=== PATIENT | female | born 1940 | race Caucasian/White ===

== ENCOUNTER 2022-05-20 16:25 | Emergency (ER) | payer MEDICARE, BC, SELFPAY ==
[2022-05-20] VITALS (12 sets, daily range): BP systolic 134–165; BP diastolic 60–86; PULSE 59–85; RESP 18; TEMP 36.6; O2SAT 95–98; BMI 24.0
--- NOTE | 2022-05-20 17:28 | CRLHL7_ITS ---
For Patients: As a result of the Century Cures Act, medical imaging exams and procedure reports are released immediately into your electronic medical record. You may view this report before your referring provider. If you have questions, please contact your health care provider. HISTORY: Chest pain. COMPARISON: None available FINDINGS: A portable erect AP view of the chest was obtained at 1752 hours. The lungs are clear. No focal or diffuse infiltrates are present. There is no sign of pneumothorax or abnormality of the ribs to correlate with the history of chest pain. The heart is normal in size. The mediastinum is normal in appearance. The visualized portions of the components of a reverse right total shoulder prosthesis are in anatomic alignment with no sign of fracture, loosening, or dislocation. There is no sign of fracture of the [place] osseous structures. IMPRESSION: No active disease seen in the chest. Dictated by Jagdeep Smith MD @ 05/20/2022 6:13:31 PM (Electronically Signed)
--- NOTE | 2022-05-20 17:33 | ED.GENADULT ---
HPI - General Adult General Time Seen by Provider: 17:33 Date Seen: 05/20/22 Chief complaint: Chest Pain Stated complaint: Chest pain Time Seen by Provider: 05/20/22 17:13 Source: patient Mode of arrival: ambulatory Limitations: no limitations History of Present Illness HPI narrative: Patient is an 81 year white female who went to the clinic was told to come to the ER for squeezing upper abdominal lower chest pain that lasted for 15 minutes. She has not had any history of heart disease, has had no history of fever, chills, diaphoresis, she felt ?hot? when this was occurring, but then it went away and she has felt back fairly back to normal. She has had no icterus, no change in bowel or bladder color, no gallbladder symptoms. No leg swelling or edema. No of prior chest pain or other true chest pain today, she describes it is in her epigastrium. She saw nurse at the clinic and the clinic was busy so they asked her to come to the ER. Related Data Home Medications Medication Instructions Recorded Confirmed metoprolol succinate 25 mg 25 mg PO DAILY 05/20/22 05/21/22 tablet,extended release 24 hr rosuvastatin 5 mg tablet 5 mg PO HS 05/20/22 05/21/22 aspirin 81 mg capsule 81 mg PO DAILY 05/21/22 05/21/22 Previous Rx's Medication Instructions Recorded meclizine 25 mg tablet 25 mg PO Q6H PRN #10 tabs 05/24/22 Allergies Allergy/AdvReac Type Severity Reaction Status Date / Time No Known Drug Allergies Allergy Verified 05/20/22 16:38 Review of Systems Status of ROS: Reports: 10 or more systems reviewed and unremarkable except as noted in History and below PFSH PFSH Medical History (Updated 05/24/22 @ 08:34 by Rico Yoon MD) Benign paroxysmal positional vertigo Hyperlipidemia Hypertension Myopathy Osteoporosis Surgical History (Updated 05/21/22 @ 19:12 by Aaln Aguilar MD) History of partial hysterectomy Family History (Updated 05/21/22 @ 19:14 by Alan Aguilar MD) Brother Metastatic cancer Mother Heart disease Sister Heart disease Father Alzheimers disease Social History (Updated 05/21/22 @ 19:15 by Alan Aguilar MD) Narrative: She lived in [place] and [facility] Her sister is healthcare power of corporate attorney. Her code status is full. She is a former smoker. She rarely drinks alcohol. No recreational drug use. Highest level of school completed/degree received: high school graduate Smoking Status: Former smoker How often do you have a drink containing alcohol: monthly or less Alcohol type: beer AUDIT-C Alcohol total score: 1 Non-prescribed substance use: denies use Caffeine: Yes service: No Exam Narrative: Exam Narrative: Objective: Patient's vital signs unremarkable, she is alert or x3, no distress, no complaint of chest pain or breathing problem. No abdominal pain Vital signs are unremarkable other than slightly elevated blood pressure, afebrile HEENT is unremarkable Neck is supple Chest is clear Heart rhythm regular without murmur Abdomen benign soft nontender no masses Extremities are no edema neurologic nonfocal grossly Skin warm and dry Const: Vital Signs, click to edit/add: Vital Signs - 24 hr 05/20/22 16:48 05/20/22 18:38 Temperature 97.8 F Pulse Rate [Pulse Oximeter] 85 Respiratory Rate 18 Blood Pressure [Le ft Upper Arm] 165/60 H Pulse Oximetry 98 97 Oxygen Delivery Me thod Room Air Course Vital Signs Vital signs: Initial Vital Signs Temperature 97.8 F 05/20/22 16:48 Temperature Source Temporal Artery Scan 05/20/22 16:48 Pulse Rate 85 05/20/22 16:48 Respiratory Rate 18 05/20/22 16:48 Blood Pressure 165/60 H 05/20/22 16:48 Blood Pressure Mean 95 05/20/22 16:48 Pulse Oximetry 98 05/20/22 16:48 Oxygen Delivery Method 05/20/22 16:48 Vital Signs Temperature 97.8 F 05/20/22 16:48 Pulse Rate 85 05/20/22 16:48 Respiratory Rate 18 05/20/22 16:48 Blood Pressure 165/60 H 05/20/22 16:48 Pulse Oximetry 98 05/20/22 16:48 Oxygen Delivery Method 05/20/22 16:48 Temperature 97.8 F 05/20/22 16:48 Pulse Rate 64 05/20/22 20:35 Respiratory Rate 18 05/20/22 16:48 Blood Pressure 134/86 05/20/22 19:32 Pulse Oximetry 97 05/20/22 20:35 Oxygen Delivery Method 05/20/22 16:48 Medical Decision Making MDM Narrative Medical decision making narrative: Patient had a 15 minutes spell of epigastric tightness lower ribcage tightness, now has improved in is back to baseline. Unclear etiology, I think at this point be blanca to get rule out acute coronary syndrome will get 90 minute troponins, EKGs x2, and will also do electrolytes and LFTs. Certainly also gallbladder disease could be a possibility or GI cause, but I do not see any evidence of that now and it does not continue with her symptoms. Will review her lab studies as they return, IV fluid, aspirin given. Disposition pending findings above. Addendum: Patient's chest x-ray by my read looks unremarkable, her initial troponin other labs look reassuring. She has remained asymptomatic, will repeat an EKG and troponin at 8:00 p.m. if these are negative then I think she can go home rest light activity follow up the regular doctor in the next few days and reassess. Return to ED if there is problems or concerns in the interim. Given this was such a short-lived episode it is hard to determine if this is all negative what was actually occurring. She may have had some intestinal type colic, and will need observation time and light activity and follow-up as mention. Lab Data Labs: Lab Results 05/20/22 05/20/22 05/20/22 Range/Units 18:20 18:20 18:20 WBC 5.63 (4.50-11.00) K/uL RBC 3.80 L (4.00-5.20) m/uL Hgb 11.9 L (12.0-16.0) gm/dL Hct 35.1 (33.0-51.0) % MCV 92 (80-100) fL MCH 31 (26-34) pg MCHC 34 (32-36) gm/dL RDW Coeff of Ojs 13.4 (11.5-15.5) % Plt Count 266 (140-440) K/uL Neut % (Auto) 76.5 H (42.0-72.0) % Lymph % (Auto) 12.3 L (20-44) % [place] % (Auto) 6.9 (0.0-11.0) % Eos % (Auto) 3.7 (0.0-7.0) % Baso % (Auto) 0.4 (0.0-3.0) % Neut # (Auto) 4.30 (1.7-7.0) K/uL Lymph # (Auto) 0.70 L (0.90-2.90) K/uL [place] # (Auto) 0.40 (0.00-0.90) K/UL Eos # (Auto) 0.21 (0.00-0.50) K/uL Baso # (Auto) 0.02 (0.00-0.30) K/uL Abs Immat Gran (auto) 0.01 (0.00-0.30) K/uL Imm/Tot Granulo (auto) 0.2 % Sodium 130 L (135-149) mmol/L Potassium 4.5 (3.6-5.1) mmol/L Chloride 99 (96-114) mmol/L Carbon Dioxide 25 (20-32) mmol/L BUN 22 (7-30) mg/dL Creatinine 0.5 (0.5-1.5) mg/dL Estimated Creat Clear 35.66 Estimated GFR 95 ml/min Glucose 118 H (60-115) mg/dL Calcium 8.8 (8.4-10.6) mg/dL Total Bilirubin 0.5 (0.1-1.5) mg/dL Direct Bilirubin 0.1 (0.0-0.5) mg/dL AST 45 H (12-35) U/L ALT 49 H (4-35) U/L Alkaline Phosphatase 57 (40-150) U/L Troponin I (0.01-0.04) ng/mL C-Reactive Protein < 0.5 L (0.5-1.0) mg/dL Total Protein 6.9 (6.0-8.3) g/dL Albumin 4.1 (3.3-5.0) g/dL Amylase 112 H (18-89) U/L 05/20/22 05/20/22 Range/Units 18:20 20:03 WBC (4.50-11.00) K/uL RBC (4.00-5.20) m/uL Hgb (12.0-16.0) gm/dL Hct (33.0-51.0) % MCV (80-100) fL MCH (26-34) pg MCHC (32-36) gm/dL RDW Coeff of Jos (11.5-15.5) % Plt Count (140-440) K/uL Neut % (Auto) (42.0-72.0) % Lymph % (Auto) (20-44) % [place] % (Auto) (0.0-11.0) % Eos % (Auto) (0.0-7.0) % Baso % (Auto) (0.0-3.0) % Neut # (Auto) (1.7-7.0) K/uL Lymph # (Auto) (0.90-2.90) K/uL [place] # (Auto) (0.00-0.90) K/UL Eos # (Auto) (0.00-0.50) K/uL Baso # (Auto) (0.00-0.30) K/uL Abs Immat Gran (auto) (0.00-0.30) K/uL Imm/Tot Granulo (auto) % Sodium (135-149) mmol/L Potassium (3.6-5.1) mmol/L Chloride (96-114) mmol/L Carbon Dioxide (20-32) mmol/L BUN (7-30) mg/dL Creatinine (0.5-1.5) mg/dL Estimated Creat Clear Estimated GFR ml/min Glucose (60-115) mg/dL Calcium (8.4-10.6) mg/dL Total Bilirubin (0.1-1.5) mg/dL Direct Bilirubin (0.0-0.5) mg/dL AST (12-35) U/L ALT (4-35) U/L Alkaline Phosphatase (40-150) U/L Troponin I 0.01 0.01 (0.01-0.04) ng/mL C-Reactive Protein (0.5-1.0) mg/dL Total Protein (6.0-8.3) g/dL Albumin (3.3-5.0) g/dL Amylase (18-89) U/L Discharge Plan Discharge Clinical Impression: Acute upper abdominal pain Patient Disposition: Home, Self-Care Instructions: Noncardiac Chest Pain (ED) Additional Instructions: Light activity, fluids, continue home medications, follow up with regular doctor in the next 4-7 days. Return to ED sooner problems concerns worsening. Activity Level: Light activity Discharge Diet: Regular Prescriptions: No Action metoprolol succinate 25 mg tablet extended release 24 hr 25 mg PO DAILY Label Comments: TAKE 1 TABLET BY MOUTH EVERY DAY rosuvastatin 5 mg tablet 5 mg PO HS Label Comments: TAKE 1 TABLET (5 MG) BY MOUTH ONCE DAILY WITH EVENING MEAL. aspirin 81 mg capsule 81 mg PO DAILY meclizine 25 mg Tablet 25 mg PO Q6H PRNQty: 10 0RF Rx Instructions: As needed for acute vertigo Follow Up/Referrals: Provider,Not a Local [Referring] - Stand Alone [facility]: [facility] Instructions
--- OUTSIDE RECORDS SUMMARY | 2022-05-20 17:53 | XMS_ITS | Clinical Summary ---
:1940 Author Organization [facility] [place] [address] Care Team Providers Name Role Phone Shayna Flores DO Primary Care Provider Allergies No known active allergies Medications Medication Sig Dispensed Refills Start End Date Status Date multivitamin (MVI) tablet Take 1 tablet by 0 06/09/ 01 Active mouth once daily. 3 calcium citrate-vitamin Mix 1 Tablet in 0 Active D3 500 mg-12.5 mcg /5 liquid then take gram powd by mouth. fluorometholone (FML) 0.1 INSTILL 1 DROP IN 0 Active % ophthalmic suspension BOTH EYES EVERY 1 DAY NEEDED loteprednol (LOTEMAX) 0.5 INSTILL 1 DROP IN 0 Active % ophthalmic suspension BOTH EYES DAILY 1 triamcinolone Apply topically to 80 g 0 Active (ARISTOCORT; KENALOG) 0.1 affected area(s) 3 1 % cream times daily. acetaminophen (TYLENOL Take 1 Tablet (500 0 12/31/19 2 Active EXTRA STRGTH) 500 mg mg) by mouth every 1 tablet 6 hours if needed. Max acetaminophen dose: 4000mg in 24 hrs. diphenhydrAMINE-acetamino Take 1 Tablet by 0 02 Active phen 25-500 mg (Tylenol mouth at bedtime 1 PM Extra Strength) 25-500 if needed. Max mg tablet acetaminophen dose: 4000mg in 24 hrs. vitamin B complex Take 1 Tablet by 0 Active (Vitamins B Complex) mouth once daily. 1 tablet 3x weekly vitamin e 400 unit Take 1 Capsule 0 Active capsule (400 units) by 1 mouth once daily. denosumab (PROLIA) 60 Inject 60 mg 0 05/24 Active mg/mL injection subcutaneous. 1 22 rosuvastatin (CRESTOR) 5 Take 1 Tablet (5 90 Tablet 2 04/20/20 2 Active mg tabletIndications: mg) by mouth once 2 Familial daily with evening hypercholesterolemia meal. metoprolol succinate Take 1 Tablet (25 90 Tablet 3 Active (Toprol XL) 25 mg mg) by mouth once 2 Sustained-Release daily. tabletIndications: Irregular heart beat Hospital, Clinic, or Ordered Dose Route Frequency Start Date End D ate Status Other Facility Administered Medication denosumab (PROLIA) 60 mg SubQ Q 6 MONTHS (01/06/202105/24 Active injection 60 WEEKS) mgIndications: Osteoporosis, unspecified osteoporosis type, unspecified pathological fracture presence denosumab (PROLIA) 60 mg SubQ Q 6 MONTHS (01/14/202206/01 Active injection 60 WEEKS) mgIndications: Osteoporosis, unspecified osteoporosis type, unspecified pathological fracture presence Active Problems Problem Noted Date Closed fracture of right lower extremity with routine healing 12/24/2020 Irregular heart beat 06/09/2012 Other and unspecified hyperlipidemia 06/09/2012 Encounters Date Type Specialty Care Team Description 05/20/2022 Nurse Triage Shayna Flores Chest Pain DO Kristine 05/20/2022 Telephone Samir Andujar Follow Up MD Andre 05/19/2022 Office Visit Samir Andujar Follow Up (Di scuss muscle MD Andre biopsy.) 05/19/2022 Travel 05/08/2022 Telephone Samir Andujar Results (resu lt questions) MD Andre 05/06/2022 Ancillary Procedure 05/06/2022 Orders Only Lab, [facility] 05/06/2022 Ancillary Procedure 05/06/2022 Travel 04/29/2022 Office Visit Samir Andujar Follow Up (Fo llow up EMG ) MD Andre 04/29/2022 Travel 04/20/2022 Refill Shayna Flores Refill Reques t DO Kristine (rosuvastatin a nd metoprolol ) 03/25/2022 Office Visit Samir Andujar Consult (Cons ult-Right leg MD Andre weakness/Proxim al muscle weakness ) 03/25/2022 Telephone Samir Andujar Questions (NE DAISY Powell MD APPOINTMENT [facility]) 03/25/2022 Travel 03/16/2022 Office Visit Pavel Hampton Musculoskelet traci Wagoner MD (Consult back a nd right leg, review MRI ) 03/16/2022 Travel from Last 3 Months Immunizations Name Administration Dates Next Due Pneumococcal Poly,23-Valent (Pneumovax) 08/22/2008 Pneumococcal conj 13-Valent (Prevnar 13) 04/17/2015 Tdap 06/09/2012, 04/20/2011 Zoster (Shingrix-RZV, recombinant) 10/28/2017 Zoster (Zostavax-ZVL, live) 08/30/2008 Family History Medical History Relation Name Comments Cancer Brother metastatic CA Other Father d at 72 yo - dem entia Heart Disease Mother had pacemaker Other Mother d at 81 - lung d z Heart Disease Sister 2 sisters had ab lations Relation Name Status Comments Brother Father Mother Sister Social History Tobacco Use Types Packs/Day Years Used Date Smoking Tobacco: Former Cigarettes 0.3 15 Quit : 06/07/1971 Smokeless Tobacco: Never Tobacco Cessation: Counseling Given: Yes Alcohol Use Standard Drinks/Week Comments Yes 0 (1 standard drink = 0.6 oz pure alcoho l) 1 beer per month Sex Assigned at Date Recorded Not on file COVID-19 Exposure Response Date Recorded In the last 10 days, have you been in contact with No / Unsu re 05/19/2022 3:12 PM ERP ENGINEER someone who was confirmed or suspected to have Coronavirus/COVID-19? Obstetrics History Para Term AB IAB SAB Ectopic Multiple Living Live Births 6 4 2 2 3 Date Outcome GA Total Labor/2nd/3rd Weight Sex Delivery Anes PTL Sherice A 1 A5 Name Clin Labor Para Para Para Para SAB SAB Comments Son killed in MVA Last Filed Vital Signs Vital Sign Reading Time Taken Comments Blood Pressure 122/72 05/19/2022 3:19 PM ERP ENGINEER Pulse 89 05/19/2022 3:19 PM ERP ENGINEER Temperature 36.7 ??C (98 ??F) 03/16/2022 8:07 AM CDT Respiratory Rate 15 02/02/2022 11:09 AM CDT Oxygen Saturation 96% 05/19/2022 3:19 PM ERP ENGINEER Inhaled Oxygen Concentration - - Weight 52.6 kg (116 lb) 05/19/2022 3:19 PM ERP ENGINEER Height 149.9 cm (4' 11) 05/19/2022 3:19 PM ERP ENGINEER Body Mass Index 23.43 05/19/2022 3:19 PM ERP ENGINEER Plan of Treatment Health Maintenance Due Date Last Done Comments DEXA/DXA scan for age 65+ 2006 Medicare Wellness for age 65+ 2006 Zoster (shingles) series for age 50+ (3 of 12/23/201710/28, 08/30/2008 3) Influenza for age 65+ 02/05/2022 COVID-19 vaccine series (#1) 03/14/2022 03/14/2022 Tetanus booster 06/09/2022 06/09/2012, 04/20/2011 Depression screening for age 12+ 01/13/2023 01/13/2022, 01/2022 BMI (ht and wt on same day) for age 18+ 05/19/2023 05/19/20 22 Tdap Completed 06/09/2012, 04/20/2011 Pneumococcal series for age 65+ Completed 04/17/2015, 08/05 Procedures Procedure Name Priority Date/Time Associated Comments Diagnosis CT CHEST ABDOMEN Routine 05/06/2022 11:12 Myositis, Results for this PELVIS W AM ERP ENGINEER unspecified procedure are i n myositis type, the results unspecified site section. CREATININE,ISTAT Routine 05/06/2022 10:07 Observation or Resul ts for this AM ERP ENGINEER evaluation for procedure are in suspected condition the resu lts section. XR MAMMO YENIFER BILAT Routine 05/06/2022 9:27 AM Myositis, Re sults for this SCREEN ERP ENGINEER unspecified procedure are i n myositis type, the results unspecified site section. Visit for screening mammogram SCAN 04/22/2022 12:00 Results for this CORRESP-DIAGNOSTICS AM ERP ENGINEER procedur e are in the results section. SCAN 04/22/2022 12:00 Results for this CORRESP-DIAGNOSTICS AM ERP ENGINEER procedur e are in the results section. TSH WITH REFLEX Routine 03/16/2022 9:25 AM Proximal muscle Res ults for this CDT weakness procedure are i n the results section. HEPATIC FUNCTION PANEL Routine 03/16/2022 9:25 AM Proximal mus matias Results for this CDT weakness procedure are i n the results section. LD,TOTAL Routine 03/16/2022 9:25 AM Proximal muscle Result s for this CDT weakness procedure are i n the results section. CK TOTAL Routine 03/16/2022 9:25 AM Proximal muscle Result s for this CDT weakness procedure are i n the results section. VITAMIN B12 Routine 03/16/2022 9:25 AM Proximal muscle Result s for this CDT weakness procedure are i n the results section. LYME SCREEN W/REFLEX Routine 03/16/2022 9:25 AM Proximal muscl e Results for this CDT weakness procedure are i n the results section. SEDIMENTATION RATE Routine 03/16/2022 9:25 AM Proximal muscle Results for this CDT weakness procedure are i n the results section. C-REACTIVE PROTEIN Routine 03/16/2022 9:25 AM Proximal muscle Results for this CDT weakness procedure are i n the results section. from Last [address] CHEST ABDOMEN PELVIS W (05/06/2022 11:12 AM ERP ENGINEER) Anatomical Region Laterality Modality Abdomen, Pelvis, AORTA, LIVER, SPLEEN, CHEST Computed Tomography Specimen (Source) Anatomical Collection Method Collection Time Re ceived Time Location / / Volume Laterality 05/06/2022 1:55 PM ERP ENGINEER Impressions 05/06/2022 1:55 PM ERP ENGINEER 1. No evidence for occult malignancy or metastatic disease. 2. Two tiny benign calcified granulomas within the right upper lobe and the other in the right lower lobe. 3. Right total shoulder arthroplasty. Ol d compression fracture of T12. Tiny left renal cyst. Please note that all CT scans at this [facility] use dose modulation, iterative reconstruction, and/or weight-based dosing when appropriate to reduce radiation dose to as low as reasonably achievable. Dictated by Samir Flor MD @ May 06 ??1:55PM (Electronically Signed) ?? Narrative 05/06/2022 1:55 PM ERP ENGINEER For Patients: ??As a result of the Century Cures Act, medical imaging exams and procedure report s are released immediately into your [facility] medical record. ??You may view this report before your referring provider. ??If you have questions, please contact your health care provider. INDICATION: 81 year-old female. Possible inflammator y myositis. Evaluate for occult malignancy. Remote history of a T12 compression fracture 6-7 years ago. Partial hysterectomy. 15-20 pack-year smoking history. The patient quit smoking in 1971. TECHNIQUE: CT of the chest abdomen and pelvis. 75 cc nonionic Omnipaque 350 administere d. COMPARISON: Correlation is made with an MRI lumbar s erwin January 19, 2022. FINDINGS: CT chest: Tiny calcified granuloma right upper lobe of the lung, image 40 series 2. Tiny calcified granuloma right lower lobe of the lung image 143 series 2. Two or 3 very tiny intrapulmonary cysts on t he right. Clear left lung. No evidence f or occult malignancy or metastatic lung disease. There are no pleural or pericardial effusions. The trachea and mainstem bronchi are patent and clear. The thoraci c aorta is of normal caliber. The includ ed breast tissue is within normal limits. The included thyroid gland is normal. Right shoulder arthroplasty. CT of the abdomen and pelvis: Normal-josee earing liver, spleen, pancreas, gallbladder, and both adrenal glands. 8 mm left renal cyst. No hydronephrosis, stone, or solid renal mass. Vascular calcification within a normal caliber abdominal aorta and iliac arteries. Normal inferior vena cava. The urinary bladder is unremarkable. Pre sumed supracervical hysterectomy. No adnexal mass. No evidence for abdominal pelvic ascites or lymphadenopathy. No bowel obstruction or ileus. No evidence for josee endicitis or diverticulitis. The stomach and duodenum are within normal limits. Both inguinal regions are normal. The included skeleton demonstrates an ol d compression fracture of T12. Procedure Note Samir Flor MD - 05/06/2022Formatti ng of this note might be different from the original. For Patients: As a result of the ntury Cures Act, medical imaging exams and procedure reports are released immediately into your electronic medical record. You may view this report before your referring provider. If you have questions, please contact [facility] health care provider. INDICATION: 81 year-old female. Possible inflammator y myositis. Evaluate for occult malignancy. Remote history of a T12 compression fracture 6-7 years ago. Partial hysterectomy. 15-20 pack-year smoking history. The patient quit smoking in 1971. TECHNIQUE: CT of the chest abdomen and pelvis. 75 cc nonionic Omnipaque 350 administere d. COMPARISON: Correlation is made with an MRI lumbar s erwin January 19, 2022. FINDINGS: CT chest: Tiny calcified granuloma right upper lobe of the lung, image 40 series 2. Tiny calcified granuloma right lower lobe of the lung image 143 series 2. Two or 3 very tiny intrapulmonary cysts on the right. Clear left lung. No evidence for occult malignancy or metastatic lung disease. There are no pleural or pericardial effusions. The trachea and mainstem bronchi are patent and clear. The thoracic aorta is of normal caliber. The included breast tissue is within normal limits. The included thyroid gland is normal. Right shoulder arthroplasty. CT of the abdomen and pelvis: Normal-josee earing liver, spleen, pancreas, gallbladder, and both adrenal glands. 8 mm left renal cyst. No hydronephrosis, stone, or solid renal mass. Vascular calcification within a normal caliber abdominal aorta and rosie ac arteries. Normal inferior vena cava. The urinary bladder is unremarkable. Pre sumed supracervical hysterectomy. No adnexal mass. No evidence for abdominal pelvic ascites or lymphadenopathy. No bowel obstruction or ileus. No evidence for appendicitis or diverticulitis. The stom ach and duodenum are within normal limits. Both inguinal regions are normal. The included skeleton demonstrates an ol d compression fracture of T12. IMPRESSION: 1. No evidence for occult malignancy or metastatic disease. 2. Two tiny benign calcified granulomas within the right upper lobe and the other in the right lower lobe. 3. Right total shoulder arthroplasty. Ol d compression fracture of T12. Tiny left renal cyst. Please note that all CT scans at this [facility] use dose modulation, iterative reconstruction, and/or weight-based dosing when appropriate to reduce radiation dose to as low as reasonably achievable. Dictated by Samir Flor MD @ May 06 1:55PM (Electronically Signed) Samir Andujar MD CT (ABNORMAL) CREATININE,ISTAT (05/06/2022 10:07 AM ERP ENGINEER) Analysis Performed At [facility] Time Signature CREATININE, 0.30 (L) 0.57 - 05/06/2022 Personally POCT 1.11 mg/dL 10:13 AM ERP ENGINEER [facility] Comment: Caution: Patients taking Hydrox yurea have falsely increased iStat Creatinine results. Verify creatinine results order ing a Creatinine (53481.2) eGFR >90 >90 mL/min/1.73m2 05/06/2022 10:13 AM CS T [facility] Comment: As of 2021, eGFR is calcu lated by the CKD-EPI creatinine equation without race adjustment. eGFR can be inf luenced by muscle mass, exercise, and diet. The reported eGFR is an estimation only and is only applicable if the renal function is stable. Specimen Anatomical Collection Method Collection Time Receive d Time (Source) Location / / Volume Laterality Blood BLOOD SPECIMEN / 05/06/2022 10:07 022 Unknown AM ERP ENGINEER 10:13 AM ERP ENGINEER Samir Andujar MD CHEMISTRY Performing Organization Address City/State/ZIP Code Phon e Number [facility] [address] [place] [address] XR MAMMO YENIFER BILAT SCREEN (05/06/2022 9:27 AM ERP ENGINEER) Anatomical Region Laterality Modality BREASTS, Breast Left, Breast Right Bilateral Mammo graphy Specimen (Source) Anatomical Location Collection Method / Collectio n Time Received Time / Laterality Volume Impressions 05/13/2022 3:56 PM ERP ENGINEER ??There is no radiographic evidence for malignancy. ??Recommend annual mammograms. MAMMOGRAM ASSESSMENT: ??ACR 1 Negative PATIENTS: You will also receive a letter with your examination results in an easy to read format. ??If you have qu estions about your results, please contact your referring provider. Narrative 05/13/2022 3:56 PM ERP ENGINEER For Patients: As a result of the Century Cures Act, medical imaging exams and procedure reports are released immediately into your electronic medical record. You may view this report before your referring provider. If you have questions, please contact [facility] care provider. XR MAMMO YENIFER BILAT SCREEN [[id number]] CLINICAL HISTORY: ??This is an asymptoma tic 81 y.o. patient. INDICATION FOR EXAM: Mammogram Screening . TECHNIQUE: CC & MLO views were obtained. ??This study was evaluated with the assistance of Computer-Aided Detecti on. Breast Tomosynthesis was used in interpretation. COMPARISON FILM: Yes 02/20/21 Outside Facility 11/17/19 Outside Facility FINDINGS: ??The breasts have scattered a reas of fibroglandular density. There are no dominant masses, suspicious micro calcifications or areas of architectural distortion. Shayna Flores DO MAMMO SCAN CORRESP-DIAGNOSTICS (04/22/2022 12:00 AM ERP ENGINEER) Narrative 04/22/2022 12:00 AM ERP ENGINEER This result has an attachment that is no t available. Ordered by an unspecified provider. Other Clinical Staff OTHER SCAN CORRESP-DIAGNOSTICS (04/22/2022 12:00 AM ERP ENGINEER) Narrative 04/22/2022 12:00 AM ERP ENGINEER This result has an attachment that is no t available. Ordered by an unspecified provider. Other Clinical Staff OTHER SEDIMENTATION RATE (03/16/2022 9:25 AM CDT) Patholo gist Method Time Signature SEDIMENTATION RATE 15 <30 mm/hr 03/16/2022 DEVON BELLA LT 4:02 PM CDT [facility] Specimen Anatomical Collection Method Collection Time Receive d Time (Source) Location / / Volume Laterality Blood BLOOD SPECIMEN / [facility] / 03/16/2022 9:25 AM 03/16 9:26 Unknown Unknown CDT AM CDT Pavel Hampton MD HEMATOLOGY Performing Organization Address City/State/ZIP Code Phon e Number [facility] [address] [place] [address] LABORATORY-[facility] 2000 LABORATORY TSH WITH REFLEX (03/16/2022 9:25 AM CDT) athologist Signature TSH 1.40 0.35 - 4.94 03/16/2022 [facility] uIU/mL 5:30 PM CDT LABORATORY-CENTR AL LABORATORY Specimen Anatomical Collection Method Collection Time Receive d Time (Source) Location / / Volume Laterality Blood BLOOD SPECIMEN / [facility]fly / 03/16/2022 9:25 AM 03/16 9:26 Unknown Unknown CDT AM CDT Narrative [facility] LABORATORY-CENTRAL LABORAT ORY - 03/16/2022 5:30 PM CDT In Adults, TSH values between 5.00 and 10.00 uIU/ml do not necessarily indicate the presence of Hyp othyroidism. Correlation with clinical findings such as presence of goiter and/or Thyroperoxidase (TPO) Antibody ma y be helpful. For more information please refer to FAITH 20 ; 291: 228-238. Pavel Hampton MD CHEMISTRY Performing Organization Address [facility] Phon e Number [facility] [address] [facility] [place] [address] LABORATORY-CENTRAL 2000 LABORATORY LYME SCREEN W/REFLEX (03/16/2022 9:25 AM CDT) Analysis Performed At Patho logist Time Signature LYME SCREEN Negative Negative 03/17/2022 [facility] W/REFLEX 9:22 AM CDT [facility] Comment: No laboratory evidence of infection with B. burgdorferi (Lyme disease). Negative results may occur in patients r ecently infected (less than or equal to 14 days) with B. burgdorferi. If recent infection is suspected, repeat testing on a new sample collected in 7-14 days is recommended. Specimen Anatomical Collection Method Collection Time Receive d Time (Source) Location / / Volume Laterality Blood BLOOD SPECIMEN / Butterfly / 03/16/2022 9:25 AM 03/16 9:26 Unknown Unknown CDT AM CDT Pavel Hampton MD SEND OUTS Performing Organization Address [facility] Phon e Number [facility] [address] [place] [address] LABORATORY-CENTRAL 2000 LABORATORY (ABNORMAL) LD,TOTAL (03/16/2022 9:25 AM CDT) P athologist Signature LD,TOTAL 346 (H) 125 - 220 03/16/2022 [facility] IU/L 5:18 PM CDT LABORATORY[facility] Specimen Anatomical Collection Method Collection Time Receive d Time (Source) Location / / Volume Laterality Blood BLOOD SPECIMEN / Butterfly / 03/16/2022 9:25 AM 03/16 9:26 Unknown Unknown CDT AM CDT Pavel Hampton MD CHEMISTRY Performing Organization Address City/[facility]/ZIP Code Phon e Number [facility] [address] [place] [address] [place] [address] LABORATORY-[facility] 2000 LABORATORY (ABNORMAL) C-REACTIVE PROTEIN (03/16/2022 9:25 AM CDT) Analysis Performed At Patho logist Time [facility] C-REACTIVE 1.11 (H) <0.50 03/16/2022 [facility] PROTEIN mg/dL 5:16 PM CDT [facility] Specimen Anatomical Collection Method Collection Time Receive d Time (Source) Location / / Volume Laterality Blood BLOOD SPECIMEN / Butterfly / 03/16/2022 9:25 AM 03/16 9:26 Unknown Unknown CDT AM CDT Pavel Hampton MD CHEMISTRY Performing Organization Address City/State/ZIP Code Phon e Number [facility] [address] [place] [address] LABORATORY-C[facility]TR[facility] 2000 LABORATORY (ABNORMAL) VITAMIN B12 (03/16/2022 9:25 AM CDT) athologist Signature VITAMIN B12 1,353 (H) 180 - 914 03/17/2022 [facility] pg/mL 1:25 PM CDT [facility] Specimen Anatomical Collection Method Collection Time Receive d Time (Source) Location / / Volume Laterality Blood BLOOD SPECIMEN / Butterfly / 03/16/2022 9:25 AM 03/16 9:26 Unknown Unknown CDT AM CDT Pavel Hampton MD CHEMISTRY Performing Organization Address City/[facility]/ZIP Code Phon e Number [facility] [address] [facility] [place] [address] LABORATORY-C[facility] 2000 LABORATORY (ABNORMAL) CK TOTAL (03/16/2022 9:25 AM CDT) athologist Signature CK,TOTAL 382 (H) 29 - 168 03/16/2022 [facility] IU/L 5:20 PM CDT LAB[facility]ATORY[facility] Specimen Anatomical Collection Method Collection Time Receive d Time (Source) Location / / Volume Laterality Blood BLOOD SPECIMEN / Butterfly / 03/16/2022 9:25 AM 03/16 9:26 Unknown Unknown CDT AM CDT Pavel Hampton MD CHEMISTRY Performing Organization Address City/State/ZIP Code Phon e Number [facility] [address] [place] [address] LABORATORY-C[facility]TRAL 2000 LABORATORY (ABNORMAL) HEPATIC FUNCTION PANEL (03/16/2022 9:25 AM CDT) Analysis Performed At Patho logist Time Signature ALBUMIN 4.1 3.2 - 4.6 03/16/2022 [facility] g/dL 5:19 PM CDT [facility] PROTEIN,TOTAL 7.2 6.0 - 8.0 03/16/2022 [facility] g/dL 5:19 PM CDT [facility] GLOBULIN 3.1 2.0 - 3.7 03/16/2022 [facility] g/dL 5:19 PM CDT [facility] A/G RATIO 1.3 1.0 - 2.0 03/16/2022 [facility] 5:19 PM CDT [facility] BILIRUBIN,TOTAL 0.6 0.2 - 1.2 03/16/2022 [facility] mg/dL 5:19 PM CDT [facility] BILIRUBIN,DIRECT 0.3 0.1 - 0.5 03/16/2022 [facility] mg/dL 5:19 PM CDT [facility] BILIRUBIN,INDIRE 0.3 0.2 - 0.8 03/16/[address] [facility] [address] mg/dL 5:19 PM CDT [facility] ALK PHOSPHATASE 63 50 - 136 03/16/2022 [facility] IU/L 5:19 PM CDT [facility] ALT (SGPT) 49 (H) 8 - 45 03/16/2022 [facility] IU/L 5:19 PM CDT [facility] AST (SGOT) 38 2 - 40 03/16/2022 [facility] IU/L 5:19 PM CDT [facility] Specimen Anatomical Collection Method Collection Time Receive d Time (Source) Location / / Volume Laterality Blood BLOOD SPECIMEN / Butterfly / 03/16/2022 9:25 AM 03/16 9:26 Unknown Unknown CDT AM CDT Pavel Hampton MD CHEMISTRY Performing Organization Address City/State/ZIP Code Phon e Number [facility] [address] [place] [address] LABORATORY-[facility] 2000 LABORATORY from Last 3 Months Insurance Payer Benefit Plan / Subscriber ID Effective Dates Phone Addre ss Type Group MEDICARE - PB MEDICARE PB [id number] 2006-Presen ATTN : CLAIMS USE ONLY ONLY t [address] [place] [address] BLUE [employer]OSS BL[employer] OF [id number] 2018-Presen [address] [address] [place] [address] [address] (Home) [place] [address] Care Teams Compliance Monitor Relationship Specialty Start Date End Date Shayna Flores DO PCP - General Family Practice 01/12/22 [address] [place], [place] [id number]
[2022-05-20 18:34] LABS: Basophils Absolute Auto 0.02 K/uL (0.00-0.30); Basophils Percent Auto 0.4 % (0.0-3.0); Eosinophils Absolute Auto 0.21 K/uL (0.00-0.50); Eosinophils Percent Auto 3.7 % (0.0-7.0); Hematocrit 35.1 % (33.0-51.0); Hemoglobin* 11.9 gm/dL (12.0-16.0); Immature Granulocytes Abs Auto 0.01 K/uL (0.00-0.30); Immature Granulocytes Pct Auto 0.2 %; Lymphocytes Percent Auto 12.3 % (20-44); Mean Corpuscular HGB Conc 34 gm/dL (32-36); Mean Corpuscular Hemoglobin 31 pg (26-34); Mean Corpuscular Volume 92 fL (80-100); Monocytes Percent Auto 6.9 % (0.0-11.0); Neutrophils Percent Auto 76.5 % (42.0-72.0); Platelet Count* 266 K/uL (140-440); RDW Coefficient of Variation % 13.4 % (11.5-15.5); Slide Review Reflex No; White Blood Count* 5.63 K/uL (4.50-11.00)
[2022-05-20] MEDS: ASPIRIN 81 MG TAB.CHEW 324 MG PO (18:35)
[2022-05-20 18:49] LABS: Chloride* 99 mmol/L (96-114); Potassium* 4.5 mmol/L (3.6-5.1); Sodium* 130 mmol/L (135-149)
[2022-05-20 18:50] LABS: Albumin* 4.1 g/dL (3.3-5.0)
[2022-05-20 18:52] LABS: Amylase* 112 U/L (18-89); Blood Urea Nitrogen* 22 mg/dL (7-30); Carbon Dioxide* 25 mmol/L (20-32); Creatinine* 0.5 mg/dL (0.5-1.5); Est. Creatinine Clearance* 35.66; Estimated Glomerular Filt Rate 95 ml/min; Glucose* 118 mg/dL (60-115)
[2022-05-20 18:53] LABS: Alanine Aminotransferase* 49 U/L (4-35); Alkaline Phosphatase* 57 U/L (40-150); Aspartate Amino Transferase* 45 U/L (12-35); Bilirubin Direct* 0.1 mg/dL (0.0-0.5); Bilirubin Total* 0.5 mg/dL (0.1-1.5); Calcium* 8.8 mg/dL (8.4-10.6); Total Protein* 6.9 g/dL (6.0-8.3)
[2022-05-20 18:57] LABS: C Reactive Protein* < 0.5 mg/dL (0.5-1.0)
[2022-05-20 19:04] LABS: Troponin I* 0.01 ng/mL (0.01-0.04)
[2022-05-20 20:40] LABS: Troponin I* 0.01 ng/mL (0.01-0.04)
== END 2022-05-20 21:01 | disposition home or self-care (01) ==
PROVIDERS: Emergency Provider Family Medicine; PCP Family Medicine
DX: R10.10 Upper abdominal pain, unspecified (principal)
CPT/HCPCS: 36415; 71045; 80048; 80076; 82150; 84484; 85025; 86140; 93005; 94761; 99285; A9270

== ENCOUNTER 2022-05-21 14:03 | Outpatient (CLI) | payer MEDICARE, BC, SELFPAY | END 2022-05-21 14:04 | disposition home or self-care (01) | LOC: AMB 05-28 11:40 | PROVIDERS: PCP Family Medicine; Visit Provider Internal Medicine | DX: R42 Dizziness and giddiness (principal) | CPT/HCPCS: A0425; A0427 ==

== ENCOUNTER 2022-05-21 14:38 | Observation (INO) | payer MEDICARE, BC, SELFPAY ==
[2022-05-21] VITALS (11 sets, daily range): BP systolic 153–202; BP diastolic 68–94; PULSE 65–99; RESP 14–16; TEMP 36.5–36.6; O2SAT 94–100; BMI 23.8
--- NOTE | 2022-05-21 15:03 | ED_ITS ---
HPI - General Adult General Time Seen by Provider: 15:03 Date Seen: 05/21/22 Chief complaint: Dizziness/Vertigo Stated complaint: Dizzy Time Seen by Provider: 05/21/22 15:03 Source: patient and RN notes reviewed Mode of arrival: ambulatory Limitations: no limitations History of Present Illness HPI narrative: This 81-year-old female was out brushing snow off her front steps with a broom when she became suddenly very dizzy. It sounds as if it was spinning or imbalance type stitch situation for her. She had to hang onto the suresh to get back into the house and hang onto the wall until she got which air. She was in yesterday with an episode of pressure along her rib cage lower abdomen. Had evaluation that was negative. She does admit that she had episode of dizziness prior to coming in with that. She is feeling better lying still but still feels a sense of dizziness. She states prior to me coming in, she did try to sit up in made her feel little bit nauseated. She is having no pain. Denies any trauma, no head trauma. No fevers or chills. No tinnitus, baseline is a bit hard of hearing but no noted hearing changes. She recollects that she has had an episode of vertigo before. She remembers when she had a neighbor come and sit with her and help her get into a bed as she could not even walk on her own because she was so imbalanced. She denies any double vision, blurry vision, speech is normal. She has had no problems moving her arms or legs, has not noticed any incoordination. Does feel imbalanced with this sensation, sounds as as if it is consistent with a spinning or vertiginous type feeling. She has not had any chest pain no palpitations. None of the squeezing sensation that she was feeling yesterday. Related Data Home Medications Medication Instructions Recorded Confirmed metoprolol succinate 25 mg mg PO 05/20/22 tablet,extended release 24 hr rosuvastatin 5 mg tablet mg 05/20/22 triamcinolone acetonide 0.1 % applic topical 05/20/22 topical cream aspirin 81 mg capsule 81 mg PO DAILY 05/21/22 05/21/22 Allergies Allergy/AdvReac Type Severity Reaction Status Date / Time No Known Drug Allergies Allergy Verified 05/20/22 16:38 Review of Systems Status of ROS: Reports: 10 or more systems reviewed and unremarkable except as noted in History and below FORMERLY [facility], [facility] PFS Medical History Hypertension Social History Smoking Status: Former smoker How often do you have a drink containing alcohol: monthly or less AUDIT-C Alcohol total score: 1 Non-prescribed substance use: denies use Exam Const: Vital Signs, click to edit/add: Vital Signs - 24 hr 05/21/22 14:42 Temperature 97.9 F Pulse Rate [Pulse Oximeter] 66 Respiratory Rate 14 Blood Pressure [Ri ght Upper Arm] 154/94 H Pulse Oximetry 98 Documenting provider has reviewed patient's vital signs: yes Common normals: no apparent distress, average body habitus, oriented x3, no limitations, healthy appearing and alert General appearance: cooperative, comfortable, well kempt and well developed HENMT: Common normals: normocephalic, head/scalp atraumatic, hearing grossly normal bilaterally, external ears normal, external nose normal, nasal mucous me mbranes and turbinates normal, moist oral mucous membranes, oropharynx normal, dentition normal and gingiva normal Head and scalp: normocephalic and atraumatic Nose: external nose normal and nasal mucous membranes and turbinates normal External ear: external ears normal Eye: Common normals: PERRL, EOMs intact bilaterally, conjunctivae normal and no scleral icterus Conjunctiva: conjunctiva(e) normal Pupil: PERRL Neck & C-Spine: Common normals: full ROM, no lymphadenopathy, supple, no meningeal signs, no JVD and thyroid normal Thyroid: thyroid normal Resp: Common normals: normal respiratory effort, no retractions, no use of accessory muscles and clear to auscultation bilaterally Auscultation: clear to auscultation bilaterally Cardio: Common normals: no JVD, regular rate, regular rhythm, S1 normal heart sound, S2 normal heart sound, no gallops, no clicks and no murmurs Rate: regular rate Rhythm: regular rhythm Heart sounds: S1 normal and S2 normal GI: Common normals: Normal to inspection, nondistended, normoactive bowel sounds present Extremity: Common normals: no calf tenderness and no pedal edema Neuro: Common normals: oriented x3, CN's II-XII intact bilaterally (Does have left beating horizontal nystagmus), moves all extremities, no focal motor deficits and no sensory deficits noted Sensorium/orientation: alert Meningeal signs: no meningeal signs Coordination/balance: [id number] test normal Motor exam: strength 5/5 throughout, no pronator drift, no tremor noted, no asterixis, no fasciculations and muscle tone normal throughout Coordination: [id number]-[id number] test normal Other: HINTS is normal on my examination. NIH is 0 at this time. Psych: Appearance: well kempt Course Course Hospital Course: This certainly seems as if it is peripheral vertigo but reviewed with patient and her relative that is is extremely difficult to diagnosis based on clinical exam alone. Given her age, do feel we should proceed with neuro imaging. They are in agreement. I see her sodium was mildly low yesterday, could contribute to vertigo will recheck some labs today including thyroid and magnesium. We will give her some meclizine 250 mL of normal saline at this time. Reevaluation(s) Reevaluation #1: Reviewed no acute changes on head CT CT at this time. Her sodium is improved from yesterday. She is feeling a little nauseated at this time, had recently got up to the bathroom and required 2 nurses to get her up. They felt that she was a little ?wobbly?. She does reside with her sister, patient does not feel that she can safely manage at home at this time. Did review that at this time this would likely be an observation stay. Have subsequently spoken with Dr. Aguilar. He agrees to accept the patient. Time: 17:24 Vital Signs Vital signs: Initial Vital Signs Temperature 97.9 F 05/21/22 14:42 Temperature Source Temporal Artery Scan 05/21/22 14:42 Pulse Rate 66 05/21/22 14:42 Pulse Rhythm 05/21/22 14:42 Respiratory Rate 14 05/21/22 14:42 Blood Pressure 154/94 H 05/21/22 14:42 Blood Pressure Mean 114 05/21/22 14:42 Blood Pressure Position Supine 05/21/22 14:42 Pulse Oximetry 98 05/21/22 14:42 Vital Signs Temperature 97.9 F 05/21/22 14:42 Pulse Rate 66 05/21/22 14:42 Respiratory Rate 14 05/21/22 14:42 Blood Pressure 154/94 H 05/21/22 14:42 Pulse Oximetry 98 05/21/22 14:42 Temperature 97.9 F 05/21/22 14:42 Pulse Rate 66 05/21/22 14:42 Respiratory Rate 14 05/21/22 14:42 Blood Pressure 154/94 H 05/21/22 14:42 Pulse Oximetry 98 05/21/22 14:42 Medical Decision Making Lab Data Lab results reviewed: Yes I reviewed the patient's lab results Labs: Lab Results 05/21/22 05/21/22 05/21/22 Range/Units 15:34 16:20 16:20 WBC 4.63 (4.50-11.00) K/uL RBC 4.25 (4.00-5.20) m/uL Hgb 13.2 (12.0-16.0) gm/dL Hct 39.1 (33.0-51.0) % MCV 92 (80-100) fL MCH 31 (26-34) pg MCHC 34 (32-36) gm/dL RDW Coeff of Jos 13.5 (11.5-15.5) % Plt Count 259 (140-440) K/uL Neut % (Auto) 78.9 H (42.0-72.0) % Lymph % (Auto) 11.7 L (20-44) % [place] % (Auto) 7.1 (0.0-11.0) % Eos % (Auto) 1.7 (0.0-7.0) % Baso % (Auto) 0.6 (0.0-3.0) % Neut # (Auto) 3.70 (1.7-7.0) K/uL Lymph # (Auto) 0.50 L (0.90-2.90) K/uL [place] # (Auto) 0.30 (0.00-0.90) K/UL Eos # (Auto) 0.08 (0.00-0.50) K/uL Baso # (Auto) 0.03 (0.00-0.30) K/uL Sodium 132 L (135-149) mmol/L Potassium 3.5 L (3.6-5.1) mmol/L Chloride 97 (96-114) mmol/L Carbon Dioxide 27 (20-32) mmol/L BUN 15 (7-30) mg/dL Creatinine 0.4 L (0.5-1.5) mg/dL Estimated Creat Clear 35.34 Estimated GFR 100 ml/min Glucose 119 H (60-115) mg/dL Calcium 9.1 (8.4-10.6) mg/dL Magnesium (1.5-2.6) mg/dL Total Bilirubin 0.6 (0.1-1.5) mg/dL AST 41 H (12-35) U/L ALT 48 H (4-35) U/L Alkaline Phosphatase 75 (40-150) U/L Total Protein 7.8 (6.0-8.3) g/dL Albumin 4.6 (3.3-5.0) g/dL TSH (0.270-4.200) uIU/mL SARS-CoV-2 (PCR) Negative SARS-CoV-2 (Negative) 05/21/22 05/21/22 Range/Units 16:20 16:20 WBC (4.50-11.00) K/uL RBC (4.00-5.20) m/uL Hgb (12.0-16.0) gm/dL Hct (33.0-51.0) % MCV (80-100) fL MCH (26-34) pg MCHC (32-36) gm/dL RDW Coeff of Jos (11.5-15.5) % Plt Count (140-440) K/uL Neut % (Auto) (42.0-72.0) % Lymph % (Auto) (20-44) % [place] % (Auto) (0.0-11.0) % Eos % (Auto) (0.0-7.0) % Baso % (Auto) (0.0-3.0) % Neut # (Auto) (1.7-7.0) K/uL Lymph # (Auto) (0.90-2.90) K/uL [place] # (Auto) (0.00-0.90) K/UL Eos # (Auto) (0.00-0.50) K/uL Baso # (Auto) (0.00-0.30) K/uL Sodium (135-149) mmol/L Potassium (3.6-5.1) mmol/L Chloride (96-114) mmol/L Carbon Dioxide (20-32) mmol/L BUN (7-30) mg/dL Creatinine (0.5-1.5) mg/dL Estimated Creat Clear Estimated GFR ml/min Glucose (60-115) mg/dL Calcium (8.4-10.6) mg/dL Magnesium 1.8 (1.5-2.6) mg/dL Total Bilirubin (0.1-1.5) mg/dL AST (12-35) U/L ALT (4-35) U/L Alkaline Phosphatase (40-150) U/L Total Protein (6.0-8.3) g/dL Albumin (3.3-5.0) g/dL TSH 1.100 (0.270-4.200) uIU/mL SARS-CoV-2 (PCR) (Negative) Imaging Data CT scan - head: Attestation: I have reviewed the pertinent imaging results. Radiologist's impression: Patient: FARIDA FRASER Facility:?[facility] Patient ID:?[id number] Site Patient ID:?[id number]. Site :?1940 Study:?CT Head W/O STROKE/NON ACUTE-05/21/2022 4:03:59 PM Ordering Physician:Nasir Veras Final Report: INDICATION: Vertigo. TECHNIQUE: Noncontrast CT images acquired through the brain. COMPARISON: None. FINDINGS: Prominence of the ventricles and sulci compatible with mild diffuse cerebral volume loss. No mass effect or midline shift. The garcia white differentiation is maintained. No acute intracranial hemorrhage or pathologic extra-axial fluid collection. Scattered hypoattenuation in the supratentorial white matter, suggestive of mild chronic microvascular ischemic changes. Intracranial atherosclerotic calcifications. Thinning of the ocular lenses. The calvarium is intact. Small 2 moderate air- fluid level and mucosal thickening in the left maxillary sinus. Minimal mucosal thickening in the right maxillary sinus. Trace left mastoid fluid. Moderate left temporomandibular joint degenerative changes. IMPRESSION: 1. No acute intracranial hemorrhage or mass effect. 2. Air-fluid level in the left maxillary sinus raises the possibility of acute sinusitis. Please note that all CT scans at this facility use dose modulation, iterative reconstruction, and/or weight-based dosing when appropriate to reduce radiation dose to as low as reasonably achievable. Dictated by Martín Pennington MD @ 05/21/2022 4:35:31 PM (Electronic Signature) CT head angio: Attestation: I have reviewed the pertinent imaging results. Radiologist's impression: Patient: FARIDA FRASER Facility:?[facility] Patient ID:?[id number] Site Patient ID:?[id number]. Site :?1940 Study:?CT Head Angio W/95CC ISOVUE 370 VERTIGO/STROKE/NON A-05/21/2022 4:05:21 PM Ordering Physician:?Teodoro Veras Preliminary Report: No proximal large vessel occlusion or cervical arterial stenosis. Atherosclerotic plaque mildly narrows the proximal left subclavian artery. Read by:?Martín Pennington MD @ 05/21/2022 17:04:05 CT neck angio: Attestation: I have reviewed the pertinent imaging results. Radiologist's impression: Patient: FARIDA FRASER Facility:?[facility] Patient ID:?[id number] Site Patient ID:?[id number]. Site :?1940 Study:?CT Head Angio W/95CC ISOVUE 370 VERTIGO/STROKE/NON A-05/21/2022 4:05:21 PM Ordering Physician:?Teodoro Veras Preliminary Report: No proximal large vessel occlusion or cervical arterial stenosis. Atherosclerotic plaque mildly narrows the proximal left subclavian artery. Read by:?Martín Pennington MD @ 05/21/2022 17:04:05 Critical Care Time Critical Care Time Critical Care Time: No Discharge Plan Discharge Clinical Impression: Vertigo Patient Disposition: Admitted As Inpatient Condition: Stable Prescriptions: No Action triamcinolone acetonide 0.1 % cream TOPICAL Label Comments: APPLY TO AFFECTED AREAS ON LEG 1-2X DAILY FOR 2 WEEKS, THEN NEEDED FOR FLARES. metoprolol succinate 25 mg tablet extended release 24 hr PO Label Comments: TAKE 1 TABLET BY MOUTH EVERY DAY rosuvastatin 5 mg tablet Label Comments: TAKE 1 TABLET (5 MG) BY MOUTH ONCE DAILY WITH EVENING MEAL. aspirin 81 mg capsule 81 mg PO DAILY Follow Up/Referrals: Shayna Flores DO [Primary Care Provider] -
--- NOTE | 2022-05-21 15:18 | CRLHL7_ITS ---
For Patients: As a result of the Century Cures Act, medical imaging exams and procedure reports are released immediately into your electronic medical record. You may view this report before your referring provider. If you have questions, please contact your health care provider. INDICATION: Vertigo. TECHNIQUE: Noncontrast CT images acquired through the brain. COMPARISON: None. FINDINGS: Prominence of the ventricles and sulci compatible with mild diffuse cerebral volume loss. No mass effect or midline shift. The garcia white differentiation is maintained. No acute intracranial hemorrhage or pathologic extra-axial fluid collection. Scattered hypoattenuation in the supratentorial white matter, suggestive of mild chronic microvascular ischemic changes. Intracranial atherosclerotic calcifications. Thinning of the ocular lenses. The calvarium is intact. Small 2 moderate air-fluid level and mucosal thickening in the left maxillary sinus. Minimal mucosal thickening in the right maxillary sinus. Trace left mastoid fluid. Moderate left temporomandibular joint degenerative changes. IMPRESSION: 1. No acute intracranial hemorrhage or mass effect. 2. Air-fluid level in the left maxillary sinus raises the possibility of acute sinusitis. Please note that all CT scans at this facility use dose modulation, iterative reconstruction, and/or weight-based dosing when appropriate to reduce radiation dose to as low as reasonably achievable. Dictated by Martín Pennington MD @ 05/21/2022 4:35:31 PM (Electronically Signed)
--- NOTE | 2022-05-21 15:19 | CRLHL7_ITS ---
For Patients: As a result of the Century Cures Act, medical imaging exams and procedure reports are released immediately into your electronic medical record. You may view this report before your referring provider. If you have questions, please contact your health care provider. DATE: 05/21/2022. CLINICAL HISTORY: Vertigo. TECHNIQUE: Standard helical CT image acquisition through the head and neck was performed after intravenous contrast bolus enhancement. Multiplanar reconstructed images were performed and interpreted. COMPARISON: None available. FINDINGS: The origins of the great vessels from the aortic arch are patent. 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 The origins of the right and left vertebral arteries are patent. The common carotid arteries are patent. No significant luminal stenoses of the proximal internal carotid arteries by NASCET criteria. The more distal cervical segments of the internal carotid arteries are patent. The cervical segments of the vertebral arteries are patent. No intracranial proximal large vessel occlusion or flow-limiting luminal stenosis. No evidence of cerebral aneurysm or findings to suggest an arteriovenous shunting lesion. IMPRESSION: 1. No intracranial proximal large vessel occlusion or flow-limiting luminal stenosis. 2. Patent cervical arterial vasculature without hemodynamically significant luminal stenosis. 3. 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 Please note that all CT scans at this facility use dose modulation, iterative reconstruction, and/or weight-based dosing when appropriate to reduce radiation dose to as low as reasonably achievable. Dictated by Tian Cuellar MD @ 05/21/2022 9:45:20 PM (Electronically Signed)
--- NOTE | 2022-05-21 15:49 | CT_ITS ---
Final Report Patient: FARIDA FRASER Facility:?[facility] Patient ID:?[id number] Site Patient ID:?[id number]. Site :?1940 Study:?CT Neck Angio Angio W/95CC [id number] STROKE/NON ACUT-05/21/2022 4:06:21 PM Ordering Physician:Nasir Veras Final Report: DATE: 05/21/2022. CLINICAL HISTORY: Vertigo. TECHNIQUE: Standard helical CT image acquisition through the head and neck was performed after intravenous contrast bolus enhancement. Multiplanar reconstructed images were performed and interpreted. COMPARISON: None available. FINDINGS: The origins of the great vessels from the aortic arch are patent. 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 The origins of the right and left vertebral arteries are patent. The common carotid arteries are patent. No significant luminal stenoses of the proximal internal carotid arteries by NASCET criteria. The more distal cervical segments of the internal carotid arteries are patent. The cervical segments of the vertebral arteries are patent. No intracranial proximal large vessel occlusion or flow-limiting luminal stenosis. No evidence of cerebral aneurysm or findings to suggest an arteriovenous shunting lesion. IMPRESSION: 1. No intracranial proximal large vessel occlusion or flow-limiting luminal stenosis. 2. Patent cervical arterial vasculature without hemodynamically significant luminal stenosis. 3. 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 Please note that all CT scans at this facility use dose modulation, iterative reconstruction, and/or weight-based dosing when appropriate to reduce radiation dose to as low as reasonably achievable. Dictated by Tian Cuellar MD @ 05/21/2022 9:45:20 PM (Electronic Signature)
[2022-05-21] MEDS: MECLIZINE HCL 25 MG TABLET PO ×2 (15:52→20:25)
[2022-05-21] MEDS: 0.9 % SODIUM CHLORIDE 250 ml 250 ML IV (15:53)
[2022-05-21 16:28] LABS: SARS PCR* Negative SARS-CoV-2 (Negative)
[2022-05-21 16:28] LABS: Basophils Absolute Auto 0.03 K/uL (0.00-0.30); Basophils Percent Auto 0.6 % (0.0-3.0); Eosinophils Absolute Auto 0.08 K/uL (0.00-0.50); Eosinophils Percent Auto 1.7 % (0.0-7.0); Hematocrit 39.1 % (33.0-51.0); Hemoglobin* 13.2 gm/dL (12.0-16.0); Lymphocytes Percent Auto 11.7 % (20-44); Mean Corpuscular HGB Conc 34 gm/dL (32-36); Mean Corpuscular Hemoglobin 31 pg (26-34); Mean Corpuscular Volume 92 fL (80-100); Monocytes Percent Auto 7.1 % (0.0-11.0); Neutrophils Percent Auto 78.9 % (42.0-72.0); Platelet Count* 259 K/uL (140-440); RDW Coefficient of Variation % 13.5 % (11.5-15.5); Red Blood Count 4.25 m/uL (4.00-5.20); White Blood Count* 4.63 K/uL (4.50-11.00)
[2022-05-21 16:44] LABS: Albumin* 4.6 g/dL (3.3-5.0); Chloride* 97 mmol/L (96-114); Sodium* 132 mmol/L (135-149)
[2022-05-21 16:45] LABS: Potassium* 3.5 mmol/L (3.6-5.1)
[2022-05-21 16:46] LABS: Slide Review Reflex No
[2022-05-21 16:47] LABS: Alkaline Phosphatase* 75 U/L (40-150); Aspartate Amino Transferase* 41 U/L (12-35); Bilirubin Total* 0.6 mg/dL (0.1-1.5); Blood Urea Nitrogen* 15 mg/dL (7-30); Carbon Dioxide* 27 mmol/L (20-32); Creatinine* 0.4 mg/dL (0.5-1.5); Est. Creatinine Clearance* 35.34; Estimated Glomerular Filt Rate 100 ml/min; Total Protein* 7.8 g/dL (6.0-8.3)
[2022-05-21 16:48] LABS: Alanine Aminotransferase* 48 U/L (4-35); Calcium* 9.1 mg/dL (8.4-10.6); Glucose* 119 mg/dL (60-115); Magnesium* 1.8 mg/dL (1.5-2.6)
--- NOTE | 2022-05-21 17:02 | ED.NURSE ---
Pt up to bedside commode x2. After meds, up to commode now more steady, but still endorses dizziness with movement.
--- NOTE | 2022-05-21 18:55 | ED.NURSE ---
Pt to Rm 255 via cart by EDT, tolerates well.
--- NOTE | 2022-05-21 19:05 | PM.IMHP1 ---
Hospitalist- H&P: HPI History of Present Illness Date Seen: 05/21/22 Chief complaint: Dizzy Narrative: Leandra Davis is a 81 year old female presents with severe dizziness that started this afternoon. Patient was out brushing snow off of her deck when she had onset of severe dizziness. She describes this as a sense of abnormal movement and a feeling that if she did not hold on that she would fall over. She was nauseated but not vomiting. She was not presyncopal or lightheaded. This seemed to be better if she was very still and not moving but when she turns her head or sits up or lays down it gets worse. She has not had any head injury. She did not have a fall. She has not have any ringing or buzzing in her ears. She has chronic hearing loss and normally wears hearing aids. No change in her hearing recently. She has not had a cold or a cough or a fever. She does have a history of an episode of vertigo similar to this a year ago. She did not go to the emergency room in it got better overnight without specific therapy In the emergency department she was evaluated with a head CT and CT angiogram. CT scan was unremarkable except for air-fluid level in the left maxillary sinus. Angiogram showed mild narrowing of the proximal left subclavian. No proximal large vessel occlusion or cervical artery stenosis. She reports being a little bit better in the emergency department but still quite severely symptomatic. She received meclizine which did not help very much. She was seen in the emergency room yesterday for lower chest and upper abdominal pain. This is better now. At that time she also noted feeling hot. She has had ongoing feelings of feeling hot again today. She does not have a fever Review of Systems Narrative: He reports he was feeling well prior to the onset of this. She has been seeing a neurologist recently to evaluate some right hip weakness. Currently this is thought to be a minor proximal myopathy or myositis. On 05/06/[address] chest abdomen pelvis which was unremarkable. She has had no evidence of a neoplastic process. [facility] Medical History (Updated 05/21/22 @ 19:21 by Alan Aguilar MD) Hyperlipidemia Hypertension Myopathy Osteoporosis Surgical History (Updated 05/21/22 @ 19:12 by Alan Aguilar MD) History of partial hysterectomy Family History (Updated 05/21/22 @ 19:14 by Alan Aguilar MD) Brother Metastatic cancer Mother Heart disease Sister Heart disease Father Alzheimers disease Social History (Updated 05/21/22 @ 19:15 by Alan Aguilar MD) Narrative: She lived in [place] and moved to live with her sister, Zuly Farah, [facility] at the beginning of January. Her sister is healthcare power of patent attorney. Her code status is full. She is a former smoker. She rarely drinks alcohol. No recreational drug use. Highest level of school completed/degree received: high school graduate Smoking Status: Former smoker How often do you have a drink containing alcohol: monthly or less Alcohol type: beer AUDIT-C Alcohol total score: 1 Non-prescribed substance use: denies use Caffeine: Yes service: No Meds Home Medications and Allergies Home Medications Medication Instructions Recorded Confirmed Type metoprolol succinate 25 mg 25 mg PO DAILY 05/20/22 05/21/22 History tablet,extended release 24 hr rosuvastatin 5 mg tablet 5 mg PO HS 05/20/22 05/21/22 History triamcinolone acetonide 0.1 % applic topical 05/20/22 History topical cream aspirin 81 mg capsule 81 mg PO DAILY 05/21/22 05/21/22 History Allergies Allergy/AdvReac Type Severity Reaction Status Date / Time No Known Drug Allergies Allergy Verified 05/20/22 16:38 Exam Narrative: Exam Narrative: She is alert and in no distress. She gives her own history. She is oriented to her circumstances. Her speech is fluent. Head is without trauma. Eyes normal. Oropharynx normal. She has no facial asymmetry. Tongue is midline. Extraocular movements are full. At rest I do not visualize any nystagmus. She has visual leavitt that are intact. Neck is supple without mass or adenopathy. No tenderness. Respirations are clear to auscultation. No wheezing rales or rhonchi. Cardiovascular: S1, S2, regular rate and rhythm. No murmur gallop or rub. Abdomen: Bowel sounds active. Abdomen is soft without tenderness or mass. Upper extremities are normal. [id number] is normal. No pronator drift. Equal strength in both upper extremities. Lower extremities with mild weakness in the right hip compared to the left hip and mild weakness proximally compared to distally in both lower extremities. No edema. Diminished but intact peripheral pulses. No rash. Heel-chris is normal. Otolith repositioning maneuvers are attempted. She has fair to poor tolerance of this. She does not produce any nystagmus but does have a feeling dizziness with these maneuvers. Dizziness does extinguish when she holds a position for about 10 seconds. Const: Vital Signs, click to edit/add: Vital Signs - 24 hr 05/21/22 14:42 05/21/22 18:30 05/21/22 18:00 Temperature 97.9 F Pulse Rate [Pulse Oximeter] 66 69 68 Respiratory Rate 14 14 14 Blood Pressure [Ri ght Upper Arm] 154/94 H 177/88 H 168/88 H Pulse Oximetry 98 100 97 Oxygen Delivery Me thod Room Air 05/21/22 17:00 05/21/22 17:30 05/21/22 16:30 Temperature Pulse Rate [Pulse Oximeter] 99 75 Respiratory Rate 14 14 Blood Pressure [Ri ght Upper Arm] 202/88 H 159/84 H 197/82 H Pulse Oximetry 99 99 98 Oxygen Delivery Me thod 05/21/22 15:30 05/21/22 15:00 Temperature Pulse Rate [Pulse Oximeter] 65 Respiratory Rate Blood Pressure [Ri ght Upper Arm] 182/78 H 168/69 H Pulse Oximetry 94 100 Oxygen Delivery Me thod Room Air Documenting provider has reviewed patient's vital signs: yes Hospitalist - H&P: Result Labs Labs: Short CBC 05/21/22 Range/Units 16:20 WBC 4.63 (4.50-11.00) K/uL Hgb 13.2 (12.0-16.0) gm/dL Hct 39.1 (33.0-51.0) % Plt Count 259 (140-440) K/uL BMP 05/21/22 16:20 Sodium 132 L Potassium 3.5 L Chloride 97 Carbon Dioxide 27 BUN 15 Creatinine 0.4 L Glucose 119 H Calcium 9.1 Liver Function 05/21/22 Range/Units 16:20 Total Bilirubin 0.6 (0.1-1.5) mg/dL AST 41 H (12-35) U/L ALT 48 H (4-35) U/L Alkaline Phosphatase 75 (40-150) U/L Albumin 4.6 (3.3-5.0) g/dL Assessment and Plan Assessment and plan (1) Vertigo: Status: Acute (2) Subjective fever: Problem comment: Patient reports flushing or feeling hot episodically without a fever Status: Acute Plan She be admitted to the hospital to monitor and manage her vertigo. At this point there is not any evidence of focal neurologic deficit. If she develops focal neurologic deficit or her vertigo is intractable would recommend MRI of the brain. She is also having reports of feeling hot of uncertain significance. It is also unclear if this is related to her vertigo or yesterday symptoms of epigastric pain. Monitor those as well. PT and OT to evaluate. Total time spent today 75 minutes, 50 minutes in coordination of care and discussing with patient and other providers management of vertigo.
[2022-05-22 03:00] VITALS: RESP 16
--- NOTE | 2022-05-22 06:20 | PC.NURSE ---
: pleasant and cooperative. Antivert given, offered relief. Pt was able to get up to the BSC with A x 1, pt was steady on her feet and stated she is feeling better.
[2022-05-22 07:00] VITALS: BP 136/69; PULSE 85; RESP 16; TEMP 36.4; O2SAT 97
[2022-05-22] MEDS: MECLIZINE HCL 25 MG TABLET PO ×2 (08:16→14:35)
[2022-05-22 11:00] VITALS: BP 125/69; PULSE 79; RESP 18; TEMP 36.6; O2SAT 96
--- NOTE | 2022-05-22 11:06 | P.IMPN_ITS ---
Progress Note: A&P Assessment and plan (1) Vertigo: Status: Acute Plan Plan for 05/23 1) Dizziness; ? Vertigo; obtain MRI Brain to r/o stroke; did not respond to eppley maneuver 2) Mild Hyponatremia; repeat BMP today sodium 132 3) Mild Hypokalemia; repeat BMP today potassium previously 3.5 Dispo-spoke with Sister Zuly updated on MRI for today; possible discharge likely tomorrow Time Spent With Patient Total time spent: 30 Subjective Date Seen: 05/22/22 Interval history: patient still endorses dizziness with ambulation and unsteady gait did not respond to Eppley maneuver Updated Sister Zuly Exam Narrative: Exam Narrative: Gen; NAD HEENT: NCAT EOMI MMM CV: RRR s1 s2 LCTAB Abd: soft, nt, nd Neuro: AOX3, CN intact Const: Vital Signs, click to edit/add: Vital Signs - 24 hr 05/21/22 14:42 05/21/22 18:30 05/21/22 18:00 Temperature 97.9 F Pulse Rate [Pulse Oximeter] 66 69 68 Respiratory Rate 14 14 14 Blood Pressure [Ri ght Arm] Blood Pressure [Ri ght Upper Arm] 154/94 H 177/88 H 168/88 H Pulse Oximetry 98 100 97 Oxygen Delivery Me thod Room Air 05/21/22 17:00 05/21/22 17:30 05/21/22 16:30 Temperature Pulse Rate [Pulse Oximeter] 99 75 Respiratory Rate 14 14 Blood Pressure [Ri ght Arm] Blood Pressure [Ri ght Upper Arm] 202/88 H 159/84 H 197/82 H Pulse Oximetry 99 99 98 Oxygen Delivery Me thod 05/21/22 15:30 05/21/22 15:00 05/21/22 19:02 Temperature 97.7 F Pulse Rate [Pulse Oximeter] 65 66 Respiratory Rate 16 Blood Pressure [Ri ght Arm] 161/68 H Blood Pressure [Ri ght Upper Arm] 182/78 H 168/69 H Pulse Oximetry 94 100 98 Oxygen Delivery Me thod Room Air Room Air 05/21/22 19:02 05/21/22 19:00 05/21/22 22:52 Temperature 97.7 F Pulse Rate [Pulse Oximeter] 84 90 Respiratory Rate 16 16 16 Blood Pressure [Ri ght Arm] 168/74 H Blood Pressure [Ri ght Upper Arm] Pulse Oximetry 98 98 Oxygen Delivery Me thod Room Air Room Air 05/21/22 22:52 05/22/22 03:00 05/22/22 07:00 Temperature 97.8 F Pulse Rate [Pulse Oximeter] 90 85 Respiratory Rate 16 16 16 Blood Pressure [Ri ght Arm] 153/88 H Blood Pressure [Ri ght Upper Arm] Pulse Oximetry 96 Oxygen Delivery Me thod Room Air 05/22/22 07:00 Temperature 97.6 F Pulse Rate [Pulse Oximeter] 85 Respiratory Rate 16 Blood Pressure [Ri ght Arm] 136/69 Blood Pressure [Ri ght Upper Arm] Pulse Oximetry 97 Oxygen Delivery Me thod Room Air Labs Labs: Laboratory Results - last 24 hr 05/21/22 05/21/22 05/21/22 15:34 16:20 16:20 WBC 4.63 RBC 4.25 Hgb 13.2 Hct 39.1 MCV 92 MCH 31 MCHC 34 RDW Coeff of Jos 13.5 Plt Count 259 Neut % (Auto) 78.9 H Lymph % (Auto) 11.7 L [place] % (Auto) 7.1 Eos % (Auto) 1.7 Baso % (Auto) 0.6 Neut # (Auto) 3.70 Lymph # (Auto) 0.50 L [place] # (Auto) 0.30 Eos # (Auto) 0.08 Baso # (Auto) 0.03 Sodium 132 L Potassium 3.5 L Chloride 97 Carbon Dioxide 27 BUN 15 Creatinine 0.4 L Estimated Creat Clear 35.34 Estimated GFR 100 Glucose 119 H Calcium 9.1 Magnesium Total Bilirubin 0.6 AST 41 H ALT 48 H Alkaline Phosphatase 75 Total Protein 7.8 Albumin 4.6 TSH SARS-CoV-2 (PCR) Negative SARS-CoV-2 05/21/22 05/21/22 16:20 16:20 WBC RBC Hgb Hct MCV MCH MCHC RDW Coeff of Jos Plt Count Neut % (Auto) Lymph % (Auto) [place] % (Auto) Eos % (Auto) Baso % (Auto) Neut # (Auto) Lymph # (Auto) [place] # (Auto) Eos # (Auto) Baso # (Auto) Sodium Potassium Chloride Carbon Dioxide BUN Creatinine Estimated Creat Clear Estimated GFR Glucose Calcium Magnesium 1.8 Total Bilirubin AST ALT Alkaline Phosphatase Total Protein Albumin TSH 1.100 SARS-CoV-2 (PCR)
--- NOTE | 2022-05-22 11:12 | CRLHL7_ITS ---
For Patients: As a result of the Cures Act, medical imaging exams and procedure reports are released immediately into your electronic medical record. You may view this report before your referring provider. If you have questions, please contact your health care provider. INDICATION: Dizziness TECHNIQUE: Noncontrast Sagittal T1,Axial FSE T2, Flair, DWI images submitted. Compared to prior CT of the head from May 21, 2022 FINDINGS: Stable mild cerebral atrophy. The ventricles, sulci and gyri are of normal size, shape and contour for age and degree of atrophy. Midline structures are centrally located. No convincing evidence of suspicious intra- or extra-axial fluid collections. Stable mild patchy regions of increased T2 signal within the periventricular and subcortical white matter of both cerebral hemispheres. No regions of restricted diffusion. Likely benign inflammatory fluid within the left mastoid air cells. IMPRESSION: 1. Stable no radiographic evidence of acute intracranial abnormalities. 2. Stable mild cerebral atrophy. 3. Stable mild supratentorial white matter changes that are non-specific, but statistically most likely related to chronic small vessel ischemic disease. 4. Preliminary results were called to ordering physician at 1537 hours. Dictated by Jaime Nogueira MD @ 05/22/2022 3:38:42 PM (Electronically Signed)
[2022-05-22 15:00] VITALS: BP 144/64; PULSE 79; RESP 18; O2SAT 97
[2022-05-22] MEDS: ASPIRIN 81 MG TABLET EC PO (18:31)
[2022-05-22] MEDS: METOPROLOL SUCCINATE (XL) 25 MG TAB PO (18:31)
[2022-05-22 19:00] VITALS: BP 131/55; PULSE 77; RESP 18; TEMP 36.5; O2SAT 98
--- NOTE | 2022-05-22 19:19 | PC.NURSE ---
Nurse Care Hours: [id number] Pt this shift calm, cooperative, and pleasant. Eating 50%+ of all meals. Encouraged to drink more fluids, pt hesitant because it will make me have to pee, and ill get dizzy. Vitals stable this shift, alert and oriented. C/o feeling dizzy or light headed when standing and walking but it is not noticeable while sitting in bed. Had BM today.
[2022-05-22] MEDS: ROSUVASTATIN CALCIUM 10 MG TABLET 5 MG PO (20:38)
[2022-05-22 23:00] VITALS: BP 153/83; PULSE 63; RESP 18; TEMP 36.9; O2SAT 98
[2022-05-22] MEDS: MELATONIN 3 MG TABLET PO (23:51)
[2022-05-23] VITALS (7 sets, daily range): BP systolic 104–124; BP diastolic 58–74; PULSE 69–88; RESP 16–18; TEMP 36.4–36.6; O2SAT 95–97
[2022-05-23] LABS: Albumin* 3.7 g/dL (3.3-5.0); Chloride* 100 mmol/L (96-114); Sodium* 129 mmol/L (135-149)
[2022-05-23 00:01] LABS: Potassium* 4.3 mmol/L (3.6-5.1)
[2022-05-23 00:03] LABS: Alanine Aminotransferase* 37 U/L (4-35); Alkaline Phosphatase* 52 U/L (40-150); Aspartate Amino Transferase* 31 U/L (12-35); Bilirubin Total* 0.4 mg/dL (0.1-1.5); Blood Urea Nitrogen* 14 mg/dL (7-30); Carbon Dioxide* 27 mmol/L (20-32); Creatinine* 0.4 mg/dL (0.5-1.5); Est. Creatinine Clearance* 37.01; Estimated Glomerular Filt Rate 100 ml/min; Glucose* 94 mg/dL (60-115); Total Protein* 6.6 g/dL (6.0-8.3)
[2022-05-23 00:04] LABS: Calcium* 8.2 mg/dL (8.4-10.6)
--- NOTE | 2022-05-23 07:19 | PC.NURSE ---
[id number]: Patient cooperative with cares. A&O x3. C/o dizziness. Denies N/V. A1 to the BSC. Patient not comfortable walking to the BR. Denies pain. Melatonin administered for sleep aid with results. Afebrile.
[2022-05-23] MEDS: SODIUM CHLORIDE 1 GM TABLET PO ×2 (13:39→18:51)
--- NOTE | 2022-05-23 16:03 | P.IMPN_ITS ---
Progress Note: A&P Assessment and plan (1) Vertigo: Problem details: Acute recurring problem. Seemingly has benign paroxysmal positional vertigo. Status: Acute Assessment and Plan: Continue with p.r.n. meclizine (2) Hyponatremia: Status: Acute Assessment and Plan: 1. Reviewed with patient. 2. 2 L fluid restriction per day. 3. 1 g sodium chloride tab 3 times daily 4. Continue to monitor labs. Plan 1. Anticipate patient may be ready for discharge home as early as tomorrow. 2. Continue with PT and OT for now. 3. Would benefit from outpatient physical therapy in relation to her right-sided lower extremity weakness, decreased balance, eye tracking abilities, dizziness, and history of falls. 4. Spoke with patient and her sister Zuly. Spoke with Zuly via telephone in the presence of the patient. Answered their questions. They are agreeable. Time Spent With Patient Total time spent: 40 minutes Subjective Time Seen by Provider: 10:00 Date Seen: 05/23/22 Interval history: Hospital day 3. Patient had recurrence of about of acute vertigo at time of presentation. This has since resolved. Patient still complains of a sense of lightheadedness if she gets up and moves too quickly today. Denies any additional vertigo sympt oms. She tells she ordinarily tries to drink 6 glasses of water a day at home. Has been drinking less than that here. Tolerating oral diet. No other concerns at this time. Exam Narrative: Exam Narrative: Appears comfortable, no acute distress. Alert, oriented to person, place, time, situation. Hard of hearing but articulate and talkative and cooperative. Vision is grossly normal. Able to ambulate with use of walker. Able to transfer independently with use of walker. Lungs are clear to auscultation. Heart tones with regular rhythm. Abdomen with active bowel sounds, soft, nontender. Skin is warm, dry, intact. No focal motor neurologic deficits. Const: Vital Signs, click to edit/add: Vital Signs - 24 hr 05/22/22 19:00 05/22/22 23:00 05/23/22 03:00 Temperature 97.7 F 98.5 F Pulse Rate [Pulse Oximeter] 77 63 Pulse Rate [orthos tatic lying Right Pulse Oximeter] Pulse Rate [orthos tatic sitting Righ t Pulse Oximeter] Pulse Rate [orthos tatic standing Rig ht Pulse Oximeter] Respiratory Rate 18 18 18 Blood Pressure [Ri ght Arm] 131/55 L 153/83 H Blood Pressure [or thostatic lying Ri ght Arm] Blood Pressure [or thostatic sitting Right Arm] Blood Pressure [or thostatic standing Right Arm] Pulse Oximetry 98 98 Oxygen Delivery Me thod Room Air Room Air 05/23/22 07:00 05/23/22 07:00 05/23/22 08:58 Temperature 97.8 F Pulse Rate [Pulse Oximeter] 75 75 Pulse Rate [orthos tatic lying Right Pulse Oximeter] 69 Pulse Rate [orthos tatic sitting Righ t Pulse Oximeter] 75 Pulse Rate [orthos tatic standing Rig ht Pulse Oximeter] 83 Respiratory Rate 18 18 Blood Pressure [Ri ght Arm] 124/70 Blood Pressure [or thostatic lying Ri ght Arm] 104/58 L Blood Pressure [or thostatic sitting Right Arm] 118/69 Blood Pressure [or thostatic standing Right Arm] 124/68 Pulse Oximetry 97 Oxygen Delivery Me thod Room Air 05/23/22 11:00 Temperature 97.6 F Pulse Rate [Pulse Oximeter] 75 Pulse Rate [orthos tatic lying Right Pulse Oximeter] Pulse Rate [orthos tatic sitting Righ t Pulse Oximeter] Pulse Rate [orthos tatic standing Rig ht Pulse Oximeter] Respiratory Rate 18 Blood Pressure [Ri ght Arm] 118/69 Blood Pressure [or thostatic lying Ri ght Arm] Blood Pressure [or thostatic sitting Right Arm] Blood Pressure [or thostatic standing Right Arm] Pulse Oximetry 97 Oxygen Delivery Me thod Room Air Documenting provider has reviewed patient's vital signs: yes Labs Labs: Laboratory Results - last 24 hr 05/22/22 23:43 Sodium 129 L Potassium 4.3 Chloride 100 Carbon Dioxide 27 BUN 14 Creatinine 0.4 L Estimated Creat Clear 37.01 Estimated GFR 100 Glucose 94 Calcium 8.2 L Total Bilirubin 0.4 AST 31 ALT 37 H Alkaline Phosphatase 52 Total Protein 6.6 Albumin 3.7
[2022-05-23] MEDS: ROSUVASTATIN CALCIUM 10 MG TABLET 5 MG PO (18:50)
[2022-05-23] MEDS: METOPROLOL SUCCINATE (XL) 25 MG TAB PO (18:50)
[2022-05-23] MEDS: ASPIRIN 81 MG TABLET EC PO (18:51)
[2022-05-24] MEDS: MELATONIN 3 MG TABLET PO (02:13)
[2022-05-24 02:58] VITALS: BP 157/62; PULSE 71; RESP 18; TEMP 36.7; O2SAT 95
--- NOTE | 2022-05-24 05:27 | PC.NURSE ---
[id number] Pt requested to not be woken during night. Up to br approx 0215, ambulated with walker, GB, SBA, tolerated well. Slightly dizzy upon return but states it wasn't as bad as before. denies pain, chest pain, N/V or headache.
[2022-05-24 07:00] VITALS: BP 122/65; PULSE 73; RESP 18; TEMP 36.5; O2SAT 96
[2022-05-24 07:33] LABS: Potassium* 4.3 mmol/L (3.6-5.1); Sodium* 133 mmol/L (135-149)
[2022-05-24] MEDS: SODIUM CHLORIDE 1 GM TABLET PO (08:28)
--- NOTE | 2022-05-24 14:48 | PC.NURSE ---
Nursing Care Hours: [id number] Pt this shift calm and cooperative. C/o dizzy or light headed feeling during early ambulation. The more pt worked on walking and getting up more frequently, less c/o symptoms. Steady gait observed with walker and gait belt. Discharge orders and instructions reviewed with pt. Went over SS, f/u, new medication appropriate uses, and also home safety to prevent falls. IV dc'd and intact. All questions and concerns addressed.
--- NOTE | 2022-05-25 15:10 | PM.DS1 ---
DS: Providers Provider Time Seen by Provider: 11:00 Date Seen: 05/24/22 Date of admission: 05/21/22 18:26 Primary care physician: Shayna Flores DO Admitting Clinician: Alan Aguilar MD Consults: 05/21/22 18:53 Consult to Physical Therapy [CONS] Routine Comment: Reason(s) for PT Consult:: Evaluate and Treat Any Restrictions?:: No Restrictions 05/21/22 18:55 Consult to Occupational Therapy [CONS] Routine Comment: Reason(s) for OT Consult:: Evaluate and Treat Any Restrictions?:: No Restrictions Attending Physician on discharge: Rico Yoon MD Date of Discharge: 05/24/22 DS: Diagnosis Discharge Diagnosis (1) Vertigo: Status: Acute Problem details: Acute recurring problem. Seemingly has benign paroxysmal positional vertigo. (2) Benign paroxysmal positional vertigo: Status: Acute (3) Subjective fever: Status: Acute Problem details: Patient reports flushing or feeling hot episodically without a fever (4) Acute upper abdominal pain: Status: Acute (5) Hyponatremia: Status: Acute (6) Balance disorder: Status: Acute (7) Gait instability: Status: Acute DS: Summary Hospital Course Hospital Course: Leandra Davis is a 81 year old female presents with severe dizziness that started this afternoon.? Patient was out brushing snow off of her deck when she had onset of severe dizziness.? She describes this as a sense of abnormal movement and a feeling that if she did not hold on that she would fall over.? She was nauseated but not vomiting.? She was not presyncopal or lightheaded.? This seemed to be better if she was very still and not moving but when she turns her head or sits up or lays down it gets worse.? She has not had any head injury.? She did not have a fall.? She has not have any ringing or buzzing in her ears.? She has chronic hearing loss and normally wears hearing aids.? No change in her hearing recently.? She has not had a cold or a cough or a fever.? She does have a history of an episode of vertigo similar to this a year ago.? She did not go to the emergency room in it got better overnight without specific therapy In the emergency department she was evaluated with a head CT and CT angiogram.? CT scan was unremarkable except for air-fluid level in the left maxillary sinus.? Angiogram showed mild narrowing of the proximal left subclavian.? No proximal large vessel occlusion or cervical artery stenosis.? She reports being a little bit better in the emergency department but still quite severely symptomatic.? She received meclizine which did not help very much. She was seen in the emergency room yesterday for lower chest and upper abdominal pain.? This is better now.? At that time she also noted feeling hot.? She has had ongoing feelings of feeling hot again today.? She does not have a fever. MRI scan of brain obtained in the hospital demonstrated the followin. Stable no radiographic evidence of acute intracranial abnormalities. 2. Stable mild cerebral atrophy. 3. Stable mild supratentorial white matter changes that are non-specific, but statistically most likely related to chronic small vessel ischemic disease. Patient use meclizine in hospital for her vertigo symptoms. Within a relatively short period of times these vertigo symptoms resolved. Also interestingly she developed a hyponatremia while in the hospital was sodium dropping down to 129. She acknowledges drinking up to 6 glasses of water per day ordinarily because she thinks she needs to maintain her hydration. With the low sodium we fluid restricted her to 2 L per day and gave her 1 g of sodium chloride 3 times daily for 1 day and then stopped. Sodium normalized at time of discharge. We did have Physical therapy and Occupational therapy evaluate her. With her poor balance, poor ability to utilize her vision to help her achieve stability including how when she walks she looks at the ground immediately in front of her only, and her evolving weakness, we did recommend that she have outpatient physical therapy to assist with her balance and gait. Patient did have orthostasis on day to our hospital. We did administer normal saline IV. Orthostasis normalized thereafter. Status at Discharge Functional status at discharge: uses cane/walker Overall status at discharge: patient is progressing back to baseline Time Spent with Patient Time attestation: Total time spent providing and/or coordinating discharge services: Time spent: Greater than 30 minutes Exam Narrative: Exam Narrative: Appears comfortable, no acute distress.? Alert, oriented to person, place, time, situation. Hard of hearing but articulate and talkative and cooperative. Vision is grossly normal. Able to ambulate with use of walker.? Able to transfer independently with use of walker. Lungs are clear to auscultation.? Heart tones with regular rhythm.? Abdomen with active bowel sounds, soft, nontender. ? Skin is warm, dry, intact. No focal motor neurologic deficits. Const: Documenting provider has reviewed patient's vital signs: yes DS: Data Imaging CT scan - head: Attestation: I have reviewed the pertinent imaging results. Radiologist's impression: 1. No acute intracranial hemorrhage or mass effect. 2. Air-fluid level in the left maxillary sinus raises the possibility of acute sinusitis. CT angiogram of head and neck: Radiologist's impression: 1. No intracranial proximal large vessel occlusion or flow-limiting luminal stenosis. 2. Patent cervical arterial vasculature without hemodynamically significant luminal stenosis. 3. 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 MRI - head: Radiologist's impression: 1. Stable no radiographic evidence of acute intracranial abnormalities. 2. Stable mild cerebral atrophy. 3. Stable mild supratentorial white matter changes that are non-specific, but statistically most likely related to chronic small vessel ischemic disease. Discharge Plan Discharge Disposition: Home, Self-Care Date of Admission: 05/21/22 18:26 Attending Provider on Discharge: Rico Yoon Primary Care Provider: Shayna Flores Condition: Stable Anticipated Discharge Date/Time: 05/24/22 11:00 Discharge Medications: New meclizine 25 mg Tablet 25 mg PO Q6H PRNQty: 10 0RF Rx Instructions: As needed for acute vertigo Continued metoprolol succinate 25 mg tablet extended release 24 hr 25 mg PO DAILY Label Comments: TAKE 1 TABLET BY MOUTH EVERY DAY rosuvastatin 5 mg tablet 5 mg PO HS Label Comments: TAKE 1 TABLET (5 MG) BY MOUTH ONCE DAILY WITH EVENING MEAL. aspirin 81 mg capsule 81 mg PO DAILY Discharge Orders: Discharge Order (Routine); Ordered 05/24/22 Ordered By: Rico Yoon Patient Education: Meclizine (By mouth), Hyponatremia (GEN), Fall Prevention for Older Adults (GEN), Benign Paroxysmal Positional Vertigo (GEN) Additional Instructions: 1. Outpatient physical therapy referral, assess and treat R LE weakness, poor balance, BPPV Activity Level: Activity as Tolerated and Use Walker Discharge Diet: Regular Follow Up Appointments: Shayna Flores DO [Primary Care Provider] - 05/29/22 1:50 pm ([facility] Forms: [employer] Info Instructions
== END 2022-05-24 10:37 | disposition home or self-care (01) ==
LOC: ED 17:27 → MEDSURG 18:26
PROVIDERS: Hospitalist; Internal Medicine; Admitting Provider Family Medicine; Emergency Provider Family Medicine; PCP Family Medicine; Visit Provider Family Medicine
DX: H81.10 Benign paroxysmal vertigo, unspecified ear (principal); E87.1 Hypo-osmolality and hyponatremia; R26.89 Other abnormalities of gait and mobility; R26.81 Unsteadiness on feet; R11.0 Nausea; E87.6 Hypokalemia; R10.10 Upper abdominal pain, unspecified; Z87.891 Personal history of nicotine dependence; Z97.4 Presence of external hearing-aid; Z86.69 Personal history of other diseases of the nervous system and sense organs; Z90.711 Acquired absence of uterus with remaining cervical stump
CPT/HCPCS: 36415; 70450; 70496; 70498; 70551; 80053; 83735; 84132; 84295; 84443; 85025; 87635; 96360; 97112; 97116; 97162; 97165; 97530; 97535; 99284; 99285; A9270; G0378; G0379; J7050; Q9967

== ENCOUNTER 2022-12-14 10:45 | Outpatient (RCR) | payer MEDICARE, BC, SELFPAY | END 2023-04-13 23:59 | disposition home or self-care (01) | PROVIDERS: PCP Family Medicine; Visit Provider Psychiatry & Neurology Neurology | DX: G72.41 Inclusion body myositis [IBM] (principal); Z51.89 Encounter for other specified aftercare | CPT/HCPCS: 97110; 97162 ==

== ENCOUNTER 2023-12-01 17:36 | Observation (INO) | payer MEDICARE, BC, SELFPAY ==
--- NOTE | 2023-12-01 17:39 | ED_ITS ---
HPI - General Adult General Chief complaint: Fall/Minor Trauma Stated complaint: Fall Time Seen by Provider: 12/01/23 17:38 History of Present Illness HPI narrative: Patient was walking out her door at home and fell. History of osteoporosis and muscular disease. usually uses a walker at home. has left wrist pain and left ankle pain 83-year-old woman presenting to the emergency department with complaint of left wrist and left foot/ankle area pain. Underlying history of inclusion body myositis and unpredictable weakness. It sounds like a trip and fall event of some sort out of the door at her home. Does have a history of hyponatremia. Does not sound like she was otherwise unusually weak. She normally uses a walker. Due to her wrist pain she cannot manage that at this time. Nor can she get up on her own given the left foot area pain. Did take 400 mg of ibuprofen. Lives in the same ?building? as her sister I believe who accompanies her here later today. Sister notes that she cannot manage Leandra in this condition. Related Data Home Medications ?Medication ?Instructions ?Recorded ?Confirmed metoprolol succinate 25 mg 25 mg PO DAILY 05/20/22 12/01/23 tablet,extended release 24 hr rosuvastatin 5 mg tablet 5 mg PO HS 05/20/22 12/01/23 aspirin 81 mg capsule 81 mg PO DAILY 05/21/22 12/01/23 sertraline 50 mg tablet 50 mg PO DAILY 12/01/23 12/01/23 Previous Rx's ?Medication ?Instructions ?Recorded meclizine 25 mg tablet 25 mg PO Q6H PRN #10 tabs 05/24/22 Allergies Allergy/AdvReac Type Severity Reaction Status Date / Time No Known Drug Allergies Allergy Verified 05/20/22 16:38 Review of Systems Status of ROS: Reports: 6 or more systems reviewed and unremarkable except as noted in History and below [facility] Medical History (Updated 12/01/23 @ 19:55 by Juancarlos Long MD) Elevated LFTs ?R79.89 - Other specified abnormal findings of blood chemistry (ICD-10) 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] (ICD-10) Left shoulder pain ?M25.512 - Pain in left shoulder (ICD-10) Greater trochanteric bursitis of right hip ?M70.61 - Trochanteric bursitis, right hip (ICD-10) Maisonneuve fracture of right lower extremity ?S82.861A - Displaced Maisonneuve's fracture of right leg, initial encounter for closed fracture (ICD-10) Osteoporosis ?M81.0 - Age-related osteoporosis without current pathological fracture (ICD- 10) Hyperlipidemia ?E78.5 - Hyperlipidemia, unspecified (ICD-10) Myopathy ?G72.9 - Myopathy, unspecified (ICD-10) Hypertension ?I10 - Essential (primary) hypertension (ICD-10) Surgical History 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 Her sister is healthcare power of defense attorney. Her code status is full. She is a former smoker. She rarely drinks alcohol. No recreational drug use. Highest level of school completed/degree received: high school graduate Smoking Status: Former smoker How often do you have a drink containing alcohol: never AUDIT-C Alcohol total score: 0 Non-prescribed substance use: denies use Caffeine: Yes service: No Exam Narrative: Exam Narrative: Pleasant. Very clear mentation and attention to this interview. Head is atraumatic. Thinning of hair. Neck is supple nontender. Upper back mild kyphosis is nontender without indication of injury. Breathing easily. Heart in regular rate and rhythm. Abdomen is soft nontender. Extremities are remarkable for some intradermal bruising. She has mild swelling at the distal left radius and tenderness generally to palpation here. No notable deformity otherwise. The left leg has a Band-Aid on the lateral mid aspect under which under which is most sore she just scratched open. There is mild surrounding redness which seems more inflammatory than infectious/cellulitis. The left ankle is with some mild swelling about the lateral malleolus and mild bruising here but no tenderness. Clear tenderness is elicited to palpation of the base of the 5th metatarsal on the left foot. Later a spot of bruising setting up near the base of the 5th metatarsal as well. Const: Vital Signs, click to edit/add: Vital Signs - 24 hr 12/01/23 17:47 Temperature 98.3 F Pulse Rate [Pulse Oximeter] 76 Respiratory Rate 18 Blood Pressure [Ri ght Upper Arm] 178/101 H Pulse Oximetry 98 Oxygen Delivery Me thod Room Air Documenting provider has reviewed patient's vital signs: yes Course Vital Signs Vital signs: Initial Vital Signs Temperature 98.3 F 12/01/23 17:47 Temperature Source Temporal Artery Scan 12/01/23 17:47 Pulse Rate 76 12/01/23 17:47 Pulse Rhythm Regular 12/01/23 17:47 Respiratory Rate 18 12/01/23 17:47 Blood Pressure 178/101 H 12/01/23 17:47 Blood Pressure Mean 126 H 12/01/23 17:47 Blood Pressure Position Sitting 12/01/23 17:47 Pulse Oximetry 98 12/01/23 17:47 Oxygen Delivery Method Room Air 12/01/23 17:47 Vital Signs Temperature 98.3 F 12/01/23 17:47 Pulse Rate 76 12/01/23 17:47 Respiratory Rate 18 12/01/23 17:47 Blood Pressure 178/101 H 12/01/23 17:47 Pulse Oximetry 98 12/01/23 17:47 Oxygen Delivery Method Room Air 12/01/23 17:47 Temperature 98.3 F 12/01/23 17:47 Pulse Rate 76 12/01/23 17:47 Respiratory Rate 18 12/01/23 17:47 Blood Pressure 178/101 H 12/01/23 17:47 Pulse Oximetry 98 12/01/23 17:47 Oxygen Delivery Method Room Air 12/01/23 17:47 Medical Decision Making MDM Narrative Medical decision making narrative: Does not feel she needs anything for pain at this time. Will x-ray the left wrist and left foot looking for fracture. Given degree of tenderness I would suspect this. Reviewed by me I do not appreciate any acute abnormality in the left foot; osteoporotic change here and also in the left wrist. By my read there is a nondisplaced transverse fracture of the distal radius. Return to discuss care. Due to concerns of management at home at this time will likely need to be admitted for assistance. Ordered postop shoe for the left foot and a splint for the left wrist. May yet need casting. Discussed with hospitalist who is thankfully excepting for admission. Medical Records Medical records reviewed: Yes I reviewed the patient's medical records Discharge Plan Discharge Clinical Impression: Distal radius fracture, left, Foot sprain Patient Disposition: Admitted As Observation Condition: Stable
[2023-12-01 17:47] VITALS: BP 178/101; PULSE 76; RESP 18; TEMP 36.8; O2SAT 98
--- NOTE | 2023-12-01 17:55 | CRLHL7_ITS ---
For Patients: As a result of the Cures Act, medical imaging exams and procedure reports are released immediately into your electronic medical record. You may view this report before your referring provider. If you have questions, please contact your health care provider. INDICATION: Fall and left base of 5th pain. TECHNIQUE: Left foot 3 view. COMPARISON: None. FINDINGS: No acute fracture or dislocation. Mild degenerative changes of the 1st MTP joint and interphalangeal joints. Plantar and Achilles calcaneal spurs. Osteopenia. Soft tissues are unremarkable. IMPRESSION: No acute findings. Dictated by Audrey Fernandes MD @ 12/01/2023 6:28:33 PM (Electronically Signed)
--- NOTE | 2023-12-01 17:55 | CRLHL7_ITS ---
For Patients: As a result of the Century Cures Act, medical imaging exams and procedure reports are released immediately into your electronic medical record. You may view this report before your referring provider. If you have questions, please contact your health care provider. INDICATION: Fall and distal radius pain. TECHNIQUE: Left wrist 3 view. COMPARISON: None. FINDINGS: There is an acute nondisplaced transverse fracture of the distal radial metaphysis. No definite intra-articular extension. A small fracture fragment is seen dorsally on lateral view. Radiocarpal alignment is maintained. Degenerative changes of the 1st CMC joint and 1st MCP joint. Soft tissue swelling about the wrist. IMPRESSION: Acute nondisplaced fracture of the distal radius. Dictated by Audrey Fernandes MD @ 12/01/2023 6:31:35 PM (Electronically Signed)
--- OUTSIDE RECORDS SUMMARY | 2023-12-01 18:23 | XMS_ITS | Clinical Summary ---
Author Organization [facility] Address [place], [place] [address] Care Team Providers Care Auditor Name Role Phone Shayna Flores DO Primary Care Provider [phone] Allergies No known active allergies Medications Medication Sig Dispensed Refills Start Date End Date Status multivitamin (MVI) tablet Take 1 tablet by mouth once daily. 0 3 Active calcium citrate-vitamin D3 500 mg-12.5 mcg /5 gram powd Mix 1 Tablet in liquid then take by mouth. Active fluorometholone (FML) 0.1 % ophthalmic suspension INSTILL 1 DROP IN BOTH EYES EVERY DAY NEEDED 1 Active loteprednol (LOTEMAX) 0.5 % ophthalmic suspension INSTILL 1 DROP IN BOTH EYES DAILY 1 Active triamcinolone (ARISTOCORT; KENALOG) 0.1 % cream Apply topically to affected area(s) 3 times daily. 80 g 1 Active acetaminophen (TYLENOL EXTRA STRGTH) 500 mg tablet Take 1 Tablet by mouth every 6 hours if needed for Pain. Max acetaminophen dose: 4000mg in 24 hrs. 0 1 Active diphenhydrAMINE-acetamin ophen 25-500 mg (Tylenol PM Extra Strength) 25-500 mg tablet Take 1 Tablet by mouth at bedtime if needed (sleep). Max acetaminophen dose: 4000mg in 24 hrs. 0 1 Active metoprolol succinate (TOPROL XL) 25 mg Sustained-Release tabletIndications:Irregu lar heart beat TAKE 1 TABLET BY MOUTH EVERY DAY 90 Tablet 3 3 Active rosuvastatin (CRESTOR) 5 mg tabletIndications:Famili al hypercholesterolemia TAKE 1 TABLET (5 MG) BY MOUTH ONCE DAILY WITH EVENING MEAL. 90 Tablet 2 3 Active aspirin (ECOTRIN) 81 mg enteric coated tablet Take 1 Tablet (81 mg) by mouth once daily with a meal. 4 Active ey-luy-HI-vit Y-bsfapt-ifhwsji (PreserVision AREDS 2 Plus MV) 200 mcg-15 mcg- 5 mg-1 mg cap Take by mouth two times daily. 4 Active ketoconazole 2% shampoo (NIZORAL) 2 % shampooIndications:Tinea Place on affected areas once daily for 1 week. dampen skin prior to use and leave on for 5 minutes the rinse off. 120 mL 1 4 Active sertraline (ZOLOFT) 50 mg tabletIndications:Anxiet y,Situational depression Take 1 Tablet (50 mg) by mouth every morning. 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 Closed fracture of right low er extremity with routine healing 12/24/2020 Irregular heart beat 06/09/2012 Other and unspecified hyperlipidemia 06/09/2012 Encounters Date Type Department Care Team Description 11/08/2023 11:00 AM CDT Ancillary Procedure [facility] [address] [place] [address] 11/08/2023 10:45 AM CDT Ancillary Procedure [facility] [address] [place] [address] 11/08/2023 10:20 AM CDT Office Visit [facility] [address] [place] [address] Catherine Flores PA Fall (5-6 weeks ago, has fallen since then. Left knee, right foot injured. ) 11/08/2023 Telephone [facility] [address] [place] [address] Catherine Flores PA Follow Up (Sleeves for knee and summary ) 11/08/2023 Travel 10/27/2023 Telephone [facility] [address] [facility] [place] [address] Shayna Flores, Questions (Fell today) 10/05/2023 Home [facility] Visit [facility] [address] [place] [address] JairTorri CARE COORDINATION 09/16/2023 2:30 PM CDT Office Visit [facility] [address] [place] [address] Hunter Montgomery, Luis Hearing Problem 09/16/2023 Travel 09/06/2023 9:00 AM CDT Phone Office Visit [facility] [address] [place] [address] Shayna Flores, Follow Up (sertraline, doing better ) 09/06/2023 Travel from Last 3 Months Immunizations Name Administration Dates Next Due COVID-19 Vaccine Spikevax (M oderna 50mcg/0.5mL) 12YO+ 9950-6413 Formula PF 03/26/2023 COVID-19 vaccine (Moderna 100mcg/0.5mL) PF, MDV 10/02/2021,04/25/2021,08/15/2020,2020 Influenza, High-dose Quadriv alent Inactivated 03/14/2022 Influenza, Inactivated AIIV4 (Age 65+ Years) Preserv Free 03/26/2023,03/26/2021,03/27/2020 Pneumococcal Poly,23-Valent (Pneumovax) 08/22/2008 Pneumococcal conj 13-Valent (Prevnar 13) 04/17/2015 Td, Preservative Free (age > = 7 Years) 03/26/1997 Tdap 06/09/2012,04/20/2011 Zoster (Shingrix-RZV, recombinant) 01/18/2018, Zoster (Zostavax-ZVL, live) 08/30/2008 Family History Medical History Relation Name Comments Cancer Brother metastatic CA Other Father d at 72 yo - de mentia Heart Disease Mother had pacemaker Other Mother d at 81 - lung dz Heart Disease Sister 2 sisters had ablations Relation Name Status Comments Brother Father Mother Sister Social History Tobacco Use Types Packs/Day Years Used Date Smoking Tobacco: Former Cigarettes 0.3 15 0 06/07/1956 - 06/07/1971 Smokeless Tobacco: Never Tobacco Cessation:Counseling Given: Yes Alcohol Use Standard Drinks/Week Comments Yes 0 (1 standard drink = 0.6 oz pur e alcohol) 1 beer per month PHQ-2 Answer Date Recorded PHQ-2 TOTAL SCORE 3 09/06/2023 Social Connections Answer Date Recorded Frequency of Communication with Friends and Fami ly Not on file 01/14/2023 Financial Resource Strain Answer Date R ecorded Difficulty of Paying Living Expenses 3 01/12/2022 Difficulty of Paying Living Expenses Not on file 01/12/2022 Food Insecurity Answer Date Recorded Worried About Running Out of Food in the Last Ye ar 1 01/12/2022 Transportation Needs Answer Date Record ed Lack of Transportation (Medical) 1 01/12/2022 Housing Stability Answer Date Recorded Unable to Pay for Housing in the Last Year 1 01/12/2022 Sex and Gender Information Value Date Recorded Sex Assigned at Not on file Gender Identity Not on file Sexual Orientation Not on file Obstetrics History Para Term AB IAB SAB Ectopic Multiple Livin g Live Births 6 4 2 2 3 Date Outcome GA Total Labor Labor/2nd/3rd Weight Sex Type Anes PTL Sherice A1 A5 Name Clin Para Para Para Para SAB SAB Comments Son killed in MVA Last Filed Vital Signs Vital Sign Reading Time Taken Comments Blood Pressure 120/73 11/08/2023 10:15 AM CDT Pulse 72 11/08/2023 10:15 AM CDT Temperature 36.6 ??C (97.8 ??F) 08/10/2023 1:20 PM CS T Respiratory Rate 18 08/10/2023 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 Oxygen Saturation 97% 11/08/2023 10:15 AM CDT Inhaled Oxygen Concentration - - Weight 53.1 kg (117 lb) 03/26/2023 10:45 AM CDT Height 149.9 cm (4' 11) 05/19/2022 3: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 Body Mass Index 23.63 05/19/2022 3: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 Plan of Treatment Health Maintenance Due Date Last Done Comments DEXA/DXA scan for age 65+ 2006 Medicare Wellness for age 65+ 2006 Tetanus booster 06/09/2022 06/09/2012, 04/07, 03/26/1997 BMI (ht and wt on same day) for age 18+ 05/19/2023 05/19/2022 COVID-19 vaccine series ( season) 2023 03/26/2023, 03/14/2022, 10/02/2021, Additional history exists Influenza for age 65+ 02/06/2024 03/26/2023 , 03/14/2022, 03/26/2021, Additional history exists Depression screening for age 12+ 09/05/2024 09/06/2023, 08/09/2023, 01/13/2022, Additional history exists Tdap Completed 06/09/2012, 04/20/2011 Pneumococcal series for age 65+ Completed 5, 08/22/2008 Zoster (shingles) series for age 50+ Completed 01/18/2018, 10/28/2017, 08/30/2008 Procedures Procedure Name Priority Date/Time Associated Diagnosis Comments XR FOOT 3 VIEWS RIGHT STAT 11/08/2023 10:59 AM CDT Foot pain, right XR KNEE 3 VIEWS LEFT STAT 11/08/2023 10:58 AM CDT Acute pain of left knee from Last 3 Months Results * XR FOOT 3 VIEWS RIGHT (11/08/2023 10:59 AM CDT) Anatomical Region Laterality Modality FEET, FOOT R Computed Radiogr aphy 11/08/2023 11:1 2 AM CDT Narrative 11/08/2023 11:12 AM CDT For Patients: ??As a result of the Century Cures Act, medical imaging exams and procedure reports are released immediately into your electronic medical record. ??You may view this report before your referring provider. ??If you have questions, please contact your health care provider. Indication: Right foot pain Technique: Three views of the right knee. Comparison: None. Findings: Osteopenia. Moderate degenerative changes of the 1st metatarsophalangeal joint. No acute displaced fracture or malalignment. Impression: No acute displaced fracture or malalignment. Dictated by Solomon Vasquez MD @ 11/08/2023 11:12:36 AM (Electronically Signed) Procedure Note Tian Vasquez MD - 11/08/2023 For Patients: As a result of the s Act, medical imagingexams and procedure reports are released immediately into your electronicmedical record. You may view this report before your referring provider.If you have questions, please contact your health care provider. Indication: Right foot pain Technique: Three views of the right knee. Comparison: None. Findings: Osteopenia. Moderate degenerative changes of the 1st metatarsophalangeal joint. No acute displaced fracture or malalignment. Impression: No acute displaced fracture or malalignment. Dictated by Solomon Vasquez MD @ 11/08/2023 11:12:36 AM (Electronically Signed) [facility] * XR KNEE 3 VIEWS LEFT (11/08/2023 10:58 AM CDT) Anatomical Region Laterality Modality KNEES, KNEE L Computed Radiogr aphy 11/08/2023 11:1 0 AM CDT Narrative 11/08/2023 11:10 AM CDT For Patients: ??As a result of the s , medical imaging exams and procedure reports are released immediately into your electronic medical record. ??You may view this report before your referring provider. ??If you have questions, please contact your health care provider. Indication: Acute left knee pain Technique: Three views of the left knee. Comparison: None. Findings: Osteopenia. No acute displaced fracture or malalignment. Small knee joint effusion. Mild degenerative changes of the medial and patellofemoral compartments. Impression: No acute displaced fracture or malalignment. Mild degenerative changes. Small knee joint effusion. Dictated by Solomon Vasquez MD @ 11/08/2023 11:10:53 AM (Electronically Signed) Procedure Note Tian Vasquez MD - 11/08/2023 For Patients: As a result of the 21st Century Cures Act, medical imagingexams and procedure reports are released immediately into your electronicmedical record. You may view this report before your referring provider.If you have questions, please contact your health care provider. Indication: Acute left knee pain Technique: Three views of the left knee. Comparison: None. Findings: Osteopenia. No acute displaced fracture or malalignment. Small knee joint effusion. Mild degenerative changes of the medial and patellofemoral compartments. Impression: No acute displaced fracture or malalignment. Mild degenerative changes. Small knee joint effusion. Dictated by Solomon Vasquez MD @ 11/08/2023 11:10:53 AM (Electronically Signed) [facility] from Last 3 Months Care Teams Auditor Relationship Specialty Start Date End Date Shayna Flores DO [address] [place] [address] PCP - General Family Practice 01/12/22
--- OUTSIDE RECORDS SUMMARY | 2023-12-01 18:23 | XMS_ITS | Continuity of Care Document ---
Author Organization [facility] Address [address] [place] [address] Phone Care Team Providers Care Animal Care Supervisor Name Role Phone Perry Berry MD Unavailable Unavailable Allergies, Adverse Reactions, Alerts Substance Reaction Status Criticality No Known Allergies Active No Inform ation Medications Medication Instructions Dosage Effective Dates (start - stop) Status Comments LOVASTATIN (unknown strength) Not Available - Active METOPROLOL SUCCINATE (unknown strength) Not Available - Active MIACALCIN (unknown strength) Not Available - Active NON-ASPIRIN EXTRA STRENGTH (unknown strength) Not Available - Active Procedures Procedure Date Office/Outpatient Visit,Est, Mod 2015 X Ray Exam Entire Spine / 16 Office/Outpatient Visit,New, Mod 2014 X-Ray Exam Of Total Spine Advance Directives Directive Yes / No Effective Date File Name No Information Encounters Encounter Description Practice Location Reason(s) For Visit Diagnoses Date Provider Providers Copied on Encounter Office/Outpa tient Visit,Est, Mod [facility], [address], [place], [place], [id number] , [place] tel:[phone] [facility] Dorsalgia, unspecifiedOther fracture of unspecified thoracic vertebra, sequela 6 Jamal Amador. [facility], [address], [address], [place], [place], [id number] , [place]. tel:[phone] Referring Provider: Amy Iglesias, [facility] [address] , [place], [address]. tel:[phone] [facility], [address], [place], [place], [id number] , tel: [phone] [facility] Dorsalgia, unspecifiedOther fracture of unspecified thoracic vertebra, sequela 6 Jamal Amador. [facility], [address], [address], [place], [place], [id number] , . tel: [phone] Office/Outpa tient Visit,[facility], [address], [place], [place], [id number] , [place] tel: [phone] [facility] Backache, unspecifiedOVERWEIGHT Fracture of T spine Jamal Amador. [facility], [address], [address], [place], [place], [id number] , [place]. tel: [phone] Referring Provider: Amy Iglesias, [facility] Hidalgo [address] , [place], [address]. tel:[phone] Family History Family Member Type Diagnosis Age At Onset No Information Payers Payer name Insurance type Covered libertarian ID Authoriza tion(s) [employer] Chad VELEZ [id number] Social History Type Description Quantity Date Captured Comments Alcohol Use Details Unknown Caffeine Use Details Unknown Tobacco Use Status No Information Smoking Status No Information Sex Female Vital Signs Date / Time: Height Weight BMI Pulse Rate Blood Pressure Temperature Respiratory Rate Body Surface Area Head Circumference Head Circ. Percentile Wt./Tariq. Percentile BMI percentile Pulse Ox Inhaled Ox 2:22 PM 57.50 in 59.421 kg (131.00 lbs) 27.8 6 kg/m eter (2) 68 /min 153/70 mm[Hg] Chief Complaint And Reason For Visit No Information Reason For Referral Reason For Referral No Information Plan Of Treatment Date Type Action Status Future Order: Radiology Order PA /Lateral Full Spine (PALatFS), Ordered on: Ordered Future Order: Radiology Order PA /Lateral Full Spine (PALatFS), Ordered on: Ordered History Of Present Illness Encounter Date Complaint History Of Prese nt Illness No Information Functional Status Date Functional Assessmen t No Information Instructions Date Instruction Additional Infor mation Weight Management Education Rela clayton to Overweight Weight management: I nstructed to return to General Practitioner timeframe: 1 Month. Related to Overweight Weight Management Related to Ove rweight Assessments Type Assessment Date assessment Dorsalgia, unspecified 16 assessment Other fracture of unspecified th oracic vertebra, sequela Patient Care Teams Name Effective Dates (start - stop) Status Members No Information
--- NOTE | 2023-12-01 19:43 | PM.IMHP1 ---
Hospitalist- H&P: HPI History of Present Illness Date Seen: 12/01/23 Chief complaint: Fall Narrative: Leandra Davis is a 83 year old female who presented to the ER after a mechanical fall at home. She was walking and her right leg gave out. She had no preceding chest pain, dizziness, or lightheadedness, did not hit her head. She is on a daily ASA. Fell onto her L foot and L hand. ER Course and Findings: - no acute findings on L foot Xray, + osteopenia - acute nondisplaced fracture of L distal radius - placed into a postop shoe and L wrist splint She was unable to ambulate on L foot 2/2 pain, and unable to use her walker (ambulates with this at home), so admitted to the hospital for pain management, therapies, ambulation assistance. Histories updated below, PCP is Dr. Sandra alanis. Review of Systems Narrative: - no dizziness or lightheadedness, rarely will note vertigo if she turns her head too quickly - has a small area of skin opening on LLE, notes this happened recently after itching the area. 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] (ICD-10) Left shoulder pain ?M25.512 - Pain in left shoulder (ICD-10) Greater trochanteric bursitis of right hip ?M70.61 - Trochanteric bursitis, right hip (ICD-10) Maisonneuve fracture of right lower extremity ?S82.861A - Displaced Maisonneuve's fracture of right leg, initial encounter for closed fracture (ICD-10) Osteoporosis ?M81.0 - Age-related osteoporosis without current pathological fracture (ICD-10) Hyperlipidemia ?E78.5 - Hyperlipidemia, unspecified (ICD-10) Myopathy ?G72.9 - Myopathy, unspecified (ICD-10) Hypertension ?I10 - Essential (primary) hypertension (ICD-10) Surgical History 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 Her sister is healthcare power of civil litigation attorney. Her code status is full. She is a former smoker. She rarely drinks alcohol. No recreational drug use. Two living adult children (one in [place], one in [place]). Highest level of school completed/degree received: high school graduate Smoking Status: Former smoker How often do you have a drink containing alcohol: never AUDIT-C Alcohol total score: 0 Non-prescribed substance use: denies use Caffeine: Yes service: No Meds Home Medications and Allergies Home Medications ?Medication ?Instructions ?Recorded ?Confirmed ?Type metoprolol succinate 25 mg 25 mg PO DAILY 05/20/22 12/01/23 History tablet,extended release 24 hr rosuvastatin 5 mg tablet 5 mg PO HS 05/20/22 12/01/23 History aspirin 81 mg capsule 81 mg PO DAILY 05/21/22 12/01/23 History sertraline 50 mg tablet 50 mg PO DAILY 12/01/23 12/01/23 History Home Medication Comments: - calcium supplementation - preservation - Lotemax eyedrops Allergies Allergy/AdvReac Type Severity Reaction Status Date / Time No Known Drug Allergies Allergy Verified 05/20/22 16:38 Exam Narrative: Exam Narrative: GEN: Alert and answering questions appropriately HEENT: EOMIs bilaterally, no scleral icterus CV: Irregular, no concerning murmurs R: LCTA bilaterally without concerning wheezing, rales, air movement adequate Back: Normal contours, no stepoffs or ttp over spinous processes Ext: Normal capillary refill, bruising over base of L 5th metatarsal and L lateral malleolus. L wrist in splint with normal ROM and capillary refill of fingers Skin: No other concerning skin lesions or rashes on exposed skin Neuro: No focal deficits on limited exam Psych: Appropriate Const: Vital Signs, click to edit/add: Vital Signs - 24 hr 12/01/23 17:47 Temperature 98.3 F Pulse Rate [Pulse Oximeter] 76 Respiratory Rate 18 Blood Pressure [Ri ght Upper Arm] 178/101 H Pulse Oximetry 98 Oxygen Delivery Me thod Room Air Assessment and Plan Assessment and plan (1) Distal radius fracture, left: Problem comment: - Ortho consult placed, mildly displaced Status: Acute (2) Foot sprain: Problem comment: - L, consider CT in the morning if still unable to bear weight 2/2 pain Status: Acute (3) Gait instability: Problem comment: - with recurrent falls - therapies ordered, may need SNF placement Status: Acute (4) 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
[2023-12-01 20:25] VITALS: BP 162/105; PULSE 62; RESP 20; TEMP 37; O2SAT 97
[2023-12-01] MEDS: OXYCODONE 5 MG TABLET PO (21:51)
[2023-12-01] MEDS: ACETAMINOPHEN 325 MG TABLET 975 MG PO (21:51)
--- NOTE | 2023-12-01 22:44 | PC.NURSE ---
Admission: Patient admitted and arrived on unit at 2030. Alert and oriented. Patient had a fall at home and broke left wrist and injured left foot. Patient is non-weight bearing on left foot. Assist of 2 with gait belt and pivot to bedside commode. Regular diet. On tele.
[2023-12-02] VITALS (9 sets, daily range): BP systolic 130–160; BP diastolic 66–82; PULSE 62–76; RESP 16–20; TEMP 36.6–37.1; O2SAT 95–98
[2023-12-02 06:39] LABS: Eosinophils Percent Auto 5.9 % (0.0-7.0); Hematocrit 37.6 % (33.0-51.0); Hemoglobin* 12.8 gm/dL (12.0-16.0); Immature Granulocytes Pct Auto 0.8 %; Mean Corpuscular HGB Conc 34 gm/dL (32-36); Mean Corpuscular Hemoglobin 32 pg (26-34); Mean Corpuscular Volume 94 fL (80-100); Monocytes Percent Auto 10.1 % (0.0-11.0); Neutrophils Percent Auto 59.2 % (42.0-72.0); Platelet Count* 265 K/uL (140-440); RDW Coefficient of Variation % 13.5 % (11.5-15.5); White Blood Count* 3.58 K/uL (4.50-11.00)
[2023-12-02 06:46] LABS: Slide Review Reflex No
[2023-12-02 07:01] LABS: Chloride* 100 mmol/L (96-114); Sodium* 132 mmol/L (135-149)
[2023-12-02 07:02] LABS: Potassium* 4.1 mmol/L (3.6-5.1)
[2023-12-02 07:04] LABS: Creatinine* 0.3 mg/dL (0.5-1.5); Estimated Glomerular Filt Rate 106 ml/min
[2023-12-02 07:05] LABS: Anion Gap 7 mEq/L (7-15); Blood Urea Nitrogen* 8 mg/dL (7-30); Calcium* 9.1 mg/dL (8.4-10.6); Carbon Dioxide* 25 mmol/L (20-32); Glucose* 90 mg/dL (60-115)
--- NOTE | 2023-12-02 07:37 | PC.NURSE ---
END OF SHIFT NOTE: PT PLEASANT AND COOPERATIVE. A&Ox3. DENIES CP, SOB, N/V. PT IS NON WEIGHT BEARING TO LEFT LEG. MOVES WITH A2, GB, PIVOT TRANSFER TO CHAIR AND BSC. CONTINENT OF BLADDER. VSS ON RA; AFEBRILE. SPLINT TO LEFT WRIST. BED ALARM ON AND CALL LIGHT WITHIN PT?S REACH.?
--- NOTE | 2023-12-02 08:24 | CRLHL7_ITS ---
For Patients: As a result of the Century Cures Act, medical imaging exams and procedure reports are released immediately into your electronic medical record. You may view this report before your referring provider. If you have questions, please contact your health care provider. INDICATION: Bruising over the 5th metatarsal within normal x-ray COMPARISON: Radiographs 12/01/2023 TECHNIQUE: CT of the left foot without IV contrast. Multiplanar reformats are included. FINDINGS: There is a very subtle nondisplaced avulsion fracture at the base of the 5th metatarsal. No other fracture. No destructive bone lesion. Multifocal osteoarthritis. No ankle joint effusion. IMPRESSION: Nondisplaced avulsion fracture at the base of the left 5th metatarsal. Please note that all CT scans at this facility use dose modulation, iterative reconstruction, and/or weight-based dosing when appropriate to reduce radiation dose to as low as reasonably achievable. Dictated by Yvrose Berg MD @ 12/02/2023 9:54:29 AM (Electronically Signed)
[2023-12-02] MEDS: METOPROLOL SUCCINATE (XL) 25 MG TAB PO (08:34)
[2023-12-02] MEDS: ASPIRIN 81 MG TABLET EC PO (08:34)
[2023-12-02] MEDS: SODIUM CHLORIDE 0.9 % (FLUSH) 10 ML SYRINGE 5 ML IVF ×2 (08:34→21:08)
[2023-12-02] MEDS: SERTRALINE 50 MG TABLET PO (08:34)
--- NOTE | 2023-12-02 08:44 | PM.ORCN ---
History of Present Illness HPI Time Seen by Provider: 08:46 Date Seen: 12/02/23 Consult date: 12/02/23 Requesting physician: Carley Fish Chief complaint: Fall Narrative: Leandra is a very pleasant 83-year-old young lady was admitted to [facility] yesterday after a fall at home. She was walking and her right leg gave out she states. She has been unable to bear weight on her left foot. Left wrist is in a Velcro brace. 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 She normally ambulates with a walker. Review of Systems Narrative: Patient denies nausea, vomiting, fever, chills, chest pain, shortness of breath. While I was in the room she stood up to use the bedside commode and felt a little dizzy. This resolved upon sitting down again. 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) Left shoulder pain ?M25.512 - Pain in left shoulder (ICD-10) Greater trochanteric bursitis of right hip ?M70.61 - Trochanteric bursitis, right hip (ICD-10) Maisonneuve fracture of right lower extremity ?S82.861A - Displaced Maisonneuve's fracture of right leg, initial encounter for closed fracture (ICD-10) Osteoporosis ?M81.0 - Age-related osteoporosis without current pathological fracture (ICD-10) Hyperlipidemia ?E78.5 - Hyperlipidemia, unspecified (ICD-10) Myopathy ?G72.9 - Myopathy, unspecified (ICD-10) Hypertension ?I10 - Essential (primary) hypertension (ICD-10) Surgical History 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 Her sister is healthcare power of contract attorney. Her code status is full. She is a former smoker. She rarely drinks alcohol. No recreational drug use. Two living adult children (one in [place], one in [place]). What is your current living situation?: I presently have a place to live Problems where you live: no known problems Problems where you live details: none In the past 12 months, utilities in danger of being shut off: no In past 12 months, lack of transportation kept you from medical appts, meetings, work, or getting things needed for daily living: no In the past 12 mos, have been you worried that your food would run out before you had money to buy more?: never true In the past 12 mos, the food you bought just didn't last and you didn't have money to buy more?: never true Highest level of school completed/degree received: high school graduate Smoking Status: Former smoker Second hand tobacco smoke exposure: No How often do you have a drink containing alcohol: never How often do you have six or more drinks on one occasion: Never AUDIT-C Alcohol total score: 0 Non-prescribed substance use: denies use Caffeine: Yes How often does anyone, including family, friends and others, physically hurt you: never How often does anyone, including family, friends and others, insult or talk down to you: never How often does anyone, including family, friends and others, threaten you with harm: never How often does anyone, including family, friends and others, scream or curse at you: never service: No Meds Home Medications and Allergies Home Medications ?Medication ?Instructions ?Recorded ?Confirmed ?Type metoprolol succinate 25 mg 25 mg PO DAILY 05/20/22 12/02/23 History tablet,extended release 24 hr rosuvastatin 5 mg tablet 5 mg PO HS 05/20/22 12/02/23 History aspirin 81 mg capsule 81 mg PO DAILY 05/21/22 12/02/23 History sertraline 50 mg tablet 50 mg PO DAILY 12/01/23 12/02/23 History Allergies Allergy/AdvReac Type Severity Reaction Status Date / Time No Known Drug Allergies Allergy Verified 05/20/22 16:38 Ortho Exam Narrative Exam Narrative: Alert and conversive. Patient is in no acute distress. Converses without labored breathing. Hearing is grossly intact. Examined in hospital bed this morning. Examination of the left hand and wrist shows ecchymosis. Contour is normal. CMS intact left upper extremity. No edema about the fingers currently. Mild edema about the wrist. Finger range of motion is normal, however she states with flexion she has some discomfort at the wrist. Elbow range of motion is normal on the left. Examination of the left foot shows ecchymosis over the lateral proximal 5th metatarsal. Exquisitely tender to the touch of the 5th metatarsal, also tender to palpation about the 2nd metatarsal. No tenderness about the 1st 3rd and 4th metatarsals. CMS intact left lower extremity. Mild edema over the lateral aspect of the left foot. Const Vital Signs, click to edit/add: Vital Signs - 24 hr 12/01/23 17:47 12/01/23 20:25 12/01/23 20:25 Temperature 98.3 F 98.6 F Pulse Rate Pulse Rate [Pulse Oximeter] 76 62 Respiratory Rate 18 20 20 Blood Pressure [Right Arm] 162/105 H Blood Pressure [Right Upper Arm] 178/101 H Pulse Oximetry 98 97 97 Oxygen Delivery Method Room Air Room Air Room Air 12/02/23 01:00 12/02/23 01:00 12/02/23 01:10 Temperature 97.9 F Pulse Rate 68 Pulse Rate [Pulse Oximeter] 62 76 Respiratory Rate 18 18 Blood Pressure [Right Arm] 147/68 H Blood Pressure [Right Upper Arm] Pulse Oximetry 97 Oxygen Delivery Method Room Air 12/02/23 03:00 12/02/23 07:31 Temperature Pulse Rate 65 Pulse Rate [Pulse Oximeter] 74 Respiratory Rate 20 Blood Pressure [Right Arm] 160/66 H Blood Pressure [Right Upper Arm] Pulse Oximetry 98 Oxygen Delivery Method Room Air Results Labs Labs: Laboratory Results - last 48 hr 12/02/23 05:48 WBC 3.58 L RBC 4.00 Hgb 12.8 Hct 37.6 MCV 94 MCH 32 MCHC 34 RDW Coeff of Jos 13.5 Plt Count 265 Neut % (Auto) 59.2 Lymph % (Auto) 24.0 Sully % (Auto) 10.1 Eos % (Auto) 5.9 Baso % (Auto) 0.0 Neut # (Auto) 2.10 Lymph # (Auto) 0.90 Sully # (Auto) 0.40 Eos # (Auto) 0.20 Baso # (Auto) 0.00 Abs Immat Gran (auto) 0.00 Imm/Tot Granulo (auto) 0.8 Sodium 132 L Potassium 4.1 Chloride 100 Carbon Dioxide 25 Anion Gap 7 BUN 8 Creatinine 0.3 L Estimated GFR 106 Glucose 90 Calcium 9.1 Diagnostic results Additional Comments: CT of left foot dated 12/02/2023 CT of the left foot without IV contrast. Multiplanar reformats are included. FINDINGS: There is a very subtle nondisplaced avulsion fracture at the base of the 5th metatarsal. No other fracture. No destructive bone lesion. Multifocal osteoarthritis. No ankle joint effusion. X-rays left foot, three views, dated 12/01/2023 No acute fracture or dislocation. Mild degenerative changes of the 1st MTP joint and interphalangeal joints. Plantar and Achilles calcaneal spurs. Osteopenia. Soft tissues are unremarkable. IMPRESSION: Left wrist, three views taken at [facility] dated 12/01/2023 Nondisplaced avulsion fracture at the base of the left 5th metatarsal. There is an acute nondisplaced transverse fracture of the distal radial metaphysis. No definite intra-articular extension. A small fracture fragment is seen dorsally on lateral view. Radiocarpal alignment is maintained. Degenerative changes of the 1st CMC joint and 1st MCP joint. Soft tissue swelling about the wrist. IMPRESSION: Acute nondisplaced fracture of the distal radius. Assessment and Plan Assessment and plan (1) Distal radius fracture, left: Problem comment: Date of injury 12/01/2023 Status: Acute Assessment and Plan: No surgery is needed for the left wrist distal radius fracture. Leandra is comfortable in the Velcro brace. It fits her well. Will continue this for another week and then plan on a short-arm cast if swelling is appropriate. She will continue to work on range of motion of her fingers making a full fist and full extension. We discussed that swelling will worsen over time. Elevating and icing the wrist as needed. She can range the elbow unrestricted on the left as well. She will keep the brace on at all times unless it needs to be loosened or emergently removed for any reason. She will return to Orthopedics in 1 week for x-rays out of the brace in preparation for a non waterproof short-arm cast. 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 This may take months to heal, however she can weightbear on the left foot as tolerated. Leandra is placed into a hard soled Velcro postop type shoe on [employer]. She tolerates this well. She will wear this when ambulating. She will continue using her walker. She has a platform on her walker due to having left wrist fracture. Program Trainer will be consulting and discussing discharge plans, possibly assisted living. She is a significant fall risk. She falls frequently and family members have difficulty getting her up. With her two current injuries, she will require more care. I will see her in 1 week at the clinic. They are in agreement the plan. All questions were answered. Note, dictation performed with voice recognition, and as a result, wrong word or sound like substitutions may have occurred. There may be areas in the script that have gone on detected. Please consider this when interpreting information found in the chart. Plan CT scan left foot order has been placed.
[2023-12-02] MEDS: ACETAMINOPHEN 325 MG TABLET 975 MG PO ×2 (11:28→21:09)
--- NOTE | 2023-12-02 14:50 | PM.IMPN1 ---
Progress Note: A&P Assessment and plan (1) Fracture of fifth metatarsal bone of left foot: Problem details: Date of injury 12/01/2023. Avulsion fracture with minimal displacement. Weight-bearing as tolerated. Postop shoe for comfort Status: Acute (2) Distal radius fracture, left: Problem details: Date of injury 12/01/2023. Pain adequately controlled. Using platform walker to ambulate. Outpatient follow-up in ortho clinic next week. 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 Sister is concerned that she is too unsteady. Sister also reports she is unable to help her up when she falls. Status: Acute Plan Continue in hospital for therapy pending safe discharge plan. Time Spent With Patient Total time spent: Total time spent today is 50 minutes, 40 minutes in coordination of care discussing with patient, sister, other providers ongoing evaluation management of unstable gait and injuries. 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 She was walking at home and her right leg gave out and she fell to the floor. She did not lose consciousness. She reports pain in her left foot and her left wrist as a result of the fall. There is no head injury. She has a history of problems with falling. She lives with her sister and both her and her sister are concerned that she is not safe to be up walking on her own. She was seen in clinic on November 07 for injury to her right foot and her left knee after a fall. Her right foot is better and her left knee he is chronically painful. In the emergency department she was identified as having a nondisplaced distal radius fracture on the left and placed in a splint. Radiographs of her left foot were normal but she continues to have pain and swelling over the proximal 5th metatarsal so CT scan was obtained showing an avulsion fracture of the proximal 5th metatarsal. She is not having significant pain today. She was able to ambulate with mild pain in her left foot. Therapy noted that she was able to walk with a platform walker and a postop shoe on her left foot. She felt unsteady but did fairly well with ambulation. Exam Narrative: Exam Narrative: She is alert and appears in no distress. She is oriented to her circumstances. Head is without trauma. Breathing is unlabored. Left upper extremity has a splint over her wrist and forearm. Intact pulses and sensation distally. Lower extremity examination shows no significant edema. She does have some focal swelling and bruising lateral to her 5th metatarsal head/proximally. No other significant tenderness. She has fairly normal motion in her ankles without significant pain no tenderness with palpation around the ankles, medial and lateral malleoli. Const: Vital Signs, click to edit/add: Vital Signs - 24 hr 12/01/23 17:47 12/01/23 20:25 12/01/23 20:25 Temperature 98.3 F 98.6 F Pulse Rate Pulse Rate [Pulse Oximeter] 76 62 Respiratory Rate 18 20 20 Blood Pressure [Ri ght Arm] 162/105 H Blood Pressure [Ri ght Upper Arm] 178/101 H Pulse Oximetry 98 97 97 Oxygen Delivery Me thod Room Air Room Air Room Air 12/02/23 01:00 12/02/23 01:00 12/02/23 01:10 Temperature 97.9 F Pulse Rate 68 Pulse Rate [Pulse Oximeter] 62 76 Respiratory Rate 18 18 Blood Pressure [Ri ght Arm] 147/68 H Blood Pressure [Ri ght Upper Arm] Pulse Oximetry 97 Oxygen Delivery Id thod Room Air 12/02/23 03:00 12/02/23 07:31 12/02/23 08:33 Temperature 98.8 F Pulse Rate 65 Pulse Rate [Pulse Oximeter] 74 68 Respiratory Rate 20 18 Blood Pressure [Ri ght Arm] 160/66 H 159/75 H Blood Pressure [Ri ght Upper Arm] Pulse Oximetry 98 95 Oxygen Delivery Id thod Room Air Room Air 12/02/23 11:33 Temperature 98.2 F Pulse Rate Pulse Rate [Pulse Oximeter] 73 Respiratory Rate 16 Blood Pressure [Ri ght Arm] 154/81 H Blood Pressure [Ri ght Upper Arm] Pulse Oximetry 97 Oxygen Delivery Me thod Room Air Documenting provider has reviewed patient's vital signs: yes Labs Labs: Laboratory Results - last 24 hr 12/02/23 05:48 WBC 3.58 L RBC 4.00 Hgb 12.8 Hct 37.6 MCV 94 MCH 32 MCHC 34 RDW Coeff of Jos 13.5 Plt Count 265 Neut % (Auto) 59.2 Lymph % (Auto) 24.0 Andrews % (Auto) 10.1 Eos % (Auto) 5.9 Baso % (Auto) 0.0 Neut # (Auto) 2.10 Lymph # (Auto) 0.90 Andrews # (Auto) 0.40 Eos # (Auto) 0.20 Baso # (Auto) 0.00 Abs Immat Gran (auto) 0.00 Imm/Tot Granulo (auto) 0.8 Sodium 132 L Potassium 4.1 Chloride 100 Carbon Dioxide 25 Anion Gap 7 BUN 8 Creatinine 0.3 L Estimated GFR 106 Glucose 90 Calcium 9.1
--- NOTE | 2023-12-02 16:34 | PC.SOCIAL ---
Discharge planning- Met with patient and patient's family (Patient's sister, patient's daughter, and patient's grandson) to discuss discharge plans. Patient does not have assistance at home full-time. Discuss options for placement including SNF and [facility]. Provided information on Enhanced Assisted Living and day care home provider care. Provided information on LTC medical assistance and elderly waiver information. Patient and family would like to pursue [facility]isted [facility]. E-mail to Liliya Villarreal and Martha Carranza at [facility]. They have one opening and will assess. Secure e-mailed referral to Liliya Villarreal for review. Social work will continue to follow up as needed.
[2023-12-02] MEDS: ENOXAPARIN 40 MG/0.4 ML INJ SUBCUT (21:07)
[2023-12-02] MEDS: ROSUVASTATIN CALCIUM 10 MG TABLET 5 MG PO (21:08)
[2023-12-03] VITALS: BP 133/58; PULSE 74; PULSE 75; RESP 18; TEMP 36.5; O2SAT 97
[2023-12-03 03:45] VITALS: BP 158/91; PULSE 80; RESP 18; TEMP 36.5; O2SAT 95
--- NOTE | 2023-12-03 07:26 | PC.NURSE ---
END OF SHIFT NOTE: PT PLEASANT AND COOPERATIVE WITH CARES. COEUR D'ALENE WEARS BILATERAL ORTEZ. A&Ox3. DENIES CP, SOB, N/V. AMBULATES WITH PLATFORM WALKER, GB, A1. VSS ON RA; AFEBRILE. LBM 11/30. TELE READS NSR. CALL LIGHT WITHIN PT?S REACH.?
[2023-12-03 08:01] VITALS: BP 151/85; PULSE 84; RESP 12; TEMP 36.6; O2SAT 97
[2023-12-03] MEDS: METOPROLOL SUCCINATE (XL) 25 MG TAB PO (09:43)
[2023-12-03] MEDS: SERTRALINE 50 MG TABLET PO (09:44)
[2023-12-03] MEDS: ASPIRIN 81 MG TABLET EC PO (09:44)
--- NOTE | 2023-12-03 10:23 | P.DS_ITS ---
DS: Providers Provider Date Seen: 12/03/23 Date of admission: 12/01/23 20:24 Primary care physician: Shayna Flores DO Admitting Clinician: Carley Fish MD Attending Physician on discharge: Ludin Aguilar MD Date of Discharge: 12/03/23 DS: Diagnosis Discharge Diagnosis (1) Gait instability: Status: Acute Problem details: - with recurrent falls - therapies ordered, may need SNF placement. Sister is concerned that she is too unsteady. Sister also reports she is unable to help her up when she falls. (2) Distal radius fracture, left: Status: Acute Problem details: Date of injury 12/01/2023. Pain adequately controlled. Using platform walker to ambulate. Outpatient follow-up in ortho clinic next week. (3) Fracture of fifth metatarsal bone of left foot: Status: Acute Problem details: Date of injury 12/01/2023. Avulsion fracture with minimal displacement. Weight- bearing as tolerated. Postop shoe for comfort (4) Inclusion body myositis: Status: Acute Problem details: - diagnosed 2022 with muscle biopsy (5) Hyponatremia: Status: Acute Problem details: Na 132 on admission. 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 She was walking at home and her right leg gave out and she fell to the floor. She did not lose consciousness. She reports pain in her left foot and her left wrist as a result of the fall. There is no head injury. She has a history of problems with falling. She lives with her sister and both her and her sister are concerned that she is not safe to be up walking on her own. She was seen in clinic on November 07 for injury to her right foot and her left knee after a fall. Her right foot is better and her left knee he is chronically painful. In the emergency department she was identified as having a nondisplaced distal radius fracture on the left and placed in a splint. Radiographs of her left foot were normal but she continues to have pain and swelling over the proximal 5th metat[address] so CT scan was obtained showing an avulsion fracture of the proximal 5th metatarsal. She is not having significant pain today. She was able to ambulate with minimal pain in her left foot. Therapy noted that she was able to walk with a platform walker and a postop shoe on her left foot. She felt unsteady but did fairly well with ambulation. The patient her sister are quite concerned about her safety with ambulation. After discussion they have requested additional rehab through enhanced assisted living at [facility]. Status at Discharge Functional status at discharge: uses cane/walker Overall status at discharge: patient is progressing back to baseline Time Spent with Patient Time attestation: Total time spent providing and/or coordinating discharge services: 35 mins. Exam Narrative: Exam Narrative: She is alert and in no distress. Oriented to her circumstances. Speech is normal. Respirations unlabored. Left arm in a splint. Ambulates without s ignificant pain with platform walker. Const: Vital Signs, click to edit/add: Vital Signs - 24 hr 12/02/23 11:33 12/02/23 15:00 12/02/23 15:00 Temperature 98.2 F 98.1 F Pulse Rate 71 Pulse Rate [Pulse Oximeter] 73 72 Respiratory Rate 16 18 Blood Pressure [Le ft Arm] Blood Pressure [Ri ght Arm] 154/81 H 154/82 H Pulse Oximetry 97 98 Oxygen Delivery Me thod Room Air Room Air 12/02/23 19:20 12/02/23 20:20 12/03/23 00:00 Temperature 98 F Pulse Rate 74 75 Pulse Rate [Pulse Oximeter] 64 Respiratory Rate 18 Blood Pressure [Le ft Arm] Blood Pressure [Ri ght Arm] 130/71 Pulse Oximetry 96 Oxygen Delivery Me thod Room Air 12/03/23 00:00 12/03/23 00:00 12/03/23 03:45 Temperature 97.7 F 97.7 F Pulse Rate Pulse Rate [Pulse Oximeter] 74 74 80 Respiratory Rate 18 18 18 Blood Pressure [Le ft Arm] Blood Pressure [Ri ght Arm] 133/58 L 158/91 H Pulse Oximetry 97 95 Oxygen Delivery Me thod Room Air Room Air 12/03/23 08:01 12/03/23 08:01 Temperature 98 F Pulse Rate Pulse Rate [Pulse Oximeter] 84 84 Respiratory Rate 12 12 Blood Pressure [Le ft Arm] 151/85 H Blood Pressure [Ri ght Arm] Pulse Oximetry 97 Oxygen Delivery Me thod Room Air Documenting provider has reviewed patient's vital signs: yes DS: Data Imaging CT foot: Radiologist's impression: INDICATION: Bruising over the 5th metatarsal within normal x-ray COMPARISON: Radiographs 12/01/2023 TECHNIQUE: CT of the left foot without IV contrast. Multiplanar reformats are included. FINDINGS: There is a very subtle nondisplaced avulsion fracture at the base of the 5th metatarsal. No other fracture. No destructive bone lesion. Multifocal osteoarthritis. No ankle joint effusion. IMPRESSION: Nondisplaced avulsion fracture at the base of the left 5th metatarsal. X-ray wrist: Radiologist's impression: INDICATION: Fall and distal radius pain. TECHNIQUE: Left wrist 3 view. COMPARISON: None. FINDINGS: There is an acute nondisplaced transverse fracture of the distal radial metaphysis. No definite intra-articular extension. A small fracture fragment is seen dorsally on lateral view. Radiocarpal alignment is maintained. Degenerative changes of the 1st CMC joint and 1st MCP joint. Soft tissue swelling about the wrist. IMPRESSION: Acute nondisplaced fracture of the distal radius. Discharge Plan Discharge Disposition: [facility] Date of Admission: 12/01/23 20:24 Attending Provider on Discharge: Alan Aguilar Consulting Providers: Maxim Ng; Marie Hurst; Nico Grant; Chante Milton; Zeus Almaguer; Monster Lund; Ramírez Covarrubias Primary Care Provider: Shayna Flores Condition: Stable Discharge Medications: Continued metoprolol succinate 25 mg tablet extended release 24 hr 25 mg PO DAILY Patient Comments: TAKE 1 TABLET BY MOUTH EVERY DAY rosuvastatin 5 mg tablet 5 mg PO HS Patient Comments: TAKE 1 TABLET (5 MG) BY MOUTH ONCE DAILY WITH EVENING MEAL. aspirin 81 mg capsule 81 mg PO DAILY meclizine 25 mg Tablet 25 mg PO Q6H PRNQty: 10 0RF Rx Instructions: As needed for acute vertigo sertraline 50 mg tablet 50 mg PO DAILY Discharge Orders: Discharge Order (Routine); Ordered 12/03/23 Ordered By: Alan Aguilar Activity Level: Up with assist and Use Walker Discharge Diet: Regular Follow Up Appointments: Shayna Flores DO [Primary Care Provider] - Forms: [facility] Info Instructions Discharge Comments: Please make appointment for Leandra to see Chante López, or Ramírez Salazar (if Chante's schedule is full) in [place] office, 7-10 days for recheck of left wrist and left foot. Admit to: Assisted Living Discharge Potential: Good Length of Stay: <30 days Can use facility standing orders?: Yes Code Status: Full Code Rehab Potential: Fair Therapy: Physical Therapy and Occupational Therapy Therapy Orders: Evaluate and Treat Oxygen: No Urinary Catheter: No
[2023-12-03 11:09] VITALS: BP 158/79; PULSE 97; RESP 14; TEMP 36.8; O2SAT 96
--- NOTE | 2023-12-03 11:58 | PC.NURSE ---
Discharge: Patient pleasant and cooperative, alert and oriented. Patient vitally stable, lungs clear, BS WNL, NO IV. Patient rates wrist pain 1-2/10, no pain meds given. Patient SBA/walker. Patient urinating well and had 1 BM. Patient tolerating regular diet. Patient signed discharge form and belongings sheet, with no further questions. Patient left the floor to [facility] living by wheelchair at 1156. [facility] staff was here today assessing patient, no report given.
== END 2023-12-03 11:56 ==
LOC: ED 19:26 → MEDSURG 20:25
PROVIDERS: Admitting Provider Family Medicine; Emergency Provider Family Medicine; PCP Family Medicine; Visit Provider Family Medicine
DX: S92.352A Displaced fracture of fifth metatarsal bone, left foot, initial encounter for closed fracture (principal); S52.502A Unspecified fracture of the lower end of left radius, initial encounter for closed fracture; S93.602A Unspecified sprain of left foot, initial encounter; M25.572 Pain in left ankle and joints of left foot; R53.1 Weakness; E87.1 Hypo-osmolality and hyponatremia; W19.XXXA Unspecified fall, initial encounter; Y93.01 Activity, walking, marching and hiking; R26.89 Other abnormalities of gait and mobility; R26.81 Unsteadiness on feet; M25.532 Pain in left wrist; R29.6 Repeated falls; G72.41 Inclusion body myositis [IBM]; E78.5 Hyperlipidemia, unspecified; I10 Essential (primary) hypertension; G89.29 Other chronic pain; H81.10 Benign paroxysmal vertigo, unspecified ear; M81.0 Age-related osteoporosis without current pathological fracture; M85.872 Other specified disorders of bone density and structure, left ankle and foot; M40.299 Other kyphosis, site unspecified; Z90.711 Acquired absence of uterus with remaining cervical stump; Z96.611 Presence of right artificial shoulder joint; Z87.891 Personal history of nicotine dependence
CPT/HCPCS: 36415; 73110; 73630; 73700; 80048; 85025; 96372; 97110; 97116; 97162; 97165; 97530; 97535; 99284; 99285; G0378; A9270; J1650

== ENCOUNTER 2024-09-21 06:38 | Outpatient (CLI) | payer MEDICARE, BC, SELFPAY | END 2024-09-21 06:39 | disposition home or self-care (01) | LOC: AMB 09-22 08:32 | PROVIDERS: PCP Family Medicine; Visit Provider Family Medicine | DX: S89.91XA Unspecified injury of right lower leg, initial encounter (principal); W18.30XA Fall on same level, unspecified, initial encounter; Y92.039 Unspecified place in apartment as the place of occurrence of the external cause | CPT/HCPCS: A0425; A0433 ==

== ENCOUNTER 2024-09-21 07:12 | Observation (INO) | payer MEDICARE, BC, SELFPAY ==
[2024-09-21] VITALS (12 sets, daily range): BP systolic 111–156; BP diastolic 58–129; PULSE 78–93; RESP 16–18; TEMP 36.5–36.9; O2SAT 92–100; BMI 23.6; BMI 27.4
--- NOTE | 2024-09-21 07:24 | CRLHL7_ITS ---
For Patients: As a result of the Century Cures Act, medical imaging exams and procedure reports are released immediately into your electronic medical record. You may view this report before your referring provider. If you have questions, please contact your health care provider. Indication: Fall, bilateral ankle pain Technique: Right ankle 2 views. Comparison: None. Findings/ Impression: Diffuse osteopenia. No acute fracture or dislocation. Mild degenerative arthrosis of the ankle. No localized soft tissue swelling. Dictated by Elsa Segal MD @ 09/21/2024 8:25:58 AM (Electronically Signed)
--- NOTE | 2024-09-21 07:24 | CRLHL7_ITS ---
For Patients: As a result of the Century Cures Act, medical imaging exams and procedure reports are released immediately into your electronic medical record. You may view this report before your referring provider. If you have questions, please contact your health care provider. Indication: Knee pain. Fall Technique: Left knee 2 views. Comparison: None. Findings/ Impression: Diffuse osteopenia. Nondisplaced fracture of the medial tibial metadiaphysis with mild adjacent soft tissue swelling. Minimal degenerative changes of the knee joint. No significant joint effusion. Dictated by Elsa Segal MD @ 09/21/2024 8:27:56 AM (Electronically Signed)
--- NOTE | 2024-09-21 07:24 | CRLHL7_ITS ---
For Patients: As a result of the Century Cures Act, medical imaging exams and procedure reports are released immediately into your electronic medical record. You may view this report before your referring provider. If you have questions, please contact your health care provider. Indication: Fall. Technique: Left ankle 3 views. Comparison: None. Findings/ Impression: No acute fracture or dislocation. Ankle mortise is congruent. Mild degenerative arthrosis of the ankle. No localized soft tissue swelling. Dictated by Elsa Segal MD @ 09/21/2024 8:16:56 AM (Electronically Signed)
--- NOTE | 2024-09-21 07:24 | CRLHL7_ITS ---
For Patients: As a result of the Century Cures Act, medical imaging exams and procedure reports are released immediately into your electronic medical record. You may view this report before your referring provider. If you have questions, please contact your health care provider. Indication: Fall Technique: Right knee 3 views. Comparison: None. Findings/ Impression: Diffuse osteopenia. No acute fracture or dislocation. 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 Chondrocalcinosis. No significant joint effusion or localized soft tissue swelling. Dictated by Elsa Segal MD @ 09/21/2024 8:24:02 AM (Electronically Signed)
--- NOTE | 2024-09-21 07:27 | ED.GENADULT ---
HPI - General Adult General Chief complaint: Extremity Pain/Injury, Lower <Suri Lay MD - Last Filed: 09/26/24 00:01> Stated complaint: Fall, knee injury <Suri Lay MD - Last Filed: 09/26/24 00:01> Time Seen by Provider: 09/21/24 07:17 <Suri Lay MD - Last Filed: 09/26/24 00:01> History of Present Illness HPI narrative: 84-year-old female presents by EMS with what they reported was ?bilateral knee dislocation?. Patient states that she fell going to the window after awakening this morning. She denies any dizziness, neuro changes, chest pain, shortness of breath. She reports that it was still dark when she was walking to the window and her legs seemed to buckle under her which is unfortunately not an uncommon occurrence. She reports that she fell onto her bent knees and now has bilateral pain in both knees and both ankles. EMS reported deformity. Suspects that her knees are dislocated which on my very fast initial assessment is thankfully not the case. She reports no rib pain, no chest pain, no headache, no vision changes, no back or abdominal pain, no hip pain. She does admit to pain in both of these joint areas at times but no specific long-term problems or recent surgeries. She did not try any interventions. She was able to alert help who called 911 and they assisted her up and onto the gurney. Did not administer any medications on route. She denies any fever or recent illness. No pertinent travel. No changes in medications. Prior ED notes reviewed notable for frailty related complaints as well. She denies anticoagulant use, history of coronary artery disease or arrhythmias or immunocompromise status. Past medical history notable for anxiety, hyperlipidemia. 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 Home meds are sertraline rosuvastatin metoprolol and aspirin. Nonsmoker, does live independently. ROS is notable for the bilateral knee and bilateral ankle pain which she is very vague about and cannot localize for me. Otherwise denies complaints times 12 systems. <Suri Lay MD - Last Filed: 09/26/24 00:01> Related Data Home medications: Home Medications ?Medication ?Instructions ?Recorded ?Confirmed metoprolol succinate 25 mg 25 mg PO DAILY 05/20/22 09/21/24 tablet,extended release 24 hr rosuvastatin 5 mg tablet 5 mg PO HS 05/20/22 09/21/24 sertraline 50 mg tablet 50 mg PO DAILY 12/01/23 09/21/24 aspirin 81 mg tablet,delayed 81 mg PO DAILY 09/21/24 09/21/24 release (Enteric Coated Aspirin) fluorometholone 0.1 % eye 1 drp ophthalmic (eye) DAILY PRN 09/21/24 09/21/24 drops,suspension loteprednol etabonate 0.5 % eye 1 drp ophthalmic (eye) DAILY 09/21/24 09/21/24 drops,suspension Previous Rx's ?Medication ?Instructions ?Recorded meclizine 25 mg tablet 25 mg PO Q6H PRN #10 tabs 05/24/22 acetaminophen 500 mg tablet 1,000 mg (2 x 500 mg) PO Q8H #30 09/22/24 (Acetaminophen Extra Strength) tabs oxycodone 5 mg tablet 5 mg PO Q6H PRN Pain #20 tabs 09/22/24 <Suri Lay MD - Last Filed: 09/26/24 00:01> Allergies/adverse reactions: Allergies Allergy/AdvReac Type Severity Reaction Status Date / Time No Known Drug Allergies Allergy Verified 09/21/24 07:21 <Suri Lay MD - Last Filed: 09/26/24 00:01> [facility] Medical History: Medical History (Updated 09/25/24 @ 13:10 by Lisa Soliman ~ BOBCAT OPERATOR, BOBCAT OPERATOR) 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) ?M33.20 - Polymyositis, organ involvement unspecified (ICD-10) Other and unspecified hyperlipidemia (06/09/12) ?E78.5 - Hyperlipidemia, unspecified (ICD-10) Myopathy (06/17/22) ?G72.9 - Myopathy, unspecified (ICD-10) Irregular heart beat (06/09/12) ?I49.9 - Cardiac arrhythmia, unspecified (ICD-10) 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 - Inclusion body myositis [IBM] (ICD-10) Muscle weakness (04/21/22) ?M62.81 - Muscle weakness (generalized) (ICD-10) Gait difficulty (09/10/22) ?R26.9 - Unspecified abnormalities of gait and mobility (ICD-10) Closed fracture of right lower extremity with routine healing (12/24/20) ?S82.91XD - Unspecified fracture of right lower leg, subsequent encounter for closed fracture with routine healing (ICD-10) Other and unspecified hyperlipidemia (06/09/12) ?E78.5 - Hyperlipidemia, unspecified (ICD-10) 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 - Inclusion body myositis [IBM] (ICD-10) 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) ?M33.20 - Polymyositis, organ involvement unspecified (ICD-10) Irregular heart beat (06/09/12) ?I49.9 - Cardiac arrhythmia, unspecified (ICD-10) Elevated LFTs ?R79.89 - Other specified abnormal findings of blood chemistry (ICD-10) 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] (ICD-10) Left shoulder pain ?M25.512 - Pain in left shoulder (ICD-10) Greater trochanteric bursitis of right hip ?M70.61 - Trochanteric bursitis, right hip (ICD-10) Maisonneuve fracture of right lower extremity ?S82.861A - Displaced Maisonneuve's fracture of right leg, initial encounter for closed fracture (ICD-10) Osteoporosis ?M81.0 - Age-related osteoporosis without current pathological fracture (ICD-10) Hyperlipidemia ?E78.5 - Hyperlipidemia, unspecified (ICD-10) Myopathy ?G72.9 - Myopathy, unspecified (ICD-10) Hypertension ?I10 - Essential (primary) hypertension (ICD-10) <Suri Lay MD - Last Filed: 09/26/24 00:01> Surgical History: Surgical History 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) ?Z96.611 - Presence of right artificial shoulder joint (ICD-10) History of partial hysterectomy ?Z90.711 - Acquired absence of uterus with remaining cervical stump (ICD-10) <Suri Lay MD - Last Filed: 09/26/24 00:01> Family History: Family History Brother Metastatic cancer Mother Heart disease Sister Heart disease Father Alzheimers disease <Suri Lay MD - Last Filed: 09/26/24 00:01> Social History: Social History (Updated 09/21/24 @ 17:38 by Carley Fish MD) Narrative: Previously lived in [place] and moved to live with her sister, Zuly Farah, near [place] (they lived together in a house) summer 2021. Currently at [facility] at [facility]. 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 Her sister is healthcare power of deputy prosecuting attorney. Her code status is full. She is a former smoker. She rarely drinks alcohol. No recreational drug use. Two living adult children (one in [place], one in [place]). What is your current living situation?: I presently have a place to live Problems where you live: no known problems Problems where you live details: na In the past 12 months, utilities in danger of being shut off: no In past 12 months, lack of transportation kept you from medical appts, meetings, work, or getting things needed for daily living: no In the past 12 mos, have been you worried that your food would run out before you had money to buy more?: never true In the past 12 mos, the food you bought just didn't last and you didn't have money to buy more?: never true Highest level of school completed/degree received: high school graduate Smoking Status: Former smoker Second hand tobacco smoke exposure: No How often do you have a drink containing alcohol: never How often do you have six or more drinks on one occasion: Never AUDIT-C Alcohol total score: 0 Non-prescribed substance use: denies use How often does anyone, including family, friends and others, physically hurt you: never How often does anyone, including family, friends and others, insult or talk down to you: never How often does anyone, including family, friends and others, threaten you with harm: never How often does anyone, including family, friends and others, scream or curse at you: never service: No <Suri Lay MD - Last Filed: 09/26/24 00:01> Exam Const: Vital Signs, click to edit/add: Vital Signs - 24 hr 09/21/24 07:17 09/21/24 11:50 09/21/24 12:59 Temperature 98.1 F 97.9 F 97.7 F Pulse Rate [Right Pulse Oximeter] 82 89 84 Respiratory Rate 18 18 18 Blood Pressure [Le ft Upper Arm] 156/129 H 147/67 H 137/70 Pulse Oximetry 95 93 97 Oxygen Delivery Me thod Room Air Room Air Nasal Cannula Oxygen Flow Rate 3 <Suri Lay MD - Last Filed: 09/26/24 00:01> Vital Signs, click to edit/add: Vital Signs - 24 hr 09/21/24 07:17 09/21/24 11:50 09/21/24 12:59 Temperature 98.1 F 97.9 F 97.7 F Pulse Rate [Right Pulse Oximeter] 82 89 84 Respiratory Rate 18 18 18 Blood Pressure [Le ft Upper Arm] 156/129 H 147/67 H 137/70 Pulse Oximetry 95 93 97 Oxygen Delivery Me thod Room Air Room Air Nasal Cannula Oxygen Flow Rate 3 <Rin Godfrey MD - Last Filed: 09/21/24 15:12> Documenting provider has reviewed patient's vital signs: yes <Suri Lay MD - Last Filed: 09/26/24 00:01> Common normals: oriented x3 <Suri Lay MD - Last Filed: 09/26/24 00:01> Other: Cooperative, moderate historian. Appears well nourished and well hydrated. No visible signs of injury. Guards the knees and ankles. <Suri Lay MD - Last Filed: 09/26/24 00:01> HENMT: Common normals: normocephalic, nasal mucous membranes and turbinates normal, moist oral mucous membranes, oropharynx normal and dentition normal <Suri Lay MD - Last Filed: 09/26/24 00:01> Head and scalp: normocephalic <MD Ani Fernandez Last Filed: 09/26/24 00:01> Nose: nasal mucous membranes and turbinates normal <MD Ani Fernandez Last Filed: 09/26/24 00:01> Mouth: oral and palatal mucosa normal <MD Ani Fernandez Last Filed: 09/26/24 00:01> Eye: Common normals: PERRL, EOMs intact bilaterally and conjunctivae normal <MD Ani Fernandez Last Filed: 09/26/24 00:01> General eye: normal appearance of both eyes <MD Ani Fernandez Last Filed: 09/26/24 00:01> Conjunctiva: conjunctiva(e) normal <MD Ani Fernandez Last Filed: 09/26/24 00:01> Pupil: PERRL <MD Ani Fernandez Last Filed: 09/26/24 00:01> Neck & C-Spine: Common normals: full ROM and no lymphadenopathy <MD Ani Fernandez Last Filed: 09/26/24 00:01> General: normal visual inspection <MD Ani Fernandez Last Filed: 09/26/24 00:01> Cervical spine: no cervical spine tenderness <MD Ani Fernandez Last Filed: 09/26/24 00:01> Chest: Common normals: inspection of chest normal and palpation of chest normal <MD Ani Fernandez Last Filed: 09/26/24 00:01> Resp: Common normals: normal respiratory effort, no use of accessory muscles and clear to auscultation bilaterally <MD Ani Fernandez Last Filed: 09/26/24 00:01> Effort & inspection: able to speak in complete sentences <MD Ani Fernandez Last Filed: 09/26/24 00:01> Auscultation: clear to auscultation bilaterally <MD Ani Fernandez Last Filed: 09/26/24 00:01> Cardio: Common normals: regular rate, regular rhythm, S1 normal heart sound, S2 normal heart sound and no murmurs <MD Ani Fernandez Last Filed: 09/26/24 00:01> Rate: regular rate <MD Ani Fernandez Last Filed: 09/26/24 00:01> Rhythm: regular rhythm <MD Ani Fernandez Last Filed: 09/26/24 00:01> Heart sounds: S1 normal and S2 normal <MD Ani Fernandez Last Filed: 09/26/24 00:01> GI: Common normals: Normal to inspection, nondistended, normoactive bowel sounds present, soft to palpation, non-tender, no hepatosplenomegaly and no masses <MD Ani Fernandez Last Filed: 09/26/24 00:01> Palpation: soft and no hepatosplenomegaly <MD Ani Fernandez Last Filed: 09/26/24 00:01> Extremity: Other: 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 She has no swelling or effusion. She is refusing to bend but will allow the some passive range of motion but states that it is painful but when I ask her to show me where, she does not localize. There is a less than 1 cm superficial abrasion on the right ankle, anteriorly. No swelling, redness or deformity to either ankle. No point bony tenderness but reports vague tenderness when I attempt to move the ankle in any direction, equal and symmetric bilaterally. Excellent dorsalis pedis pulses bilaterally with good capillary refill in all toes, no deformities to those. No tenderness to palpation of the inner or outer hips, pelvis or suprapubic area. <Suri Lay MD - Last Filed: 09/26/24 00:01> Neuro: Temi Coma Scale: document GCS findings (GCS 15) <MD Ani Fernandez Last Filed: 09/26/24 00:01> Common normals: oriented x3 and no focal motor deficits <MD Ani Fernandez Last Filed: 09/26/24 00:01> Speech: speech normal <MD Ani Fernandez Last Filed: 09/26/24 00:01> Psych: Common normals: thought process normal <Suri Lay MD - Last Filed: 09/26/24 00:01> Attitude: engaged <Suri Lay MD - Last Filed: 09/26/24 00:01> Activity/motor behavior: appropriate eye contact <MD Ani Fernandez Last Filed: 09/26/24 00:01> Thought process: normal thought process <Suri Lay MD - Last Filed: 09/26/24 00:01> Attention/concentration: attention grossly intact <MD Ani Fernandez Last Filed: 09/26/24 00:01> Insight: fair <MD Ani Fernandez Last Filed: 09/26/24 00:01> Judgement: fair <MD Ani Fernandez Last Filed: 09/26/24 00:01> Skin: Narrative: Other than the tiny abrasion on the top of the right foot, no other areas of injury appreciated. <Suri Lay MD - Last Filed: 09/26/24 00:01> Course Course ED Course: 84-year-old female with what sounds like a mechanical fall or that her legs buckled under her which is not uncommon occurrence unfortunately. Due to her age and frailty, I would like to exclude a medical etiology and will obtain a chest x-ray, basic labs, urinalysis. X-rays of both knees and ankles though I do not suspect serious pathology. Will administer hydrocodone and Tylenol while we await findings. Influenza/COVID swab. May require hospital admission for rehab placement verses home with family if her symptoms can be appropriately managed once dangerous pathology is ruled out. Will hand over care to incoming day shift partner. <Suri Lay MD - Last Filed: 09/26/24 00:01> Reevaluation(s) Reevaluation #1: Spoke to patient regarding with the fractures of the left tibia and right fibula. patient notes ongoing pain. Will try morphine 2 mg and Zofran 4 mg for pain control as we await orthopedic consult. Leandra requested that I speak to her sister that had stepped out. I did relate to her that I would like to speak to Orthopedics and director social welfare 1st and then I will [place] back so that I have a plan for them. I do note that I have not yet heard from Orthopedics but have spoken to director social welfare. I do think that Leandra will require a higher level of care than her current assisted living situation. However, we will need to wait for orthopedics consult as bilateral fractures will certainly impact ongoing care. I was able to discuss this with Leandra and her sister. patient's pain seems to be improved. It further examination shows no pain with palpation on the right foot or ankle. Patient has noted 2 point tenderness over the lateral ligaments but no tenderness over the a lateral or medial malleolus, navicular, 5th metatarsal. Passive range of motion causes discomfort at the knee But not at the ankle. <Rin Godfrey MD - Last Filed: 09/21/24 15:12> Consultations Consultation #1: I was able to speak to SHAMAR Elmore of Orthopedics and he does suggest CT of the left knee given the injury. Discussed this with patient and her sister. Have also had them order lunch. <Rin Godfrey MD - Last Filed: 09/21/24 15:12> Vital Signs Vital signs: Initial Vital Signs Temperature 98.1 F 09/21/24 07:17 Temperature Source Temporal Artery Scan 09/21/24 07:17 Pulse Rate 82 09/21/24 07:17 Pulse Rhythm Regular 09/21/24 07:17 Pulse Strength 3+ Normal 09/21/24 07:17 Respiratory Rate 18 09/21/24 07:17 Blood Pressure 156/129 H 09/21/24 07:17 Blood Pressure Mean 138 H 09/21/24 07:17 Blood Pressure Position Semi-Fowlers 09/21/24 07:17 Pulse Oximetry 95 09/21/24 07:17 Oxygen Delivery Method Room Air 09/21/24 07:17 Vital Signs Temperature 98.1 F 09/21/24 07:17 Pulse Rate 82 09/21/24 07:17 Respiratory Rate 18 09/21/24 07:17 Blood Pressure 156/129 H 09/21/24 07:17 Pulse Oximetry 95 09/21/24 07:17 Oxygen Delivery Method Room Air 09/21/24 07:17 Temperature 98 F 09/22/24 08:03 Pulse Rate 94 09/22/24 11:00 Respiratory Rate 18 09/22/24 11:00 Blood Pressure 114/80 09/22/24 11:00 Pulse Oximetry 93 09/22/24 11:00 Oxygen Delivery Method Room Air 09/22/24 11:00 Oxygen Flow Rate 0.5 09/22/24 02:46 <Suri Lay MD - Last Filed: 09/26/24 00:01> Initial Vital Signs Temperature 98.1 F 09/21/24 07:17 Temperature Source Temporal Artery Scan 09/21/24 07:17 Pulse Rate 82 09/21/24 07:17 Pulse Rhythm Regular 09/21/24 07:17 Pulse Strength 3+ Normal 09/21/24 07:17 Respiratory Rate 18 09/21/24 07:17 Blood Pressure 156/129 H 09/21/24 07:17 Blood Pressure Mean 138 H 09/21/24 07:17 Blood Pressure Position Semi-Fowlers 09/21/24 07:17 Pulse Oximetry 95 09/21/24 07:17 Oxygen Delivery Method Room Air 09/21/24 07:17 Vital Signs Temperature 98.1 F 09/21/24 07:17 Pulse Rate 82 09/21/24 07:17 Respiratory Rate 18 09/21/24 07:17 Blood Pressure 156/129 H 09/21/24 07:17 Pulse Oximetry 95 09/21/24 07:17 Oxygen Delivery Method Room Air 09/21/24 07:17 Temperature 98 F 09/22/24 08:03 Pulse Rate 94 09/22/24 11:00 Respiratory Rate 18 09/22/24 11:00 Blood Pressure 114/80 09/22/24 11:00 Pulse Oximetry 93 09/22/24 11:00 Oxygen Delivery Method Room Air 09/22/24 11:00 Oxygen Flow Rate 0.5 09/22/24 02:46 <Rin Godfrey MD - Last Filed: 09/21/24 15:12> Medications Administered Medications: Discontinued Medications Generic Name Dose Route Start Last Admin Trade Name Freq PRN Reason Stop Dose Admin Acetaminophen 975 mg 09/21/24 17:45 09/22/24 10:33 Acetaminophen 325 Mg Tablet PO 975 mg Q8H MATEO Administration Hydrocodone Bitart/Acetaminophen 1 tab 09/21/24 07:24 09/21/24 07:36 Hydrocodone-Acetamin 5-325 Mg 1 Tab PO 09/21/24 07:25 1 tab ONCE ONE Administration Aspirin 81 mg 09/22/24 09:00 09/22/24 08:59 Aspirin 81 Mg Tablet Ec PO 81 mg DAILY MATEO Administration Enoxaparin Sodium 40 mg 09/21/24 21:00 09/21/24 20:57 Enoxaparin 40 Mg/0.4 Ml Inj SUBCUT 40 mg HS MATEO Administration Metoprolol Succinate 25 mg 09/22/24 09:00 09/22/24 08:59 Metoprolol Succinate (Xl) 25 Mg Tab PO 25 mg DAILY MATEO Administration Morphine Sulfate 2 mg 09/21/24 09:25 09/21/24 10:29 Morphine 2 Mg/Ml Inj IVP 09/21/24 09:26 2 mg ONCE ONE Administration Morphine Sulfate 4 mg 09/21/24 12:24 09/21/24 12:48 Morphine 4 Mg/Ml Inj IVP 09/21/24 12:25 4 mg ONCE ONE Administration Morphine Sulfate 2 mg 09/21/24 14:24 09/21/24 14:28 Morphine 2 Mg/Ml Inj IVP 09/21/24 14:25 2 mg ONCE ONE Administration Ondansetron HCl 4 mg 09/21/24 09:25 09/21/24 10:26 Ondansetron 2 Mg/Ml Inj IVP 09/21/24 09:26 4 mg ONCE ONE Administration Oxycodone HCl 2.5 mg 09/21/24 17:32 09/22/24 01:48 Oxycodone 5 Mg Tablet PO 2.5 mg Q4H PRN Administration Pain Oxycodone HCl 5 mg 09/22/24 08:09 09/22/24 09:05 Oxycodone 5 Mg Tablet PO 5 mg Q4H PRN Administration Pain Rosuvastatin Calcium 5 mg 09/21/24 21:00 09/21/24 20:58 Rosuvastatin Calcium 10 Mg Tablet PO 5 mg HS MATEO Administration Sertraline HCl 50 mg 09/22/24 09:00 09/22/24 08:59 Sertraline 50 Mg Tablet PO 50 mg DAILY MATEO Administration Sodium Chloride 5 ml 09/21/24 21:00 09/21/24 20:56 Sodium Chloride 0.9 % (Flush) 10 Ml Syringe IVF 5 ml BID MATEO Administration <Suri Lay MD - Last Filed: 09/26/24 00:01> Discontinued Medications Generic Name Dose Route Start Last Admin Trade Name Navarroq PRN Reason Stop Dose Admin Acetaminophen 975 mg 09/21/24 17:45 09/22/24 10:33 Acetaminophen 325 Mg Tablet PO 975 mg Q8H MATEO Administration Hydrocodone Bitart/Acetaminophen 1 tab 09/21/24 07:24 09/21/24 07:36 Hydrocodone-Acetamin 5-325 Mg 1 Tab PO 09/21/24 07:25 1 tab ONCE ONE Administration Aspirin 81 mg 09/22/24 09:00 09/22/24 08:59 Aspirin 81 Mg Tablet Ec PO 81 mg DAILY MATEO Administration Enoxaparin Sodium 40 mg 09/21/24 21:00 09/21/24 20:57 Enoxaparin 40 Mg/0.4 Ml Inj SUBCUT 40 mg HS MATEO Administration Metoprolol Succinate 25 mg 09/22/24 09:00 09/22/24 08:59 Metoprolol Succinate (Xl) 25 Mg Tab PO 25 mg DAILY MATEO Administration Morphine Sulfate 2 mg 09/21/24 09:25 09/21/24 10:29 Morphine 2 Mg/Ml Inj IVP 09/21/24 09:26 2 mg ONCE ONE Administration Morphine Sulfate 4 mg 09/21/24 12:24 09/21/24 12:48 Morphine 4 Mg/Ml Inj IVP 09/21/24 12:25 4 mg ONCE ONE Administration Morphine Sulfate 2 mg 09/21/24 14:24 09/21/24 14:28 Morphine 2 Mg/Ml Inj IVP 09/21/24 14:25 2 mg ONCE ONE Administration Ondansetron HCl 4 mg 09/21/24 09:25 09/21/24 10:26 Ondansetron 2 Mg/Ml Inj IVP 09/21/24 09:26 4 mg ONCE ONE Administration Oxycodone HCl 2.5 mg 09/21/24 17:32 09/22/24 01:48 Oxycodone 5 Mg Tablet PO 2.5 mg Q4H PRN Administration Pain Oxycodone HCl 5 mg 09/22/24 08:09 09/22/24 09:05 Oxycodone 5 Mg Tablet PO 5 mg Q4H PRN Administration Pain Rosuvastatin Calcium 5 mg 09/21/24 21:00 09/21/24 20:58 Rosuvastatin Calcium 10 Mg Tablet PO 5 mg HS MATEO Administration Sertraline HCl 50 mg 09/22/24 09:00 09/22/24 08:59 Sertraline 50 Mg Tablet PO 50 mg DAILY MATEO Administration Sodium Chloride 5 ml 09/21/24 21:00 09/21/24 20:56 Sodium Chloride 0.9 % (Flush) 10 Ml Syringe IVF 5 ml BID MATEO Administration <Rin Godfrey MD - Last Filed: 09/21/24 15:12> Medical Decision Making [facility] Narrative Medical decision making narrative: 1. Left tibial fracture- initially noted on plain films and confirmed by CT. Discussed this fracture with ortho and ultimate decision based on orthopedic consultation with the patient was to splint at this time. Patient will need weekly checks and Orthopedics is going to put a note in the chart. While splinted this will be nonweightbearing. 2.Right tibial tubercle fracture- not noted on plain films. In fact plain films showed a suspected fibular fracture. Orthopedics had ordered CT and fracture is noted of the tibial tubercle. Clarified that the fibular fracture appears to be chronic. May bear weight. 3. Foot pain - ankle x-rays negative for fracture. Foot x-ray is read as negative by radiology but there was a concern regarding navicular of the right foot. CT did not show acute injury. 4.Hyponatremia-mild At 129 5. Frequent falls- History of inclusion body myositis. No prodromal symptoms. Troponin negative. 5. Leukopenia - 3.21 appears to be chronic with similar value in November of 2023. Negative for COVID influenza and RSV today. 6. Disposition-Orthopedic discussion regarding surgical repair versus casting / splinting. Patient had left leg placed in a splint by Orthopedics. With right foot CT being negative may bear weight on the right but no weight-bearing for the left leg. Troponin negative. Hemoglobin normal, negative for COVID influenza and RSV. Patient excepted by hospitalist sales floor team leader Dr. Dianne Grant. <Rin Godfrey MD - Last Filed: 09/21/24 15:12> Medical Records Medical records reviewed: Yes I reviewed the patient's medical records <Rin Godfrey MD - Last Filed: 09/21/24 15:12> Lab Data Lab results reviewed: Yes I reviewed the patient's lab results <Rin Godfrey MD - Last Filed: 09/21/24 15:12> Labs: Lab Results 09/21/24 09/21/24 09/21/24 Range/Units 07:24 07:31 07:40 WBC 3.21 L (4.50-11.00) K/uL RBC 3.93 L (4.00-5.20) m/uL Hgb 12.6 (12.0-16.0) gm/dL Hct 37.4 (33.0-51.0) % MCV 95 (80-100) fL MCH 32 (26-34) pg MCHC 34 (32-36) gm/dL RDW Coeff of Jos 13.3 (11.5-15.5) % Plt Count 235 (140-440) K/uL Neut % (Auto) 74.2 H (42.0-72.0) % Lymph % (Auto) 16.5 L (20-44) % [place] % (Auto) 6.5 (0.0-11.0) % Eos % (Auto) 2.2 (0.0-7.0) % Baso % (Auto) 0.3 (0.0-3.0) % Neut # (Auto) 2.40 (1.7-7.0) K/uL Lymph # (Auto) 0.50 L (0.90-2.90) K/uL [place] # (Auto) 0.20 (0.00-0.90) K/UL Eos # (Auto) 0.10 (0.00-0.50) K/uL Baso # (Auto) 0.00 (0.00-0.30) K/uL Abs Immat Gran (auto) 0.00 (0.00-0.30) K/uL Imm/Tot Granulo (auto) 0.3 % Sodium Cancelled Potassium Cancelled Chloride Cancelled Carbon Dioxide Cancelled Anion Gap Cancelled BUN Cancelled Creatinine Cancelled Estimated Creat Clear Cancelled Estimated GFR Cancelled Glucose Cancelled Lactate 1.4 (0.5-1.9) mmol/L Calcium Cancelled C-Reactive Protein Cancelled SARS-CoV-2 (PCR) Negative SARS-CoV-2 (Negative) Influenza Type A (PCR) Negative PCR FLU A (Negative) Influenza Type B (PCR) Negative PCR FLU B (Negative) RSV (PCR) Negative PCR RSV (Negative) POC Troponin I 0.01 (0.01-0.04) ng/ml <Suri Lay MD - Last Filed: 09/26/24 00:01> Lab Results 09/21/24 09/21/24 09/21/24 Range/Units 07:24 07:31 07:40 WBC 3.21 L (4.50-11.00) K/uL RBC 3.93 L (4.00-5.20) m/uL Hgb 12.6 (12.0-16.0) gm/dL Hct 37.4 (33.0-51.0) % MCV 95 (80-100) fL MCH 32 (26-34) pg MCHC 34 (32-36) gm/dL RDW Coeff of Jos 13.3 (11.5-15.5) % Plt Count 235 (140-440) K/uL Neut % (Auto) 74.2 H (42.0-72.0) % Lymph % (Auto) 16.5 L (20-44) % [place] % (Auto) 6.5 (0.0-11.0) % Eos % (Auto) 2.2 (0.0-7.0) % Baso % (Auto) 0.3 (0.0-3.0) % Neut # (Auto) 2.40 (1.7-7.0) K/uL Lymph # (Auto) 0.50 L (0.90-2.90) K/uL [place] # (Auto) 0.20 (0.00-0.90) K/UL Eos # (Auto) 0.10 (0.00-0.50) K/uL Baso # (Auto) 0.00 (0.00-0.30) K/uL Abs Immat Gran (auto) 0.00 (0.00-0.30) K/uL Imm/Tot Granulo (auto) 0.3 % Sodium Cancelled Potassium Cancelled Chloride Cancelled Carbon Dioxide Cancelled Anion Gap Cancelled BUN Cancelled Creatinine Cancelled Estimated Creat Clear Cancelled Estimated GFR Cancelled Glucose Cancelled Lactate 1.4 (0.5-1.9) mmol/L Calcium Cancelled C-Reactive Protein Cancelled SARS-CoV-2 (PCR) Negative SARS-CoV-2 (Negative) Influenza Type A (PCR) Negative PCR FLU A (Negative) Influenza Type B (PCR) Negative PCR FLU B (Negative) RSV (PCR) Negative PCR RSV (Negative) POC Troponin I 0.01 (0.01-0.04) ng/ml <Rin Godfrey MD - Last Filed: 09/21/24 15:12> Imaging Data Chest x-ray: Attestation: I have reviewed the pertinent imaging results. <Rin Godfrey MD - Last Filed: 09/21/24 15:12> Radiologist's impression: Devices: Right shoulder arthroplasty. Lung volumes are good. No focal or diffuse opacities. No pulmonary edema. No pleural effusion. No pneumothorax. No pneumomediastinum. Heart size is normal. Atherosclerosis. Bones: No acute findings. IMPRESSION: Lungs clear. No acute findings. <Rin Godfrey MD - Last Filed: 09/21/24 15:12> Right ankle x-ray: Attestation: I have reviewed the pertinent imaging results. <Rin Godfrey MD - Last Filed: 09/21/24 15:12> My impression: By my read no fractures <Rin Godfrey MD - Last Filed: 09/21/24 15:12> Radiologist's impression: Diffuse osteopenia. No acute fracture or dislocation. Mild degenerative arthrosis of the ankle. No localized soft tissue swelling. <Rin Godfrey MD - Last Filed: 09/21/24 15:12> Left ankle x-ray: Attestation: I have reviewed the pertinent imaging results. <Rin Godfrey MD - Last Filed: 09/21/24 15:12> Radiologist's impression: No acute fracture or dislocation. Ankle mortise is congruent. Mild degenerative arthrosis of the ankle. No localized soft tissue swelling. <Rin Godfrey MD - Last Filed: 09/21/24 15:12> Left knee x-ray: Attestation: I have reviewed the pertinent imaging results. <Rin Godfrey MD - Last Filed: 09/21/24 15:12> My impression: Fracture noted proximal tibia <Rin Godfrey MD - Last Filed: 09/21/24 15:12> Radiologist's impression: Diffuse osteopenia. Nondisplaced fracture of the medial tibial metadiaphysis with mild adjacent soft tissue swelling. Minimal degenerative changes of the knee joint. No significant joint effusion. <Rin Godfrey MD - Last Filed: 09/21/24 15:12> Right knee x-ray: Attestation: I have reviewed the pertinent imaging results. <Rin Godfrey MD - Last Filed: 09/21/24 15:12> My impression: on the lateral view questionable fibular fracture. Will speak with Radiology. <Rin Godfrey MD - Last Filed: 09/21/24 15:12> Radiologist's impression: Updated with addendum: --- ADDENDUM ----- Upon further review, there is acute minimally displaced fracture of proximal right fibula with adjacent soft tissue swelling. Diffuse osteopenia. No acute fracture or dislocation. 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 Chondrocalcinosis. No significant joint effusion or localized soft tissue swelling. <Rin Godfrey MD - Last Filed: 09/21/24 15:12> Left knee CT: Attestation: I have reviewed the pertinent imaging results. <Rin Godfrey MD - Last Filed: 09/21/24 15:12> Radiologist's impression: Left tibia fracture Technique: Left knee CT without contrast Comparison: Same day knee radiographs Findings: Bones: Diffuse osseous demineralization. Mildly comminuted nondisplaced fracture of the proximal tibial metadiaphysis with extension into tibial tubercle. The fracture plane appears to extend to the medial tibial plateau articular surface (3/191, 5/21, 6/35), though this is difficult to visualize. Joint spaces: Mild tricompartmental osteoarthritis of the knee, most severe in the medial compartment. Trace knee joint effusion. Soft tissues: Vascular calcifications. Moderate atrophy of the visualized musculature. Moderate subcutaneous soft tissue swelling throughout the anterior lower extremity. Mild thickening of the patellar tendon in the region of the insertion at the tibial tubercle. ACL and PCL appear grossly intact. Impression: Mildly comminuted nondisplaced fracture of the proximal tibial metadiaphysis with extension of a fracture line to the medial tibial plateau. The fracture plane also extends to the tibial tubercle with mild thickening of the patellar tendon at the insertion, concerning patellar tendon injury. No evidence of patella brian to suggest complete disruption. <Rin Godfrey MD - Last Filed: 09/21/24 15:12> bilateral foot x-ray: Attestation: I have reviewed the pertinent imaging results. <Rin Godfrey MD - Last Filed: 09/21/24 15:12> Radiologist's impression: negative per radiologist report <Rin Godfrey MD - Last Filed: 09/21/24 15:12> right foot CT: Attestation: I have reviewed the pertinent imaging results. <Rin Godfrey MD - Last Filed: 09/21/24 15:12> Radiologist's impression: Bones: Diffuse osseous demineralization. Ossific fragment at the base of the 2nd digit middle phalanx (01/26), along the plantar surface. Hammertoe deformities of the 2nd through 5th digits on this nonweightbearing CT. Achilles insertional and plantar calcaneal enthesophytes. Joint spaces: Mild to moderate osteoarthritis of the IP joints. Mild osteoarthritis of the 1st MTP joint. Mild tibiotalar, subtalar and midfoot joint osteoarthritis. Soft tissues: Mild edema throughout the foot. Vascular calcifications. Flexor and extensor tendons of the foot are grossly intact. Impression: No definite acute fracture, though evaluation is limited by diffuse osseous demineralization. There is a small ossific fragment at the base of the 2nd digit middle phalanx, along the plantar aspect, which is concerning for an age-indeterminate fracture or represent a small accessory ossicle. Correlate with pain on physical exam of the 2nd digit. <Rin Godfrey MD - Last Filed: 09/21/24 15:12> Discharge Plan Discharge Clinical Impression: Closed left tibial fracture, Closed right tibial fracture, Acute foot pain <Suri Lay MD - Last Filed: 09/26/24 00:01> Patient Disposition: Admitted As Observation <Suri Lay MD - Last Filed: 09/26/24 00:01> Condition: Improved <Suri Lay MD - Last Filed: 09/26/24 00:01> Activity Detail: No weightbearing left lower extremity. Weightbear when tolerated R lower extremity. keep splint clean and dry on left lower extremity. Watch for skin breakdown/rubbing at ends of splint at thigh and foot. <Suri Lay MD - Last Filed: 09/26/24 00:01> No weightbearing left lower extremity. Weightbear when tolerated R lower extremity. keep splint clean and dry on left lower extremity. Watch for skin breakdown/rubbing at ends of splint at thigh and foot. <Rin Godfrey MD - Last Filed: 09/21/24 15:12>
--- NOTE | 2024-09-21 07:33 | CRLHL7_ITS ---
For Patients: As a result of the Century Cures Act, medical imaging exams and procedure reports are released immediately into your electronic medical record. You may view this report before your referring provider. If you have questions, please contact your health care provider. INDICATION: Fall COMPARISON: 05/20/2022 TECHNIQUE: 1 view chest radiograph. FINDINGS: Devices: Right shoulder arthroplasty. Lung volumes are good. No focal or diffuse opacities. No pulmonary edema. No pleural effusion. No pneumothorax. No pneumomediastinum. Heart size is normal. Atherosclerosis. Bones: No acute findings. IMPRESSION: Lungs clear. No acute findings. Dictated by Yvrose Berg MD @ 09/21/2024 8:14:18 AM (Electronically Signed)
[2024-09-21] MEDS: HYDROCODONE-ACETAMIN 5-325 MG 1 TAB PO (07:36)
[2024-09-21 07:45] LABS: Lactate* 1.4 mmol/L (0.5-1.9)
[2024-09-21 07:53] LABS: Basophils Percent Auto 0.3 % (0.0-3.0); Eosinophils Percent Auto 2.2 % (0.0-7.0); Hematocrit 37.4 % (33.0-51.0); Hemoglobin* 12.6 gm/dL (12.0-16.0); Immature Granulocytes Pct Auto 0.3 %; Lymphocytes Percent Auto 16.5 % (20-44); Mean Corpuscular HGB Conc 34 gm/dL (32-36); Mean Corpuscular Hemoglobin 32 pg (26-34); Mean Corpuscular Volume 95 fL (80-100); Monocytes Percent Auto 6.5 % (0.0-11.0); Neutrophils Percent Auto 74.2 % (42.0-72.0); Platelet Count* 235 K/uL (140-440); RDW Coefficient of Variation % 13.3 % (11.5-15.5); Red Blood Count 3.93 m/uL (4.00-5.20); White Blood Count* 3.21 K/uL (4.50-11.00)
[2024-09-21 07:54] LABS: Slide Review Reflex No
[2024-09-21 07:56] LABS: Troponin, Point-of-Care* 0.01 ng/ml (0.01-0.04)
[2024-09-21 08:13] LABS: PCR FLU A Negative PCR FLU A (Negative); PCR FLU B Negative PCR FLU B (Negative); PCR RSV Negative PCR RSV (Negative); SARS PCR* Negative SARS-CoV-2 (Negative)
--- OUTSIDE RECORDS SUMMARY | 2024-09-21 08:30 | XMS_ITS | Clinical Summary ---
Author Organization [facility] Address [address] [place] [id number] Care Team Providers Care Wrapping Machine Operator Name Role Phone Shayna Flores DO Primary Care Provider [phone] Allergies No known active allergies Medications multivitamin (MVI) tablet Take 1 tablet by mouth once daily. 0 013 Active calcium citrate-vitamin D3 500 mg-12.5 mcg /5 gram powd Mix 1 Tablet in liquid then take by mouth. Active fluorometholone (FML) 0.1 % ophthalmic suspension INSTILL 1 DROP IN BOTH EYES EVERY DAY NEEDED Active loteprednol (LOTEMAX) 0.5 % ophthalmic suspension INSTILL 1 DROP IN BOTH EYES DAILY 021 Active triamcinolone (ARISTOCORT; KENALOG) 0.1 % cream Apply topically to affected area(s) 3 times daily. 80 g 021 Active acetaminophen (TYLENOL EXTRA STRGTH) 500 mg tablet Take 1 Tablet by mouth every 6 hours if needed for Pain. Max acetaminophen dose: 4000mg in 24 hrs. 0 021 Active diphenhydrAMINE-acetami nophen 25-500 mg (Tylenol PM Extra Strength) 25-500 mg tablet Take 1 Tablet by mouth at bedtime if needed (sleep). Max acetaminophen dose: 4000mg in 24 hrs. 0 021 Active aspirin (ECOTRIN) 81 mg enteric coated tablet Take 1 Tablet (81 mg) by mouth once daily with a meal. 024 Active kg-ium-CA-vit B-uxkmew-uwnnsxg (PreserVision AREDS 2 Plus MV) 200 mcg-15 mcg- 5 mg-1 mg cap Take by mouth two times daily. 024 Active ketoconazole 2% shampoo (NIZORAL) 2 % shampooIndications:Hilda a Place on affected areas once daily for 1 week. dampen skin prior to use and leave on for 5 minutes the rinse off. 120 mL 1 024 Active sertraline (ZOLOFT) 50 mg tabletIndications:Anxie ty,Situational depression Take 1 Tablet (50 mg) by mouth every morning. 90 Tablet 4 024 Active rosuvastatin (CRESTOR) 5 mg tabletIndications:Famil ial hypercholesterolemia Take 1 Tablet (5 mg) by mouth once daily with evening meal. 90 Tablet 2 024 Active diclofenac topical (VOLTAREN) 1 % gelIndications:Complex regional pain syndrome type 1 affecting left upper arm Apply 2 g topically to affected area(s) four times daily. 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 Closed fracture of right low er extremity with routine healing 12/24/2020 Irregular heart beat 06/09/2012 Other and unspecified hyperlipidemia 06/09/2012 Encounters Date Type Department Care Team Description 09/21/2024 Telephone [facility] [address] [place] [address] Shayna Flores DO Follow Up (FYI - mutual patient.) 07/13/2024 Refill [facility] [address] [place] [address] Shayna Flores DO Refill Request (Metoprolol Succinate) from Last 3 Months Immunizations Immunization Administration Dates Next Due COVID-19 VACCINE SPIKEVAX (M ODERNA 50MCG/0.5ML) 12YO+ PFS 03/26/2023 COVID-19 vaccine (Moderna 100mcg/0.5mL) PF, MDV [...] Housing in the Last Year 1 01/12/2022 Comments No Sex and Gender Information Value Date Recorded Sex Assigned at Not on file Legal Sex Female 8:43 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 Gender Identity Not on file Sexual Orientation [...] Sign Reading Time Taken Comments Blood Pressure 118/72 03/03/2024 2:12 PM CDT Pulse 69 03/03/2024 2:12 PM CDT Temperature 36.6 C (97.8 F) 08/10/2023 1:20 PM SENIOR DATA DEVELOPER Respiratory Rate 18 08/10/2023 1:20 PM SENIOR DATA DEVELOPER Oxygen Saturation 97% 03/03/2024 2:12 PM CDT Inhaled Oxygen Concentration - - Weight 53.1 kg (117 lb) 03/26/2023 10:45 AM CDT Height 149.9 cm (4' 11) 05/19/2022 3:19 PM SENIOR DATA DEVELOPER Body Mass Index 23.63 05/19/2022 3:19 PM SENIOR DATA DEVELOPER Plan of Treatment Health Maintenance Due Date Last Done Comments DEXA/DXA scan for age 65+ 2006 Medicare Wellness for age 65+ 2006 RSV vaccine for adults or (1 - 1-dose 75+ series) 2016 Tetanus booster 06/09/2022 06/09/2012, 04/07, 03/26/1997 BMI (ht and wt on same day) for age 18+ 05/19/2023 05/19/2022 COVID-19 vaccine series ( season) 2024 03/26/2023, 03/14/2022, 10/02/2021, Additional history exists Depression screening for age 12+ 09/05/2024 09/06/2023, 08/09/2023, 01/13/2022, Additional history exists Influenza Vaccine (Season Ended) 2025 03/26/2023, 03/26/2021, 03/27/2020 Tdap Completed 06/09/2012, 04/20/2011 Pneumococcal series for age 50+ Completed 5, 08/22/2008 Zoster (shingles) series for age 50+ Completed 01/18/2018, 10/28/2017, 08/30/2008 Insurance MEDICARE PB ONLY [facility] OF [facility] MEDIC[facility] PART B HB ONLY HC MEDICARE PPS [place]OSS OF [place] Advance Directives Documents on File Type Date Recorded 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
--- OUTSIDE RECORDS SUMMARY | 2024-09-21 08:30 | XMS_ITS | Clinical Summary ---
Author Organization [facility] Address [address] , [address] [place] [address] Phone Care Team Providers Care Funds Development Director Name Role Phone [facility] Unavailable Unava ilable Conditions or Problems Problem Name Problem Code Onset Date Status Entry Date Provider Comment Standard Description Annotate Gait imbalance 331449422 (SNOMED CT) Active Reggie Sheets MD Abnormal gait due to impairment of balance Inclusion body myositis 32127706 (SNOMED CT) Active Reggie Sheets MD Inclusion body myositis Myopathy 217116442 (SNOMED CT) Active Reggie Sheets MD Disorder of muscle Muscle weakness 80676867 (SNOMED CT) Active Alan Vega MD Muscle weakness Medications Medication Instructions Start Date Stop Date Generic Name [facility] Provider ROSUVASTATIN CALCIUM 5 MG TABS rosuvastatin [id number] Reggie Sheets MD METOPROLOL SUCCINATE ER 25 MG [id number] metoprolol succinate [id number] Reggie Sheets MD Medications Administered No information available. Allergies, Adverse Reactions, Alerts Allergy Name Reaction Description Start Date Severity Statu s Provider NKDA Mild Active Reggie Sheets MD Results Date Name Value Unit Range Flag Description Internal Other: Authorizatio n - OBS [email or web address] Yes Authoriza tion: Release of Information - Authorize [facility] - Payment and Healthcare Operations ROIAUTHOTHER Yes Authoriz ation: Release of Information - Authorize Others/Insurance - Payment and Healthcare Operations HIECONSENT Yes Consent To Release information to the Health Information Exchange (HIE) [email or web address] Yes Authorizat ion: Authorization for Noran/BRITTNI to leave messages, voicemail, send text messages, send emails AUTHRELHCARE Yes Authoriz ation: Release/Retrieval of Information to/from Healthcare Facilities, Pharmacy Benefit Payers and Providers AUTHPRIVPRAC Yes Authoriz ation: Notice of privacy practices AUTHBENEFIT Yes Authoriza tion: Assignment of Benefits and Payment Agreement Internal Other: Verbal Autho rization/Emergency Contact - OBS VERBAL_EMER DONE Verbal au thorization and emergency contact Lab Report: T4, FREE, TSH TSH 1.69 u[iU]/mL 0.40-4.50 N Thyrotropi n [Units/volume] in Serum or Plasma FRT4 0.9 0.8-1.8 N FREE T4 Office Visit: Office Visit f ax MEDS REVIEW Done Documenta tion of current medications (procedure) Plan of Care Type Date Detail Pending order Follow up A[place] Pending order Patient Instruct ions Pending order Follow up as nee ded Pending order Follow up Pending order Patient Instruct ions Pending order Physical Therapy Pending order T4 Free Direct Pending order TSH Pending order Follow up teleme dicine Pending order Aldolase Pending order CK (Creatine Kin ase) Total Pending order Glucose Fast & 2 hr (2 hr GTT) - fasting after midnight Pending order Other Lab Pending order Other Lab Pending order Patient Instruct ions Procedures Code Procedure Name Date Entry Date [facility]-[id number] Documentation of current medicatio ns ORDERS Follow up [place] ORDERS Patient Instructions ORDERS Follow up as needed ORDERS Follow up ORDERS Physical Therapy [facility]-[id number] Documentation of current medicatio ns ORDERS T4 Free Direct ORDERS TSH ORDERS Patient Instructions ORDERS Follow up telemedicine 06/17 ORDERS Patient Instructions ORDERS CK (Creatine Kinase) Total 2 ORDERS Glucose Fast & 2hr ( 2 hr GTT) - fasting after midnight ORDERS Other Lab ORDERS Aldolase ORDERS Other Lab CPT-46848 Nerve Conduction 7-8 studies CPT-55111 EMG with NCS (5+ muscles) - 2 limbs 04/21 Vital Signs No information available. Immunizations No information available. Advance Directives No information available.
[2024-09-21] MEDS: ONDANSETRON 2 MG/ML inj 4 MG IVP (10:26)
[2024-09-21] MEDS: MORPHINE 2 MG/ML inj IVP ×2 (10:29→14:28)
--- NOTE | 2024-09-21 10:54 | CRLHL7_ITS ---
For Patients: As a result of the Century Cures Act, medical imaging exams and procedure reports are released immediately into your electronic medical record. You may view this report before your referring provider. If you have questions, please contact your health care provider. Indication: Left tibia fracture Technique: Left knee CT without contrast Comparison: Same day knee radiographs Findings: Bones: Diffuse osseous demineralization. Mildly comminuted nondisplaced fracture of the proximal tibial metadiaphysis with extension into tibial tubercle. The fracture plane appears to extend to the medial tibial plateau articular surface (3191, 10/25, ), though this is difficult to visualize. Joint spaces: Mild tricompartmental osteoarthritis of the knee, most severe in the medial compartment. Trace knee joint effusion. Soft tissues: Vascular calcifications. Moderate atrophy of the visualized musculature. Moderate subcutaneous soft tissue swelling throughout the anterior lower extremity. Mild thickening of the patellar tendon in the region of the insertion at the tibial tubercle. ACL and PCL appear grossly intact. Impression: Mildly comminuted nondisplaced fracture of the proximal tibial metadiaphysis with extension of a fracture line to the medial tibial plateau. The fracture plane also extends to the tibial tubercle with mild thickening of the patellar tendon at the insertion, concerning patellar tendon injury. No evidence of patella brian to suggest complete disruption. Please note that all CT scans at this facility use dose modulation, iterative reconstruction, and/or weight-based dosing when appropriate to reduce radiation dose to as low as reasonably achievable. Dictated by Aubrie Mock MD @ 09/21/2024 11:59:43 AM (Electronically Signed)
--- NOTE | 2024-09-21 11:56 | CRLHL7_ITS ---
For Patients: As a result of the Century Cures Act, medical imaging exams and procedure reports are released immediately into your electronic medical record. You may view this report before your referring provider. If you have questions, please contact your health care provider. Indication: Trauma. Technique: Right foot 3 views. Comparison: None. Findings: Bones: Diffuse osseous demineralization. No evident acute fracture or dislocation. Evaluation of the toes is significantly limited due to overlapping bones on each view. Small calcaneal plantar enthesophyte. Joint spaces: Moderate to severe scattered joint arthrosis. Soft tissues: No evident focal soft tissue swelling. Impression: No evident acute fracture or dislocation, within the limitations noted above. Dictated by Perez Beebe MD @ 09/21/2024 1:00:04 PM (Electronically Signed)
--- NOTE | 2024-09-21 11:57 | CRLHL7_ITS ---
For Patients: As a result of the Cures Act, medical imaging exams and procedure reports are released immediately into your electronic medical record. You may view this report before your referring provider. If you have questions, please contact your health care provider. Indication: Fall. Technique: Left foot, 3 views. Comparison: January 12, 2024. Findings/impression: Bones: Diffuse demineralization of the visualized bones. No definite acute fractures or dislocations identified. There is overall increased deformity compared to January 12, 2024.. Joint spaces: Aawc-ou-znosjpxx diffuse degenerative changes.. Soft tissues: Mild soft tissue swelling in the foot.. Dictated by Maximiliano Prieto MD @ 09/21/2024 12:59:50 PM (Electronically Signed)
--- NOTE | 2024-09-21 11:58 | CRLHL7_ITS ---
For Patients: As a result of the Century Cures Act, medical imaging exams and procedure reports are released immediately into your electronic medical record. You may view this report before your referring provider. If you have questions, please contact your health care provider. INDICATION: Fall. TECHNIQUE: Noncontrast CT right knee. COMPARISON: Radiographs 09/21/2024. FINDINGS: Bones appear demineralized. There is no acute distal femoral or patellar fracture. There is a subtle acute nondisplaced fracture of the tibial tubercle. Fracture is subtly apparent on axial image number 172 of series 1 and sagittal image number 33 of series 4 for example. No disruption of the medial or lateral tibial plateaus. Remote healed fracture of the proximal fibular shaft. No significant knee joint effusion. Chondrocalcinosis of the menisci is present. Atrophy of the proximal medial head of the gastrocnemius and distal semimembranosus muscle. IMPRESSION: 1. Acute nondisplaced fracture of the tibial tubercle of the right proximal tibia. No disruption of the tibial plateau articular surfaces. 2. Remote healed fracture of the proximal fibular shaft. 3. Bones are demineralized. Please note that all CT scans at this facility use dose modulation, iterative reconstruction, and/or weight-based dosing when appropriate to reduce radiation dose to as low as reasonably achievable. Dictated by Jak Capellan MD @ 09/21/2024 12:36:08 PM (Electronically Signed)
--- NOTE | 2024-09-21 12:05 | PM.ORCN ---
History of Present Illness HPI Time Seen by Provider: 12:06 Date Seen: 09/21/24 Consult date: 09/21/24 Requesting physician: Suri Lay Chief complaint: Fall, knee injury Narrative: Leandra is a very pleasant 84-year-old young lady, that arrived by EMS today after falling while going to the window after awakening this morning. Her legs buckled and she fell onto her bent knees. Left knee is more painful than the right. Both feet hurt as well. She has had x-rays of her ankle, x-rays of her knees, CT of her left knee after arrival to the ER. EMS reported deformity in her knees suspecting the knees were dislocated. Dr. Lay did not see any deformity upon arrival. She has inclusion body myositis. I have seen her last year for left 5th metatarsal fracture and left wrist fracture. She lives at [facility]. She is accompanied today by her sister and her niece, Aleja. Review of Systems Narrative: Patient denies nausea, vomiting, fever, chills, chest pain, shortness of breath. She did not hit her head. 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) ?M33.20 - Polymyositis, organ involvement unspecified (ICD-10) Irregular heart beat (06/09/12) ?I49.9 - Cardiac arrhythmia, unspecified (ICD-10) Elevated LFTs ?R79.89 - Other specified abnormal findings of blood chemistry (ICD-10) 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] (ICD-10) Left shoulder pain ?M25.512 - Pain in left shoulder (ICD-10) Greater trochanteric bursitis of right hip ?M70.61 - Trochanteric bursitis, right hip (ICD-10) Maisonneuve fracture of right lower extremity ?S82.861A - Displaced Maisonneuve's fracture of right leg, initial encounter for closed fracture (ICD-10) Osteoporosis ?M81.0 - Age-related osteoporosis without current pathological fracture (ICD-10) Hyperlipidemia ?E78.5 - Hyperlipidemia, unspecified (ICD-10) Myopathy ?G72.9 - Myopathy, unspecified (ICD-10) Hypertension ?I10 - Essential (primary) hypertension (ICD-10) Surgical History 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 Currently at [facility] at [facility]. 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 Her sister is healthcare power of immigration attorney. Her code status is full. She is a former smoker. She rarely drinks alcohol. No recreational drug use. Two living adult children (one in [place], one in [place]). What is your current living situation?: I presently have a place to live Problems where you live: no known problems Problems where you live details: na In the past 12 months, utilities in danger of being shut off: no In past 12 months, lack of transportation kept you from medical appts, meetings, work, or getting things needed for daily living: no In the past 12 mos, have been you worried that your food would run out before you had money to buy more?: never true In the past 12 mos, the food you bought just didn't last and you didn't have money to buy more?: never true Highest level of school completed/degree received: high school graduate Smoking Status: Former smoker Second hand tobacco smoke exposure: No How often do you have a drink containing alcohol: never How often do you have six or more drinks on one occasion: Never AUDIT-C Alcohol total score: 0 Non-prescribed substance use: denies use How often does anyone, including family, friends and others, physically hurt you: never How often does anyone, including family, friends and others, insult or talk down to you: never How often does anyone, including family, friends and others, threaten you with harm: never How often does anyone, including family, friends and others, scream or curse at you: never service: No Meds Home Medications and Allergies Home Medications ?Medication ?Instructions ?Recorded ?Confirmed ?Type metoprolol succinate 25 mg 25 mg PO DAILY 05/20/22 09/21/24 History tablet,extended release 24 hr rosuvastatin 5 mg tablet 5 mg PO HS 05/20/22 09/21/24 History sertraline 50 mg tablet 50 mg PO DAILY 12/01/23 09/21/24 History acetaminophen 500 mg tablet 500 mg PO Q6H PRN 09/21/24 09/21/24 History (Acetaminophen Pain Relief) aspirin 81 mg tablet,delayed 81 mg PO DAILY 09/21/24 09/21/24 History release (Enteric Coated Aspirin) fluorometholone 0.1 % eye 1 drp ophthalmic (eye) DAILY PRN 09/21/24 09/21/24 History drops,suspension loteprednol etabonate 0.5 % eye 1 drp ophthalmic (eye) DAILY 09/21/24 09/21/24 History drops,suspension Allergies Allergy/AdvReac Type Severity Reaction Status Date / Time No Known Drug Allergies Allergy Verified 09/21/24 07:21 Ortho Exam Narrative Exam Narrative: Alert and oriented x3. Patient is in no acute distress. Converses without labored breathing. Hearing is grossly intact. Examination of the right knee shows no ecchymosis. Soft tissue edema over the anterior proximal tibial area. Significant tenderness to palpation over the proximal anterior tibia. Nontender over the proximal fibula. I am able to range the knee however this does cause pain over the anterior tibia. CMS intact right lower extremity. Not able to straight leg raise. No effusion is palpable. Tissues are soft to palpation. Examination of the left knee shows soft tissue edema present over the proximal anterior tibia. Significant tenderness over the anterior proximal tibial area. She is apprehensive and does not want me to move the knee due to the pain she is having. CMS intact left lower extremity. Not able to straight leg raise. No effusion is palpable. Tissues are soft to palpation. Examination of the right foot shows ecchymosis over the dorsum of her foot and 3rd toe. Tender to palpation in these areas as well. With palpation about the ankle, she does not have discomfort. Examination of the left foot shows tenderness over the dorsum of her foot and tenderness over the 5th metatarsal as well. She holds her left foot in inversion, however if I get her to relax I can straighten the ankle to neutral. Moving the foot hurts at the knee/tibia. Const Vital Signs, click to edit/add: Vital Signs - 24 hr 09/21/24 07:17 09/21/24 11:50 Temperature 98.1 F 97.9 F Pulse Rate [Right Pulse Oximeter] 82 89 Respiratory Rate 18 18 Blood Pressure [Left Upper Arm] 156/129 H 147/67 H Pulse Oximetry 95 93 Oxygen Delivery Method Room Air Room Air Documenting provider has reviewed patient's vital signs: yes Results Labs Labs: Laboratory Results - last 48 hr 09/21/24 09/21/24 09/21/24 07:24 07:31 07:40 WBC 3.21 L RBC 3.93 L Hgb 12.6 Hct 37.4 MCV 95 MCH 32 MCHC 34 RDW Coeff of Jos 13.3 Plt Count 235 Neut % (Auto) 74.2 H Lymph % (Auto) 16.5 L [place] % (Auto) 6.5 Eos % (Auto) 2.2 Baso % (Auto) 0.3 Neut # (Auto) 2.40 Lymph # (Auto) 0.50 L [place] # (Auto) 0.20 Eos # (Auto) 0.10 Baso # (Auto) 0.00 Abs Immat Gran (auto) 0.00 Imm/Tot Granulo (auto) 0.3 Sodium 129 L Potassium 4.0 Chloride 94 L Carbon Dioxide 27 Anion Gap 8 BUN 11 Creatinine 0.3 L Estimated Creat Clear 32.17 Estimated GFR 105 Glucose 107 Lactate 1.4 Calcium 9.3 C-Reactive Protein < 0.5 L SARS-CoV-2 (PCR) Negative SARS-CoV-2 Influenza Type A (PCR) Negative PCR FLU A Influenza Type B (PCR) Negative PCR FLU B RSV (PCR) Negative PCR RSV POC Troponin I 0.01 Diagnostic results Additional Comments: CT of the left knee today 09/21/2024 shows Bones: Diffuse osseous demineralization. Mildly comminuted nondisplaced fracture of the proximal tibial metadiaphysis with extension into tibial tubercle. The fracture plane appears to extend to the medial tibial plateau articular surface (3191, 10/25, 35), though this is difficult to visualize. Joint spaces: Mild tricompartmental osteoarthritis of the knee, most severe in the medial compartment. Trace knee joint effusion. Soft tissues: Vascular calcifications. Moderate atrophy of the visualized musculature. Moderate subcutaneous soft tissue swelling throughout the anterior lower extremity. Mild thickening of the patellar tendon in the region of the insertion at the tibial tubercle. ACL and PCL appear grossly intact. Impression: Mildly comminuted nondisplaced fracture of the proximal tibial metadiaphysis with extension of a fracture line to the medial tibial plateau. The fracture plane also extends to the tibial tubercle with mild thickening of the patellar tendon at the insertion, concerning patellar tendon injury. No evidence of patella brian to suggest complete disruption. Please note that all CT scans at this facility use dose modulation, iterative reconstruction, and/or weight-based dosing when appropriate to reduce radiation dose to as low as reasonably achievable. Three views of the right knee taken today shows Diffuse osteopenia. No acute fracture or dislocation. 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 Chondrocalcinosis. No significant joint effusion or localized soft tissue swelling. Two views of the left knee shows Diffuse osteopenia. Nondisplaced fracture of the medial tibial metadiaphysis with mild adjacent soft tissue swelling. Minimal degenerative changes of the knee joint. No significant joint effusion. X-ray of the right ankle two views shows Diffuse osteopenia. No acute fracture or dislocation. Mild degenerative arthrosis of the ankle. No localized soft tissue swelling. Three views of the left ankle shows No acute fracture or dislocation. Ankle mortise is congruent. Mild degenerative arthrosis of the ankle. No localized soft tissue swelling. X-ray of the right foot to evaluate for navicular fracture: No fracture seen in the navicular. Impression: No definite acute fracture, though evaluation is limited by diffuse osseous demineralization. There is a small ossific fragment at the base of the 2nd digit middle phalanx, along the plantar aspect, which is concerning for an age-indeterminate fracture or represent a small accessory ossicle. Correlate with pain on physical exam of the 2nd digit. Assessment and Plan Assessment and plan (1) Closed fracture of left proximal tibia: Problem comment: Date of injury 09/21/2024, nondisplaced Status: Acute Assessment and Plan: Treatment for left proximal nondisplaced tibia fracture is conservative treatment with splinting and casting for 4 weeks, then transition to patella tendon bearing brace or cast for another 4 weeks verses operative treatment with plate and screws. Risks involved in operative treatment include but are not limited to risk of infection, risk of wound healing issues, risk of injuring a blood vessel or nerve, risk that the hardware may not hold well in osteoporotic bone, DVT, PE, stroke, , pneumonia, weakness from an activity. Risk of non operative treatment DVT, PE, stroke, , stiffness in the knee after casting and splinting, need for physical therapy, occupational therapy, risk of fracture displacement and therefore need of open reduction internal fixation, risk of pneumonia, weakness from an activity. In speaking with Rakesh, her sister, and Aleja her niece, non operative treatment is preferred at this time. Will plan on x-raying her left knee next week, and the following week to watch for fracture displacement. She is placed into a long-leg splint for now to allow for soft tissue swelling. She will be transitioned to a long-leg cast next week. Splinting was painful, however she did well with this. She is nonweightbearing left lower extremity. Films are thoroughly reviewed with Dr. Grant. He is in agreement with the plan. The splint will need to stay clean and dry. (2) Acute pain of left foot: Status: Acute Assessment and Plan: X-rays of the left foot show diffuse mineralization of bones visualized. No acute fractures or dislocations identified. Mild to moderate diffuse degenerative changes. Soft tissue swelling in the foot is mild. (3) Acute pain of right foot: Status: Acute Assessment and Plan: X-rays were taken of right foot, I questioned a navicular fracture. I called the radiologist. He was unsure and recommended a CT scan. CT scan shows no navicular fracture. No definite acute fractures are seen, though evaluation is limited by diffuse osseous demineralization. There is a small ossific fragment at the base of the 2nd digit middle phalanx along the plantar aspect. Age indeterminate. (4) Fracture of right tibial tuberosity: Problem comment: Date of injury 09/21/2024, nondisplaced Status: Acute Assessment and Plan: Leandra is exquisitely tender over the proximal tibial tubercle. There is also swelling this area, x-rays were normal therefore I ordered a CT of the right knee as well. CT shows acute nondisplaced fracture of the tibial tubercle of the right proximal tibia. No disruption of the tibial plateau articular surfaces. Remote healed fracture of the proximal fibular shaft. Bones are demineralized. In speaking with Dr. Earle Grant, having both legs wrapped up in splints or immobilizers would be quite difficult for Leandra. Therefore we have elected to not place a splint or cast or knee immobilizer on the right lower extremity. There is a small chance that this tibial tubercle could avulse. If that would occur screw fixation would be needed. Her right foot, dorsum, is tender as well. She can weight bear as tolerated on the right lower extremity, certainly she will need assistance and this will be difficult for her. It may take weeks before she is able to weightbear to transition from bed to chair, for she is nonweightbearing left lower extremity. We will re-x-ray her right knee in 1 week. It is discussed with Dr. Godfrey that she may need DVT prophylaxis due to immobility with her injuries. She will be transitioned to the medical-surgical unit. Leandra and her sister and niece are in agreement with all the above. All questions were answered. Note, dictation performed with voice recognition, and as a result, wrong word or sound like substitutions may have occurred. There may be areas in the script that have gone on detected. Please consider this when interpreting information found in the chart.
[2024-09-21] MEDS: MORPHINE 4 MG/ML INJ IVP (12:48)
--- NOTE | 2024-09-21 13:52 | CRLHL7_ITS ---
For Patients: As a result of the Century Cures Act, medical imaging exams and procedure reports are released immediately into your electronic medical record. You may view this report before your referring provider. If you have questions, please contact your health care provider. Indication: Fall Technique: CT of the right foot without contrast. Comparison: Same day foot radiograph Findings: Bones: Diffuse osseous demineralization. Ossific fragment at the base of the 2nd digit middle phalanx (01/26), along the plantar surface. Hammertoe deformities of the 2nd through 5th digits on this nonweightbearing CT. Achilles insertional and plantar calcaneal enthesophytes. Joint spaces: Mild to moderate osteoarthritis of the IP joints. Mild osteoarthritis of the 1st MTP joint. Mild tibiotalar, subtalar and midfoot joint osteoarthritis. Soft tissues: Mild edema throughout the foot. Vascular calcifications. Flexor and extensor tendons of the foot are grossly intact. Impression: No definite acute fracture, though evaluation is limited by diffuse osseous demineralization. There is a small ossific fragment at the base of the 2nd digit middle phalanx, along the plantar aspect, which is concerning for an age-indeterminate fracture or represent a small accessory ossicle. Correlate with pain on physical exam of the 2nd digit. Please note that all CT scans at this facility use dose modulation, iterative reconstruction, and/or weight-based dosing when appropriate to reduce radiation dose to as low as reasonably achievable. Dictated by Aubrie Mock MD @ 09/21/2024 2:49:10 PM (Electronically Signed)
--- NOTE | 2024-09-21 16:31 | PM.IMHP1 ---
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 Was walking towards her window with her walker when her legs buckled (this happens occasionally, she thinks related to her inclusion body myositis) and she fell. Denies any preceding dizziness, lightheadedness, or palpitations. She currently lives at the [facility] assisted living facility at [facility] locally. Sister and niece are with her in the hospital today. ER: - multiple images obtained; ultimately diagnosed with an acute nondisplaced fracture of the tibial tubercle of the RIGHT proximal tibia and a LEFT nondisplaced fracture of the proximal tibia - she was seen by Orthopedic surgery and log leg splint placed on the left - Ortho plan: nonweightbearing on LLE, WBAT RLE. She will see Orthopedic surgery next week with repeat imaging - labs and VS reassuring/baseline Histories reviewed/updated below. PCP is Dr. Flores at the [facility]. 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) ?M33.20 - Polymyositis, organ involvement unspecified (ICD-10) Irregular heart beat (06/09/12) ?I49.9 - Cardiac arrhythmia, unspecified (ICD-10) Elevated LFTs ?R79.89 - Other specified abnormal findings of blood chemistry (ICD-10) 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] (ICD-10) Left shoulder pain ?M25.512 - Pain in left shoulder (ICD-10) Greater trochanteric bursitis of right hip ?M70.61 - Trochanteric bursitis, right hip (ICD-10) Maisonneuve fracture of right lower extremity ?S82.861A - Displaced Maisonneuve's fracture of right leg, initial encounter for closed fracture (ICD-10) Osteoporosis ?M81.0 - Age-related osteoporosis without current pathological fracture (ICD-10) Hyperlipidemia ?E78.5 - Hyperlipidemia, unspecified (ICD-10) Myopathy ?G72.9 - Myopathy, unspecified (ICD-10) Hypertension ?I10 - Essential (primary) hypertension (ICD-10) Surgical History 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 Currently at [facility] at [facility]. 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 Her sister is healthcare power of manager audio. Her code status is full. She is a former smoker. She rarely drinks alcohol. No recreational drug use. Two living adult children (one in [place], one in [place]). What is your current living situation?: I presently have a place to live Problems where you live: no known problems Problems where you live details: na In the past 12 months, utilities in danger of being shut off: no In past 12 months, lack of transportation kept you from medical appts, meetings, work, or getting things needed for daily living: no In the past 12 mos, have been you worried that your food would run out before you had money to buy more?: never true In the past 12 mos, the food you bought just didn't last and you didn't have money to buy more?: never true Highest level of school completed/degree received: high school graduate Smoking Status: Former smoker Second hand tobacco smoke exposure: No How often do you have a drink containing alcohol: never How often do you have six or more drinks on one occasion: Never AUDIT-C Alcohol total score: 0 Non-prescribed substance use: denies use How often does anyone, including family, friends and others, physically hurt you: never How often does anyone, including family, friends and others, insult or talk down to you: never How often does anyone, including family, friends and others, threaten you with harm: never How often does anyone, including family, friends and others, scream or curse at you: never service: No Meds Home Medications and Allergies Home Medications ?Medication ?Instructions ?Recorded ?Confirmed ?Type metoprolol succinate 25 mg 25 mg PO DAILY 05/20/22 09/21/24 History tablet,extended release 24 hr rosuvastatin 5 mg tablet 5 mg PO HS 05/20/22 09/21/24 History sertraline 50 mg tablet 50 mg PO DAILY 12/01/23 09/21/24 History acetaminophen 500 mg tablet 500 mg PO Q6H PRN 09/21/24 09/21/24 History (Acetaminophen Pain Relief) aspirin 81 mg tablet,delayed 81 mg PO DAILY 09/21/24 09/21/24 History release (Enteric Coated Aspirin) fluorometholone 0.1 % eye 1 drp ophthalmic (eye) DAILY PRN 09/21/24 09/21/24 History drops,suspension loteprednol etabonate 0.5 % eye 1 drp ophthalmic (eye) DAILY 09/21/24 09/21/24 History drops,suspension Allergies Allergy/AdvReac Type Severity Reaction Status Date / Time No Known Drug Allergies Allergy Verified 09/21/24 07:21 Exam Narrative: Exam Narrative: GEN: Alert and sitting in bed HEENT: EOMIs bilaterally, no scleral icterus CV: RRR, No concerning murmurs, rubs, or gallops R: LCTA bilaterally without concerning wheezing, rales, or rhonchi Ext: LLE is splinted/ERICA wrapped. +onychomycosis bilaterally, normal capillary refill Neuro: No focal deficits Psych: Appropriate Const: Vital Signs, click to edit/add: Vital Signs - 24 hr 09/21/24 07:17 09/21/24 09:15 09/21/24 10:38 Temperature 98.1 F Pulse Rate 87 88 Pulse Rate [Pulse Oximeter] Pulse Rate [Right Pulse Oximeter] 82 Respiratory Rate 18 Blood Pressure 139/81 Blood Pressure [Le ft Upper Arm] 156/129 H Blood Pressure [Ri ght Arm] Pulse Oximetry 95 99 100 Oxygen Delivery Me thod Room Air Oxygen Flow Rate 09/21/24 10:45 09/21/24 11:32 09/21/24 11:50 Temperature 97.9 F Pulse Rate 81 78 Pulse Rate [Pulse Oximeter] Pulse Rate [Right Pulse Oximeter] 89 Respiratory Rate 18 Blood Pressure 147/67 H Blood Pressure [Le ft Upper Arm] 147/67 H Blood Pressure [Ri ght Arm] Pulse Oximetry 99 99 93 Oxygen Delivery Me thod Room Air Oxygen Flow Rate 09/21/24 12:57 09/21/24 12:59 09/21/24 15:00 Temperature 97.7 F Pulse Rate 93 89 Pulse Rate [Pulse Oximeter] Pulse Rate [Right Pulse Oximeter] 84 Respiratory Rate 18 Blood Pressure 137/70 Blood Pressure [Le ft Upper Arm] 137/70 Blood Pressure [Ri ght Arm] Pulse Oximetry 92 97 100 Oxygen Delivery Me thod Nasal Cannula Oxygen Flow Rate 3 09/21/24 16:10 Temperature 98.5 F Pulse Rate Pulse Rate [Pulse Oximeter] 92 Pulse Rate [Right Pulse Oximeter] Respiratory Rate 16 Blood Pressure Blood Pressure [Le ft Upper Arm] Blood Pressure [Ri ght Arm] 151/76 H Pulse Oximetry 96 Oxygen Delivery Me thod Room Air Oxygen Flow Rate Hospitalist - H&P: Result Labs Labs: Short CBC 09/21/24 Range/Units 07:40 WBC 3.21 L (4.50-11.00) K/uL Hgb 12.6 (12.0-16.0) gm/dL Hct 37.4 (33.0-51.0) % Plt Count 235 (140-440) K/uL BMP 09/21/24 07:40 Sodium 129 L Potassium 4.0 Chloride 94 L Carbon Dioxide 27 BUN 11 Creatinine 0.3 L Glucose 107 Calcium 9.3
[2024-09-21] MEDS: ACETAMINOPHEN 325 MG TABLET 975 MG PO (18:06)
[2024-09-21 18:44] LABS: Appearance Urine Clear (Clear); Bilirubin Urine Negative (Negative); Blood Urine 2+ (Negative); Color Urine Yellow (Yellow); Glucose Urine Negative (Negative); Ketones Urine 2+ (Negative); Leukocyte Esterase Urine Negative (Negative); Nitrite Urine Negative (Negative); Protein Urine 1+ (Negative); Specific Gravity Urine 1.015 (1.000-1.030); Urobilinogen Urine 0.2 (0.2-1.0); pH Urine 7.5 (5.0-8.5)
[2024-09-21 18:52] LABS: RBC Urine 0-2 (0-2); WBC Urine 0-2 (0-5)
[2024-09-21] MEDS: OXYCODONE 5 MG TABLET 2.5 MG PO (18:58)
--- NOTE | 2024-09-21 19:33 | PC.NURSE ---
Pt arrived to the unit @ 1512, accompanied by sister and granddaughter. AxOx4, pleasant, and cooperative with cares. Pt tolerating reg diet/fluids well. Purewick in place, patent and draining. Pt reports pain to the BLE, scenario writer utilized scheduled Tylenol and PRN medication. Repo q2h. Pt is in bed resting with call light in reach.
[2024-09-21] MEDS: SODIUM CHLORIDE 0.9 % (FLUSH) 10 ML SYRINGE 5 ML IVF (20:56)
[2024-09-21] MEDS: ENOXAPARIN 40 MG/0.4 ML INJ SUBCUT (20:57)
[2024-09-21] MEDS: ROSUVASTATIN CALCIUM 10 MG TABLET 5 MG PO (20:58)
[2024-09-22] MEDS: ACETAMINOPHEN 325 MG TABLET 975 MG PO ×2 (01:48→10:33)
[2024-09-22] MEDS: OXYCODONE 5 MG TABLET 2.5 MG PO (01:48)
[2024-09-22 02:46] VITALS: BP 152/61; PULSE 86; RESP 18; TEMP 36.5; O2SAT 96
--- NOTE | 2024-09-22 06:56 | PC.NURSE ---
End of shift report : VS WNL.?Dental Office Assistant removed O2 via NC at the beginning of shift and pt desated to 85%, 0.5 L applied and O2 remains above 90%. Pt denies pain at rest. Pt noted to be wincing with repo, PRN med given prior to repo. Repo and pain med administration?completed with encouragement and education. External cath is patent and intact. LLE splint is C/D/I. Bedrest this shift with Q2H repo. Call light within reach.?
[2024-09-22 08:03] VITALS: BP 120/67; PULSE 88; RESP 16; TEMP 36.6; O2SAT 93
--- NOTE | 2024-09-22 08:17 | PM.ORPN ---
Subjective Subjective Time Seen by Provider: : Date Seen: 09/22/24 Principal diagnosis: Fracture left proximal tibia, fracture right tibial tubercle Interval history: Tracie is comfortable at rest in her bed currently. She feels the splint has been helpful for pain relief but not fully. She did get some sleep last night. She will be needing halfway facility upon discharge. Spike Machine Operator consult. She corrected me in that she would like to be called Tracie. She reminds me that she is very active. Her sister Zuly told me yesterday that she usually walks over a mi each day. Ortho Exam Narrative Exam Narrative: Alert and conversive. Patient is in no acute distress. Converses without labored breathing. Hearing is grossly intact. She has not been out of bed yet. Examination of lower extremities shows the splint is intact on the left lower extremity. She is able to wiggle her toes. Toes are warm. Capillary refill less than 2 seconds. The splint does not appear to be abrading her skin. Normal sensation in the toes. Right lower extremity, foot is warm. Good pedal pulses. Normal sensation. Soft tissue edema over the right proximal tibia. Const Vital Signs, click to edit/add: Vital Signs - 24 hr 09/21/24 09:15 09/21/24 10:38 09/21/24 10:45 Temperature Pulse Rate 87 88 81 Pulse Rate [Bilateral Radial] Pulse Rate [Pulse Oximeter] Pulse Rate [Right Pulse Oximeter] Respiratory Rate Blood Pressure 139/81 Blood Pressure [Left Upper Arm] Blood Pressure [Right Arm] Pulse Oximetry 99 100 99 Oxygen Delivery Method Oxygen Flow Rate 09/21/24 11:32 09/21/24 11:50 09/21/24 12:57 Temperature 97.9 F Pulse Rate 78 93 Pulse Rate [Bilateral Radial] Pulse Rate [Pulse Oximeter] Pulse Rate [Right Pulse Oximeter] 89 Respiratory Rate 18 Blood Pressure 147/67 H 137/70 Blood Pressure [Left Upper Arm] 147/67 H Blood Pressure [Right Arm] Pulse Oximetry 99 93 92 Oxygen Delivery Method Room Air Oxygen Flow Rate 09/21/24 12:59 09/21/24 15:00 09/21/24 16:10 Temperature 97.7 F 98.5 F Pulse Rate 89 Pulse Rate [Bilateral Radial] Pulse Rate [Pulse Oximeter] 92 Pulse Rate [Right Pulse Oximeter] 84 Respiratory Rate 18 16 Blood Pressure Blood Pressure [Left Upper Arm] 137/70 Blood Pressure [Right Arm] 151/76 H Pulse Oximetry 97 100 96 Oxygen Delivery Method Nasal Cannula Room Air Oxygen Flow Rate 3 09/21/24 16:10 09/21/24 19:00 09/21/24 23:00 Temperature 98.1 F 98.3 F Pulse Rate Pulse Rate [Bilateral Radial] Pulse Rate [Pulse Oximeter] 90 81 Pulse Rate [Right Pulse Oximeter] Respiratory Rate 16 16 Blood Pressure Blood Pressure [Left Upper Arm] Blood Pressure [Right Arm] 116/58 L 111/63 Pulse Oximetry 99 98 Oxygen Delivery Method Room Air Nasal Cannula Nasal Cannula Oxygen Flow Rate 0.5 0.5 09/22/24 02:46 09/22/24 08:03 Temperature 97.7 F 98 F Pulse Rate Pulse Rate [Bilateral Radial] 88 Pulse Rate [Pulse Oximeter] 86 Pulse Rate [Right Pulse Oximeter] Respiratory Rate 18 16 Blood Pressure Blood Pressure [Left Upper Arm] Blood Pressure [Right Arm] 152/61 H 120/67 Pulse Oximetry 96 93 Oxygen Delivery Method Nasal Cannula Room Air Oxygen Flow Rate 0.5 Assessment and Plan Assessment and plan (1) Fracture of right tibial tuberosity: Problem details: - Date of injury 09/21/2024, nondisplaced - Ortho following - WBAT Status: Acute (2) Acute pain of right foot: Status: Acute (3) Acute pain of left foot: Status: Acute (4) Closed fracture of left proximal tibia: Problem details: - Date of injury 09/21/2024, nondisplaced - Ortho following, splinted 09/21 - NWB Status: Acute Plan Plan for halfway facility, social work therapist will assist in placement. Weightbear when tolerated right lower extremity. She may use a knee immobilizer on the right for transfers if it is helpful. She Doesn't need to wear it at rest. PT can try this out. I spoke with Naomi PT this morning regarding the same. It will be difficult for her to have both legs immobilized. Nonweightbearing left lower extremity. Tracie will return to Orthopedic clinic in 1 week for x-rays of both knees. Keep splint clean and dry left lower extremity
[2024-09-22] MEDS: ASPIRIN 81 MG TABLET EC PO (08:59)
[2024-09-22] MEDS: SERTRALINE 50 MG TABLET PO (08:59)
[2024-09-22] MEDS: METOPROLOL SUCCINATE (XL) 25 MG TAB PO (08:59)
[2024-09-22] MEDS: OXYCODONE 5 MG TABLET PO (09:05)
--- NOTE | 2024-09-22 09:12 | NUTR.NU ---
RDN with nutrition screen related to positive skin risk. Patient admitted with tibia fractures s/p fall. Currently lives in assisted living. Current weight 127lb; height 4ft 9in; BMI 27.5 kg/m2. No significant weight changes per weight history. Current diet is Regular. Meal intake of 50% for dinner 09/21. Per IDT, plan is for patient to discharge today. No nutrition interventions with stable weight and intakes.
--- NOTE | 2024-09-22 09:59 | PC.SOCIAL ---
Discharge planning: Spoke with Andree at [facility] assisted living. She is expecting pt to arrive by their facility van at 1:15 today. wire web worker to fax PT/OT notes and discharge orders when completed. Andree to call RN for nurse to nurse report prior to discharge.
--- NOTE | 2024-09-22 10:13 | PM.DS1 ---
DS: Providers Provider Date Seen: 09/22/24 Date of admission: 09/21/24 15:08 Primary care physician: Shayna Flores DO Admitting Clinician: Carley Fish MD Consults: PT, OT, SW, Orthopedic Surgery Attending Physician on discharge: Carley Fish MD Date of Discharge: 09/22/24 DS: Diagnosis Discharge Diagnosis (1) Closed fracture of left proximal tibia: Status: Acute Problem details: - Date of injury 09/21/2024, nondisplaced - Splinted 09/21 in ER by Chante Iverson from Orthopedic Surgery, needs f/u in 1 week with Ortho clinic for repeat imaging/long leg cast - NWB (2) Fracture of right tibial tuberosity: Status: Acute Problem details: - Date of injury 09/21/2024, nondisplaced - Ortho following - WBAT DS: Summary Hospital Course Hospital Course: Leandra Casillas) was admitted to the hospital on 09/21 after a mechanical fall at home. In the ER, diagnosed with an acute nondisplaced fracture of the tibial tubercle of the RIGHT proximal tibia and a LEFT nondisplaced fracture of the proximal tibia. Seen by Orthopedic Surgery in the ER; LLE was splinted. She is NONweightbearing on her LLE, WBAT of her RLE. Comorbidities remained stable, no changes made to home medications. Tracie resides at [facility]; their team was made aware of her injuries and limitations, felt that there facility was equipped to meet her needs upon d/c on 09/22/24. Time Spent with Patient Time attestation: Total time spent providing and/or coordinating discharge services: Time spent: Greater than 30 minutes Specific discharge activities: collaboration with multidisciplinary care team (SW/Ortho/PT/OT) Exam Narrative: Exam Narrative: GEN: Alert and sitting in bedside chair, nontoxic HEENT: EOMIs bilaterally, no scleral icterus CV: RRR, No concerning murmurs R: LCTA bilaterally without concerning wheezing, air movement adequate Ext: LLE is splinted/ERICA wrapped. RLE without edema, + bruising over anterior chris Neuro: No focal deficits Psych: Appropriate Const: Vital Signs, click to edit/add: Vital Signs - 24 hr 09/21/24 10:38 09/21/24 10:45 09/21/24 11:32 Temperature Pulse Rate 88 81 78 Pulse Rate [Bilate ral Radial] Pulse Rate [Pulse Oximeter] Pulse Rate [Right Pulse Oximeter] Respiratory Rate Blood Pressure 139/81 147/67 H Blood Pressure [Le ft Upper Arm] Blood Pressure [Ri ght Arm] Pulse Oximetry 100 99 99 Oxygen Delivery Me thod Oxygen Flow Rate 09/21/24 11:50 09/21/24 12:57 09/21/24 12:59 Temperature 97.9 F 97.7 F Pulse Rate 93 Pulse Rate [Bilate ral Radial] Pulse Rate [Pulse Oximeter] Pulse Rate [Right Pulse Oximeter] 89 84 Respiratory Rate 18 18 Blood Pressure 137/70 Blood Pressure [Le ft Upper Arm] 147/67 H 137/70 Blood Pressure [Ri ght Arm] Pulse Oximetry 93 92 97 Oxygen Delivery Me thod Room Air Nasal Cannula Oxygen Flow Rate 3 09/21/24 15:00 09/21/24 16:10 09/21/24 16:10 Temperature 98.5 F Pulse Rate 89 Pulse Rate [Bilate ral Radial] Pulse Rate [Pulse Oximeter] 92 Pulse Rate [Right Pulse Oximeter] Respiratory Rate 16 Blood Pressure Blood Pressure [Le ft Upper Arm] Blood Pressure [Ri ght Arm] 151/76 H Pulse Oximetry 100 96 Oxygen Delivery Me thod Room Air Room Air Oxygen Flow Rate 09/21/24 19:00 09/21/24 23:00 09/22/24 02:46 Temperature 98.1 F 98.3 F 97.7 F Pulse Rate Pulse Rate [Bilate ral Radial] Pulse Rate [Pulse Oximeter] 90 81 86 Pulse Rate [Right Pulse Oximeter] Respiratory Rate 16 16 18 Blood Pressure Blood Pressure [Le ft Upper Arm] Blood Pressure [Ri ght Arm] 116/58 L 111/63 152/61 H Pulse Oximetry 99 98 96 Oxygen Delivery Me thod Nasal Cannula Nasal Cannula Nasal Cannula Oxygen Flow Rate 0.5 0.5 0.5 09/22/24 08:03 Temperature 98 F Pulse Rate Pulse Rate [Bilate ral Radial] 88 Pulse Rate [Pulse Oximeter] Pulse Rate [Right Pulse Oximeter] Respiratory Rate 16 Blood Pressure Blood Pressure [Le ft Upper Arm] Blood Pressure [Ri ght Arm] 120/67 Pulse Oximetry 93 Oxygen Delivery Me thod Room Air Oxygen Flow Rate DS: Data Data Completed and Pending Labs on day of discharge: Labs from last 24 hours 09/21/24 09/21/24 18:32 07:40 Sodium Cancelled Potassium Cancelled Chloride Cancelled Carbon Dioxide Cancelled Anion Gap Cancelled BUN Cancelled Creatinine Cancelled Estimated Creat Clear Cancelled Estimated GFR Cancelled Glucose Cancelled Calcium Cancelled C-Reactive Protein Cancelled Urine Color Yellow Urine Appearance Clear Urine pH 7.5 Ur Specific [place] 1.015 Urine Protein 1+ A Urine Glucose (UA) Negative Urine Ketones 2+ A Urine Blood 2+ A Urine Nitrite Negative Urine Bilirubin Negative Urine Urobilinogen 0.2 Ur Leukocyte Esterase Negative Urine RBC 0-2 Urine WBC 0-2 Ur Squamous Epith Cells None Urine Bacteria None Discharge Plan Discharge Disposition: [facility] Date of Admission: 09/21/24 15:08 Attending Provider on Discharge: Carley Fish Primary Care Provider: Shayna Flores Condition: Improved Anticipated Discharge Date/Time: 09/22/24 09:54 Discharge Medications: New acetaminophen [Acetaminophen Extra Strength] 500 mg tablet 1,000 mg PO Q8H Qty: 30 0RF oxycodone 5 mg Tablet 5 mg PO Q6H PRN (Reason: Pain) Qty: 20 0RF Continued metoprolol succinate 25 mg tablet extended release 24 hr 25 mg PO DAILY Patient Comments: TAKE 1 TABLET BY MOUTH EVERY DAY rosuvastatin 5 mg tablet 5 mg PO HS Patient Comments: TAKE 1 TABLET (5 MG) BY MOUTH ONCE DAILY WITH EVENING MEAL. meclizine 25 mg Tablet 25 mg PO Q6H PRNQty: 10 0RF Rx Instructions: As needed for acute vertigo aspirin [Enteric Coated Aspirin] 81 mg tablet,delayed release (DR/EC) 81 mg PO DAILY fluorometholone 0.1 % drops,suspension 1 drp ophthalmic (eye) DAILY PRN loteprednol etabonate 0.5 % drops,suspension 1 drp ophthalmic (eye) DAILY sertraline 50 mg tablet 50 mg PO DAILY Discontinued acetaminophen [Acetaminophen Pain Relief] 500 mg tablet 500 mg PO Q6H PRN Discharge Orders: Discharge Order (Routine); Ordered 09/22/24 Ordered By: Carley Fish Additional Instructions: Take TWO Extra Strength Tylenol every 8 hours (total of 6 tabs/24 hours) around the clock for the next 7-10 days to help with pain. For severe pain, can take 1/2-1 Oxycodone tablet every 6-8 hours. Appointment with orthopedics, Dr Grant in 1 week for x-rays of both knees and long leg casting on the left. Activity Detail: No weightbearing left lower extremity. Weightbear when tolerated R lower extremity. keep splint clean and dry on left lower extremity. Watch for skin breakdown/rubbing at ends of splint at thigh and foot. Follow Up Appointments: Shayna Flores DO [Primary Care Provider] - Nico Grant MD [Staff Physician] - (5-7 days for followup: XRays of both knees and long leg casting on the left) Forms: [facility] Info Instructions Admit to: Assisted Living Discharge Potential: Poor Length of Stay: >90 days Can use facility standing orders?: Yes Code Status: Full Code Rehab Potential: Fair Therapy: Physical Therapy and Occupational Therapy Therapy Orders: Evaluate and Treat Therapy Orders Additional Information: NWB LLE, WBAT RLE Oxygen: No Urinary Catheter: No Glucose Checks: n/a Next INR: n/a Lab Orders: n/a Orders are good >30 days: Yes Signature: Carley Fish MD
[2024-09-22 11:00] VITALS: BP 114/80; PULSE 94; RESP 18; O2SAT 93
--- NOTE | 2024-09-22 11:33 | RESP.RT ---
Patient transitioned to RA and patient is SATing 96% on room air
--- NOTE | 2024-09-22 13:54 | PC.NURSE ---
Discharge: Patient pleasant and cooperative. Up with manny and two assist. Vitals stable and WNL. Split to left leg. Pain managed with medication and rest, see MAR. Patient has been incontinent. IV removed with catheter intact. Discharge instructions reviewed with family and patient, discharge packet sent with family and informed them to give to primary nurse once she arrives. Nurse to nurse report given to FRANKY Meza @ [facility]. Patient discharged via [facility] wheelchair, [facility] van here to warehouse picker @ [phone].
== END 2024-09-22 13:02 ==
LOC: ED 14:04 → MEDSURG 15:08
PROVIDERS: Family Medicine; Admitting Provider Family Medicine; Emergency Provider Family Medicine; PCP Family Medicine; Visit Provider Family Medicine
DX: S82.154A Nondisplaced fracture of right tibial tuberosity, initial encounter for closed fracture (principal); S82.102A Unspecified fracture of upper end of left tibia, initial encounter for closed fracture; M79.671 Pain in right foot; M79.672 Pain in left foot; G72.41 Inclusion body myositis [IBM]; W18.39XA Other fall on same level, initial encounter; Z91.81 History of falling; Y93.89 Activity, other specified; Y92.9 Unspecified place or not applicable; R29.6 Repeated falls; D72.819 Decreased white blood cell count, unspecified; E78.5 Hyperlipidemia, unspecified; I10 Essential (primary) hypertension; Z87.891 Personal history of nicotine dependence; Z79.82 Long term (current) use of aspirin
CPT/HCPCS: 36415; 71045; 73560; 73600; 73630; 73700; 80048; 81001; 81003; 83605; 84484; 85025; 86140; 87081; 87631; 96372; 96374; 96375; 96376; 97162; 97165; 97530; 99284; 99285; A9270; G0378; J1650; J2270; J2405

== ENCOUNTER 2025-03-16 14:22 | Outpatient (CLI) | payer MEDICARE, BC, SELFPAY | END 2025-03-16 14:23 | disposition home or self-care (01) | LOC: AMB 03-19 10:33 | PROVIDERS: PCP Family Medicine; Visit Provider Family Medicine | DX: S09.90XA Unspecified injury of head, initial encounter (principal); S39.92XA Unspecified injury of lower back, initial encounter; S79.912A Unspecified injury of left hip, initial encounter; W18.39XA Other fall on same level, initial encounter; Y92.039 Unspecified place in apartment as the place of occurrence of the external cause | CPT/HCPCS: A0425; A0427 ==

== ENCOUNTER 2025-03-16 14:42 | Observation (INO) | payer MEDICARE, BC, SELFPAY ==
[2025-03-16] VITALS (7 sets, daily range): BP systolic 128–176; BP diastolic 53–81; PULSE 68–86; RESP 16–19; TEMP 36.3–36.6; O2SAT 94–98; BMI 27.0
--- NOTE | 2025-03-16 15:06 | CRLHL7_ITS ---
For Patients: As a result of the Cures Act, medical imaging exams and procedure reports are released immediately into your electronic medical record. You may view this report before your referring provider. If you have questions, please contact your health care provider. INDICATION: Fall. TECHNIQUE: CT head without contrast. COMPARISON: CT head 05/21/2022. FINDINGS: Mild generalized volume loss and changes of chronic small vessel ischemic disease, as before. Intracranial atherosclerosis. No mass effect or midline shift. No hydrocephalus. No CT evidence of acute hemorrhage or infarction. No abnormal extra-axial fluid collection. Bone windows show no acute calvarial fracture. Paranasal sinuses and orbits as imaged are unremarkable. Soft tissue swelling midline posterior scalp. IMPRESSION: 1. No acute intracranial abnormality. 2. Generalized volume loss and changes of chronic small vessel ischemic disease. 3. Soft tissue swelling midline posterior scalp. Dictated by Gary Linares MD @ 03/16/2025 3:31:59 PM Please note that all CT scans at this facility use dose modulation, iterative reconstruction, and/or weight-based dosing when appropriate to reduce radiation dose to as low as reasonably achievable. Dictated by: Gary Linares MD @ 03/16/2025 15:32:09 (Electronically Signed)
--- NOTE | 2025-03-16 15:35 | ED.GENADULT ---
HPI - General Adult General Chief complaint: Fall/Minor Trauma Stated complaint: Fall Time Seen by Provider: 03/16/25 14:44 Source: patient Mode of arrival: ambulatory Limitations: no limitations History of Present Illness HPI narrative: 84-year-old female presenting today after a fall. 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 Has a history of recurrent falls. States that she was using her walker today reaching forward to open the door when her knees buckled and she fell forward onto both knees. She then fell backwards and hit her head on the ground. She states that she remembers everything before, during and after the fall. She did not lose consciousness. She was able to get herself up with assistance. She called for help right away. Fall was unwitnessed. She complains of pain in the back of the head. She denies any neck pain. She denies back or buttock pain. She states that her knee is a little bit sore but not painful. States that she has broken both legs in the past after a fall and this is not feel like that. She denies feeling short of breath. No abdominal discomfort or chest pain. She denies confusion. She denies focal neurologic deficits. Patient is not on any blood thinners. Related Data Home Medications ?Medication ?Instructions ?Recorded ?Confirmed rosuvastatin 5 mg tablet 5 mg PO HS 05/20/22 02/06/25 sertraline 50 mg tablet 50 mg PO DAILY 12/01/23 02/06/25 fluorometholone 0.1 % eye 1 drp ophthalmic (eye) DAILY PRN 09/21/24 02/06/25 drops,suspension loteprednol etabonate 0.5 % eye 1 drp ophthalmic (eye) DAILY 09/21/24 02/06/25 drops,suspension metoprolol tartrate 25 mg tablet 25 mg PO DAILY 02/06/25 02/06/25 Previous Rx's ?Medication ?Instructions ?Recorded meclizine 25 mg tablet 25 mg PO Q6H PRN #10 tabs 05/24/22 acetaminophen 500 mg tablet 1,000 mg (2 x 500 mg) PO Q8H #30 09/22/24 (Acetaminophen Extra Strength) tabs Allergies Allergy/AdvReac Type Severity Reaction Status Date / Time No Known Drug Allergies Allergy Verified 03/16/25 14:56 Review of Systems Status of ROS: Reports: 10 or more systems reviewed and unremarkable except as noted in History and below [facility] Medical History Hyponatremia ?E87.1 - Hypo-osmolality and hyponatremia (ICD-10) Distal radius fracture, left ?S52.502A - Unspecified fracture of the lower end of left radius, initial encounter for closed fracture (ICD-10) Fracture of fifth metatarsal bone of left foot ?S92.352A - Displaced fracture of fifth metatarsal bone, left foot, initial encounter for closed fracture (ICD-10) 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) ?M33.20 - Polymyositis, organ involvement unspecified (ICD-10) Other and unspecified hyperlipidemia (06/09/12) ?E78.5 - Hyperlipidemia, unspecified (ICD-10) Myopathy (06/17/22) ?G72.9 - Myopathy, unspecified (ICD-10) Irregular heart beat (06/09/12) ?I49.9 - Cardiac arrhythmia, unspecified (ICD-10) 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 - Inclusion body myositis [IBM] (ICD-10) Muscle weakness (04/21/22) ?M62.81 - Muscle weakness (generalized) (ICD-10) Gait difficulty (09/10/22) ?R26.9 - Unspecified abnormalities of gait and mobility (ICD-10) Closed fracture of right lower extremity with routine healing (12/24/20) ?S82.91XD - Unspecified fracture of right lower leg, subsequent encounter for closed fracture with routine healing (ICD-10) Other and unspecified hyperlipidemia (06/09/12) ?E78.5 - Hyperlipidemia, unspecified (ICD-10) 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 - Inclusion body myositis [IBM] (ICD-10) 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) ?M33.20 - Polymyositis, organ involvement unspecified (ICD-10) Irregular heart beat (06/09/12) ?I49.9 - Cardiac arrhythmia, unspecified (ICD-10) Elevated LFTs ?R79.89 - Other specified abnormal findings of blood chemistry (ICD-10) 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] (ICD-10) Left shoulder pain ?M25.512 - Pain in left shoulder (ICD-10) Greater trochanteric bursitis of right hip ?M70.61 - Trochanteric bursitis, right hip (ICD-10) Maisonneuve fracture of right lower extremity ?S82.861A - Displaced Maisonneuve's fracture of right leg, initial encounter for closed fracture (ICD-10) Osteoporosis ?M81.0 - Age-related osteoporosis without current pathological fracture (ICD-10) Hyperlipidemia ?E78.5 - Hyperlipidemia, unspecified (ICD-10) Myopathy ?G72.9 - Myopathy, unspecified (ICD-10) Hypertension ?I10 - Essential (primary) hypertension (ICD-10) Surgical History 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 Currently at [facility]. 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 Her sister is healthcare power of employment attorney. Her code status is full. She is a former smoker. She rarely drinks alcohol. No recreational drug use. Two living adult children (one in [place], one in [place]). What is your current living situation?: I presently have a place to live Problems where you live: no known problems Problems where you live details: na In the past 12 months, utilities in danger of being shut off: no In past 12 months, lack of transportation kept you from medical appts, meetings, work, or getting things needed for daily living: no In the past 12 mos, have been you worried that your food would run out before you had money to buy more?: never true In the past 12 mos, the food you bought just didn't last and you didn't have money to buy more?: never true Highest level of school completed/degree received: high school graduate Smoking Status: Former smoker What tobacco products do you use: cigarettes Smoking quit date/years: >15 years ago Do you use any of these nicotine containing products: None Second hand tobacco smoke exposure: No How often do you have a drink containing alcohol: never How often do you have six or more drinks on one occasion: Never AUDIT-C Alcohol total score: 0 Non-prescribed substance use: denies use How often does anyone, including family, friends and others, physically hurt you: never How often does anyone, including family, friends and others, insult or talk down to you: never How often does anyone, including family, friends and others, threaten you with harm: never How often does anyone, including family, friends and others, scream or curse at you: never service: No Exam Narrative: Exam Narrative: Frail, elderly patient in no acute distress. Alert and oriented x3. Answers questions appropriately. Mood and affect are appropriate. Thoughts are goal oriented and rational. No tangential or magical thinking noted. Patient speaks in full sentences without needing to catch their breath. GCS is 15. Patient is speaking and breathing without difficulty. There is no obvious significant bleeding noted. HEENT: Normocephalic . Extraocular muscles are intact. Conjunctivae are moist without any icterus noted. Moist mucous membranes. Posterior pharynx is normal. No trauma noted to the inside of the mouth. Neck is soft without pain. No masses are appreciated. Small hematoma on the occipital scalp. No crepitus. Cardiovascular: Heart is regular rate and rhythm. Lungs: Clear to auscultation bilaterally no wheezes rhonchi or rales are appreciated. Patient takes deep breaths without any discomfort. Patient has no tenderness to palpation of the anterior, lateral posterior chest wall. Abdomen: Soft and nontender nondistended with normal bowel sounds. No guarding or rebound. Extremities: Bilateral lower extremities are without edema. No bruising of the knees. No tenderness to palpation. Skin: Well perfused. Back: Normal appearance. Patient has no tenderness to palpation at the cervical, thoracic or lumbar spine. Patient has full range of motion at the neck with flexion, extension, side way bending and rotation without pain. Const: Vital Signs, click to edit/add: Vital Signs - 24 hr 03/16/25 14:48 Temperature 97.9 F Pulse Rate [Pulse Oximeter] 69 Respiratory Rate 16 Blood Pressure [Ri ght Upper Arm] 176/53 H Pulse Oximetry 94 Oxygen Delivery Me thod Room Air Course Course ED Course: Head CT was obtained, did not show any acute abnormalities. When I went to discuss this with the patient she told me that her knees were now hurting quite a bit to the point where she was having a hard time walking. Because of this we proceeded with bilateral knee x-rays. These were unremarkable. Upon reexamination patient stated that she was feeling somewhat better. She was able to stand with her walker. Vital Signs Vital signs: Initial Vital Signs Temperature 97.9 F 03/16/25 14:48 Temperature Source Temporal Artery Scan 03/16/25 14:48 Pulse Rate 69 03/16/25 14:48 Respiratory Rate 16 03/16/25 14:48 Blood Pressure 176/53 H 03/16/25 14:48 Blood Pressure Mean 94 03/16/25 14:48 Blood Pressure Position Semi-Fowlers 03/16/25 14:48 Pulse Oximetry 94 03/16/25 14:48 Oxygen Delivery Method Room Air 03/16/25 14:48 Vital Signs Temperature 97.9 F 03/16/25 14:48 Pulse Rate 69 03/16/25 14:48 Respiratory Rate 16 03/16/25 14:48 Blood Pressure 176/53 H 03/16/25 14:48 Pulse Oximetry 94 03/16/25 14:48 Oxygen Delivery Method Room Air 03/16/25 14:48 Temperature 97.9 F 03/16/25 14:48 Pulse Rate 69 03/16/25 14:48 Respiratory Rate 16 03/16/25 14:48 Blood Pressure 176/53 H 03/16/25 14:48 Pulse Oximetry 94 03/16/25 14:48 Oxygen Delivery Method Room Air 03/16/25 14:48 Medical Decision Making MDM Narrative Medical decision making narrative: 84-year-old female status post fall. History of frequent falls. She denies any recent illness or other concerning symptoms. I recommend more frequent use of her wheelchair and patient states that she has switched to more frequent use of the wheelchair specially when she goes down to eat. Imaging Data CT scan - head: Attestation: I have reviewed the pertinent imaging results. Radiologist's impression: TECHNIQUE: CT head without contrast. COMPARISON: CT head 05/21/2022. FINDINGS: Mild generalized volume loss and changes of chronic small vessel ischemic disease, as before. Intracranial atherosclerosis. No mass effect or midline shift. No hydrocephalus. No CT evidence of acute hemorrhage or infarction. No abnormal extra-axial fluid collection. Bone windows show no acute calvarial fracture. Paranasal sinuses and orbits as imaged are unremarkable. Soft tissue swelling midline posterior scalp. IMPRESSION: 1. No acute intracranial abnormality. 2. Generalized volume loss and changes of chronic small vessel ischemic disease. 3. Soft tissue swelling midline posterior scalp. X-ray knees bilaterally: Attestation: I have reviewed the pertinent imaging results. Radiologist's impression: Technique: Three views of each knee Comparison: Left knee radiographs 02/06/2025 and 11/28/2024, bilateral knee radiographs 10/24/2024. Findings/Impression: Right knee: No acute fracture or malalignment. Healed deformity of the proximal fibular shaft and healed tibial tuberosity fracture. No significant joint effusion. Chondrocalcinosis of the medial and lateral menisci. Diffuse osseous demineralization. Left knee: No acute fracture or malalignment. Ongoing healing of proximal tibial fracture involving the proximal metadiaphysis and medial tibial plateau. No significant joint effusion. Diffuse osseous demineralization. Discharge Plan Discharge Clinical Impression: Fall, Hematoma of occipital region of scalp Patient Disposition: Home, Self-Care Condition: Stable Additional Instructions: Recommend more frequent use of your wheelchair. Prescriptions: No Action metoprolol tartrate 25 mg tablet 25 mg PO DAILY rosuvastatin 5 mg tablet 5 mg PO HS Patient Comments: TAKE 1 TABLET (5 MG) BY MOUTH ONCE DAILY WITH EVENING MEAL. meclizine 25 mg Tablet 25 mg PO Q6H PRNQty: 10 0RF Rx Instructions: As needed for acute vertigo fluorometholone 0.1 % drops,suspension 1 drp ophthalmic (eye) DAILY PRN loteprednol etabonate 0.5 % drops,suspension 1 drp ophthalmic (eye) DAILY acetaminophen [Acetaminophen Extra Strength] 500 mg tablet 1,000 mg PO Q8H Qty: 30 0RF sertraline 50 mg tablet 50 mg PO DAILY Follow Up/Referrals: Shayna Flores DO [Primary Care Provider, Family Practice] Stand Alone Forms: [employer] Info Instructions
--- NOTE | 2025-03-16 15:47 | CRLHL7_ITS ---
For Patients: As a result of the Cures Act, medical imaging exams and procedure reports are released immediately into your electronic medical record. You may view this report before your referring provider. If you have questions, please contact your health care provider. Indication: Bilateral knee pain Technique: Three views of each knee Comparison: Left knee radiographs 02/06/2025 and 11/28/2024, bilateral knee radiographs 10/24/2024. Findings/Impression: Right knee: No acute fracture or malalignment. Healed deformity of the proximal fibular shaft and healed tibial tuberosity fracture. No significant joint effusion. Chondrocalcinosis of the medial and lateral menisci. Diffuse osseous demineralization. Left knee: No acute fracture or malalignment. Ongoing healing of proximal tibial fracture involving the proximal metadiaphysis and medial tibial plateau. No significant joint effusion. Diffuse osseous demineralization. Dictated by Deann Quinn MD @ 03/16/2025 5:30:10 PM (Electronically Signed)
[2025-03-16] MEDS: ACETAMINOPHEN 500 MG TABLET PO (19:32)
[2025-03-16 21:02] LABS: Lactate* 0.9 mmol/L (0.5-1.9)
[2025-03-16 21:05] LABS: Hematocrit* 36.9 % (33.0-51.0); Hemoglobin* 12.4 gm/dL (12.0-16.0); Immature Granulocytes Abs Auto 0.01 K/uL (0.00-0.30); Immature Granulocytes Pct Auto 0.2 %; Mean Corpuscular HGB Conc 34 gm/dL (32-36); Mean Corpuscular Hemoglobin 32 pg (26-34); Mean Corpuscular Volume 96 fL (80-100); RDW Coefficient of Variation % 12.8 % (11.5-15.5); Red Blood Count* 3.85 m/uL (4.00-5.20); White Blood Count* 4.92 K/uL (4.50-11.00)
[2025-03-16 21:07] LABS: Lymphocytes Absolute Auto 0.80 K/uL (0.90-2.90); Slide Review Reflex No
[2025-03-16 21:16] LABS: Chloride* 98 mmol/L (96-114); Potassium* 3.8 mmol/L (3.6-5.1); Sodium* 131 mmol/L (135-149)
[2025-03-16 21:19] LABS: Anion Gap 4 mEq/L (7-15); Blood Urea Nitrogen* 13 mg/dL (7-30); Carbon Dioxide* 29 mmol/L (20-32); Creatinine* 0.4 mg/dL (0.5-1.5); Est. Creatinine Clearance* 38.15; Estimated Glomerular Filt Rate 98 ml/min
[2025-03-16 21:20] LABS: Calcium* 9.2 mg/dL (8.4-10.6); Glucose* 112 mg/dL (60-115)
--- NOTE | 2025-03-16 21:49 | PM.IMHP1 ---
Assessment and Plan Assessment and plan (1) Fall: Problem comment: -recurrent; will likely become more common with myositis. -no osseous injury tonight; PT/OT and SW to help assist the discharge Status: Acute (2) Hematoma of occipital region of scalp: Problem comment: -mild, observe Status: Acute (3) Gait instability: Problem comment: - with recurrent falls - therapies ordered, may need SNF placement. Sister is concerned that she is too unsteady. Sister also reports she is unable to help her up when she falls. Status: Acute (4) Inclusion body myositis: Problem comment: Diagnosed 2022 Status: Acute (5) Hyperlipidemia: Status: Acute Hospitalist- H&P: HPI History of Present Illness Date Seen: 03/16/25 Chief complaint: Fall Narrative: ADMISSION HISTORY AND PHYSICAL - HOSPITALIST Chief Complaint: fall at her SNF, weak knees HPI: 84 y/o with hx of inclusion myositis and recurrent falls - fell again today in her [place]. She was using the walker but when she reached to open a door - she fell forward on both knees and then back hitting her head. No LOC. no bleeding to the scalp. She was able to get up after the fall with assistance. EMS was called. Previous falls and admissions with our service include November 2023 and September 2024. She has had non operative fractures of bilateral proximal tibias, and right proximal fibular shaft, distal left radius, nondisplaced avulsion fracture of the base of the left 5th metatarsal. Significant Osteoporosis is routinely noted. I reviewed ER documentation and confirmed with patient: 84-year-old female presenting today after a fall. 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 Has a history of recurrent falls. States that she was using her walker today reaching forward to open the door when her knees buckled and she fell forward onto both knees. She then fell backwards and hit her head on the ground. She states that she remembers everything before, during and after the fall. She did not lose consciousness. She was able to get herself up with assistance. She called for help right away. Fall was unwitnessed. She complains of pain in the back of the head. She denies any neck pain. She denies back or buttock pain. She states that her knee is a little bit sore but not painful. States that she has broken both legs in the past after a fall and this is not feel like that. She denies feeling short of breath. No abdominal discomfort or chest pain. She denies confusion. She denies focal neurologic deficits. Patient is not on any blood thinners. ER COURSE: films, acetaminophen, RN gait assistance --> patient felt worse as the stay in the ED progressed. CODE STATUS: FULL CODE PCP: Dr. Flores EMERGENCY CONTACT PLAN: Sister, Zuly or Son Tommie. I've updated the PFSH, medications and allergies in the Expanse tabs. INVESTIGATIONS: LABS/MICRO/ECG/IMAGING Stable vital signs. Blood pressure 141/68. Pulse 86. Resp is 19. Afebrile. 98% on room air. 57 kilos, BMI 27 as she is 4 ft 9 in. No labs were drawn Bilateral knee x-rays: Right knee: No acute fracture or malalignment. Healed deformity of the proximal fibular shaft and healed tibial tuberosity fracture. No significant joint effusion. Chondrocalcinosis of the medial and lateral menisci. Diffuse osseous demineralization. Left knee: No acute fracture or malalignment. Ongoing healing of proximal tibial fracture involving the proximal metadiaphysis and medial tibial plateau. No significant joint effusion. Diffuse osseous demineralization. Head CT: IMPRESSION: 1. No acute intracranial abnormality. 2. Generalized volume loss and changes of chronic small vessel ischemic disease. 3. Soft tissue swelling midline posterior scalp. REVIEW OF SYSTEMS: 12-point ROS completed with patient and negative unless otherwise stated in HPI or below. PHYSICAL EXAM: CONSTITUTIONAL: resting comfortably in bed. GENERAL: requesting not to be examined, let me go back to sleep VITAL SIGNS: see record. HEENT: Sclerae are anicteric. No petechiae. CARDIAC: rhythm is regular. There is no S3 or rub. No harsh murmurs. Extremities show trace edema with symmetrical pulses. PULM: good air entry with no wheeze. MSK: basic palpation of her shoulders, neck and long bones - patient denies pain and expresses annoyance at my exam. NEURO: Speech is fluent. A brief neurologic exam is negative. SKIN: No rashes, petechiae, concerning changes PSYCHIATRIC: Euthymic. ADMIT TO MEDSURG: FLOOR CARE DVT: SCDs GI: PO intake Time spent: Today I spent 75 minutes seeing the patient, discussing the patient with ER staff, reviewing Expanse and EPIC notes/diagnostics, discussing the care plan with our care time that includes social work, PT/OT, pharmacy, RT, retirement and documenting my impressions and plan in the medical record. Medical Decision Making Medical Decision Making Has patient completed a Health Care Directive: Yes [facility] Medical History (Updated 03/16/25 @ 22:05 by Dianne Grant MD) Closed fracture of left proximal tibia ?S82.102A - Unspecified fracture of upper end of left tibia, initial encounter for closed fracture (ICD-10) Fracture of right tibial tuberosity ?S82.151A - Displaced fracture of right tibial tuberosity, initial encounter for closed fracture (ICD-10) Right fibular fracture ?S82.401A - Unspecified fracture of shaft of right fibula, initial encounter for closed fracture (ICD-10) Hyponatremia ?E87.1 - Hypo-osmolality and hyponatremia (ICD-10) Distal radius fracture, left ?S52.502A - Unspecified fracture of the lower end of left radius, initial encounter for closed fracture (ICD-10) Fracture of fifth metatarsal bone of left foot ?S92.352A - Displaced fracture of fifth metatarsal bone, left foot, initial encounter for closed fracture (ICD-10) 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) ?M33.20 - Polymyositis, organ involvement unspecified (ICD-10) Other and unspecified hyperlipidemia (06/09/12) ?E78.5 - Hyperlipidemia, unspecified (ICD-10) Myopathy (06/17/22) ?G72.9 - Myopathy, unspecified (ICD-10) Irregular heart beat (06/09/12) ?I49.9 - Cardiac arrhythmia, unspecified (ICD-10) 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 - Inclusion body myositis [IBM] (ICD-10) Muscle weakness (04/21/22) ?M62.81 - Muscle weakness (generalized) (ICD-10) Gait difficulty (09/10/22) ?R26.9 - Unspecified abnormalities of gait and mobility (ICD-10) Closed fracture of right lower extremity with routine healing (12/24/20) ?S82.91XD - Unspecified fracture of right lower leg, subsequent encounter for closed fracture with routine healing (ICD-10) Other and unspecified hyperlipidemia (06/09/12) ?E78.5 - Hyperlipidemia, unspecified (ICD-10) 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 - Inclusion body myositis [IBM] (ICD-10) 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) ?M33.20 - Polymyositis, organ involvement unspecified (ICD-10) Irregular heart beat (06/09/12) ?I49.9 - Cardiac arrhythmia, unspecified (ICD-10) Elevated LFTs ?R79.89 - Other specified abnormal findings of blood chemistry (ICD-10) 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] (ICD-10) Left shoulder pain ?M25.512 - Pain in left shoulder (ICD-10) Greater trochanteric bursitis of right hip ?M70.61 - Trochanteric bursitis, right hip (ICD-10) Maisonneuve fracture of right lower extremity ?S82.861A - Displaced Maisonneuve's fracture of right leg, initial encounter for closed fracture (ICD-10) Osteoporosis ?M81.0 - Age-related osteoporosis without current pathological fracture (ICD-10) Hyperlipidemia ?E78.5 - Hyperlipidemia, unspecified (ICD-10) Myopathy ?G72.9 - Myopathy, unspecified (ICD-10) Hypertension ?I10 - Essential (primary) hypertension (ICD-10) Surgical History 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 Currently at [facility] at [facility]. 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 Her sister is healthcare power of employment law attorney. Her code status is full. She is a former smoker. She rarely drinks alcohol. No recreational drug use. Two living adult children (one in [place], one in [place]). What is your current living situation?: I presently have a place to live Problems where you live: no known problems Problems where you live details: na In the past 12 months, utilities in danger of being shut off: no In past 12 months, lack of transportation kept you from medical appts, meetings, work, or getting things needed for daily living: no In the past 12 mos, have been you worried that your food would run out before you had money to buy more?: never true In the past 12 mos, the food you bought just didn't last and you didn't have money to buy more?: never true Highest level of school completed/degree received: high school graduate Smoking Status: Former smoker What tobacco products do you use: cigarettes Smoking quit date/years: >15 years ago Do you use any of these nicotine containing products: None Second hand tobacco smoke exposure: No How often do you have a drink containing alcohol: never How often do you have six or more drinks on one occasion: Never AUDIT-C Alcohol total score: 0 Non-prescribed substance use: denies use How often does anyone, including family, friends and others, physically hurt you: never How often does anyone, including family, friends and others, insult or talk down to you: never How often does anyone, including family, friends and others, threaten you with harm: never How often does anyone, including family, friends and others, scream or curse at you: never service: No Meds Home Medications and Allergies Home Medications ?Medication ?Instructions ?Recorded ?Confirmed ?Type rosuvastatin 5 mg tablet 5 mg PO HS 05/20/22 02/06/25 History meclizine 25 mg tablet 25 mg PO Q6H PRN #10 tabs 05/24/22 02/06/25 Rx sertraline 50 mg tablet 50 mg PO DAILY 12/01/23 02/06/25 History fluorometholone 0.1 % eye 1 drp ophthalmic (eye) DAILY PRN 09/21/24 02/06/25 History drops,suspension loteprednol etabonate 0.5 % eye 1 drp ophthalmic (eye) DAILY 09/21/24 02/06/25 History drops,suspension acetaminophen 500 mg tablet 1,000 mg (2 x 500 mg) PO Q8H #30 09/22/24 02/06/25 Rx (Acetaminophen Extra Strength) tabs metoprolol tartrate 25 mg tablet 25 mg PO DAILY 02/06/25 02/06/25 History Allergies Allergy/AdvReac Type Severity Reaction Status Date / Time No Known Drug Allergies Allergy Verified 03/16/25 14:56 Exam Const: Vital Signs, click to edit/add: Vital Signs - 24 hr 03/16/25 14:48 03/16/25 16:20 03/16/25 16:40 Temperature 97.9 F Pulse Rate [Pulse Oximeter] 69 68 75 Respiratory Rate 16 16 16 Blood Pressure [Ri ght Upper Arm] 176/53 H 128/81 133/69 Pulse Oximetry 94 98 97 Oxygen Delivery Me thod Room Air Room Air Room Air 03/16/25 17:00 03/16/25 20:12 Temperature 97.4 F L Pulse Rate [Pulse Oximeter] 72 86 Respiratory Rate 16 19 Blood Pressure [Ri ght Upper Arm] 161/65 H 141/68 H Pulse Oximetry 96 98 Oxygen Delivery Me thod Room Air Room Air Hospitalist - H&P: Result Labs Labs: Short CBC 03/16/25 Range/Units 20:53 WBC 4.92 (4.50-11.00) K/uL Hgb 12.4 (12.0-16.0) gm/dL Hct 36.9 (33.0-51.0) % Plt Count 247 (140-440) K/uL [facility] 03/16/25 20:53 Sodium 131 L Potassium 3.8 Chloride 98 Carbon Dioxide 29 BUN 13 Creatinine 0.4 L Glucose 112 Calcium 9.2
[2025-03-16] MEDS: SODIUM CHLORIDE 0.9 % (FLUSH) 10 ML SYRINGE 5 ML IVF (22:05)
[2025-03-17 03:00] VITALS: BP 142/66; PULSE 80; RESP 18; TEMP 36.3; O2SAT 98
[2025-03-17 07:00] VITALS: BP 136/93; PULSE 72; RESP 16; TEMP 36.7; O2SAT 92
--- NOTE | 2025-03-17 07:26 | PC.NURSE ---
Pt arrived to the floor at 2049. Pleasant, alert and oriented.?VSS. Pt has an abrasion on back of head from recent fall. Pt up with SBA with walker and gait belt, tolerated well. Pt denied pain. Pt in bed, appears to be resting, call light within reach.?
--- NOTE | 2025-03-17 08:18 | P.DS_ITS ---
DS: Providers Provider Date Seen: 03/17/25 Date of admission: 03/16/25 20:32 Primary care physician: Shayna Flores DO Admitting Clinician: Nico Grant MD Attending Physician on discharge: Carley Fish MD Date of Discharge: 03/17/25 DS: Diagnosis Discharge Diagnosis (1) Fall: Status: Acute Problem details: -recurrent; will likely become more common with myositis -baseline on 03/17 and requesting d/c back to [facility] [place] (2) Hematoma of occipital region of scalp: Status: Acute Problem details: -mild, observe (3) Gait instability: Status: Acute Problem details: - with recurrent falls - therapies ordered, may need SNF placement. Sister is concerned that she is too unsteady. Sister also reports she is unable to help her up when she falls. - patient comfortable with d/c back to [facility] on 03/17; plans to be more judicious with the use of her wheelchair (4) Inclusion body myositis: Status: Acute Problem details: Diagnosed 2022 DS: Summary Hospital Course Hospital Course: Leandra Serrano) was admitted to the hospital on 03/16/2025 after mechanical fall at home in the setting of chronic weakness. She lives at the [facility] locally; felt that she was too weak to return home yesterday afternoon from the emergency room. In the ER, she had a negative head CT and negative imaging of her bilateral knees. On hospital day 1, she felt back to baseline and requesting discharge home, deferred formal PT evaluation but would like to restart these services at the [facility]. She does not want a higher level of care at this time and plans to use her wheelchair more frequently upon discharge. Comorbidities remained stable and no medication changes were made. Time Spent with Patient Time attestation: Total time spent providing and/or coordinating discharge services: Time spent: Greater than 30 minutes Specific discharge activities: Transportation to assisted living, medication reconciliation, patient Education, documentation Exam Narrative: Exam Narrative: GEN: Alert and oriented, sitting up in bed and nontoxic HEENT: Alopecia, EOMIs bilaterally, no scleral icterus CV: RRR, No concerning murmurs R: LCTA bilaterally Ext: wwp, no concerning edema Neuro: Nonfocal Psych: Appropriate Const: Vital Signs, click to edit/add: Vital Signs - 24 hr 03/16/25 14:48 03/16/25 16:20 03/16/25 16:40 Temperature 97.9 F Pulse Rate [Pulse Oximeter] 69 68 75 Respiratory Rate 16 16 16 Blood Pressure [Le ft Arm] Blood Pressure [Ri ght Upper Arm] 176/53 H 128/81 133/69 Pulse Oximetry 94 98 97 Oxygen Delivery Me thod Room Air Room Air Room Air 03/16/25 17:00 03/16/25 20:12 03/16/25 20:20 Temperature 97.4 F L 97.6 F Pulse Rate [Pulse Oximeter] 72 86 81 Respiratory Rate 16 19 18 Blood Pressure [Le ft Arm] 145/60 H Blood Pressure [Ri ght Upper Arm] 161/65 H 141/68 H Pulse Oximetry 96 98 97 Oxygen Delivery Me thod Room Air Room Air Room Air 03/16/25 20:20 03/16/25 23:00 03/17/25 03:00 Temperature 97.3 F L Pulse Rate [Pulse Oximeter] 81 80 Respiratory Rate 18 18 18 Blood Pressure [Le ft Arm] 142/66 H Blood Pressure [Ri ght Upper Arm] Pulse Oximetry 97 98 Oxygen Delivery Me thod Room Air Room Air DS: Data Data Completed and Pending Labs on day of discharge: Labs from last 24 hours 03/16/25 20:53 WBC 4.92 RBC 3.85 L Hgb 12.4 Hct 36.9 MCV 96 MCH 32 MCHC 34 RDW Coeff of Jos 12.8 Plt Count 247 Neut % (Auto) 72.6 H Lymph % (Auto) 17.1 L [place] % (Auto) 7.9 Eos % (Auto) 1.8 Baso % (Auto) 0.4 Neut # (Auto) 3.60 Lymph # (Auto) 0.80 L [place] # (Auto) 0.40 Eos # (Auto) 0.09 Baso # (Auto) 0.02 Abs Immat Gran (auto) 0.01 Imm/Tot Granulo (auto) 0.2 Sodium 131 L Potassium 3.8 Chloride 98 Carbon Dioxide 29 Anion Gap 4 L BUN 13 Creatinine 0.4 L Estimated Creat Clear 38.15 Estimated GFR 98 Glucose 112 Lactate 0.9 Calcium 9.2 Discharge Plan Discharge Disposition: [facility] Date of Admission: 03/16/25 20:32 Attending Provider on Discharge: Carley Fish Primary Care Provider: Shayna Flores Condition: Improved Anticipated Discharge Date/Time: 03/17/25 08:16 Discharge Medications: Continued metoprolol tartrate 25 mg tablet 25 mg PO DAILY rosuvastatin 5 mg tablet 5 mg PO HS Patient Comments: TAKE 1 TABLET (5 MG) BY MOUTH ONCE DAILY WITH EVENING MEAL. meclizine 25 mg Tablet 25 mg PO Q6H PRNQty: 10 0RF Rx Instructions: As needed for acute vertigo fluorometholone 0.1 % drops,suspension 1 drp ophthalmic (eye) DAILY PRN loteprednol etabonate 0.5 % drops,suspension 1 drp ophthalmic (eye) DAILY acetaminophen [Acetaminophen Extra Strength] 500 mg tablet 1,000 mg PO Q8H Qty: 30 0RF sertraline 50 mg tablet 50 mg PO DAILY Discharge Orders: Discharge Order (Routine); Ordered 03/17/25 Ordered By: Carley Fish Additional Instructions: You should be using your wheelchair more, given your fall risk. Good idea to see Dr. Flores to discuss more help at home, PT, strengthening, etc. Activity Level: Activity as Tolerated and No strenuous activity Discharge Diet: Regular Follow Up Appointments: Shayna Flores DO [Primary Care Provider, [facility]] Forms: Patient Belongings, [facility] Info Instructions Admit to: Assisted Living Discharge Potential: Poor Length of Stay: 30-90 days Code Status: Full Code Therapy: Physical Therapy and Occupational Therapy Therapy Orders: Evaluate and Treat and Gait Training Orders are good >30 days: Yes Signature: Carley Fish MD
--- NOTE | 2025-03-17 11:13 | REH.PT ---
Patient d/c prior to PT evaluation
--- NOTE | 2025-03-17 11:55 | PC.NURSE ---
Pt pleasant to care for. VSS. Denies pain. Tolerating oral intake. Ambulating well with walker. Pt is discharging today, returning to [facility] via EMS. Pt belongings and discharge instructions signed.
--- NOTE | 2025-03-19 11:28 | PC.SOCIAL ---
Social Service Consult: VICKIE called Andree at [facility] as patient returned to [facility] over the weekend. Andree states she is unaware of anything she needs for this patient at this time, but will reach out to VICKIE if there is anything.
== END 2025-03-17 12:25 ==
LOC: ED 17:05 → MEDSURG 20:32
PROVIDERS: Family Medicine; Admitting Provider Orthopaedic Surgery; Emergency Provider Family Medicine; PCP Family Medicine; Visit Provider Orthopaedic Surgery
DX: S00.03XA Contusion of scalp, initial encounter (principal); R26.9 Unspecified abnormalities of gait and mobility; G72.41 Inclusion body myositis [IBM]; E87.5 Hyperkalemia; W18.30XA Fall on same level, unspecified, initial encounter
CPT/HCPCS: 36415; 70450; 73562; 80048; 83605; 85025; 97165; 99284; 99285; A9270; G0378

== ENCOUNTER 2025-03-17 12:21 | Outpatient (CLI) | payer MEDICARE, BC, SELFPAY | END 2025-03-17 12:22 | disposition home or self-care (01) | LOC: AMB 05-03 19:10 | PROVIDERS: PCP Family Medicine; Visit Provider Family Medicine | DX: R53.1 Weakness (principal); Z99.3 Dependence on wheelchair | CPT/HCPCS: A0425; A0428 ==

== ENCOUNTER 2025-04-11 17:05 | Outpatient (CLI) | payer MEDICARE, BC, SELFPAY | END 2025-04-11 17:06 | disposition home or self-care (01) | LOC: AMB 04-14 15:18 | PROVIDERS: PCP Family Medicine; Visit Provider Family Medicine | DX: R10.9 Unspecified abdominal pain (principal) | CPT/HCPCS: A0425; A0427 ==

== ENCOUNTER 2025-04-11 17:40 | Inpatient (IN) | payer MEDICARE, BC, SELFPAY ==
--- OUTSIDE RECORDS SUMMARY | 2025-04-11 17:43 | XMS_ITS | Clinical Summary ---
Author Organization [employer] [facility] Address [address] [place] [id number] Care Team Providers Care Detasseler Name Role Phone Pcp, No Primary Care Provider Unavailabl e Allergies No known active allergies Medications multivitamin (MVI) tablet Take 1 tablet by mouth once daily. 0 013 Active calcium citrate-vitamin D3 500 mg-12.5 mcg /5 gram powd Mix 1 Tablet in liquid then take by mouth. Active fluorometholone (FML) 0.1 % ophthalmic suspension INSTILL 1 DROP IN BOTH EYES EVERY DAY NEEDED 021 Active loteprednol (LOTEMAX) 0.5 % ophthalmic suspension [...] once daily with a meal. 024 Active vs-jky-QF-vit Y-uajsxg-fugzgeo (PreserVision AREDS 2 Plus MV) 200 mcg-15 mcg- 5 mg-1 mg cap Take by mouth two times daily. 024 Active ketoconazole 2% shampoo (NIZORAL) 2 % shampooIndications:Hilda a Place on affected areas once daily for 1 week. dampen skin prior to use and leave on for 5 minutes the rinse off. 120 mL 1 024 Active diclofenac topical (VOLTAREN) 1 % gelIndications:Complex regional pain syndrome type 1 affecting left upper arm Apply 2 g topically to affected area(s) four times daily. 200 g 1 024 Active metoprolol succinate 25 mg Sustained-Release tabletIndications:Irreg ular heart beat TAKE 1 TABLET BY MOUTH EVERY DAY 90 Tablet 025 Active rosuvastatin (CRESTOR) 5 mg tabletIndications:Famil ial hypercholesterolemia TAKE 1 TABLET (5 MG) BY MOUTH ONCE DAILY WITH EVENING MEAL. 90 Tablet 025 Active sertraline (ZOLOFT) 50 mg tabletIndications:Anxie ty,Situational depression TAKE 1 TABLET BY MOUTH EVERY MORNING. 90 Tablet 025 Active Active Problems Problem Noted Date Diagnosed Date Polymyositis 03/29/2023 Inclusion body myositis 09/14/2022 Overview (09/14/2022): lower extremity weakness. Closed fracture of right low er extremity with routine healing 12/24/2020 Irregular heart beat 06/09/2012 Other and unspecified hyperlipidemia 06/09/2012 Encounters Date Type Department Care Team Description 03/16/2025 Orders Only [facility] Scanner 1 scan: (1-Ord) [facility], XR KNEE BI 3V, 03/16/2025 03/16/2025 Orders Only [facility] Scanner 1 scan: (1-Ord) [facility], CT HEAD/BRAIN WO CONTRAST, 03/16/2025 02/28/2025 Refill [facility] [address] [place] [address] Shayna Flores DO Refill Request (Sertraline) 01/16/2025 Telephone [facility] [address] [place] [address] Shayna Flores DO FYI 01/14/2025 Refill [facility] [address] [place], [place] [id number] Shayna Flores DO Refill Request (Metoprolol Succinate) [...] on file Legal Sex Female 8:43 AM ER NURSE Gender Identity Not on file Sexual Orientation [...] 36.6 C (97.8 F) 08/10/2023 1:20 PM ER NURSE Respiratory Rate 18 08/10/2023 1:20 PM ER NURSE Oxygen Saturation 97% 03/03/2024 2:12 PM CDT Inhaled Oxygen Concentration - - Weight 53.1 kg (117 lb) 03/26/2023 10:45 AM CDT Height 149.9 cm (4' 11) 05/19/2022 3:19 PM ER NURSE Body Mass Index 23.63 05/19/2022 3:19 PM ER NURSE Plan of Treatment Health Maintenance Due Date Last Done Comments DEXA/DXA scan for age 65+ 2006 Medicare Wellness for age 65+ 2006 RSV vaccine for adults or (1 - 1-dose 75+ series) 2016 Tetanus booster 06/09/2022 06/09/2012, 04/07, 03/26/1997 BMI (ht and wt on same day) for age 18+ 05/19/2023 05/19/2022 Depression screening for age 12+ 09/05/2024 09/06/2023, 08/09/2023, 01/13/2022, Additional history exists Influenza Vaccine (#1) 2025 3, 03/26/2021, 03/27/2020 Pneumococcal series for age 50+ Completed 04/17/2015, 08/22/2008 Zoster (shingles) series for age 50+ Completed 01/18/2018, 10/28/2017, 08/30/2008 Hepatitis B series for 19+ Aged Out N o longer eligible based on patient's age to complete this topic Procedures Procedure Name Priority Date/Time Associated Diagnosis Comments SCAN-RADIOLOGY REPORT 03/16/2025 12:00 AM CDT SCAN-CT INTERPRETATION 12:00 AM CDT from Last 3 Months Results * SCAN-RADIOLOGY REPORT (03/16/2025 12:00 AM CDT) Anatomical Region Laterality Modality Other us Scanner OTHER Final Result * SCAN-CT INTERPRETATION (03/16/2025 12:00 AM CDT) Anatomical Region Laterality Modality Other us Scanner OTHER Final Result from Last 3 Months Insurance MEDICARE [place] ONLY BLUE CROSS OF NON-[place] MEDICARE PART B HB ONLY MEDICARE [place]PS BLUE CROSS OF [place] Advance Directives Documents on File Type Date Recorded 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 PCP - General 01/16/25
[2025-04-11 17:46] VITALS: BP 144/60; PULSE 68; RESP 20; TEMP 35.7; O2SAT 95
--- NOTE | 2025-04-11 18:03 | CRLHL7_ITS ---
For Patients: As a result of the Century Cures Act, medical imaging exams and procedure reports are released immediately into your electronic medical record. You may view this report before your referring provider. If you have questions, please contact your health care provider. INDICATION: Right upper quadrant pain. TECHNIQUE: Ultrasound abdomen limited. Sonographic images of the right upper quadrant were obtained using garcia-scale and color Doppler images. COMPARISON: None. FINDINGS: Liver: Normal in size and echotexture. No suspicious masses. No intrahepatic biliary dilatation. Gallbladder: Sludge and small stones within the gallbladder fundus. Normal wall thickness. No pericholecystic fluid. Positive sonographic Barragan`s sign. Common bile duct: 9 mm. Pancreas: Prominent main pancreatic duct measuring 5 millimeters. Right kidney: Normal in size. Normal echotexture and cortex. No suspicious masses, stones, or hydronephrosis. Proximal abdominal aorta: Normal in caliber. IVC: Patent. Main portal vein: Patent. Ascites: None visualized. IMPRESSION: Gallbladder sludge and small amount of cholelithiasis at the gallbladder fundus. Sonographic Barragan`s sign is positive, however gallbladder wall thickness is within normal limits and there is no pericholecystic fluid. Correlate clinically to evaluate for possibility of acute cholecystitis. Dictated by Deann Quinn MD @ 04/11/2025 7:32:40 PM (Electronically Signed)
--- NOTE | 2025-04-11 18:07 | ED_ITS ---
HPI - General Adult General Chief complaint: Abdominal Pain Stated complaint: abdomen pain Time Seen by Provider: 04/11/25 17:51 Source: patient and EMS Mode of arrival: EMS Limitations: other (Mild memory impairment.) History of Present Illness HPI narrative: 84-year-old female presents to the emergency department for evaluation of abdominal pain. She visually told in triage that it was epigastric area but she is pointing more to mid abdomen for me but diffusely. Came on somewhat gradually. It is not affected by position. She tells me it is constant but does not seem to have great insight regarding that fact. Uncertain of any exacerbating or relieving factors. Is not sure if the pain radiates. Denies dysuria or urinary changes. No trauma or injury. No recent fall. Denies nausea or vomiting. No fever. Has not tried any treatments prior to ED arrival. She denies a history of any previous abdominal surgeries. No prior bowel obstructions, no gynecological surgeries. I reviewed the records that accompany her from [facility], home meds are metoprolol and sertraline. Reports that she has been eating and drinking normally through today. Last bowel movement was around 2:00 p.m., normal. No bloody stools, diarrhea. I review her records here and see that she had a similar presentation back in , at the time. Past medical history reviewed from records. In our see provides some paperwork as well. Likely she has had a pretty healthy life. Home meds reviewed. She tells me that she does not set upper dispense her own medications. She is a nonsmoker. Has active family in the area. Full code. ROS is notable for the abdominal symptoms only, otherwise today she denies times 12 systems. Related Data Home Medications ?Medication ?Instructions ?Recorded ?Confirmed rosuvastatin 5 mg tablet 5 mg PO HS 05/20/22 02/06/25 sertraline 50 mg tablet 50 mg PO DAILY 12/01/2308/01 fluorometholone 0.1 % eye 1 drp ophthalmic (eye) DAILY PRN 09/21/24 02/06/25 drops,suspension loteprednol etabonate 0.5 % eye 1 drp ophthalmic (eye) DAILY 09/21/24 02/06/25 drops,suspension metoprolol tartrate 25 mg tablet 25 mg PO DAILY 02/06/25 Previous Rx's ?Medication ?Instructions ?Recorded meclizine 25 mg tablet 25 mg PO Q6H PRN #10 tabs acetaminophen 500 mg tablet 1,000 mg (2 x 500 mg) PO Q 8H #30 09/22/24 (Acetaminophen Extra Strength) tabs Allergies Allergy/AdvReac Type Severity Reaction Status Date / Time No Known Drug Allergies Allergy Verified 04/11/25 21:18 [facility] Medical History (Updated 04/11/25 @ 21:58 by Dianne Grant MD) Hx of multiple trauma ?Z87.828 - Personal history of other (healed) physical injury and trauma (ICD-10) Closed fracture of left proximal tibia ?S82.102A - Unspecified fracture of upper end of left tibia, initial encounter for closed fracture (ICD-10) Fracture of right tibial tuberosity ?S82.151A - Displaced fracture of right tibial tuberosity, initial encounter for closed fracture (ICD-10) Right fibular fracture ?S82.401A - Unspecified fracture of shaft of right fibula, initial encounter for closed fracture (ICD-10) Hyponatremia ?E87.1 - Hypo-osmolality and hyponatremia (ICD-10) Distal radius fracture, left ?S52.502A - Unspecified fracture of the lower end of left radius, initial encounter for closed fracture (ICD-10) Fracture of fifth metatarsal bone of left foot ?S92.352A - Displaced fracture of fifth metatarsal bone, left foot, initial encounter for closed fracture (ICD-10) 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) ?M33.20 - Polymyositis, organ involvement unspecified (ICD-10) Other and unspecified hyperlipidemia (06/09/12) ?E78.5 - Hyperlipidemia, unspecified (ICD-10) Myopathy (06/17/22) ?G72.9 - Myopathy, unspecified (ICD-10) Irregular heart beat (06/09/12) ?I49.9 - Cardiac arrhythmia, unspecified (ICD-10) 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 - Inclusion body myositis [IBM] (ICD-10) Muscle weakness (04/21/22) ?M62.81 - Muscle weakness (generalized) (ICD-10) Gait difficulty (09/10/22) ?R26.9 - Unspecified abnormalities of gait and mobility (ICD-10) Closed fracture of right lower extremity with routine healing (12/24/20) ?S82.91XD - Unspecified fracture of right lower leg, subsequent encounter for closed fracture with routine healing (ICD-10) Other and unspecified hyperlipidemia (06/09/12) ?E78.5 - Hyperlipidemia, unspecified (ICD-10) 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 - Inclusion body myositis [IBM] (ICD-10) 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) ?M33.20 - Polymyositis, organ involvement unspecified (ICD-10) Irregular heart beat (06/09/12) ?I49.9 - Cardiac arrhythmia, unspecified (ICD-10) Elevated LFTs ?R79.89 - Other specified abnormal findings of blood chemistry (ICD-10) 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] (ICD-10) Left shoulder pain ?M25.512 - Pain in left shoulder (ICD-10) Greater trochanteric bursitis of right hip ?M70.61 - Trochanteric bursitis, right hip (ICD-10) Maisonneuve fracture of right lower extremity ?S82.861A - Displaced Maisonneuve's fracture of right leg, initial encounter for closed fracture (ICD-10) Osteoporosis ?M81.0 - Age-related osteoporosis without current pathological fracture (ICD- 10) Hyperlipidemia ?E78.5 - Hyperlipidemia, unspecified (ICD-10) Myopathy ?G72.9 - Myopathy, unspecified (ICD-10) Hypertension ?I10 - Essential (primary) hypertension (ICD-10) Surgical History 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 Currently at [facility] at [facility]. 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 Her sister is healthcare power of prosecuting attorney. Her code status is full. She is a former smoker. She rarely drinks alcohol. No recreational drug use. Two living adult children (one in [place], one in [place]). What is your current living situation?: I presently have a place to live Problems where you live: no known problems Problems where you live details: na In the past 12 months, utilities in danger of being shut off: no In past 12 months, lack of transportation kept you from medical appts, meetings, work, or getting things needed for daily living: no In the past 12 mos, have been you worried that your food would run out before you had money to buy more?: never true In the past 12 mos, the food you bought just didn't last and you didn't have money to buy more?: never true Highest level of school completed/degree received: high school graduate Smoking Status: Former smoker What tobacco products do you use: cigarettes Smoking quit date/years: >15 years ago Do you use any of these nicotine containing products: None Second hand tobacco smoke exposure: No How often do you have a drink containing alcohol: never How often do you have six or more drinks on one occasion: Never AUDIT-C Alcohol total score: 0 Non-prescribed substance use: denies use How often does anyone, including family, friends and others, physically hurt you : never How often does anyone, including family, friends and others, insult or talk down to you: never How often does anyone, including family, friends and others, threaten you with harm: never How often does anyone, including family, friends and others, scream or curse at you: never service: No Exam Const: Vital Signs, click to edit/add: Vital Signs - 24 hr 04/11/25 17:46 04/11/25 20:37 Temperature 96.3 F L 97.5 F L Pulse Rate [Pulse Oximeter] 68 78 Respiratory Rate 20 18 Blood Pressure [Ri ght Upper Arm] 144/60 H 153/58 H Pulse Oximetry 95 96 Oxygen Delivery Me thod Room Air Room Air Documenting provider has reviewed patient's vital signs: yes Common normals: no apparent distress and alert General appearance: well kempt HENMT: Common normals: normocephalic, moist oral mucous membranes and oropharynx normal Head and scalp: normocephalic Face and sinus: normal f acial exam Mouth: oral and palatal mucosa normal Eye: Common normals: conjunctivae normal General eye: normal appearance of both eyes Conjunctiva: conjunctiva(e) normal Neck & C-Spine: Common normals: full ROM and no lymphadenopathy General: normal visual inspection Resp: Common normals: normal respiratory effort, no use of accessory muscles and clear to auscultation bilaterally Effort & inspection: able to speak in complete sentences Auscultation: clear to auscultation bilaterally Cardio: Common normals: regular rate, regular rhythm, S1 normal heart sound, S2 normal heart sound and no murmurs Rate: regular rate Rhythm: regular rhythm Heart sounds: S1 normal and S2 normal GI: Common normals: Normal to inspection, nondistended, normoactive bowel sounds present, soft to palpation, no hepatosplenomegaly and no masses Palpation: soft and no hepatosplenomegaly Other: Tenderness locates for me in the right upper quadrant. There certainly no rebound tenderness or guarding. There was some diffuse tenderness in other areas as well, but mostly reproducible to the right upper quadrant. No obvious mass. Back & Pelvis: Common normals: thoracic and lumbar spine normal to inspection Extremity: Common normals: normal to inspection and normal capillary refill Neuro: Common normals: moves all extremities Sensorium/orientation: alert Speech: speech normal Motor exam: strength 5/5 throughout Psych: Appearance: well kempt Attitude: engaged Activity/motor behavior: appropriate eye contact Insight: fair Judgement: fair Skin: Common normals: no rashes or lesions noted General skin exam: no rashes or lesions noted Course Course ED Course: 84-year-old female with right upper quadrant verses mid abdominal pain. No initial obvious features of fever, sepsis or acute cardiac process. Differential diagnosis including pancreatitis, cholecystitis, choledocholithiasis, colitis, gastritis, gastroenteritis, diverticulitis, urinary process, kidney stone, infections, sepsis, amongst many others including acute coronary syndrome or atypical presentation of other pulmonary or cardiac processes. Initial vital signs are quite reassuring. Will place peripheral IV, obtain typical intra-abdominal and cardiac labs, EKG. Will hold off on pain and nausea meds for now, obtain right upper quadrant ultrasound. If this is nonrevealing, would recommend CT. Reevaluation(s) Reevaluation #1: Update: Counseled patient on initial findings, still waiting on lipase. Sodium is very low. I think this is multifactorial. I do think her sertraline is contributing but she does seem to chronically run low which is seems to be getting worse. Counseled that this can be common for someone as they age but I do think that stopping her sertraline would be a good idea. Give 1 L normal saline to start improving the hyponatremia. I suspect that her lipase is very elevated and a task to be diluted and that is why it is taking so long. The ultrasound did not show any obvious cholecystitis but I was appreciating some fluid around the outer gallbladder wall and also certainly some sludge. I think she needs a CT. CT is ordered, family updated on plan of care will need hospitalization. Will talk to surgical team once I have the results of the CT. Update: CT does show pancreatitis as expected no obvious common bile duct stone but would not be sensitive enough to tell for sure. There is more fluid seen around the gallbladder on CT and the gallbladder is very distended. I do think she has an early cholecystitis. I have counseled the patient on my findings. I spoke with our surgical team. Together we decided it probably is worthwhile to start some antibiotics, Zosyn ordered. Also recommend hospitalization for treatment of the pancreatitis, surgical team will see and morning to determine if any intervention is needed regarding gallbladder. May require transfer for ERCP, will order MRCP for morning per hospitalist team. Spoke with the [facility] who does accept admission. Vital Signs Vital signs: Initial Vital Signs Temperature 96.3 F L 04/11/25 17:46 Temperature Source Temporal Artery Scan 04/11/25 17:46 Pulse Rate 68 04/11/25 17:46 Respiratory Rate 20 04/11/25 17:46 Blood Pressure 144/60 H 04/11/25 17:46 Blood Pressure Mean 88 04/11/25 17:46 Blood Pressure Position Sitting 04/11/25 17:46 Pulse Oximetry 95 04/11/25 17:46 Oxygen Delivery Method Room Air 04/11/25 17:46 Vital Signs Temperature 96.3 F L 04/11/25 17:46 Pulse Rate 68 04/11/25 17:46 Respiratory Rate 20 04/11/25 17:46 Blood Pressure 144/60 H 04/11/25 17:46 Pulse Oximetry 95 04/11/25 17:46 Oxygen Delivery Method Room Air 04/11/25 17:46 Temperature 97.5 F L 04/11/25 20:37 Pulse Rate 78 04/11/25 20:37 Respiratory Rate 18 04/11/25 20:37 Blood Pressure 153/58 H 04/11/25 20:37 Pulse Oximetry 96 04/11/25 20:37 Oxygen Delivery Method Room Air 04/11/25 20:37 Medications Administered Medications: Generic Name Dose Route Start Last Admin Trade Name Freq PRN Reason Stop Dose Admin Piperacillin Sod/Tazobactam 100 mls @ 200 mls/hr 04/11/25 21:15 04/11/25 22:17 Sod 3.375 gm/ Sodium Chloride IVPB Infused Q6H MATEO Infusion Discontinued Medications Generic Name Dose Route Start Last Admin Trade Name Freq PRN Reason Stop Dose Admin Sodium Chloride 1,000 mls @ 500 mls/hr 04/11/25 19:04 04/11/25 19:11 0.9 % Sodium Chloride 1000 Ml IV 04/11/25 21:03 500 mls/hr .Q2H MATEO Administration Medical Decision Making Lab Data Lab results reviewed: Yes I reviewed the patient's lab results Lab results narrative: Markedly elevated lipase, severe hyponatremia. Elevation of AST consistent with gallstone hepatitis. Cardiac workup reassuring Labs: Lab Results 04/11/25 04/11/25 04/11/25 Range/Units 18:11 18:20 18:27 WBC 7.99 (4.50-11.00) K/uL RBC 3.97 L (4.00-5.20) m/uL Hgb 12.6 (12.0-16.0) gm/dL Hct 36.6 (33.0-51.0) % MCV 92 (80-100) fL MCH 32 (26-34) pg MCHC 34 (32-36) gm/dL RDW Coeff of Jos 13.0 (11.5-15.5) % Plt Count 246 (140-440) K/uL Neut % (Auto) 91.9 H (42.0-72.0) % Lymph % (Auto) 4.1 L (20-44) % Stanton % (Auto) 2.5 (0.0-11.0) % Eos % (Auto) 0.4 (0.0-7.0) % Baso % (Auto) 0.0 (0.0-3.0) % Neut # (Auto) 7.30 H (1.7-7.0) K/uL Lymph # (Auto) 0.30 L (0.90-2.90) K/uL Stanton # (Auto) 0.20 (0.00-0.90) K/UL Eos # (Auto) 0.03 (0.00-0.50) K/uL Baso # (Auto) 0.00 (0.00-0.30) K/uL Abs Immat Gran (auto) 0.09 (0.00-0.30) K/uL Imm/Tot Granulo (auto) 1.1 % Sodium 121 L* (135-149) mmol/L Potassium 4.2 (3.6-5.1) mmol/L Chloride 91 L (96-114) mmol/L Carbon Dioxide 26 (20-32) mmol/L Anion Gap 4 L (7-15) mEq/L BUN 15 (7-30) mg/dL Creatinine 0.4 L (0.5-1.5) mg/dL Estimated GFR 98 ml/min Glucose 129 H (60-115) mg/dL Lactate 1.1 (0.5-1.9) mmol/L Calcium 9.3 (8.4-10.6) mg/dL Total Bilirubin 1.1 (0.1-1.5) mg/dL AST 366 H (12-35) U/L ALT 147 H (4-35) U/L Alkaline Phosphatase 102 (40-150) U/L C-Reactive Protein < 0.5 L (0.5-1.0) mg/dL Total Protein 7.6 (6.0-8.3) g/dL Albumin 4.2 (3.3-5.0) g/dL Lipase 22707 H (23-300) U/L Procalcitonin 0.03 (<0.50) ng/mL Urine Color (Yellow) Urine Appearance (Clear) Urine pH (5.0-8.5) Ur Specific Aurora (1.000-1.030) Urine Protein (Negative) Urine Glucose (UA) (Negative) Urine Ketones (Negative) Urine Blood (Negative) Urine Nitrite (Negative) Urine Bilirubin (Negative) Urine Urobilinogen (0.2-1.0) Ur Leukocyte Esterase (Negative) Urine RBC (0-2) Urine WBC (0-5) Ur Squamous Epith Cells (None-Few) Urine Bacteria (None) Urine Mucus (None) SARS-CoV-2 (PCR) Negative SARS-CoV-2 (Negative) Influenza Type A (PCR) Negative PCR FLU A (Negative) Influenza Type B (PCR) Negative PCR FLU B (Negative) RSV (PCR) Negative PCR RSV (Negative) POC Troponin I 0.00 L (0.01-0.04) ng/ml 04/11/25 Range/Units 19:00 WBC (4.50-11.00) K/uL RBC (4.00-5.20) m/uL Hgb (12.0-16.0) gm/dL Hct (33.0-51.0) % MCV (80-100) fL MCH (26-34) pg MCHC (32-36) gm/dL RDW Coeff of Jos (11.5-15.5) % Plt Count (140-440) K/uL Neut % (Auto) (42.0-72.0) % Lymph % (Auto) (20-44) % Stanton % (Auto) (0.0-11.0) % Eos % (Auto) (0.0-7.0) % Baso % (Auto) (0.0-3.0) % Neut # (Auto) (1.7-7.0) K/uL Lymph # (Auto) (0.90-2.90) K/uL Stanton # (Auto) (0.00-0.90) K/UL Eos # (Auto) (0.00-0.50) K/uL Baso # (Auto) (0.00-0.30) K/uL Abs Immat Gran (auto) (0.00-0.30) K/uL Imm/Tot Granulo (auto) % Sodium (135-149) mmol/L Potassium (3.6-5.1) mmol/L Chloride (96-114) mmol/L Carbon Dioxide (20-32) mmol/L Anion Gap (7-15) mEq/L BUN (7-30) mg/dL Creatinine (0.5-1.5) mg/dL Estimated GFR ml/min Glucose (60-115) mg/dL Lactate (0.5-1.9) mmol/L Calcium (8.4-10.6) mg/dL Total Bilirubin (0.1-1.5) mg/dL AST (12-35) U/L ALT (4-35) U/L Alkaline Phosphatase (40-150) U/L C-Reactive Protein (0.5-1.0) mg/dL Total Protein (6.0-8.3) g/dL Albumin (3.3-5.0) g/dL Lipase (23-300) U/L Procalcitonin (<0.50) ng/mL Urine Color Yellow (Yellow) Urine Appearance Clear (Clear) Urine pH 6.0 (5.0-8.5) Ur Specific Aurora >= 1.030 (1.000-1.030) Urine Protein 1+ A (Negative) Urine Glucose (UA) Negative (Negative) Urine Ketones Trace A (Negative) Urine Blood Negative (Negative) Urine Nitrite Negative (Negative) Urine Bilirubin Negative (Negative) Urine Urobilinogen 0.2 (0.2-1.0) Ur Leukocyte Esterase Negative (Negative) Urine RBC 2-5 A (0-2) Urine WBC 2-5 (0-5) Ur Squamous Epith Cells Moderate A (None-Few) Urine Bacteria Few A (None) Urine Mucus Moderate A (None) SARS-CoV-2 (PCR) (Negative) Influenza Type A (PCR) (Negative) Influenza Type B (PCR) (Negative) RSV (PCR) (Negative) POC Troponin I (0.01-0.04) ng/ml Imaging Data Ultrasound abdomen: Attestation: I have reviewed the pertinent imaging results. My impression: Certainly some gallbladder sludge but no obvious dilation of the duct or thickening of the wall of the gallbladder. Tech reported positive Barragan sign Radiologist's impression: IMPRESSION: Gallbladder sludge and small amount of cholelithiasis at the gallbladder fundus. Sonographic Barragan`s sign is positive, however gallbladder wall thickness is within normal limits and there is no pericholecystic fluid. Correlate clinically to evaluate for possibility of acute cholecystitis. CT scan - abdomen: Attestation: I have reviewed the pertinent imaging results. My impression: Edematous pancreas, distended gallbladder and fluid around gallbladder suspicious for cholecystitis but the gallbladder wall itself does not seem thickened. Lower thoracic compression fracture Radiologist's impression: IMPRESSION: 1. The pancreas is diffusely edematous with diffuse peripancreatic inflammatory fat stranding and edema suggesting acute pancreatitis. Correlate with serum amylase and lipase. 2. Distended gallbladder with cholelithiasis and pericholecystic edema but no significant gallbladder wall thickening. 3. Mild intra and extrahepatic bile duct dilation and mild pneumobilia. No calcified choledocholithiasis or distal obstructing mass is seen. 4. Chronic appearing severe T12 compression fracture with retropulsion. Please note that all CT scans at this facility use dose modulation, iterative reconstruction, and/or weight-based dosing when appropriate to reduce radiation dose to as low as reasonably achievable. Dictated by Audrey Fernandes MD @ 04/11/2025 9:06:51 PM ECG Data Attestation: I personally reviewed and interpreted this ECG as follows: Prior ECG tracings: available for review (Comparison 05/28) Interpretation: Sinus rhythm with a rate of 65. Normal intervals and axis. No significant ST or T-wave abnormalities. Normal EKG. Stable from comparison in May of 2022. Discharge Plan Discharge Clinical Impression: Acute gallstone pancreatitis, Acute cholecystitis, Acute hyponatremia Patient Disposition: Admitted As Inpatient
[2025-04-11 18:36] LABS: Lactate Sepsis w/Reflex* 1.1 mmol/L (0.5-1.9)
[2025-04-11 18:38] LABS: Hematocrit* 36.6 % (33.0-51.0); Hemoglobin* 12.6 gm/dL (12.0-16.0); Immature Granulocytes Abs Auto 0.09 K/uL (0.00-0.30); Immature Granulocytes Pct Auto 1.1 %; Mean Corpuscular HGB Conc 34 gm/dL (32-36); Mean Corpuscular Hemoglobin 32 pg (26-34); Mean Corpuscular Volume 92 fL (80-100); RDW Coefficient of Variation % 13.0 % (11.5-15.5); Red Blood Count* 3.97 m/uL (4.00-5.20); White Blood Count* 7.99 K/uL (4.50-11.00)
[2025-04-11 18:39] LABS: Lymphocytes Absolute Auto 0.30 K/uL (0.90-2.90); Slide Review Reflex No
[2025-04-11 18:50] LABS: Troponin, Point-of-Care* 0.00 ng/ml (0.01-0.04)
[2025-04-11 18:55] LABS: PCR FLU A Negative PCR FLU A (Negative); PCR FLU B Negative PCR FLU B (Negative); PCR RSV Negative PCR RSV (Negative); SARS PCR* Negative SARS-CoV-2 (Negative)
[2025-04-11 18:56] LABS: Albumin* 4.2 g/dL (3.3-5.0); Chloride* 91 mmol/L (96-114)
[2025-04-11 18:57] LABS: Potassium* 4.2 mmol/L (3.6-5.1)
[2025-04-11 18:59] LABS: Alanine Aminotransferase* 147 U/L (4-35); Alkaline Phosphatase* 102 U/L (40-150); Anion Gap 4 mEq/L (7-15); Aspartate Amino Transferase* 366 U/L (12-35); Bilirubin Total* 1.1 mg/dL (0.1-1.5); Blood Urea Nitrogen* 15 mg/dL (7-30); Calcium* 9.3 mg/dL (8.4-10.6); Carbon Dioxide* 26 mmol/L (20-32); Creatinine* 0.4 mg/dL (0.5-1.5); Estimated Glomerular Filt Rate 98 ml/min; Glucose* 129 mg/dL (60-115); Total Protein* 7.6 g/dL (6.0-8.3)
[2025-04-11 19:03] LABS: Sodium* 121 mmol/L (135-149)
[2025-04-11 19:16] LABS: Procalcitonin* 0.03 ng/mL (<0.50)
[2025-04-11 19:27] LABS: Appearance Urine Clear (Clear)
--- NOTE | 2025-04-11 19:53 | CRLHL7_ITS ---
For Patients: As a result of the 21st Century Cures Act, medical imaging exams and procedure reports are released immediately into your electronic medical record. You may view this report before your referring provider. If you have questions, please contact your health care provider. INDICATION: Right upper quadrant pain, pancreatitis. TECHNIQUE: CT of the abdomen and pelvis acquired with 62 cc Isovue 370 IV contrast. Coronal and sagittal reconstructions. COMPARISON: Same day abdominal ultrasound. FINDINGS: Lower chest: Bibasilar atelectasis or scarring. Trace bilateral pleural effusions. Mitral annulus calcifications. Liver: Normal in size and attenuation. No suspicious masses. Gallbladder and bile ducts: The gallbladder is distended with small stones in the fundus. There is pericholecystic edema without significant gallbladder wall thickening. Mild intra and extrahepatic bile duct dilation and mild pneumobilia. No calcified choledocholithiasis is seen. Spleen: Unremarkable. Pancreas: The pancreas is diffusely edematous, with diffuse peripancreatic inflammatory fat stranding and edema. Findings suggest acute pancreatitis. No focal region of parenchymal necrosis. No peripancreatic fluid collection. The main pancreatic duct is minimally prominent but not overtly dilated. Adrenal glands: Unremarkable. Kidneys, Ureters, and Bladder: Symmetric enhancement. Small left renal cyst. No hydronephrosis. No obstructing urinary calculi. No bladder wall thickening. Reproductive organs: Unremarkable. GI tract/Peritoneum: No small bowel dilation. Moderate stool burden. Colonic diverticulosis without evidence of diverticulitis. The appendix is not identified. No intraperitoneal free air. Vasculature: Abdominal aorta is normal in caliber. Aortoiliac vascular calcifications. Mesenteric arteries appear patent. Lymph nodes: No lymphadenopathy. Abdominal Wall: Unremarkable. Bones: Degenerative changes of the spine. Chronic appearing severe T12 compression fracture with retropulsion. IMPRESSION: 1. The pancreas is diffusely edematous with diffuse peripancreatic inflammatory fat stranding and edema suggesting acute pancreatitis. Correlate with serum amylase and lipase. 2. Distended gallbladder with cholelithiasis and pericholecystic edema but no significant gallbladder wall thickening. 3. Mild intra and extrahepatic bile duct dilation and mild pneumobilia. No calcified choledocholithiasis or distal obstructing mass is seen. 4. Chronic appearing severe T12 compression fracture with retropulsion. Please note that all CT scans at this facility use dose modulation, iterative reconstruction, and/or weight-based dosing when appropriate to reduce radiation dose to as low as reasonably achievable. Dictated by Audrey Fernandes MD @ 04/11/2025 9:06:51 PM (Electronically Signed)
[2025-04-11 20:37] VITALS: BP 153/58; PULSE 78; RESP 18; TEMP 36.4; O2SAT 96
[2025-04-11] MEDS: PIPERACILLIN/TAZOBACTAM 3.375 GM in 0.9 % SODIUM CHLORIDE Mini-bag 100 ML IVPB (21:29)
--- NOTE | 2025-04-11 21:53 | P.IMHP_ITS ---
Assessment and Plan Assessment and plan (1) Acute gallstone pancreatitis: Problem comment: -fluids, clears/NPO at midnight for MRCP - possible transfer for ERCP and/or surgery vs surgery here -zosyn -analgesia and antiemetics -close monitoring for ascending infection or complications of pancreatitis Status: Acute (2) Acute hyponatremia: Problem comment: -SIADH, poor intake, SSRI adding insult -recheck q 4 hours; NS and consider hypertonic if needed Status: Acute (3) Acute cholecystitis: Problem comment: -zosyn; manage medically until CBD is sorted out and pancreas as calmed down Status: Acute (4) Hx of multiple trauma: Problem comment: -related to falls which are secondary to myositis and cognitive decline -non operative fractures of bilateral proximal tibias, and right proximal fibular shaft, distal left radius, nondisplaced avulsion fracture of the base of the left 5th metatarsal. -significant osteoporosis is routinely noted. Status: Acute (5) Gait instability: Problem comment: - with recurrent falls - therapies ordered, may need SNF placement. Sister is concerned that she is too unsteady. Sister also reports she is unable to help her up when she falls. - patient comfortable with d/c back to [facility] on 03/17; plans to be more judicious with the use of her wheelchair Status: Acute (6) Inclusion body myositis: Problem comment: Diagnosed 2022 Status: Acute (7) Hyperlipidemia: Status: Acute Hospitalist- H&P: HPI History of Present Illness Date Seen: 04/11/25 Chief complaint: abdomen pain Narrative: ADMISSION HISTORY AND PHYSICAL - HOSPITALIST Chief Complaint: abdominal pain HPI: 84 y/o WF who lives in [place] secondary to myositis, cognitive decline, presents with diffuse abdominal pain. Poor historian but it sounds as if it has been coming in waves over the last 24 hours. No interventions have been attempted and it sounds like she is drinking and eating small amounts today. No fever. No vomiting. no diarrhea. No sick contacts. EMS brought her over from [facility]. I admitted her a month ago for a fall that caused a scalp hematoma. She has long hx of injuries (fractures) from her poor gait and instability (from myositis). She takes metoprolol and zoloft. ER COURSE: imaging, labs, fluids. Noted to have low sodium and gallstone pancreatitis. surgical consult - admit; zosyn, MRCP and repeat lipase. discussion tomorrow on plan. CODE STATUS: FULL CODE PCP: Dr. Flores EMERGENCY CONTACT PLAN: Zuly Farah Rel To Pat Sister Cell I've updated the PFSH, medications and allergies in the Expanse tabs. INVESTIGATIONS: LABS/MICRO/ECG/IMAGING Afebrile 153/50, 144/60, 136/93 Pulse rate 60s to 70s Respiratory rate 18, unlabored Pulse ox 96% on room air Stated weight 56.8 kilos CBC is unremarkable. Normal white blood cell count. Normal hemoglobin. Normal platelets. Sodium is remarkably low at 121, last month that was 131 Chloride is 91, BUN and creatinine at her baseline 15/0.4. Glucose is 129. Lactate is normal. There is marked elevation of her AST and ALT. 366/147 respectively. Normal bilirubin. Normal alk-phos. CRP is negative. Lipase is over 19,300. Procal undetectable. Urine is concentrated with 1+ protein. Trace ketones. POC troponin is negative. Respiratory swabs negative. CT Abd/Pelvis The pancreas is diffusely edematous with diffuse peripancreatic inflammatory fat stranding and edema suggesting acute pancreatitis. Correlate with serum amylase and lipase. 2. Distended gallbladder with cholelithiasis and pericholecystic edema but no significant gallbladder wall thickening. 3. Mild intra and extrahepatic bile duct dilation and mild pneumobilia. No calcified choledocholithiasis or distal obstructing mass is seen. 4. Chronic appearing severe T12 compression fracture with retropulsion. UC pending No blood cultures ordered EKG reviewed. NSR. No ischemia. REVIEW OF SYSTEMS: 12-point ROS completed with patient and negative unless otherwise stated in HPI or below. PHYSICAL EXAM: CONSTITUTIONAL: resting but awakens easily. reports i'm hurting GENERAL: Well nourished. No respiratory distress. Speaks in full sentences - but trails off a bit and seems a bit confused. VITAL SIGNS: see record. HEENT: Sclerae are anicteric. No petechiae. CARDIAC: rhythm is regular. There is no S3 or rub. No harsh murmurs. Extremities show trace edema with symmetrical pulses. ABDOMEN: tender diffusely but neg for rebound; and it is soft. NEURO: Speech is fluent. A brief neurologic exam is negative. SKIN: No rashes, petechiae, concerning changes PSYCHIATRIC: Euthymic. ADMIT TO MEDSURG: FLOOR CARE DVT: Lovenox GI: PO intake Time spent: Today I spent 75 minutes seeing the patient, discussing the patient with ER staff, reviewing Expanse and EPIC notes/diagnostics, discussing the care plan with our care time that includes social work, PT/OT, pharmacy, RT, detention and documenting my impressions and plan in the medical record. MEDICAL NECESSITY FOR HOSPITALIZATION Anticipated midnights in the hospital: 2 Admitting diagnosis: Gallstone pancreatitis, concern for choledocholithiasis Risk of morbidity and mortality: high Acuity is characterized as high and reflected in: Advanced age, poor mobility, dementia, high surgical risk. Potentially complicated by acute cholecystitis or choledocholithiasis. This patient will require hospital services as outlined in the assessment and plan in order to stabilize and be safely discharged to a lower level of care. Because of the risk and acuity as described above, this patient cannot be managed at a lower level of care. LENGTH OF STAY: 2 IP ? Anticipated LOS>2 midnights due to acuity of clinical presentation requiring inpatient level of care Medical Decision Making Medical Decision Making Has patient completed a Health Care Directive: Yes [facility] Medical History (Updated 04/11/25 @ 23:26 by Dianne Grant MD) Hx of multiple trauma ?Z87.828 - Personal history of other (healed) physical injury and trauma (ICD-10) Closed fracture of left proximal tibia ?S82.102A - Unspecified fracture of upper end of left tibia, initial encounter for closed fracture (ICD-10) Fracture of right tibial tuberosity ?S82.151A - Displaced fracture of right tibial tuberosity, initial encounter for closed fracture (ICD-10) Right fibular fracture ?S82.401A - Unspecified fracture of shaft of right fibula, initial encounter for closed fracture (ICD-10) Hyponatremia ?E87.1 - Hypo-osmolality and hyponatremia (ICD-10) Distal radius fracture, left ?S52.502A - Unspecified fracture of the lower end of left radius, initial encounter for closed fracture (ICD-10) Fracture of fifth metatarsal bone of left foot ?S92.352A - Displaced fracture of fifth metatarsal bone, left foot, initial encounter for closed fracture (ICD-10) 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) ?M33.20 - Polymyositis, organ involvement unspecified (ICD-10) Other and unspecified hyperlipidemia (06/09/12) ?E78.5 - Hyperlipidemia, unspecified (ICD-10) Myopathy (06/17/22) ?G72.9 - Myopathy, unspecified (ICD-10) Irregular heart beat (06/09/12) ?I49.9 - Cardiac arrhythmia, unspecified (ICD-10) 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 - Inclusion body myositis [IBM] (ICD-10) Muscle weakness (04/21/22) ?M62.81 - Muscle weakness (generalized) (ICD-10) Gait difficulty (09/10/22) ?R26.9 - Unspecified abnormalities of gait and mobility (ICD-10) Closed fracture of right lower extremity with routine healing (12/24/20) ?S82.91XD - Unspecified fracture of right lower leg, subsequent encounter for closed fracture with routine healing (ICD-10) Other and unspecified hyperlipidemia (06/09/12) ?E78.5 - Hyperlipidemia, unspecified (ICD-10) 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 - Inclusion body myositis [IBM] (ICD-10) 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) ?M33.20 - Polymyositis, organ involvement unspecified (ICD-10) Irregular heart beat (06/09/12) ?I49.9 - Cardiac arrhythmia, unspecified (ICD-10) Elevated LFTs ?R79.89 - Other specified abnormal findings of blood chemistry (ICD-10) 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] (ICD-10) Left shoulder pain ?M25.512 - Pain in left shoulder (ICD-10) Greater trochanteric bursitis of right hip ?M70.61 - Trochanteric bursitis, right hip (ICD-10) Maisonneuve fracture of right lower extremity ?S82.861A - Displaced Maisonneuve's fracture of right leg, initial encounter for closed fracture (ICD-10) Osteoporosis ?M81.0 - Age-related osteoporosis without current pathological fracture (ICD- 10) Hyperlipidemia ?E78.5 - Hyperlipidemia, unspecified (ICD-10) Myopathy ?G72.9 - Myopathy, unspecified (ICD-10) Hypertension ?I10 - Essential (primary) hypertension (ICD-10) Surgical History 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 Currently at [employer] at [facility]. 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 Her sister is healthcare power of trademark attorney. Her code status is full. She is a former smoker. She rarely drinks alcohol. No recreational drug use. Two living adult children (one in [place], one in [place]). What is your current living situation?: I presently have a place to live Problems where you live: no known problems Problems where you live details: na In the past 12 months, utilities in danger of being shut off: no In past 12 months, lack of transportation kept you from medical appts, meetings, work, or getting things needed for daily living: no In the past 12 mos, have been you worried that your food would run out before you had money to buy more?: never true In the past 12 mos, the food you bought just didn't last and you didn't have money to buy more?: never true Highest level of school completed/degree received: high school graduate Smoking Status: Former smoker What tobacco products do you use: cigarettes Smoking quit date/years: >15 years ago Do you use any of these nicotine containing products: None Second hand tobacco smoke exposure: No How often do you have a drink containing alcohol: never How often do you have six or more drinks on one occasion: Never AUDIT-C Alcohol total score: 0 Non-prescribed substance use: denies use Caffeine: Yes How often does anyone, including family, friends and others, physically hurt you : never How often does anyone, including family, friends and others, insult or talk down to you: never How often does anyone, including family, friends and others, threaten you with harm: never How often does anyone, including family, friends and others, scream or curse at you: never service: No Meds Home Medications and Allergies Home Medications ?Medication ?Instructions ?Recorded ?Confirmed ?Type rosuvastatin 5 mg tablet 5 mg PO HS 05/20/22 02/06/25 History meclizine 25 mg tablet 25 mg PO Q6H PRN #10 tabs 02/06/25 Rx sertraline 50 mg tablet 50 mg PO DAILY 12/01/2308/01 History fluorometholone 0.1 % eye 1 drp ophthalmic (eye) DAILY PRN 09/21/24 02/06/25 History drops,suspension loteprednol etabonate 0.5 % eye 1 drp ophthalmic (eye) DAILY 09/21/24 02/06/25 History drops,suspension acetaminophen 500 mg tablet 1,000 mg (2 x 500 mg) PO Q 8H #30 09/22/24 02/06/25 Rx (Acetaminophen Extra Strength) tabs metoprolol tartrate 25 mg tablet 25 mg PO DAILY 02/06/25 History Allergies Allergy/AdvReac Type Severity Reaction Status Date / Time No Known Drug Allergies Allergy Verified 04/11/25 21:18 Exam Const: Vital Signs, click to edit/add: Vital Signs - 24 hr 04/11/25 17:46 04/11/25 20:37 Temperature 96.3 F L 97.5 F L Pulse Rate [Pulse Oximeter] 68 78 Respiratory Rate 20 18 Blood Pressure [Ri ght Upper Arm] 144/60 H 153/58 H Pulse Oximetry 95 96 Oxygen Delivery Me thod Room Air Room Air Hospitalist - H&P: Result Labs Labs: Short CBC 04/11/25 Range/Units 18:27 WBC 7.99 (4.50-11.00) K/uL Hgb 12.6 (12.0-16.0) gm/dL Hct 36.6 (33.0-51.0) % Plt Count 246 (140-440) K/uL BMP 04/11/25 18:27 Sodium 121 L* Potassium 4.2 Chloride 91 L Carbon Dioxide 26 BUN 15 Creatinine 0.4 L Glucose 129 H Calcium 9.3 Liver Function 04/11/25 Range/Units 18:27 Total Bilirubin 1.1 (0.1-1.5) mg/dL AST 366 H (12-35) U/L ALT 147 H (4-35) U/L Alkaline Phosphatase 102 (40-150) U/L Albumin 4.2 (3.3-5.0) g/dL Urine 04/11/25 Range/Units 19:00 Urine Color Yellow (Yellow) Urine Appearance Clear (Clear) Urine pH 6.0 (5.0-8.5) Ur Specific [place] >= 1.030 (1.000-1.030) Urine Protein 1+ A (Negative) Urine Glucose (UA) Negative (Negative)
[2025-04-11 22:12] VITALS: BP 142/63; PULSE 80; RESP 18; TEMP 36.5; O2SAT 93
[2025-04-11 22:18] VITALS: BP 142/63; PULSE 80; RESP 18; TEMP 36.5; O2SAT 93
[2025-04-11 22:54] LABS: Chloride* 88 mmol/L (96-114); Potassium* 3.5 mmol/L (3.6-5.1)
[2025-04-11 22:57] LABS: Blood Urea Nitrogen* 12 mg/dL (7-30); Creatinine* 0.3 mg/dL (0.5-1.5); Estimated Glomerular Filt Rate 105 ml/min
[2025-04-11 22:58] LABS: Anion Gap 9 mEq/L (7-15); Calcium* 8.3 mg/dL (8.4-10.6); Carbon Dioxide* 25 mmol/L (20-32); Glucose* 121 mg/dL (60-115)
[2025-04-11] MEDS: ACETAMINOPHEN INJ 1,000 MG/100 ML VIAL 400 MG IVPB (22:59)
[2025-04-11 23:10] VITALS: BP 151/66; PULSE 83; RESP 18; TEMP 36.6; O2SAT 94
[2025-04-11 23:10] LABS: Sodium* 122 mmol/L (135-149)
[2025-04-12] VITALS (7 sets, daily range): BP systolic 107–134; BP diastolic 53–77; PULSE 65–116; RESP 16–18; TEMP 36.7–37; O2SAT 95–98
[2025-04-12 02:40] LABS: Hematocrit* 33.0 % (33.0-51.0); Hemoglobin* 11.2 gm/dL (12.0-16.0); Immature Granulocytes Abs Auto 0.01 K/uL (0.00-0.30); Immature Granulocytes Pct Auto 0.1 %; Mean Corpuscular HGB Conc 34 gm/dL (32-36); Mean Corpuscular Hemoglobin 32 pg (26-34); Mean Corpuscular Volume 93 fL (80-100); RDW Coefficient of Variation % 13.2 % (11.5-15.5); Red Blood Count* 3.56 m/uL (4.00-5.20); White Blood Count* 9.31 K/uL (4.50-11.00)
[2025-04-12 02:44] LABS: Lymphocytes Absolute Auto 0.50 K/uL (0.90-2.90); Slide Review Reflex No
[2025-04-12 03:03] LABS: Chloride* 98 mmol/L (96-114)
[2025-04-12 03:04] LABS: Albumin* 3.2 g/dL (3.3-5.0); Chloride* 98 mmol/L (96-114); Potassium* 3.8 mmol/L (3.6-5.1)
[2025-04-12 03:05] LABS: Potassium* 3.8 mmol/L (3.6-5.1)
[2025-04-12 03:06] LABS: Blood Urea Nitrogen* 10 mg/dL (7-30); Creatinine* 0.3 mg/dL (0.5-1.5); Estimated Glomerular Filt Rate 105 ml/min
[2025-04-12 03:07] LABS: Anion Gap 3 mEq/L (7-15); Blood Urea Nitrogen* 10 mg/dL (7-30); Calcium* 8.2 mg/dL (8.4-10.6); Carbon Dioxide* 23 mmol/L (20-32); Creatinine* 0.3 mg/dL (0.5-1.5); Estimated Glomerular Filt Rate 105 ml/min; Glucose* 115 mg/dL (60-115)
[2025-04-12 03:08] LABS: Alanine Aminotransferase* 236 U/L (4-35); Alkaline Phosphatase* 96 U/L (40-150); Aspartate Amino Transferase* 306 U/L (12-35); Bilirubin Direct* 0.3 mg/dL (0.0-0.5); Bilirubin Total* 1.0 mg/dL (0.1-1.5); Calcium* 8.1 mg/dL (8.4-10.6); Carbon Dioxide* 23 mmol/L (20-32); Glucose* 115 mg/dL (60-115); Total Protein* 6.2 g/dL (6.0-8.3)
[2025-04-12] MEDS: PIPERACILLIN/TAZOBACTAM 3.375 GM in 0.9 % SODIUM CHLORIDE Mini-bag 100 ML IVPB ×3 (03:18→15:43)
[2025-04-12 03:21] LABS: Anion Gap 3 mEq/L (7-15); Sodium* 124 mmol/L (135-149)
--- NOTE | 2025-04-12 06:55 | PC.NURSE ---
The patient is pleasant and cooperative, alert and orientated although is very forgetful. Reports moderate pain in her abdomen, denied ice pack or pain medication overnight. Normally is wheelchair bound at home.... pivot Ax2 to commode. NPO, MRI to happen this AM. MRCP also to happen today, patient has been NPO. This AM the patients IV pulled out while transferring to the commode. Going to attempt another start, call light is within reach and the patient has called when she needed something. Winnie WILKINS BSN
[2025-04-12 07:11] LABS: Sodium* 130 mmol/L (135-149)
--- NOTE | 2025-04-12 08:00 | CRLHL7_ITS ---
For Patients: As a result of the Cures Act, medical imaging exams and procedure reports are released immediately into your electronic medical record. You may view this report before your referring provider. If you have questions, please contact your health care provider. INDICATION: Gallstone pancreatitis. COMPARISON: CT abdomen and pelvis with intravenous contrast 04/11/2025; ultrasound examination of the right upper quadrant of the abdomen 04/11/2025. Technique: MRCP; 3D reformations; precontrast T1 and T2 weighted imaging; T2 haste imaging; diffusion-weighted imaging; in- and out of phase imaging; postcontrast imaging including subtraction; 10cc dotarem contrast was injected IV. FINDINGS: Interstitial edema involving the pancreas. Resolving peripancreatic inflammatory changes when compared to 04/11/2025 CT. No evidence of pancreatic necrosis. No evidence of pancreatic ductal dilatation. The liver and spleen are unremarkable. edema/fluid surrounding the gallbladder indicating pericholecystic inflammatory changes. Sludge and stones identified within the gallbladder. The extrahepatic common bile duct measures 6.2 mm in diameter with a tiny filling defect in the distal duct highly concerning for choledocholithiasis. No adrenal pathology. Kidneys are unremarkable. No evidence of abdominal ascites. Compression fracture of T12 with posterior bulge; age not determined IMPRESSION: 1. Interstitial edema involving the pancreas indicating acute pancreatitis. 2. Resolving peripancreatic inflammatory changes when compared to the CT from 04/11/2025 3. Extrahepatic common bile duct measures 6.2 mm in diameter with a tiny filling defect in the distal duct; rule out choledocholithiasis. 4. No evidence of intrahepatic biliary duct dilatation. 5. Filling defects in the gallbladder as well as pericholecystic inflammatory changes; rule out sludge and/or stones with acute cholecystitis. Dictated by Brian Bonner MD @ 04/12/2025 12:39:01 PM (Electronically Signed)
[2025-04-12] MEDS: SODIUM CHLORIDE 0.9 % (FLUSH) 10 ML SYRINGE 5 ML IVF (08:56)
[2025-04-12 09:19] LABS: Sodium* 130 mmol/L (135-149)
--- NOTE | 2025-04-12 10:55 | PM.IMPN1 ---
Assessment and Plan Assessment and plan (1) Acute gallstone pancreatitis: Problem comment: -fluids, clears/NPO at midnight for MRCP - possible transfer for ERCP and/or surgery vs surgery here -zosyn -analgesia and antiemetics -close monitoring for ascending infection or complications of pancreatitis Status: Acute (2) Acute hyponatremia: Problem comment: -SIADH, poor intake, SSRI adding insult -recheck q 4 hours; NS and consider hypertonic if needed Status: Acute (3) Acute cholecystitis: Problem comment: -zosyn; manage medically until CBD is sorted out and pancreas as calmed down Status: Acute (4) Hx of multiple trauma: Problem comment: -related to falls which are secondary to myositis and cognitive decline -non operative fractures of bilateral proximal tibias, and right proximal fibular shaft, distal left radius, nondisplaced avulsion fracture of the base of the left 5th metatarsal. -significant osteoporosis is routinely noted. Status: Acute (5) Gait instability: Problem comment: - with recurrent falls - therapies ordered, may need SNF placement. Sister is concerned that she is too unsteady. Sister also reports she is unable to help her up when she falls. - patient comfortable with d/c back to [facility] on 03/17; plans to be more judicious with the use of her wheelchair Status: Acute (6) Inclusion body myositis: Problem comment: Diagnosed 2022 Status: Acute (7) Hyperlipidemia: Status: Acute Exam Narrative: Exam Narrative: Physical exam GENERAL: Comfortable, no acute distress. HEAD AND NECK: Atraumatic, normocephalic CARDIOVASCULAR: RRR. Normal S1, S2. No murmurs. RESPIRATORY: Clear to auscultation B/L. Good air entry B/L. No wheezes or rhonchi. GASTROINTESTINAL: Soft no rigidity diffuse tenderness to palpation NEUROLOGY: Alert, awake, Normal speech. PSYCH: Normal mood, normal affect. Const: Vital Signs, click to edit/add: Vital Signs - 24 hr 04/11/25 17:46 04/11/25 20:37 04/11/25 22:12 Temperature 96.3 F L 97.5 F L 97.7 F Pulse Rate Pulse Rate [Left P ulse Oximeter] 80 Pulse Rate [Pulse Oximeter] 68 78 Respiratory Rate 20 18 18 Blood Pressure [Le ft Arm] 142/63 H Blood Pressure [Ri ght Upper Arm] 144/60 H 153/58 H Pulse Oximetry 95 96 93 Oxygen Delivery Me thod Room Air Room Air Room Air 04/11/25 22:18 04/11/25 22:18 04/11/25 23:10 Temperature 97.7 F 98 F Pulse Rate Pulse Rate [Left P ulse Oximeter] 80 83 Pulse Rate [Pulse Oximeter] Respiratory Rate 18 18 18 Blood Pressure [Le ft Arm] 142/63 H 151/66 H Blood Pressure [Ri ght Upper Arm] Pulse Oximetry 93 93 94 Oxygen Delivery Me thod Room Air Room Air Room Air 04/12/25 00:30 04/12/25 03:26 04/12/25 08:27 Temperature 98.1 F Pulse Rate 116 H Pulse Rate [Left P ulse Oximeter] 87 Pulse Rate [Pulse Oximeter] Respiratory Rate 18 16 Blood Pressure [Le ft Arm] 120/70 Blood Pressure [Ri ght Upper Arm] Pulse Oximetry 95 Oxygen Delivery Me thod Room Air 04/12/25 08:54 Temperature 98.1 F Pulse Rate Pulse Rate [Left P ulse Oximeter] 65 Pulse Rate [Pulse Oximeter] Respiratory Rate 16 Blood Pressure [Le ft Arm] 107/53 L Blood Pressure [Ri ght Upper Arm] Pulse Oximetry 98 Oxygen Delivery Me thod Room Air Labs Labs: Laboratory Results - last 24 hr 04/11/25 04/11/25 04/11/25 18:11 18:20 18:27 WBC 7.99 RBC 3.97 L Hgb 12.6 Hct 36.6 MCV 92 MCH 32 MCHC 34 RDW Coeff of Jos 13.0 Plt Count 246 Neut % (Auto) 91.9 H Lymph % (Auto) 4.1 L [place] % (Auto) 2.5 Eos % (Auto) 0.4 Baso % (Auto) 0.0 Neut # (Auto) 7.30 H Lymph # (Auto) 0.30 L [place] # (Auto) 0.20 Eos # (Auto) 0.03 Baso # (Auto) 0.00 Abs Immat Gran (auto) 0.09 Imm/Tot Granulo (auto) 1.1 Sodium 121 L* Potassium 4.2 Chloride 91 L Carbon Dioxide 26 Anion Gap 4 L BUN 15 Creatinine 0.4 L Estimated GFR 98 Glucose 129 H Lactate 1.1 Calcium 9.3 Phosphorus Magnesium Total Bilirubin 1.1 Direct Bilirubin AST 366 H ALT 147 H Alkaline Phosphatase 102 C-Reactive Protein < 0.5 L Total Protein 7.6 Albumin 4.2 Lipase 75440 H Procalcitonin 0.03 Urine Color Urine Appearance Urine pH Ur Specific Ward Urine Protein Urine Glucose (UA) Urine Ketones Urine Blood Urine Nitrite Urine Bilirubin Urine Urobilinogen Ur Leukocyte Esterase Urine RBC Urine WBC Ur Squamous Epith Cells Urine Bacteria Urine Mucus SARS-CoV-2 (PCR) Negative SARS-CoV-2 Influenza Type A (PCR) Negative PCR FLU A Influenza Type B (PCR) Negative PCR FLU B RSV (PCR) Negative PCR RSV POC Troponin I 0.00 L 04/11/25 04/11/25 04/12/25 19:00 22:35 02:35 WBC 9.31 RBC 3.56 L Hgb 11.2 L Hct 33.0 MCV 93 MCH 32 MCHC 34 RDW Coeff of Jos 13.2 Plt Count 220 Neut % (Auto) 90.7 H Lymph % (Auto) 5.7 L [place] % (Auto) 3.5 Eos % (Auto) 0.0 Baso % (Auto) 0.0 Neut # (Auto) 8.40 H Lymph # (Auto) 0.50 L [place] # (Auto) 0.30 Eos # (Auto) 0.00 Baso # (Auto) 0.00 Abs Immat Gran (auto) 0.01 Imm/Tot Granulo (auto) 0.1 Sodium 122 L* 124 L* Potassium 3.5 L Chloride 88 L Carbon Dioxide 25 Anion Gap 9 BUN 12 Creatinine 0.3 L Estimated GFR 105 Glucose 121 H Lactate Calcium 8.3 L Phosphorus Magnesium Total Bilirubin Direct Bilirubin AST ALT Alkaline Phosphatase C-Reactive Protein Total Protein Albumin Lipase Procalcitonin Urine Color Yellow Urine Appearance Clear Urine pH 6.0 Ur Specific Ward >= 1.030 Urine Protein 1+ A Urine Glucose (UA) Negative Urine Ketones Trace A Urine Blood Negative Urine Nitrite Negative Urine Bilirubin Negative Urine Urobilinogen 0.2 Ur Leukocyte Esterase Negative Urine RBC 2-5 A Urine WBC 2-5 Ur Squamous Epith Cells Moderate A Urine Bacteria Few A Urine Mucus Moderate A SARS-CoV-2 (PCR) Influenza Type A (PCR) Influenza Type B (PCR) RSV (PCR) POC Troponin I 04/12/25 04/12/25 04/12/25 02:35 02:35 02:35 WBC RBC Hgb Hct MCV MCH MCHC RDW Coeff of Jos Plt Count Neut % (Auto) Lymph % (Auto) [place] % (Auto) Eos % (Auto) Baso % (Auto) Neut # (Auto) Lymph # (Auto) [place] # (Auto) Eos # (Auto) Baso # (Auto) Abs Immat Gran (auto) Imm/Tot Granulo (auto) Sodium 124 L* Potassium 3.8 3.8 Chloride 98 98 Carbon Dioxide 23 Anion Gap BUN Creatinine Estimated GFR Glucose Lactate Calcium Phosphorus Magnesium Total Bilirubin Direct Bilirubin AST ALT Alkaline Phosphatase C-Reactive Protein Total Protein Albumin Lipase Procalcitonin Urine Color Urine Appearance Urine pH Ur Specific Ward Urine Protein Urine Glucose (UA) Urine Ketones Urine Blood Urine Nitrite Urine Bilirubin Urine Urobilinogen Ur Leukocyte Esterase Urine RBC Urine WBC Ur Squamous Epith Cells Urine Bacteria Urine Mucus SARS-CoV-2 (PCR) Influenza Type A (PCR) Influenza Type B (PCR) RSV (PCR) POC Troponin I 04/12/25 04/12/25 04/12/25 02:35 02:35 02:35 WBC RBC Hgb Hct MCV MCH MCHC RDW Coeff of Jos Plt Count Neut % (Auto) Lymph % (Auto) [place] % (Auto) Eos % (Auto) Baso % (Auto) Neut # (Auto) Lymph # (Auto) [place] # (Auto) Eos # (Auto) Baso # (Auto) Abs Immat Gran (auto) Imm/Tot Granulo (auto) Sodium Potassium Chloride Carbon Dioxide 23 Anion Gap 3 L 3 L BUN 10 10 Creatinine 0.3 L Estimated GFR Glucose Lactate Calcium Phosphorus Magnesium Total Bilirubin Direct Bilirubin AST ALT Alkaline Phosphatase C-Reactive Protein Total Protein Albumin Lipase Procalcitonin Urine Color Urine Appearance Urine pH Ur Specific Ward Urine Protein Urine Glucose (UA) Urine Ketones Urine Blood Urine Nitrite Urine Bilirubin Urine Urobilinogen Ur Leukocyte Esterase Urine RBC Urine WBC Ur Squamous Epith Cells Urine Bacteria Urine Mucus SARS-CoV-2 (PCR) Influenza Type A (PCR) Influenza Type B (PCR) RSV (PCR) POC Troponin I 04/12/25 04/12/25 04/12/25 02:35 02:35 02:35 WBC RBC Hgb Hct MCV MCH MCHC RDW Coeff of Jos Plt Count Neut % (Auto) Lymph % (Auto) [place] % (Auto) Eos % (Auto) Baso % (Auto) Neut # (Auto) Lymph # (Auto) [place] # (Auto) Eos # (Auto) Baso # (Auto) Abs Immat Gran (auto) Imm/Tot Granulo (auto) Sodium Potassium Chloride Carbon Dioxide Anion Gap BUN Creatinine 0.3 L Estimated GFR 105 105 Glucose 115 115 Lactate Calcium 8.1 L Phosphorus Magnesium Total Bilirubin Direct Bilirubin AST ALT Alkaline Phosphatase C-Reactive Protein Total Protein Albumin Lipase Procalcitonin Urine Color Urine Appearance Urine pH Ur Specific Ward Urine Protein Urine Glucose (UA) Urine Ketones Urine Blood Urine Nitrite Urine Bilirubin Urine Urobilinogen Ur Leukocyte Esterase Urine RBC Urine WBC Ur Squamous Epith Cells Urine Bacteria Urine Mucus SARS-CoV-2 (PCR) Influenza Type A (PCR) Influenza Type B (PCR) RSV (PCR) POC Troponin I 04/12/25 04/12/25 04/12/25 02:35 06:20 08:57 WBC RBC Hgb Hct MCV MCH MCHC RDW Coeff of Jos Plt Count Neut % (Auto) Lymph % (Auto) [place] % (Auto) Eos % (Auto) Baso % (Auto) Neut # (Auto) Lymph # (Auto) [place] # (Auto) Eos # (Auto) Baso # (Auto) Abs Immat Gran (auto) Imm/Tot Granulo (auto) Sodium 130 L 130 L Potassium Chloride Carbon Dioxide Anion Gap BUN Creatinine Estimated GFR Glucose Lactate Calcium 8.2 L Phosphorus 3.6 Magnesium 1.5 Total Bilirubin 1.0 Direct Bilirubin 0.3 AST 306 H ALT 236 H Alkaline Phosphatase 96 C-Reactive Protein 2.3 H Total Protein 6.2 Albumin 3.2 L Lipase 7216 H Procalcitonin Urine Color Urine Appearance Urine pH Ur Specific Ward Urine Protein Urine Glucose (UA) Urine Ketones Urine Blood Urine Nitrite Urine Bilirubin Urine Urobilinogen Ur Leukocyte Esterase Urine RBC Urine WBC Ur Squamous Epith Cells Urine Bacteria Urine Mucus SARS-CoV-2 (PCR) Influenza Type A (PCR) Influenza Type B (PCR) RSV (PCR) POC Troponin I
--- NOTE | 2025-04-12 12:03 | REH.PT ---
PT eval & treat order received. Chart reviewed. Spoke with pt and her sister. Not interested in Physical Therapy. Has been using a w/c for mobility at [facility] due to LE's being unreliable secondary to Myositis. Pivot transfers between surfaces with assist of 1 at baseline. Pt able to demo safe transfer bed<>w/c with stand by assist of 1 and ind bed mobility. D/C PT orders.
[2025-04-12 12:09] LABS: Sodium* 131 mmol/L (135-149)
--- NOTE | 2025-04-12 13:42 | PM.GSCN ---
History of Present Illness Consult details Date Seen: 04/12/25 Consult date: 04/12/25 Narrative: The patient is an 84-year-old female who was admitted to the hospital yesterday with diffuse abdominal pain. She states that it began yesterday afternoon around 4:00 p.m.. This was several hours after eating lunch. The pain is located in her mid abdomen and wraps around to the sides. She denies back pain and denies nausea or vomiting. She states that she has some discomfort with deep breathing. She has not had any change in her bowel habits since this started. She states that she had a normal bowel movement yesterday. She does live in assisted living because of myositis and cognitive decline. She has not had any prior abdominal surgeries. [facility] Medical History (Updated 04/11/25 @ 23:26 by Dianne Grant MD) Hx of multiple trauma ?Z87.828 - Personal history of other (healed) physical injury and trauma (ICD-10) Closed fracture of left proximal tibia ?S82.102A - Unspecified fracture of upper end of left tibia, initial encounter for closed fracture (ICD-10) Fracture of right tibial tuberosity ?S82.151A - Displaced fracture of right tibial tuberosity, initial encounter for closed fracture (ICD-10) Right fibular fracture ?S82.401A - Unspecified fracture of shaft of right fibula, initial encounter for closed fracture (ICD-10) Hyponatremia ?E87.1 - Hypo-osmolality and hyponatremia (ICD-10) Distal radius fracture, left ?S52.502A - Unspecified fracture of the lower end of left radius, initial encounter for closed fracture (ICD-10) Fracture of fifth metatarsal bone of left foot ?S92.352A - Displaced fracture of fifth metatarsal bone, left foot, initial encounter for closed fracture (ICD-10) 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) ?M33.20 - Polymyositis, organ involvement unspecified (ICD-10) Other and unspecified hyperlipidemia (06/09/12) ?E78.5 - Hyperlipidemia, unspecified (ICD-10) Myopathy (06/17/22) ?G72.9 - Myopathy, unspecified (ICD-10) Irregular heart beat (06/09/12) ?I49.9 - Cardiac arrhythmia, unspecified (ICD-10) 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 - Inclusion body myositis [IBM] (ICD-10) Muscle weakness (04/21/22) ?M62.81 - Muscle weakness (generalized) (ICD-10) Gait difficulty (09/10/22) ?R26.9 - Unspecified abnormalities of gait and mobility (ICD-10) Closed fracture of right lower extremity with routine healing (12/24/20) ?S82.91XD - Unspecified fracture of right lower leg, subsequent encounter for closed fracture with routine healing (ICD-10) Other and unspecified hyperlipidemia (06/09/12) ?E78.5 - Hyperlipidemia, unspecified (ICD-10) 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 - Inclusion body myositis [IBM] (ICD-10) 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) ?M33.20 - Polymyositis, organ involvement unspecified (ICD-10) Irregular heart beat (06/09/12) ?I49.9 - Cardiac arrhythmia, unspecified (ICD-10) Elevated LFTs ?R79.89 - Other specified abnormal findings of blood chemistry (ICD-10) 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] (ICD-10) Left shoulder pain ?M25.512 - Pain in left shoulder (ICD-10) Greater trochanteric bursitis of right hip ?M70.61 - Trochanteric bursitis, right hip (ICD-10) Maisonneuve fracture of right lower extremity ?S82.861A - Displaced Maisonneuve's fracture of right leg, initial encounter for closed fracture (ICD-10) Osteoporosis ?M81.0 - Age-related osteoporosis without current pathological fracture (ICD-10) Hyperlipidemia ?E78.5 - Hyperlipidemia, unspecified (ICD-10) Myopathy ?G72.9 - Myopathy, unspecified (ICD-10) Hypertension ?I10 - Essential (primary) hypertension (ICD-10) Surgical History 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 Currently at [employer] at [facility]. 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 Her sister is healthcare power of commercial attorney. Her code status is full. She is a former smoker. She rarely drinks alcohol. No recreational drug use. Two living adult children (one in [place], one in [place]). What is your current living situation?: I presently have a place to live Problems where you live: no known problems Problems where you live details: na In the past 12 months, utilities in danger of being shut off: no In past 12 months, lack of transportation kept you from medical appts, meetings, work, or getting things needed for daily living: no In the past 12 mos, have been you worried that your food would run out before you had money to buy more?: never true In the past 12 mos, the food you bought just didn't last and you didn't have money to buy more?: never true Highest level of school completed/degree received: high school graduate Smoking Status: Former smoker What tobacco products do you use: cigarettes Smoking quit date/years: >15 years ago Do you use any of these nicotine containing products: None Second hand tobacco smoke exposure: No How often do you have a drink containing alcohol: never How often do you have six or more drinks on one occasion: Never AUDIT-C Alcohol total score: 0 Non-prescribed substance use: denies use Caffeine: Yes How often does anyone, including family, friends and others, physically hurt you: never How often does anyone, including family, friends and others, insult or talk down to you: never How often does anyone, including family, friends and others, threaten you with harm: never How often does anyone, including family, friends and others, scream or curse at you: never service: No Meds Home Medications and Allergies Home Medications ?Medication ?Instructions ?Recorded ?Confirmed ?Type sertraline 50 mg tablet 50 mg PO DAILY 12/01/23 04/12/25 History metoprolol tartrate 25 mg tablet 25 mg PO DAILY 02/06/25 04/12/25 History Allergies Allergy/AdvReac Type Severity Reaction Status Date / Time No Known Drug Allergies Allergy Verified 04/11/25 21:18 Exam Narrative: Exam Narrative: General appearance: Alert, cooperative, and in no distress Eyes: PERRLA, eye lids clear, and sclera white HENT Head: Normocephalic Ears: External ears normal Pulmonary: Breathing nonlabored on room air Cardiovascular Heart: Regular rate Gastrointestinal Abdominal: Tender in the upper abdomen without guarding or rebound. No scars. Neurologic: No focal deficits Psychiatric: Alert, oriented, cooperative, normal affect. Const: Vital Signs, click to edit/add: Vital Signs - 24 hr 04/11/25 17:46 04/11/25 20:37 04/11/25 22:12 Temperature 96.3 F L 97.5 F L 97.7 F Pulse Rate Pulse Rate [Left P ulse Oximeter] 80 Pulse Rate [Pulse Oximeter] 68 78 Respiratory Rate 20 18 18 Blood Pressure [Le ft Arm] 142/63 H Blood Pressure [Ri ght Upper Arm] 144/60 H 153/58 H Pulse Oximetry 95 96 93 Oxygen Delivery Sc thod Room Air Room Air Room Air 04/11/25 22:18 04/11/25 22:18 04/11/25 23:10 Temperature 97.7 F 98 F Pulse Rate Pulse Rate [Left P ulse Oximeter] 80 83 Pulse Rate [Pulse Oximeter] Respiratory Rate 18 18 18 Blood Pressure [Le ft Arm] 142/63 H 151/66 H Blood Pressure [Ri ght Upper Arm] Pulse Oximetry 93 93 94 Oxygen Delivery Sc thod Room Air Room Air Room Air 04/12/25 00:30 04/12/25 03:26 04/12/25 08:27 Temperature 98.1 F Pulse Rate 116 H Pulse Rate [Left P ulse Oximeter] 87 Pulse Rate [Pulse Oximeter] Respiratory Rate 18 16 Blood Pressure [Le ft Arm] 120/70 Blood Pressure [Ri ght Upper Arm] Pulse Oximetry 95 Oxygen Delivery Sc thod Room Air 04/12/25 08:54 04/12/25 12:16 04/12/25 13:28 Temperature 98.1 F 98.6 F Pulse Rate 74 Pulse Rate [Left P ulse Oximeter] 65 78 Pulse Rate [Pulse Oximeter] Respiratory Rate 16 18 Blood Pressure [Le ft Arm] 107/53 L 127/77 Blood Pressure [Ri ght Upper Arm] Pulse Oximetry 98 95 Oxygen Delivery Me thod Room Air Room Air Results Labs Labs: White blood cell count on admission was 7.9, today is 9.3. She does have a left shift. Sodium on admission was 121, up to 130 this morning. Total bilirubin was 1.1 last evening, is 1.0 this morning. Direct bilirubin 0.3 this morning AST 366 yesterday, 306 this morning ALT 147 yesterday, 236 this morning Alkaline phosphatase 102 yesterday, 96 this morning CRP yesterday less than 0.5, 2.3 this morning Lipase yesterday at 19,300, lipase this morning is 7200. Imaging Abdominal ultrasound report/results: report reviewed and image reviewed Additional studies: Ultrasound of the abdomen 04/11/2025: INDICATION: Right upper quadrant pain. TECHNIQUE: Ultrasound abdomen limited. Sonographic images of the right upper quadrant were obtained using garcia-scale and color Doppler images. COMPARISON: None. FINDINGS: Liver: Normal in size and echotexture. No suspicious masses. No intrahepatic biliary dilatation. Gallbladder: Sludge and small stones within the gallbladder fundus. Normal wall thickness. No pericholecystic fluid. Positive sonographic Barragan`s sign. Common bile duct: 9 mm. Pancreas: Prominent main pancreatic duct measuring 5 millimeters. Right kidney: Normal in size. Normal echotexture and cortex. No suspicious masses, stones, or hydronephrosis. Proximal abdominal aorta: Normal in caliber. IVC: Patent. Main portal vein: Patent. Ascites: None visualized. IMPRESSION: Gallbladder sludge and small amount of cholelithiasis at the gallbladder fundus. Sonographic Barragan`s sign is positive, however gallbladder wall thickness is within normal limits and there is no pericholecystic fluid. Correlate clinically to evaluate for possibility of acute cholecystitis. Dictated by Deann Quinn MD @ 04/11/2025 7:32:[address] scan of the abdomen and pelvis with IV contrast 04/11/2025: IMPRESSION: 1. The pancreas is diffusely edematous with diffuse peripancreatic inflammatory fat stranding and edema suggesting acute pancreatitis. Correlate with serum amylase and lipase. 2. Distended gallbladder with cholelithiasis and pericholecystic edema but no significant gallbladder wall thickening. 3. Mild intra and extrahepatic bile duct dilation and mild pneumobilia. No calcified choledocholithiasis or distal obstructing mass is seen. 4. Chronic appearing severe T12 compression fracture with retropulsion. Dictated by Audrye Fernandes MD @ 04/11/2025 9:06:51 PM MRI of the pelvis, 04/12/2025: IMPRESSION: 1. Interstitial edema involving the pancreas indicating acute pancreatitis. 2. Resolving peripancreatic inflammatory changes when compared to the CT from 04/11/2025 3. Extrahepatic common bile duct measures 6.2 mm in diameter with a tiny filling defect in the distal duct; rule out choledocholithiasis. 4. No evidence of intrahepatic biliary duct dilatation. 5. Filling defects in the gallbladder as well as pericholecystic inflammatory changes; rule out sludge and/or stones with acute cholecystitis. Dictated by Brian Bonner MD @ 04/12/2025 12:39:01 PM Progress Note:A&P Assessment and plan (1) Acute gallstone pancreatitis: Status: Acute (2) Acute hyponatremia: Status: Acute (3) Acute cholecystitis: Status: Acute (4) Gait instability: Status: Acute (5) Inclusion body myositis: Status: Acute Plan The patient is an 84-year-old female with likely gallstone pancreatitis and possible cholecystitis. Lipase is somewhat improved, however she does have biliary dilatation with a defect in the distal duct. Improvement in lipase is reassuring, however the patient was also seen to have pneumobilia on her CT scan. This is seen in the present of cholangitis, biliary fistula or biliary instrumentation. She has not had instrumentation it does not appears though she has a fistula. Certainly she would also does not clinically look like she has cholangitis. I recommend consulting Gastroenterology to see if ERCP is recommended given the constellation of findings. If they feel that she should be followed clinically, then I would recommend cholecystectomy once pancreatitis resolves with possible intraoperative cholangiogram.
--- NOTE | 2025-04-12 14:04 | REH.OT ---
OT: Order received, chart reviewed and per PT, patient transferring at baseline status, per nsg patient to transfer to higher level of care due to medical status. OT eval deferred.
--- NOTE | 2025-04-12 14:23 | P.DS_ITS ---
DS: Providers Provider Date Seen: 04/12/25 Date of admission: 04/11/25 21:43 Primary care physician: Shayna Flores DO Admitting Clinician: Dianne Grant MD Consults: 04/11/25 22:12 Consult to Occupational Therapy [CONS] Routine Comment: Reason(s) for OT Consult:: Evaluate and Treat Any Restrictions?:: No Restrictions Consult to Physical Therapy [CONS] Routine Comment: Reason(s) for PT Consult:: Evaluate and Treat Any Restrictions?:: No Restrictions Consult to Proof Sorter [CONS] Routine Comment: Reason for Consult:: Social Service Consult Attending Physician on discharge: Dianne Grant MD DS: Diagnosis Discharge Diagnosis (1) Acute gallstone pancreatitis: Status: Acute Problem details: -fluids, clears/NPO at midnight for MRCP - possible transfer for ERCP and/or surgery vs surgery here -zosyn -analgesia and antiemetics -close monitoring for ascending infection or complications of pancreatitis 04/12: MRCP: 1. Interstitial edema involving the pancreas indicating acute pancreatitis. 2. Resolving peripancreatic inflammatory changes when compared to the CT from 04/11/2025 3. Extrahepatic common bile duct measures 6.2 mm in diameter with a tiny filling defect in the distal duct; rule out choledocholithiasis. 4. No evidence of intrahepatic biliary duct dilatation. 5. Filling defects in the gallbladder as well as pericholecystic inflammatory changes; rule out sludge and/or stones with acute cholecystitis. Talked to Dr. Martinez from General surgery who was concerned about pneumobilia and the common bile duct and she recommended transferring patient to GI services and possible ERCP. (2) Acute hyponatremia: Status: Acute Problem details: -SIADH, poor intake, SSRI adding insult -recheck q 4 hours; NS and consider hypertonic if needed -04/12: Improved last sodium was 130 (3) Acute cholecystitis: Status: Acute Problem details: -zosyn; manage medically until CBD is sorted out and pancreas as calmed down Talked to Dr. Martinez from General surgery who was concerned about pneumobilia and the common bile duct and she recommended transferring patient to GI services and possible ERCP. (4) Gait instability: Status: Acute Problem details: - with recurrent falls - therapies ordered, may need SNF placement. Sister is concerned that she is too unsteady. Sister also reports she is unable to help her up when she falls. - patient comfortable with d/c back to 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 Patient was started on Zosyn. MRCP showed pneumobilia in the common bile duct in addition to filling defects. Talked to Dr. Martinez from General surgery who was concerned about pneumobilia and the common bile duct and she recommended transferring patient to GI services and possible ERCP. Patient presented with hyponatremia that improved with normal saline, her last sodium level was 130. Patient will need evaluation for ERCP at [facility], transfer. Time Spent with Patient Time attestation: Total time spent providing and/or coordinating discharge services: Exam Narrative: Exam Narrative: Physical exam GENERAL: Comfortable, no acute distress. HEAD AND NECK: Atraumatic, normocephalic CARDIOVASCULAR: RRR. Normal S1, S2. No murmurs. RESPIRATORY: Clear to auscultation B/L. Good air entry B/L. No wheezes or rhonchi. GASTROINTESTINAL: Not distended, tender to palpation in the lower quadrants, soft no rigidity. NEUROLOGY: Alert, awake. Normal speech. PSYCH: Normal mood, normal affect. Const: Vital Signs, click to edit/add: Vital Signs - 24 hr 04/11/25 17:46 04/11/25 20:37 04/11/25 22:12 Temperature 96.3 F L 97.5 F L 97.7 F Pulse Rate Pulse Rate [Left P ulse Oximeter] 80 Pulse Rate [Pulse Oximeter] 68 78 Respiratory Rate 20 18 18 Blood Pressure [Le ft Arm] 142/63 H Blood Pressure [Ri ght Upper Arm] 144/60 H 153/58 H Pulse Oximetry 95 96 93 Oxygen Delivery Me thod Room Air Room Air Room Air 04/11/25 22:18 04/11/25 22:18 04/11/25 23:10 Temperature 97.7 F 98 F Pulse Rate Pulse Rate [Left P ulse Oximeter] 80 83 Pulse Rate [Pulse Oximeter] Respiratory Rate 18 18 18 Blood Pressure [Le ft Arm] 142/63 H 151/66 H Blood Pressure [Ri ght Upper Arm] Pulse Oximetry 93 93 94 Oxygen Delivery Me thod Room Air Room Air Room Air 04/12/25 00:30 04/12/25 03:26 04/12/25 08:27 Temperature 98.1 F Pulse Rate 116 H Pulse Rate [Left P ulse Oximeter] 87 Pulse Rate [Pulse Oximeter] Respiratory Rate 18 16 Blood Pressure [Le ft Arm] 120/70 Blood Pressure [Ri ght Upper Arm] Pulse Oximetry 95 Oxygen Delivery Me thod Room Air 04/12/25 08:54 04/12/25 12:16 04/12/25 13:28 Temperature 98.1 F 98.6 F Pulse Rate 74 Pulse Rate [Left P ulse Oximeter] 65 78 Pulse Rate [Pulse Oximeter] Respiratory Rate 16 18 Blood Pressure [Le ft Arm] 107/53 L 127/77 Blood Pressure [Ri ght Upper Arm] Pulse Oximetry 98 95 Oxygen Delivery Me thod Room Air Room Air DS: Data Data Completed and Pending Labs on day of discharge: Labs from last 24 hours 04/12/25 04/12/25 04/12/25 13:56 11:55 08:57 WBC RBC Hgb Hct MCV MCH MCHC RDW Coeff of Jos Plt Count Neut % (Auto) Lymph % (Auto) Cooke % (Auto) Eos % (Auto) Baso % (Auto) Neut # (Auto) Lymph # (Auto) Cooke # (Auto) Eos # (Auto) Baso # (Auto) Abs Immat Gran (auto) Imm/Tot Granulo (auto) Sodium Pending 131 L 130 L Potassium Chloride Carbon Dioxide Anion Gap BUN Creatinine Estimated GFR Glucose Lactate Calcium Phosphorus Magnesium Total Bilirubin Direct Bilirubin AST ALT Alkaline Phosphatase C-Reactive Protein Total Protein Albumin Lipase Procalcitonin Urine Color Urine Appearance Urine pH Ur Specific [place] Urine Protein Urine Glucose (UA) Urine Ketones Urine Blood Urine Nitrite Urine Bilirubin Urine Urobilinogen Ur Leukocyte Esterase Urine RBC Urine WBC Ur Squamous Epith Cells Urine Bacteria Urine Mucus SARS-CoV-2 (PCR) Influenza Type A (PCR) Influenza Type B (PCR) RSV (PCR) POC Troponin I 04/12/25 04/12/25 04/12/25 06:20 02:35 02:35 WBC RBC Hgb Hct MCV MCH MCHC RDW Coeff of Jos Plt Count Neut % (Auto) Lymph % (Auto) [place]oke % (Auto) Eos % (Auto) Baso % (Auto) Neut # (Auto) Lymph # (Auto) [place]oke # (Auto) Eos # (Auto) Baso # (Auto) Abs Immat Gran (auto) Imm/Tot Granulo (auto) Sodium 130 L Potassium Chloride Carbon Dioxide Anion Gap BUN Creatinine Estimated GFR Glucose 115 Lactate Calcium 8.2 L 8.1 L Phosphorus 3.6 Magnesium 1.5 Total Bilirubin 1.0 Direct Bilirubin 0.3 AST 306 H ALT 236 H Alkaline Phosphatase 96 C-Reactive Protein 2.3 H Total Protein 6.2 Albumin 3.2 L Lipase 7216 H Procalcitonin Urine Color Urine Appearance Urine pH Ur Specific [place] Urine Protein Urine Glucose (UA) Urine Ketones Urine Blood Urine Nitrite Urine Bilirubin Urine Urobilinogen Ur Leukocyte Esterase Urine RBC Urine WBC Ur Squamous Epith Cells Urine Bacteria Urine Mucus SARS-CoV-2 (PCR) Influenza Type A (PCR) Influenza Type B (PCR) RSV (PCR) POC Troponin I 04/12/25 04/12/25 04/12/25 02:35 02:35 02:35 WBC RBC Hgb Hct MCV MCH MCHC RDW Coeff of Jos Plt Count Neut % (Auto) Lymph % (Auto) [place]oke % (Auto) Eos % (Auto) Baso % (Auto) Neut # (Auto) Lymph # (Auto) [place]oke # (Auto) Eos # (Auto) Baso # (Auto) Abs Immat Gran (auto) Imm/Tot Granulo (auto) Sodium Potassium Chloride Carbon Dioxide Anion Gap BUN 10 Creatinine 0.3 L 0.3 L Estimated GFR 105 105 Glucose 115 Lactate Calcium Phosphorus Magnesium Total Bilirubin Direct Bilirubin AST ALT Alkaline Phosphatase C-Reactive Protein Total Protein Albumin Lipase Procalcitonin Urine Color Urine Appearance Urine pH Ur Specific [place] Urine Protein Urine Glucose (UA) Urine Ketones Urine Blood Urine Nitrite Urine Bilirubin Urine Urobilinogen Ur Leukocyte Esterase Urine RBC Urine WBC Ur Squamous Epith Cells Urine Bacteria Urine Mucus SARS-CoV-2 (PCR) Influenza Type A (PCR) Influenza Type B (PCR) RSV (PCR) POC Troponin I 04/12/25 04/12/25 04/12/25 02:35 02:35 02:35 WBC RBC Hgb Hct MCV MCH MCHC RDW Coeff of Jos Plt Count Neut % (Auto) Lymph % (Auto) [place] % (Auto) Eos % (Auto) Baso % (Auto) Neut # (Auto) Lymph # (Auto) [place] # (Auto) Eos # (Auto) Baso # (Auto) Abs Immat Gran (auto) Imm/Tot Granulo (auto) Sodium Potassium Chloride 98 Carbon Dioxide 23 23 Anion Gap 3 L 3 L BUN 10 Creatinine Estimated GFR Glucose Lactate Calcium Phosphorus Magnesium Total Bilirubin Direct Bilirubin AST ALT Alkaline Phosphatase C-Reactive Protein Total Protein Albumin Lipase Procalcitonin Urine Color Urine Appearance Urine pH Ur Specific [place] Urine Protein Urine Glucose (UA) Urine Ketones Urine Blood Urine Nitrite Urine Bilirubin Urine Urobilinogen Ur Leukocyte Esterase Urine RBC Urine WBC Ur Squamous Epith Cells Urine Bacteria Urine Mucus SARS-CoV-2 (PCR) Influenza Type A (PCR) Influenza Type B (PCR) RSV (PCR) POC Troponin I 04/12/25 04/12/25 04/12/25 02:35 02:35 02:35 WBC 9.31 RBC 3.56 L Hgb 11.2 L Hct 33.0 MCV 93 MCH 32 MCHC 34 RDW Coeff of Jos 13.2 Plt Count 220 Neut % (Auto) 90.7 H Lymph % (Auto) 5.7 L Cooke % (Auto) 3.5 Eos % (Auto) 0.0 Baso % (Auto) 0.0 Neut # (Auto) 8.40 H Lymph # (Auto) 0.50 L Cooke # (Auto) 0.30 Eos # (Auto) 0.00 Baso # (Auto) 0.00 Abs Immat Gran (auto) 0.01 Imm/Tot Granulo (auto) 0.1 Sodium 124 L* 124 L* Potassium 3.8 3.8 Chloride 98 Carbon Dioxide Anion Gap BUN Creatinine Estimated GFR Glucose Lactate Calcium Phosphorus Magnesium Total Bilirubin Direct Bilirubin AST ALT Alkaline Phosphatase C-Reactive Protein Total Protein Albumin Lipase Procalcitonin Urine Color Urine Appearance Urine pH Ur Specific [place] Urine Protein Urine Glucose (UA) Urine Ketones Urine Blood Urine Nitrite Urine Bilirubin Urine Urobilinogen Ur Leukocyte Esterase Urine RBC Urine WBC Ur Squamous Epith Cells Urine Bacteria Urine Mucus SARS-CoV-2 (PCR) Influenza Type A (PCR) Influenza Type B (PCR) RSV (PCR) POC Troponin I 04/11/25 04/11/25 04/11/25 22:35 19:00 18:27 WBC 7.99 RBC 3.97 L Hgb 12.6 Hct 36.6 MCV 92 MCH 32 MCHC 34 RDW Coeff of Jos 13.0 Plt Count 246 Neut % (Auto) 91.9 H Lymph % (Auto) 4.1 L Cooke % (Auto) 2.5 Eos % (Auto) 0.4 Baso % (Auto) 0.0 Neut # (Auto) 7.30 H Lymph # (Auto) 0.30 L Cooke # (Auto) 0.20 Eos # (Auto) 0.03 Baso # (Auto) 0.00 Abs Immat Gran (auto) 0.09 Imm/Tot Granulo (auto) 1.1 Sodium 122 L* 121 L* Potassium 3.5 L 4.2 Chloride 88 L 91 L Carbon Dioxide 25 26 Anion Gap 9 4 L BUN 12 15 Creatinine 0.3 L 0.4 L Estimated GFR 105 98 Glucose 121 H 129 H Lactate 1.1 Calcium 8.3 L 9.3 Phosphorus Magnesium Total Bilirubin 1.1 Direct Bilirubin AST 366 H ALT 147 H Alkaline Phosphatase 102 C-Reactive Protein < 0.5 L Total Protein 7.6 Albumin 4.2 Lipase 99317 H Procalcitonin 0.03 Urine Color Yellow Urine Appearance Clear Urine pH 6.0 Ur Specific [place] >= 1.030 Urine Protein 1+ A Urine Glucose (UA) Negative Urine Ketones Trace A Urine Blood Negative Urine Nitrite Negative Urine Bilirubin Negative Urine Urobilinogen 0.2 Ur Leukocyte Esterase Negative Urine RBC 2-5 A Urine WBC 2-5 Ur Squamous Epith Cells Moderate A Urine Bacteria Few A Urine Mucus Moderate A SARS-CoV-2 (PCR) Influenza Type A (PCR) Influenza Type B (PCR) RSV (PCR) POC Troponin I 04/11/25 04/11/25 18:20 18:11 WBC RBC Hgb Hct MCV MCH MCHC RDW Coeff of Jos Plt Count Neut % (Auto) Lymph % (Auto) [place]oke % (Auto) Eos % (Auto) Baso % (Auto) Neut # (Auto) Lymph # (Auto) [place] # (Auto) Eos # (Auto) Baso # (Auto) Abs Immat Gran (auto) Imm/Tot Granulo (auto) Sodium Potassium Chloride Carbon Dioxide Anion Gap BUN Creatinine Estimated GFR Glucose Lactate Calcium Phosphorus Magnesium Total Bilirubin Direct Bilirubin AST ALT Alkaline Phosphatase C-Reactive Protein Total Protein Albumin Lipase Procalcitonin Urine Color Urine Appearance Urine pH Ur Specific [place] Urine Protein Urine Glucose (UA) Urine Ketones Urine Blood Urine Nitrite Urine Bilirubin Urine Urobilinogen Ur Leukocyte Esterase Urine RBC Urine WBC Ur Squamous Epith Cells Urine Bacteria Urine Mucus SARS-CoV-2 (PCR) Negative SARS-CoV-2 Influenza Type A (PCR) Negative PCR FLU A Influenza Type B (PCR) Negative PCR FLU B RSV (PCR) Negative PCR RSV POC Troponin I 0.00 L Preliminary micro results at discharge 04/11/25 19:00 Urine Culture - Preliminary Urine,Clean Catch Culture in Progress Discharge Plan Discharge Disposition: [facility] Date of Admission: 04/11/25 21:43 Attending Provider on Discharge: Ale Jessica Primary Care Provider: Shayna Flores Discharge Orders: Transfer of Care to Other Hospital (ORDER); Ordered 04/12/25 Ordered By: Ael Jessica Additional Instructions: Patient was started on Zosyn. Patient presented with hyponatremia that improved with normal saline, her last sodium level was 130. Patient will need evaluation for ERCP at [facility], transfer. Oxygen: No Urinary Catheter: No Services not available here: GI services
[2025-04-12 14:29] LABS: Sodium* 130 mmol/L (135-149)
--- NOTE | 2025-04-12 17:26 | PC.NURSE ---
Discharge Note 255 Patient was very pleasant and cooperative. VSS. A&Ox3. Afebrile. Able to communicate well. Picked up by EMS to transfers to [place] at 17:05 accompanied by sister and niece.
== END 2025-04-12 17:05 | disposition short-term general hospital (02) | DRG 439 ==
LOC: ED 21:21 → MEDSURG 21:43
PROVIDERS: Internal Medicine; Student in an Organized Health Care Education/Training Program; Admitting Provider Family Medicine; Emergency Provider Family Medicine; PCP Family Medicine; Visit Provider Family Medicine
DX: K85.10 Biliary acute pancreatitis without necrosis or infection (principal); E87.1 Hypo-osmolality and hyponatremia; K80.00 Calculus of gallbladder with acute cholecystitis without obstruction; G72.41 Inclusion body myositis [IBM]; G31.84 Mild cognitive impairment of uncertain or unknown etiology; I10 Essential (primary) hypertension; R26.89 Other abnormalities of gait and mobility; E78.5 Hyperlipidemia, unspecified; Z87.828 Personal history of other (healed) physical injury and trauma; Z90.711 Acquired absence of uterus with remaining cervical stump; Z96.611 Presence of right artificial shoulder joint; Z87.891 Personal history of nicotine dependence
CPT/HCPCS: 36415; 74177; 74183; 76705; 80048; 80053; 80069; 80076; 81001; 83605; 83690; 83735; 84145; 84295; 84484; 85025; 86140; 87086; 87631; 93005; 99284; 99285; A9270; A9575; J0131; J1171; J2543; J3480; J7030; Q9967

== ENCOUNTER 2025-04-12 16:52 | Outpatient (CLI) | payer MEDICARE, BC, SELFPAY | END 2025-04-12 16:53 | disposition home or self-care (01) | LOC: AMB 04-18 16:28 | PROVIDERS: PCP Family Medicine; Visit Provider Emergency Medicine Emergency Medical Services | DX: K85.10 Biliary acute pancreatitis without necrosis or infection (principal) | CPT/HCPCS: A0425; A0429 ==

== ENCOUNTER 2025-05-08 14:58 | Outpatient (CLI) | payer MEDICARE, BC, SELFPAY | END 2025-05-08 14:59 | disposition home or self-care (01) | LOC: AMB 05-12 18:07 | PROVIDERS: PCP Family Medicine; Visit Provider Emergency Medicine Emergency Medical Services | DX: R10.9 Unspecified abdominal pain (principal) | CPT/HCPCS: A0425; A0427 ==

== ENCOUNTER 2025-05-08 15:17 | Emergency (ER) | payer MEDICARE, BC, SELFPAY ==
[2025-05-08] VITALS (11 sets, daily range): BP systolic 160–189; BP diastolic 50–170; PULSE 62–77; RESP 22; TEMP 37; O2SAT 90–99
--- OUTSIDE RECORDS SUMMARY | 2025-05-08 15:20 | XMS_ITS | Clinical Summary ---
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-[id number] Documentation of current medicatio ns ORDERS Follow up ADELFO ORDERS Patient Instructions ORDERS Follow up as needed ORDERS Follow up ORDERS Physical Therapy [facility]-[id number] Documentation of current medicatio ns ORDERS T4 Free Direct ORDERS TSH ORDERS Patient Instructions ORDERS Follow up telemedicine 06/17 ORDERS Patient Instructions ORDERS CK (Creatine Kinase) Total 2 ORDERS Glucose Fast & 2hr ( 2 hr GTT) - fasting after midnight ORDERS Other Lab ORDERS Aldolase ORDERS Other Lab [id number] Nerve Conduction 7-8 studies CPT-66323 EMG with NCS (5+ muscles) - 2 limbs 04/21 Vital Signs No information available. Immunizations No information available. Advance Directives No information available.
--- OUTSIDE RECORDS SUMMARY | 2025-05-08 15:21 | XMS_ITS | Clinical Summary ---
Author Organization [employer] [facility] Address [address] [place] [id number] Care Team Providers Care Automated Equipment Engineer Technician Name Role Phone Pcp, No Primary Care Provider Unavailabl e Allergies No known active allergies Medications sertraline (ZOLOFT) 50 mg tabletIndications:sri r depressive disorder TAKE 1 TABLET BY MOUTH EVERY MORNING. 90 Tablet 2024 Active acetaminophen (TYLENOL EXTRA STRGTH) 500 mg tablet Take 500 mg by mouth 3 times daily if needed for Pain. Max acetaminophen dose: 4000mg in 24 hrs. Active hydrocortisone 1 % creamIndications:skin inflammation Apply topically to affected area(s) 2 times daily if needed for Itching. Active metoprolol tartrate (LOPRESSOR) 25 mg tabletIndications:hype rtension Take 25 mg by mouth once daily. 2024 Active oxyCODONE (ROXICODONE) 5 mg immediate release tabletIndications:Chol edocholithiasis Take 1 Tablet (5 mg) by mouth every 4 hours if needed (For moderate pain). 8 Tablet 2024 Active sennosides-docusate (SENOKOT S) (8.6-50 mg) tabletIndications:Chol edocholithiasis Take 1 Tablet by mouth 2 times daily if needed for Constipation. 20 Tablet 2024 Active multivitamin (MVI) tablet Take 1 Tablet by mouth once daily. 0 04/16 Discontinued( Pharmacist change per medication history (E-cancel not sent)) calcium citrate-vitamin D3 500 mg-12.5 mcg /5 gram powd Mix 1 Tablet in liquid then take by mouth once daily. 04/16 Discontinued( Pharmacist change per medication history (E-cancel not sent)) fluorometholone (FML) 0.1 % ophthalmic suspension Place 1 Drop into both eyes once daily if needed (irritation). 04/16 Discontinued( Pharmacist change per medication history (E-cancel not sent)) loteprednol (LOTEMAX) 0.5 % ophthalmic suspension Place 1 Drop into both eyes once daily. 04/16 Discontinued( Pharmacist change per medication history (E-cancel not sent)) triamcinolone (ARISTOCORT; KENALOG) 0.1 % cream Apply topically to affected area(s) 3 times daily. 80 g 04/16 Discontinued( Pharmacist change per medication history (E-cancel not sent)) acetaminophen (TYLENOL EXTRA STRGTH) 500 mg tablet Take 1 Tablet by mouth every 6 hours if needed for Pain. Max acetaminophen dose: 4000mg in 24 hrs. 0 04/16 Discontinued( Pharmacist change per medication history (E-cancel not sent)) diphenhydrAMINE-acetam inophen 25-500 mg (Tylenol PM Extra Strength) 25-500 mg tablet Take 1 Tablet by mouth at bedtime if needed (sleep). Max acetaminophen dose: 4000mg in 24 hrs. 0 04/16 Discontinued( Pharmacist change per medication history (E-cancel not sent)) aspirin (ECOTRIN) 81 mg enteric coated tablet Take 1 Tablet (81 mg) by mouth once daily with a meal. 04/16 Discontinued( Pharmacist change per medication history (E-cancel not sent)) rj-mrf-GM-vit R-uqofue-jliedye (PreserVision AREDS 2 Plus MV) 200 mcg-15 mcg- 5 mg-1 mg cap Take 1 Capsule by mouth two times daily. 04/16 Discontinued( Pharmacist change per medication history (E-cancel not sent)) ketoconazole 2% shampoo (NIZORAL) 2 % shampooIndications:Tin ea Place on affected areas once daily for 1 week. dampen skin prior to use and leave on for 5 minutes the rinse off. 120 mL 1 04/12 Discontinued( Pharmacist change per medication history (E-cancel not sent)) diclofenac topical (VOLTAREN) 1 % gelIndications:Complex regional pain syndrome type 1 affecting left upper arm Apply 2 g topically to affected area(s) four times daily. 200 g 1 04/16 Discontinued( Pharmacist change per medication history (E-cancel not sent)) metoprolol succinate 25 mg Sustained-Release tabletIndications:Irre gular heart beat TAKE 1 TABLET BY MOUTH EVERY DAY 90 Tablet 04/16 Discontinued( Pharmacist change per medication history (E-cancel not sent)) rosuvastatin (CRESTOR) 5 mg tabletIndications:Fami lial hypercholesterolemia TAKE 1 TABLET (5 MG) BY MOUTH ONCE DAILY WITH EVENING MEAL. 90 Tablet 04/16 Discontinued( Pharmacist change per medication history (E-cancel not sent)) ketoconazole 2% shampoo (NIZORAL) 2 % shampoo Apply topically to affected area(s) each time if needed for Dry Scalp. Lather on damp scalp, leave on for 5min, then rinse with water. 04/16 Discontinued( Pharmacist change per medication history (E-cancel not sent)) oxyCODONE (ROXICODONE) 5 mg immediate release tabletIndications:Chol edocholithiasis Take 1 Tablet (5 mg) by mouth every 4 hours if needed (For moderate pain). 8 Tablet 04/18 Discontinued sennosides-docusate (SENOKOT S) (8.6-50 mg) tabletIndications:Chol edocholithiasis Take 1 Tablet by mouth 2 times daily if needed for Constipation. 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 Closed fracture of right low er extremity with routine healing 12/24/2020 Irregular heart beat 06/09/2012 Other and unspecified hyperlipidemia 06/09/2012 Encounters Date Type Department Care Team Description 04/14/2025 10:04 AM MORPHOLOGY TEACHER Anesthesia Event [address] [address] Juancarlos Gonzales, SELENE Brown, Jay Ken MD 04/14/2025 9:15 AM MORPHOLOGY TEACHER - 04/14/2025 11:44 AM MORPHOLOGY TEACHER Surgery [address] [address] Rafat Roberson MD ROBOTIC ASSISTED LAPAROSCOPIC CHOLECYSTECTOMY DV5 04/13/2025 12:54 PM MORPHOLOGY TEACHER Anesthesia Event [address] [address] Joshua Maria MD Tarum, Marie Jean Canto, MACHINE PACKER 04/13/2025 11:48 AM MORPHOLOGY TEACHER - 04/13/2025 1:05 PM MORPHOLOGY TEACHER Surgery [address] [address] Ivan Marroquin MD ENDOSCOPIC ULTRASOUND 04/12/2025 6:10 PM MORPHOLOGY TEACHER - 04/18/2025 9:48 AM MORPHOLOGY TEACHER Hospital Encounter [address] [address] [facility], Hospitalist Deidre Stokes MD Bernstein, MD Elmo Pantoja Lyudmila, MD Choledocholithiasis (Primary Dx) Discharge Disposition: Home Self Care 04/12/2025 Orders Only [facility] Scanner 1 scan: (1-Ord) [facility], MR ABDOMEN W/WO CON, 04/12/2025 04/12/2025 Travel 04/11/2025 Orders Only [facility] Scanner 1 scan: (1-Ord) [facility], CT ABDOMEN PELVIS W/ CON, 04/11/2025 04/11/2025 Orders Only [facility] Scanner 1 scan: (1-Ord) [facility], US ABDOMEN LIMITED, 04/11/2025 03/16/2025 Orders Only [facility] Scanner 1 scan: (1-Ord) [facility], XR KNEE BI 3V, 03/16/2025 03/16/2025 Orders Only [facility] Scanner 1 scan: (1-Ord) [place], CT HEAD/BRAIN WO CONTRAST, 03/16/2025 02/28/2025 Refill [facility] [address] [place] [address] Shayna Flores DO Refill Request (Sertraline) from Last 3 Months Immunizations Immunization Administration [...] 06/07/1970 Smokeless Tobacco: Never Tobacco Cessation:Counseling Given: Not Answered Alcohol Use Standard Drinks/Week Comments Yes 0 (1 standard drink = 0.6 oz pur e alcohol) 1 beer per month PHQ-2 Answer Date Recorded PHQ-2 TOTAL SCORE 3 09/06/2023 Social Connections Answer Date Recorded Do you often feel lonely or isolated from those around you? 0 04/12/2025 Financial Resource Strain Answer Date R ecorded Difficulty of Paying Living Expenses 3 04/12/2025 Difficulty of Paying Living Expenses Not on file 04/12/2025 Food Insecurity Answer Date Recorded Do you worry your food will run out before you are able to buy more? 1 04/12/2025 Transportation Needs Answer Date Record ed Does lack of transportation keep you from medica l appointments? 1 04/12/2025 Does lack of transportation keep you from work, meetings or getting things that you need? 1 04/12/2025 Housing Stability Answer Date Recorded What is your housing situation today? 1 04/12/2025 Interpersonal Safety Answer Date Record ed Are you being hit, kicked, p ushed or yelled at (see row info)? No 04/12/2025 Interpersonal Safety Abuse 12 - 18 Not on file 04/12/2025 Interpersonal Safety Ambulatory Vulnerability No t on file 04/12/2025 Utilities Answer Date Recorded Do you have trouble paying f or utilities (for example, heat, electricity, water, phone)? 1 04/12/2025 Comments No Sex and Gender Information Value Date Recorded Sex Assigned at Not on file Legal Sex Female 8:43 AM MORPHOLOGY TEACHER Gender Identity Not on file Sexual Orientation [...] Sign Reading Time Taken Comments Blood Pressure 143/78 04/18/2025 7:55 AM MORPHOLOGY TEACHER Pulse 87 04/18/2025 7:55 AM MORPHOLOGY TEACHER Temperature 36.7 C (98 F) 04/18/2025 7:55 AM MORPHOLOGY TEACHER Respiratory Rate 16 04/18/2025 7:55 AM MORPHOLOGY TEACHER Oxygen Saturation 97% 04/18/2025 7:55 AM MORPHOLOGY TEACHER Inhaled Oxygen Concentration - - Weight 47.5 kg (104 lb 11.5 oz) 04/17/2025 7:00 AM MORPHOLOGY TEACHER Height 149.9 cm (4' 11) 04/16/2025 9:00 AM MORPHOLOGY TEACHER Body Mass Index 21.15 04/16/2025 9:00 AM MORPHOLOGY TEACHER Plan of Treatment Health Maintenance Due Date [...] Additional history exists Influenza Vaccine (#1) 2025 , 03/26/2021, 03/27/2020 COVID-19 vaccine series ( season) 2025 03/23/2025, 03/13/2024, 03/26/2023, Additional history exists Pneumococcal series for age 50+ Completed 04/17/2015, 08/22/2008 Zoster (shingles) series for age 50+ Completed 01/18/2018, 10/28/2017, 08/30/2008 Hepatitis B series for 19+ Aged Out N o longer eligible based on patient's age to complete this topic Procedures Procedure Name Priority Date/Time Associated Diagnosis Comments POTASSIUM Early AM 04/18/2025 7:29 AM MORPHOLOGY TEACHER POTASSIUM Timed 04/17/2025 12:10 PM MORPHOLOGY TEACHER SCAN CORRESP-EKG RESULTS 04/17/2025 9:56 AM MORPHOLOGY TEACHER SCAN CORRESP-LABORATORY RESULTS 04/17/2025 9:48 AM MORPHOLOGY TEACHER SCAN CORRESP-IMAGING 04/17/2025 9:47 AM MORPHOLOGY TEACHER BASIC METABOLIC PANEL Early AM 04/17/2025 6:32 AM MORPHOLOGY TEACHER CBC W PLT NO DIFF Early AM 04/17/2025 6:3 1 AM MORPHOLOGY TEACHER POTASSIUM Timed 04/16/2025 7:18 PM MORPHOLOGY TEACHER LIPASE SUNNI 04/16/2025 7:10 AM MORPHOLOGY TEACHER MAGNESIUM SUNNI 04/16/2025 7:10 AM MORPHOLOGY TEACHER HEPATIC FUNCTION PANEL Early AM 7:10 AM MORPHOLOGY TEACHER SODIUM Early AM 04/16/2025 7:10 AM MORPHOLOGY TEACHER POTASSIUM Early AM 04/16/2025 7:10 AM MORPHOLOGY TEACHER CREATININE Early AM 04/16/2025 7:10 AM MORPHOLOGY TEACHER CO2,TOTAL Early AM 04/16/2025 7:10 AM MORPHOLOGY TEACHER WHITE BLOOD COUNT Early AM 04/16/2025 7:1 0 AM MORPHOLOGY TEACHER HEMOGLOBIN Early AM 04/16/2025 7:10 AM MORPHOLOGY TEACHER PLATELET COUNT Early AM 04/16/2025 7:10 AM MORPHOLOGY TEACHER PATH TISSUE EXAM Today 04/14/2025 11:1 8 AM MORPHOLOGY TEACHER EKG 12 LEAD STAT 04/14/2025 10:41 AM MORPHOLOGY TEACHER ENDOTRACHEAL TUBE Routine 04/14/2025 10: 40 AM MORPHOLOGY TEACHER ENDOTRACHEAL TUBE Routine 04/14/2025 10: 40 AM MORPHOLOGY TEACHER ENDOTRACHEAL TUBE Routine 04/14/2025 10: 40 AM MORPHOLOGY TEACHER ROBOTIC ASSISTED LAPAROSCOPIC CHOLECYSTECTOMY DV5 04/14/2025 9:49 AM MORPHOLOGY TEACHER Gallstone pancreatitis CBC W PLT NO DIFF Early AM 04/14/2025 6:4 9 AM MORPHOLOGY TEACHER HEPATIC FUNCTION PANEL Early AM 6:49 AM MORPHOLOGY TEACHER BASIC METABOLIC PANEL Early AM 04/14/2025 6:49 AM MORPHOLOGY TEACHER ENDOTRACHEAL TUBE Routine 04/13/2025 1:0 5 PM MORPHOLOGY TEACHER ENDOTRACHEAL TUBE Routine 04/13/2025 1:0 5 PM MORPHOLOGY TEACHER ENDOTRACHEAL TUBE Routine 04/13/2025 1:0 5 PM MORPHOLOGY TEACHER ENDOSCOPIC ULTRASOUND 04/13/2025 12:49 PM MORPHOLOGY TEACHER Gall bladder stones/pancreatitis ENDOSCOPY 04/13/2025 12:38 PM MORPHOLOGY TEACHER LIPASE Early AM 04/13/2025 6:57 AM MORPHOLOGY TEACHER BASIC METABOLIC PANEL Early AM 04/13/2025 6:57 AM MORPHOLOGY TEACHER CBC W PLT NO DIFF Early AM 04/13/2025 6:5 7 AM MORPHOLOGY TEACHER HEPATIC FUNCTION PANEL Early AM 6:57 AM MORPHOLOGY TEACHER SCAN-MRI INTERPRETATION 04/12/20 12:00 AM MORPHOLOGY TEACHER SCAN-CARDIAC STRIP 04/12/2025 12 :00 AM MORPHOLOGY TEACHER SCAN-CT INTERPRETATION 12:00 AM MORPHOLOGY TEACHER SCAN-ULTRASOUND REPORT 12:00 AM MORPHOLOGY TEACHER SCAN-RADIOLOGY REPORT 03/16/2025 12:00 AM CDT SCAN-CT INTERPRETATION 12:00 AM CDT from Last 3 Months Results * POTASSIUM (04/18/2025 7:29 AM MORPHOLOGY TEACHER) Only the most recent of4 resultswithin the time period is included. POTASSIUM 4.1 3.5 - 5.1 mmol/L 04/18/2025 8:07 AM MORPHOLOGY TEACHER [facility] Blood BLOOD SPECIMEN / Unknown Venipuncture / Unknown 04/18/2025 7:29 AM MORPHOLOGY TEACHER 04/18/2025 7:47 AM MORPHOLOGY TEACHER us Mahogany Borrego MD CHEMISTRY Final Resu lt [facility] SENDOUT INTERNAL ZIP [id number] [place] [phone] * SCAN CORRESP-EKG RESULTS (04/17/2025 9:56 AM MORPHOLOGY TEACHER) Narrative 04/17/2025 9:56 AM MORPHOLOGY TEACHER Ordered by an unspecified provider. us Other Clinical Staff OTHER Final Resul t * SCAN CORRESP-LABORATORY RESULTS (04/17/2025 9:48 AM MORPHOLOGY TEACHER) Narrative 04/17/2025 9:48 AM MORPHOLOGY TEACHER Ordered by an unspecified provider. us Other Clinical Staff OTHER Final Resul t * SCAN CORRESP-IMAGING (04/17/2025 9:47 AM MORPHOLOGY TEACHER) Anatomical Region Laterality Modality Other Narrative 04/17/2025 9:47 AM MORPHOLOGY TEACHER Ordered by an unspecified provider. us Other Clinical Staff OTHER Final Resul t * (ABNORMAL) BASIC METABOLIC PANEL (04/17/2025 6:32 AM MORPHOLOGY TEACHER) Only the most recent of3 resultswithin the time period is included. SODIUM 133(L) 136 - 145 mmol/L 04/17/2025 7:35 AM [facility] POTASSIUM 4.1 3.5 - 5.1 mmol/L 04/17/2025 7:35 AM [facility] CHLORIDE 102 98 - 107 mmol/L 04/17/2025 7:35 AM [facility] CO2,TOTAL 25 22 - 29 mmol/L 04/17/2025 7:35 AM [facility] ANION GAP 6 5 - 18 04/17/2025 7:35 AM [facility] GLUCOSE 149(H) 70 - 99 mg/dL 04/17/2025 7:35 AM [facility] CALCIUM 9.0 8.8 - 10.4 mg/dL 04/17/2025 7:35 AM [facility] Comment: Reference ranges for this test were updated on 04/11/2024 to reflect our healthy population more accurately. Reference range changes are not retroactively applied to results, but previous results using the same methodology can be interpreted in the context of the new reference range. BUN 2(L) 8 - 23 mg/dL 04/17/2025 7:35 AM [facility] CREATININE 0.22(L) 0.50 - 0.90 mg/dL 04/17/2025 7:35 AM [facility] BUN/CREAT RATIO 9(L) 10 - 20 7:35 AM [facility] eGFR >90 >90 mL/min/1. 73m2 04/17/2025 7:35 AM [facility] Comment:As of 2021, eG FR is calculated by the CKD-EPI creatinine equation without race adjustment. eGFR can be influenced by muscle mass, exercise, and diet. The reported eGFR is an estimation only and is only applicable if the renal function is stable. Blood BLOOD SPECIMEN / Unknown Venipuncture / Unknown 04/17/2025 6:32 AM MORPHOLOGY TEACHER 04/17/2025 6:58 AM MORPHOLOGY TEACHER us Mahogany Borrego MD CHEMISTRY Final Resu lt [facility] SENDOUT INTERNAL [facility] [id number] [place] [phone] * (ABNORMAL) CBC W PLT NO DIFF (04/17/2025 6:31 AM MORPHOLOGY TEACHER) Only the most recent of3 resultswithin the time period is included. WHITE BLOOD COUNT 3.0(L) 4.5 - 11.0 thou/cu mm 04/17/2025 7:04 AM [facility] RED BLOOD COUNT 3.71(L) 4.00 - 5.20 mil/cu mm 04/17/2025 7:04 AM [facility] HEMOGLOBIN 11.6(L) 12.0 - 16.0 g/dL 04/17/2025 7:04 AM [facility] HEMATOCRIT 34.0 33.0 - 51.0 % 04/17/2025 7:04 AM [facility] MCV 92 80 - 100 fL 04/17/2025 7:04 AM [facility] MCH 31.3 26.0 - 34.0 pg 04/17/2025 7:04 AM [facility] MCHC 34.1 32.0 - 36.0 g/dL 04/17/2025 7:04 AM [facility] RDW 13.5 11.5 - 15.5 % 04/17/2025 7:04 AM [facility] PLATELET COUNT 249 140 - 440 thou/cu mm 04/17/2025 7:04 AM [facility] MPV 9.3 6.5 - 11.0 fL 04/17/2025 7:04 AM [facility] NRBC 0.0 % 04/17/2025 7:04 AM [facility] ABS NRBC 0.0 thou /cu mm 04/17/2025 7:04 AM [facility] Blood BLOOD SPECIMEN / Unknown Venipuncture / Unknown 04/17/2025 6:31 AM MORPHOLOGY TEACHER 04/17/2025 6:58 AM MORPHOLOGY TEACHER us Mahogany Borrego MD HEMATOLOGY Final Resu lt Performing Organization Address City/[facility]/ZIP Co de Phone Number [facility] SENDOUT INTERNAL ZIP [id number] [place] [phone] * PLATELET COUNT (04/16/2025 7:10 AM MORPHOLOGY TEACHER) PLATELET COUNT 244 140 - 440 thou/cu mm 04/16/2025 7:29 AM [facility] MPV 8.7 6.5 - 11.0 fL 04/16/2025 7:29 AM [facility] Blood BLOOD SPECIMEN / Unknown Venipuncture / Unknown 04/16/2025 7:10 AM MORPHOLOGY TEACHER 04/16/2025 7:23 AM MORPHOLOGY TEACHER us Mahogany Borrego MD HEMATOLOGY Final Resu lt [facility] SENDOUT INTERNAL ZIP [address] [place] [address] * (ABNORMAL) WHITE BLOOD COUNT (04/16/2025 7:10 AM MORPHOLOGY TEACHER) WHITE BLOOD COUNT 2.9(L) 4.5 - 11.0 thou/cu mm 04/16/2025 7:29 AM MORPHOLOGY TEACHER [facility] NRBC 0.0 % 04/16/2025 7:29 AM MORPHOLOGY TEACHER [facility] ABS NRBC 0.0 thou /cu mm 04/16/2025 7:29 AM MORPHOLOGY TEACHER [facility] Blood BLOOD SPECIMEN / Unknown Venipuncture / Unknown 04/16/2025 7:10 AM MORPHOLOGY TEACHER 04/16/2025 7:23 AM MORPHOLOGY TEACHER Mahogany Borrego MD HEMATOLOGY Final Resu lt [facility] SENDOUT INTERNAL ZIP [id number] [place] [address] * (ABNORMAL) HEMOGLOBIN (04/16/2025 7:10 AM MORPHOLOGY TEACHER) HEMOGLOBIN 11.7(L) 12.0 - 16.0 g/dL 04/16/2025 7:29 AM MORPHOLOGY TEACHER [facility] MCV 91 80 - 100 fL 04/16/2025 7:29 AM MORPHOLOGY TEACHER [facility] Blood BLOOD SPECIMEN / Unknown Venipuncture / Unknown 04/16/2025 7:10 AM MORPHOLOGY TEACHER 04/16/2025 7:23 AM MORPHOLOGY TEACHER Mahogany Borrego MD HEMATOLOGY Final Resu lt [facility] SENDOUT INTERNAL ZIP [address] [place] [address] * SODIUM (04/16/2025 7:10 AM MORPHOLOGY TEACHER) SODIUM 136 136 - 145 mmol/L 04/16/2025 7:46 AM MORPHOLOGY TEACHER [facility] Blood BLOOD SPECIMEN / Unknown Venipuncture / Unknown 04/16/2025 7:10 AM MORPHOLOGY TEACHER 04/16/2025 7:23 AM MORPHOLOGY TEACHER Mahogany Borrego MD CHEMISTRY Final Resu lt [facility] SENDOUT INTERNAL ZIP [address] [place] [phone] * (ABNORMAL) CREATININE (04/16/2025 7:10 AM MORPHOLOGY TEACHER) eGFR >90 >90 mL/min/1.7 3m2 04/16/2025 7:46 AM MORPHOLOGY TEACHER [facility] Comment:As of 2021, eG FR is calculated by the CKD-EPI creatinine equation without race adjustment. eGFR can be influenced by muscle mass, exercise, and diet. The reported eGFR is an estimation only and is only applicable if the renal function is stable. CREATININE 0.25(L) 0.50 - 0.90 mg/dL 04/16/2025 7:46 AM MORPHOLOGY TEACHER [facility] Blood BLOOD SPECIMEN / Unknown Venipuncture / Unknown 04/16/2025 7:10 AM MORPHOLOGY TEACHER 04/16/2025 7:23 AM MORPHOLOGY TEACHER Mahogany Borrego MD CHEMISTRY Final Resu lt [facility] SENDOUT INTERNAL ZIP [phone] [place] [phone] * CO2,TOTAL (04/16/2025 7:10 AM MORPHOLOGY TEACHER) CO2,TOTAL 25 22 - 29 mmol/L 04/16/2025 7:46 AM MORPHOLOGY TEACHER [facility] Blood BLOOD SPECIMEN / Unknown Venipuncture / Unknown 04/16/2025 7:10 AM MORPHOLOGY TEACHER 04/16/2025 7:23 AM MORPHOLOGY TEACHER Mahogany Borrego MD CHEMISTRY Final Resu lt [facility] SENDOUT INTERNAL ZIP [address] [place] [phone] * MAGNESIUM (04/16/2025 7:10 AM MORPHOLOGY TEACHER) MAGNESIUM 1.6 1.6 - 2.4 mg/dL 04/16/2025 10:22 AM MORPHOLOGY TEACHER [facility] Blood BLOOD SPECIMEN / Unknown Venipuncture / Unknown 04/16/2025 7:10 AM MORPHOLOGY TEACHER 04/16/2025 7:23 AM MORPHOLOGY TEACHER Mahogany Borrego MD CHEMISTRY Final Resu lt Performing Organization Address City/[facility]/ZIP Co de Phone Number [facility] SENDOUT INTERNAL ZIP [phone] [place] [phone] * (ABNORMAL) LIPASE (04/16/2025 7:10 AM MORPHOLOGY TEACHER) Only the most recent of2 resultswithin the time period is included. LIPASE 71.5(H) 13.0 - 60.0 IU/L 04/16/2025 1:06 PM [facility] Blood BLOOD SPECIMEN / Unknown Venipuncture / Unknown 04/16/2025 7:10 AM MORPHOLOGY TEACHER 04/16/2025 7:23 AM MORPHOLOGY TEACHER Mahogany Borrego MD CHEMISTRY Final Resu lt [facility] SENDOUT INTERNAL ZIP [address] [place] [address] * (ABNORMAL) HEPATIC FUNCTION PANEL (04/16/2025 7:10 AM MORPHOLOGY TEACHER) Only the most recent of3 resultswithin the time period is included. ALBUMIN 3.5(L) 4.0 - 4.9 g/dL 04/16/2025 7:46 AM MORPHOLOGY TEACHER [facility] PROTEIN,TOTAL 6.5 6.0 - 8.0 g/dL 04/16/2025 7:46 AM MORPHOLOGY TEACHER [facility] BILIRUBIN,TOTAL 0.4 0.0 - 1.2 mg/dL 04/16/2025 7:46 AM MORPHOLOGY TEACHER [facility] BILIRUBIN,DIRECT 0.2 0.0 - 0.2 mg/dL 04/16/2025 7:46 AM MORPHOLOGY TEACHER [facility] BILIRUBIN,INDIRE CT 0.2 0.2 - 0.8 mg/dL 04/16/2025 7:46 AM MORPHOLOGY TEACHER [facility] ALK PHOSPHATASE 75 35 - 104 IU/L 04/16/2025 7:46 AM MORPHOLOGY TEACHER [facility] ALT (SGPT) 59(H) 10 - 35 IU/L 04/16/2025 7:46 AM [facility] AST (SGOT) 28 10 - 35 IU/L 04/16/2025 7:46 AM [facility] Blood BLOOD SPECIMEN / Unknown Venipuncture / Unknown 04/16/2025 7:10 AM MORPHOLOGY TEACHER 04/16/2025 7:23 AM [facility] us Mahogany Borrego MD CHEMISTRY Final Resu lt [facility] SENDOUT INTERNAL ZIP [address] [address] [place] [address] * PATH TISSUE EXAM (04/14/2025 11:18 AM [facility]) Case Report Pathology Report Case: [id number] Authorizing Provider: Rafat Roberson Collected: 04/14/2025 1118 MD Ed Ordering Location: [facility] Received: 04/16/2025 0728 Pathologist: Devendra Norris IV, MD Specimen: Gallbladder 04/17/2025 4:40 PM [facility] ENTRAL LABORATORY Final Diagnosis A) GALLBLADDER, CHOLECYSTECTOMY: 1. Chronic cholecystitis 2. Negative for cholelithiasis 3. Negative for dysplasia and malignancy 04/17/2025 4:40 PM [facility] ENTRAL LABORATORY at 1640 MORPHOLOGY TEACHER Clinical Information Ms. Davis is a 84 y.o. who undergoes cholecystectomy. 04/17/2025 4:40 PM [facility] LAB[facility] Gross Description A) Received fresh, labeled with the patient's name and gallbladder, is a 7.6 x 3.5 x 3.2 cm intact gallbladder. No discrete gallstones are identified. The gallbladder mucosa is green and velvety with no polyps or stippling. The average wall thickness is 0.2 cm. There is no abnormal wall thickening identified. No cystic duct lymph node is identified. Hand Alterations Tailor sections to include the cystic duct margin (en face, inked blue) and gallbladder wall (from fundus and neck) are submitted in one cassette. ADW 04/16/2025 04/17/2025 4:40 PM MORPHOLOGY TEACHER [facility] Microscopic Description The final diagnosis is based on microscopic examination of appropriate sections of all specimens. 04/17/2025 4:40 PM MORPHOLOGY TEACHER [facility] Additional Information Interpreted at [facility], Central Laboratory - [address] [facility] [address] [address] 04/17/2025 4:40 PM MORPHOLOGY TEACHER [facility] ENTRAL LABORATORY Tissue SPECIMEN FROM GALLBLADDER / Unknown 04/14/2025 11:18 AM MORPHOLOGY TEACHER 04/16/2025 7:28 AM MORPHOLOGY TEACHER Rafat Roberson MD PATHOLOGY/CYTOLOGY Final Result [facility] [address] [place] [address], [facility] SENDOUT INTERNAL ZIP [id number] [place] [id number] * EKG 12 LEAD (04/14/2025 10:41 AM MORPHOLOGY TEACHER) Interpretation Normal sinus rhythm with sinus arrhythmia Otherwise Normal ECG BEYOND NOW Ventricular Rate 61 BPM BEYOND NOW Atrial Rate 61 BPM BEYOND NOW P-R Interval 170 ms BEYOND NOW QRS Duration 78 ms BEYOND NOW QT 426 ms BEYOND NOW QTc 428 ms BEYOND NOW P [place] 55 degrees BEYOND NOW R [place] 10 degrees BEYOND NOW T [place] 29 degrees BEYOND NOW 04/14/2025 10:4 1 AM MORPHOLOGY TEACHER 04/14/2025 4:58 PM MORPHOLOGY TEACHER Hansel Hennessy MD EKG ORD Final Result BEYOND NOW [place], [place] * HCHG TUBE PR1, HCHG STYLET PR1, HCHG MOUTHPIECE PR1 (04/14/2025 10:40 AM MORPHOLOGY TEACHER) Narrative Juancarlos Gonzales CRNA - 04/14/2025 10:40 AM MORPHOLOGY TEACHER Juancarlos Gonzales CRNA 04/14/2025 10:40 AM Procedure: ETT Patient location during procedure: OR ETT Properties Mask Ventilation: easy Final Technique: direct laryngoscopy Type: straight Location: oral Cuffed: yes Tube Size: 7.0 mm Stylet: yes Laryngoscope Blade: Lima Blade Size: 2 Cormack-Lehane Grade View: 1 Insertion Attempts: 1 Placement Verification: auscultation and end tidal CO2 Assessment: pharynx clear, atraumatic and dentition unchanged Secured at: 21 Measured From: lips Tooth guard used and removed: yes Difficulty: 0 (not difficult) Juancarlos Gonzales MACHINE PACKER ANESTHESIA PX NOTE ORDERABL ES Final Result * HCHG TUBE PR1, HCHG STYLET PR1, HCHG MOUTHPIECE PR1 (04/13/2025 1:05 PM MORPHOLOGY TEACHER) Narrative Promise Lakhani, SELENE - 04/13/2025 1:05 PM MORPHOLOGY TEACHER Promise Lakhani, MACHINE PACKER 04/13/2025 1:05 PM Procedure: ETT Patient location during procedure: OR ETT Properties Mask Ventilation: easy Final Technique: direct laryngoscopy Type: straight Location: oral Cuffed: yes Tube Size: 7.0 mm Stylet: yes Laryngoscope Blade: Lima Blade Size: 2 Cormack-Lehane Grade View: 1 Insertion Attempts: 1 Placement Verification: auscultation, end tidal CO2 and symmetrical chest wall movement Assessment: pharynx clear, atraumatic and dentition unchanged Secured at: 21 Measured From: teeth Tooth guard used and removed: yes Difficulty: 0 (not difficult) Joshua Maria MD ANESTHESIA PX NOTE ORDERA BLES Final Result * ENDOSCOPY (04/13/2025 12:38 PM MORPHOLOGY TEACHER) 04/13/2025 12:3 8 PM MORPHOLOGY TEACHER Narrative Transcriptions Ivan Marroquin MD - 04/13/2025 1:30 PM CST Patient Name: Leandra Davis Procedure Date: 04/13/2025 Gender: Female Date of : 1940 Admit Type: Inpatient Procedure: Upper EUS Proceduralist: Ivan Marroquin MD - [facility] Indications/Pre-Op Diagnosis: Elevated liver enzymes, Suspected choledocholithiasis, Acute pancreatitis Medications: General Anesthesia Procedure Description: The patient had risks, benefits and alternatives explained to andgave informed consent. The patient had a stable cardiopulmonary status and judged an adequate candidate for conscious sedation. The endoscope [id number] was introduced through the mouth, and advanced to the third part of duodenum. The upper EUS wasaccomplished without difficulty. The patient tolerated the procedure well. Complications: No immediate complications. Estimated Blood Loss & Specimen: Estimated blood loss: none. Specimen collected: None Findings: ENDOSCOPIC FINDING: : The examined esophagus was endoscopically normal. The entire examined stomach was endoscopically normal. The duodenum was endoscopically normal save for a periampullary diverticulum. ENDOSONOGRAPHIC FINDING: : There was no sign of significant endosonographic abnormality in the ampulla. The common bile duct was normal, 6 mm in diameter. No stones or strictures seen. The gallbladder was full of hyperechoic sludge and shadowingstones. The visualized liver was endosonographically normal. The pancreas duct measured 3 mm at the head, 2 mm at the body, tail. Patent major and minor ducts. The parenchyma was unremarkable savefor mild edema. No lymphadenopathy. Impressions/Post-Op Diagnosis: Gallbladder stones. No common bile duct stone. Periampullary diverticulum. Gallstone pancreatitis with passed common bile duct stone. Recommendation: - [facility]. - Clear liquid diet today. - Follow symptoms and LFTs. - Cholecystectomy, timing per general surgery service. Ivan Marroquin MD 04/13/2025 1:30:11 PM This report has been signed electronically. Note Initiated On: 04/13/2025 12:38 PM Total Procedure Duration Time 0 hours 9 minutes 18 seconds us Ivan Marroquin MD PROCEDURE ORD Hayley l Result * SCAN-CARDIAC STRIP (04/12/2025 12:00 AM MORPHOLOGY TEACHER) Narrative 04/12/2025 12:00 AM MORPHOLOGY TEACHER Ordered by an unspecified provider. us Other Clinical Staff OTHER Final Resul t * SCAN-MRI INTERPRETATION (04/12/2025 12:00 AM MORPHOLOGY TEACHER) Anatomical Region Laterality Modality Other us Scanner OTHER Final Result * SCAN-ULTRASOUND REPORT (04/11/2025 12:00 AM MORPHOLOGY TEACHER) Anatomical Region Laterality Modality Other us Scanner OTHER Final Result * SCAN-CT INTERPRETATION (04/11/2025 12:00 AM MORPHOLOGY TEACHER) Only the most recent of2 resultswithin the time period is included. Anatomical Region Laterality Modality Other us Scanner OTHER Final Result * SCAN-RADIOLOGY REPORT (03/16/2025 12:00 AM CDT) Anatomical Region Laterality Modality Other us Scanner OTHER Final Result from Last 3 Months Insurance MEDICARE [place] ONLY BLUE [place] MEDICARE PART B HB ONLY MEDICARE PART A HB ONLY MEDICARE [place] [address] Advance Directives Documents on File Type Date Recorded Patient Hand Alterations Tailor Expl anation POLST 12/07/2023 12:48 PM 12/06/2023 * Full Code (Latest Code Status on File) Date Activated Date Inactivated Comments 04/12/2025 6:43 PM 04/18/2025 11:53 AM Question Answer Comments Code Status Discussion: Reviewed Preferences Care Teams Automated Equipment Engineer Technician Relationship Specialty Start Date End Date Pcp, No . PCP - General 01/16/25
--- NOTE | 2025-05-08 15:47 | ED.ABDPAIN ---
HPI - Abdominal Pain General Chief Complaint: Abdominal Pain Stated Complaint: abdominal pain Time Seen by Provider: 05/08/25 15:36 History of Present Illness HPI narrative: This 84-year-old female comes in by ambulance because of sudden onset of right-sided abdominal pain. She states that she was lifting something that was not very heavy and it was during this maneuver that she began to have this pain that she describes. She did have a cholecystectomy about a month ago and states that she has recovered normally from that and has been doing well until this episode today. She does not report any fevers. She has normal bowel and urine function. Related Data Home Medications ?Medication ?Instructions ?Recorded ?Confirmed sertraline 50 mg tablet 50 mg PO DAILY 12/01/23 05/08/25 metoprolol tartrate 25 mg tablet 25 mg PO DAILY 02/06/25 05/08/25 acetaminophen 500 mg tablet 1,000 mg PO TID PRN 05/08/25 05/08/25 omeprazole 20 mg capsule,delayed 20 mg PO DAILY 05/08/25 05/08/25 release Allergies Allergy/AdvReac Type Severity Reaction Status Date / Time No Known Drug Allergies Allergy Verified 05/08/25 15:49 Review of Systems Status of ROS Reports: 10 or more systems reviewed and unremarkable except as noted in History and below Narrative Constitutional: No fevers, no weight gain or loss. Eyes: No discharge. No vision changes. HENT: No congestion, no sore throat, no ear pain. Cardiovascular: No chest pain, no palpitations. Respiratory: No shortness of breath, no wheezes, no cough. Gastrointestinal: No vomiting, no diarrhea. Right-sided abdominal pain as described above. Genitourinary: No dysuria, no hematuria. Musculoskeletal: Normal range of motion. Skin: No rashes, no pruritis. Neurological: No dizziness, weakness, sensory change, speech change. Endo/Heme/Allergies: No bruising or bleeding. No polydipsia. Pysch: no suicidality, no anxiety, no insomnia. All other systems reviewed and are negative. [facility] Medical History (Updated 05/08/25 @ 17:45 by Nico Maddox MD) Hx of multiple trauma ?Z87.828 - Personal history of other (healed) physical injury and trauma (ICD-10) Closed fracture of left proximal tibia ?S82.102A - Unspecified fracture of upper end of left tibia, initial encounter for closed fracture (ICD-10) Fracture of right tibial tuberosity ?S82.151A - Displaced fracture of right tibial tuberosity, initial encounter for closed fracture (ICD-10) Right fibular fracture ?S82.401A - Unspecified fracture of shaft of right fibula, initial encounter for closed fracture (ICD-10) Hyponatremia ?E87.1 - Hypo-osmolality and hyponatremia (ICD-10) Distal radius fracture, left ?S52.502A - Unspecified fracture of the lower end of left radius, initial encounter for closed fracture (ICD-10) Fracture of fifth metatarsal bone of left foot ?S92.352A - Displaced fracture of fifth metatarsal bone, left foot, initial encounter for closed fracture (ICD-10) 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) ?M33.20 - Polymyositis, organ involvement unspecified (ICD-10) Other and unspecified hyperlipidemia (06/09/12) ?E78.5 - Hyperlipidemia, unspecified (ICD-10) Myopathy (06/17/22) ?G72.9 - Myopathy, unspecified (ICD-10) Irregular heart beat (06/09/12) ?I49.9 - Cardiac arrhythmia, unspecified (ICD-10) 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 - Inclusion body myositis [IBM] (ICD-10) Muscle weakness (04/21/22) ?M62.81 - Muscle weakness (generalized) (ICD-10) Gait difficulty (09/10/22) ?R26.9 - Unspecified abnormalities of gait and mobility (ICD-10) Closed fracture of right lower extremity with routine healing (12/24/20) ?S82.91XD - Unspecified fracture of right lower leg, subsequent encounter for closed fracture with routine healing (ICD-10) Other and unspecified hyperlipidemia (06/09/12) ?E78.5 - Hyperlipidemia, unspecified (ICD-10) 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 - Inclusion body myositis [IBM] (ICD-10) 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) ?M33.20 - Polymyositis, organ involvement unspecified (ICD-10) Irregular heart beat (06/09/12) ?I49.9 - Cardiac arrhythmia, unspecified (ICD-10) Elevated LFTs ?R79.89 - Other specified abnormal findings of blood chemistry (ICD-10) 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] (ICD-10) Left shoulder pain ?M25.512 - Pain in left shoulder (ICD-10) Greater trochanteric bursitis of right hip ?M70.61 - Trochanteric bursitis, right hip (ICD-10) Maisonneuve fracture of right lower extremity ?S82.861A - Displaced Maisonneuve's fracture of right leg, initial encounter for closed fracture (ICD-10) Osteoporosis ?M81.0 - Age-related osteoporosis without current pathological fracture (ICD-10) Hyperlipidemia ?E78.5 - Hyperlipidemia, unspecified (ICD-10) Myopathy ?G72.9 - Myopathy, unspecified (ICD-10) Hypertension ?I10 - Essential (primary) hypertension (ICD-10) Surgical History 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 Currently at [facility]. 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 Her sister is healthcare power of workers compensation attorney. Her code status is full. She is a former smoker. She rarely drinks alcohol. No recreational drug use. Two living adult children (one in [place], one in [place]). What is your current living situation?: I presently have a place to live Problems where you live: no known problems Problems where you live details: na In the past 12 months, utilities in danger of being shut off: no In past 12 months, lack of transportation kept you from medical appts, meetings, work, or getting things needed for daily living: no In the past 12 mos, have been you worried that your food would run out before you had money to buy more?: never true In the past 12 mos, the food you bought just didn't last and you didn't have money to buy more?: never true Highest level of school completed/degree received: high school graduate Smoking Status: Former smoker What tobacco products do you use: cigarettes Smoking quit date/years: >15 years ago Do you use any of these nicotine containing products: None Second hand tobacco smoke exposure: No How often do you have a drink containing alcohol: never How often do you have six or more drinks on one occasion: Never AUDIT-C Alcohol total score: 0 Non-prescribed substance use: denies use Caffeine: Yes How often does anyone, including family, friends and others, physically hurt you: never How often does anyone, including family, friends and others, insult or talk down to you: never How often does anyone, including family, friends and others, threaten you with harm: never How often does anyone, including family, friends and others, scream or curse at you: never service: No Exam Narrative: Exam Narrative: Constitutional: Well-developed, well-nourished, no acute distress. HEENT: Normocephalic, atraumatic. Neck: Normal range of motion. Nontender. Supple. Heart: Regular. No murmurs. Normal rate. Intact distal pulses. Lungs: Clear to auscultation. No chest discomfort. No wheezes, rhonchi, or rales. No pain when palpating over her ribs. Abdomen: Normal bowel sounds. Tenderness when palpating in the right abdomen. No rebound tenderness. Genitalia: Deferred. Back: No midline tenderness. Normal range of motion. Extremities: Normal range of motion. No injury. Skin: Intact. No rash. Warm. No erythema or pallor. Neurologic: No altered sensation. No weakness. Alert and oriented. Psychiatric: No suicidality. No anxiety or depression. No insomnia. Nursing notes and vitals signs are reviewed. Const: Vital Signs, click to edit/add: Vital Signs - 24 hr 05/08/25 15:29 05/08/25 15:34 05/08/25 15:35 Temperature 98.6 F Pulse Rate 69 71 Pulse Rate [Pulse Oximeter] 75 Respiratory Rate 22 Blood Pressure 160/75 H Blood Pressure [Ri ght Upper Arm] 164/50 H Pulse Oximetry 96 99 Oxygen Delivery Me thod Room Air 05/08/25 16:00 05/08/25 16:04 05/08/25 16:30 Temperature Pulse Rate 70 77 69 Pulse Rate [Pulse Oximeter] Respiratory Rate Blood Pressure 163/108 H Blood Pressure [Ri ght Upper Arm] Pulse Oximetry 90 93 97 Oxygen Delivery Me thod 05/08/25 16:32 Temperature Pulse Rate 63 Pulse Rate [Pulse Oximeter] Respiratory Rate Blood Pressure 161/95 H Blood Pressure [Ri ght Upper Arm] Pulse Oximetry 98 Oxygen Delivery Me thod Course Vital Signs Vital signs: Initial Vital Signs Temperature 98.6 F 05/08/25 15:29 Temperature Source Temporal Artery Scan 05/08/25 15:29 Pulse Rate 75 05/08/25 15:29 Respiratory Rate 22 05/08/25 15:29 Blood Pressure 164/50 H 05/08/25 15:29 Blood Pressure Mean 88 05/08/25 15:29 Blood Pressure Position High-Fowlers 05/08/25 15:29 Pulse Oximetry 96 05/08/25 15:29 Oxygen Delivery Method Room Air 05/08/25 15:29 Vital Signs Temperature 98.6 F 05/08/25 15:29 Pulse Rate 75 05/08/25 15:29 Respiratory Rate 22 05/08/25 15:29 Blood Pressure 164/50 H 05/08/25 15:29 Pulse Oximetry 96 05/08/25 15:29 Oxygen Delivery Method Room Air 05/08/25 15:29 Temperature 98.6 F 05/08/25 15:29 Pulse Rate 63 05/08/25 16:32 Respiratory Rate 22 05/08/25 15:29 Blood Pressure 161/95 H 05/08/25 16:32 Pulse Oximetry 98 05/08/25 16:32 Oxygen Delivery Method Room Air 05/08/25 15:29 MDM - Abdominal Pain MDM Narrative Medical decision making narrative: This patient comes in reporting pain in her right abdomen as described above. She does not have any rebound tenderness and has normal bowel sounds. She arrives here with reassuring vital signs. I did establish an IV with the possibility of doing a CT scan. Labs are acquired and these returned with reassuring results. Meanwhile the patient did have a large bowel movement and her pain completely resolved. She feels okay to go home. Lab Data Labs: Lab Results 05/08/25 Range/Units 16:00 WBC 4.33 L (4.50-11.00) K/uL RBC 3.91 L (4.00-5.20) m/uL Hgb 12.1 (12.0-16.0) gm/dL Hct 36.3 (33.0-51.0) % MCV 93 (80-100) fL MCH 31 (26-34) pg MCHC 33 (32-36) gm/dL RDW Coeff of Jos 13.8 (11.5-15.5) % Plt Count 334 (140-440) K/uL Neut % (Auto) 57.4 (42.0-72.0) % Lymph % (Auto) 29.1 (20-44) % [place] % (Auto) 8.8 (0.0-11.0) % Eos % (Auto) 3.5 (0.0-7.0) % Baso % (Auto) 0.7 (0.0-3.0) % Neut # (Auto) 2.50 (1.7-7.0) K/uL Lymph # (Auto) 1.30 (0.90-2.90) K/uL [place] # (Auto) 0.40 (0.00-0.90) K/UL Eos # (Auto) 0.20 (0.00-0.50) K/uL Baso # (Auto) 0.00 (0.00-0.30) K/uL Abs Immat Gran (auto) 0.00 (0.00-0.30) K/uL Imm/Tot Granulo (auto) 0.5 % Sodium 130 L (135-149) mmol/L Potassium 4.1 (3.6-5.1) mmol/L Chloride 95 L (96-114) mmol/L Carbon Dioxide 26 (20-32) mmol/L Anion Gap 9 (7-15) mEq/L BUN 14 (7-30) mg/dL Creatinine 0.4 L (0.5-1.5) mg/dL Estimated GFR 98 ml/min Glucose 110 (60-115) mg/dL Calcium 8.9 (8.4-10.6) mg/dL Total Bilirubin 0.6 (0.1-1.5) mg/dL Direct Bilirubin 0.2 (0.0-0.5) mg/dL AST 26 (12-35) U/L ALT 19 (4-35) U/L Alkaline Phosphatase 71 (40-150) U/L Total Protein 6.4 (6.0-8.3) g/dL Albumin 3.8 (3.3-5.0) g/dL Lipase 297 (23-300) U/L Discharge Plan Discharge Clinical Impression: Abdominal pain Patient Disposition: Home, Self-Care Condition: Improved Additional Instructions: Continue current plans. Follow up with MD as needed or return if worsening. Prescriptions: No Action metoprolol tartrate 25 mg tablet 25 mg PO DAILY acetaminophen 500 mg tablet 1,000 mg PO TID PRN Rx Instructions: Take 1 Tablet by mouth every 6 hours if needed for Pain. Max acetaminophen dose: 4000mg in 24 hrs. omeprazole 20 mg capsule,delayed release(DR/EC) 20 mg PO DAILY sertraline 50 mg tablet 50 mg PO DAILY Follow Up/Referrals: Shayna Flores DO [Primary Care Provider, Family Practice] Stand Alone Forms: [employer] Info Instructions
[2025-05-08 16:23] LABS: Hematocrit* 36.3 % (33.0-51.0); Hemoglobin* 12.1 gm/dL (12.0-16.0); Immature Granulocytes Pct Auto 0.5 %; Mean Corpuscular HGB Conc 33 gm/dL (32-36); Mean Corpuscular Hemoglobin 31 pg (26-34); Mean Corpuscular Volume 93 fL (80-100); RDW Coefficient of Variation % 13.8 % (11.5-15.5); Red Blood Count* 3.91 m/uL (4.00-5.20); White Blood Count* 4.33 K/uL (4.50-11.00)
[2025-05-08 16:24] LABS: Albumin* 3.8 g/dL (3.3-5.0); Chloride* 95 mmol/L (96-114); Potassium* 4.1 mmol/L (3.6-5.1); Sodium* 130 mmol/L (135-149)
[2025-05-08 16:27] LABS: Alanine Aminotransferase* 19 U/L (4-35); Alkaline Phosphatase* 71 U/L (40-150); Anion Gap 9 mEq/L (7-15); Aspartate Amino Transferase* 26 U/L (12-35); Bilirubin Direct* 0.2 mg/dL (0.0-0.5); Bilirubin Total* 0.6 mg/dL (0.1-1.5); Blood Urea Nitrogen* 14 mg/dL (7-30); Calcium* 8.9 mg/dL (8.4-10.6); Carbon Dioxide* 26 mmol/L (20-32); Creatinine* 0.4 mg/dL (0.5-1.5); Estimated Glomerular Filt Rate 98 ml/min; Glucose* 110 mg/dL (60-115); Immature Granulocytes Abs Auto 0.00 K/uL (0.00-0.30); Lymphocytes Absolute Auto 1.30 K/uL (0.90-2.90); Total Protein* 6.4 g/dL (6.0-8.3)
[2025-05-08 16:28] LABS: Slide Review Reflex No
== END 2025-05-08 20:00 | disposition home or self-care (01) ==
PROVIDERS: Emergency Provider Emergency Medicine Emergency Medical Services; PCP Family Medicine
DX: R10.9 Unspecified abdominal pain (principal); X50.0XXA Overexertion from strenuous movement or load, initial encounter
CPT/HCPCS: 36415; 80048; 80076; 83690; 85025; 99283; 99284

== ENCOUNTER 2025-05-08 19:51 | Outpatient (CLI) | payer MEDICARE, BC, SELFPAY | END 2025-05-08 19:52 | disposition home or self-care (01) | PROVIDERS: PCP Family Medicine; Visit Provider Emergency Medicine Emergency Medical Services | DX: R10.9 Unspecified abdominal pain (principal) | CPT/HCPCS: A0425; A0428 ==